=== PATIENT | male | born 1980 | race Caucasian/White ===

== ENCOUNTER 2020-02-14 08:50 | Inpatient (IN) | payer BC, OTHER ==
[2020-02-14] MEDS ORDERED: HYDROmorphone 1 MG/ML Syringe IVPUSH ONE ×3 (09:57→14:58)
[2020-02-14] MEDS ORDERED: Metoclopramide 10 MG/2 ML SDV IVPUSH ONE ×2 (09:57→14:59)
[2020-02-14] MEDS ORDERED: Dextrose 5%-0.9% NaCl 1,000 ML IV SCH (10:00)
--- NOTE | 2020-02-14 10:00 | EDM.PDOC ---
ED HPI GENERAL MEDICAL PROBLEM - General Chief Complaint: Abdominal Pain Stated Complaint: ABDOMINAL PAIN Time Seen by Provider: 02/14/20 09:56 Source of Information: Reports: Patient History Limitations: Reports: No Limitations - History of Present Illness INITIAL COMMENTS - FREE TEXT/NARRATIVE: 39-year-old male presents to the ED with acute onset of severe upper abdominal pain mostly in the epigastrium but spreads across both left and right upper quadrants and into his back as well. Feels it mostly between his shoulder blades. Patient has a history of pancreatitis at least twice in the past and perhaps 3 times. He does not drink any alcohol. First occurrence of pancreatitis was approximately 6 months ago. Last attack was about 2 months ago. He has seen Dr. Sanchez --[employer] senior sergeant [facility] in [place] and had an upper GI possibly with no positive findings. He has had a HIDA scan of his gallbladder which apparently is normal. He can remember having an ultrasound of his gallbladder. He takes no home medications that could cause pancreatitis. It is unclear whether he has been investigated for hypercalcemia and/or hypertriglyceridemia as a potential cause. Patient is having some dry heaves but has no vomiting. He did not eat at all this morning. Does use Pepcid AC fairly often. Onset: Today, Sudden Onset Date: 02/14/20 Onset Time: 06:00 Duration: Hour(s):, Getting Worse Location: Reports: Abdomen (Abdominal pain epigastrium radiating across both upper and left) Quality: Reports: Ache ( upper quadrants. Constant aching pain) Severity: Severe (which he describes as severe) Improves with: Reports: None Worsens with: Reports: None ( 9 out of 10) Context: Denies: Activity, Exercise, Lifting, Sick Contact, Trauma, Other Associated Symptoms: Reports: Nausea/Vomiting, Shortness of Breath, Weakness. Denies: Confusion, Rash, Seizure (Nausea without vomiting), Syncope (Cannot take a full deep breath as it makes the pain worse.) Treatments SHANK THREADER: Reports: Other (see below) (None.) Upper Abdominal Pain Score (Numeric/FACES): 8 - Related Data Allergies Allergy/AdvReac Type Severity Reaction Status Date / Time amoxicillin Allergy Hives Verified 01/18/19 12:23 Home Meds: Home Meds . [No Known Home Meds] 01/18/19 [History] Past Medical History Gastrointestinal History: Reports: Pancreatitis (First bout of pancreatitis was at age 11 years. He had a bout of pancreatitis while in [place] 6 months ago. Second bout of pancreatitis 3 weeks ago. Third bout again today.) Other Gastrointestinal History: Patient states that he was hospitalized at age 11 years of age for a bout of pancreatitis. He was hospitalized for a month and spent another month at home recovering after 20 pound weight loss. Etiology was never elucidated but likely was viral. - Infectious Disease History Infectious Disease History: Reports: Mononucleosis - Past Surgical History HEENT Surgical History: Reports: Adenoidectomy, Oral Surgery, Tonsillectomy GI Surgical History: Reports: Appendectomy Social & Family History - Tobacco Use Smoking Status *Q: Never Smoker - Caffeine Use Caffeine Use: Reports: Coffee - Recreational Drug Use Recreational Drug Use: No - Living Situation & Occupation Living situation: Reports: Occupation: Employed ED ROS GENERAL - Review of Systems Review Of Systems: See Below Constitutional: Reports: Weakness, Fatigue, Decreased Appetite. Denies: Fever, Chills, Malaise HEENT: Reports: No Symptoms Respiratory: Reports: No Symptoms Cardiovascular: Reports: No Symptoms Endocrine: Reports: No Symptoms GI/Abdominal: Reports: Abdominal Pain (Present illness) : Reports: No Symptoms Musculoskeletal: Reports: No Symptoms Skin: Reports: No Symptoms Neurological: Reports: No Symptoms Psychiatric: Reports: No Symptoms Hematologic/Lymphatic: Reports: No Symptoms Immunologic: Reports: No Symptoms ED EXAM, GI/ABD - Physical Exam Exam: See Below Exam Limited By: No Limitations General Appearance: Alert, WD/WN, Moderate Distress, Other (Temperature is 36.2 . Rate is 89. Respiratory is 20 with O2 sats of 99% room air. BP 136/94. And is writhing in pain on the bed at the time of exam.) Eyes: Bilateral: Normal Appearance (No scleral icterus no blepharal pallor.) Throat/Mouth: Normal Inspection, Normal Lips, Normal Oropharynx, Other Head: Atraumatic, Normocephalic (Is mildly dry and coated.) Neck: Normal Inspection, Supple, Non-Tender, Full Range of Motion. No: Lymphadenopathy (L) Respiratory/Chest: Lungs Clear, Normal Breath Sounds, No Accessory Muscle Use, Respiratory Distress (Mild tachypnea with some splinting due to deep breathing making the abdominal pain worse.). No: Decreased Breath Sounds, Crackles, Rales, Rhonchi, Wheezing Cardiovascular: Normal Peripheral Pulses, Regular Rate, Rhythm, No Edema, No Gallop, No Murmur, No Rub GI/Abdominal Exam: Soft, No Organomegaly, No Distention, Pelvis Stable, Tender (Tenderness in the epigastrium on deep palpation.), Abnormal Bowel Sounds (No bowel sounds present in all 4 quadrants by ileus). No: Normal Bowel Sounds, Distended (Male) Exam: No Hernia Back Exam: Normal Inspection, Full Range of Motion. No: CVA Tenderness (L), CVA Tenderness (R) Extremities: Normal Inspection, Normal Range of Motion, Non-Tender, No Pedal Edema Neurological: Alert, Oriented, CN II-XII Intact, Normal Cognition, Normal Gait Psychiatric: Normal Affect, Anxious, Other Skin Exam: Warm, Dry, Intact, Normal Color, No Rash EKG INTERPRETATION EKG Date: 02/14/20 Time: 10:11 Rhythm: NSR Rate (Beats/Min): 78 Brant: Normal P-Wave: Present QRS: Other (Waves V1 and V2. Consider old anteroseptal myocardial infarction however this is unlikely due to the patient's age.) ST-T: Other (T wave flattening aVL nonspecific finding) QT: Normal EKG Interpretation Comments: Abnormal ECG Course - Vital Signs Last Recorded V/S: Last Vital Signs Temp 36.2 C 02/14/20 13:00 Pulse 66 02/14/20 13:00 Resp 18 02/14/20 13:00 BP 125/84 02/14/20 13:00 Pulse Ox 100 02/14/20 13:00 - Orders/Labs/Meds Orders: Active Orders 24 hr Category Date Time Status EKG Documentation Completion [RC] STAT Care 02/14/20 09:59 Active Dextrose 5%-0.9% NaCl [Dextrose 5%-Normal Saline] 1,000 Med 02/14/20 10:00 Active ml IV ASDIRECTED Sodium Chloride 0.9% [Normal Saline] 100 ml Med 02/14/20 10:15 Active IV ASDIRECTED Sodium Chloride 0.9% [Saline Flush] Med 02/14/20 10:12 Active 10 ml FLUSH ONETIME PRN Medication Orders Dextrose/Sodium Chloride (Dextrose 5%-Normal Saline) 1,000 mls @ 150 mls/hr IV ASDIRECTED SHANICE Last Admin: 02/14/20 10:09 Dose: 150 mls/hr Documented by: BELKIS Sodium Chloride (Normal Saline) 100 mls @ 75 mls/hr IV ASDIRECTED SHANICE Last Admin: 02/14/20 10:31 Dose: 75 mls/hr Documented by: IVONNE Sodium Chloride (Saline Flush) 10 ml FLUSH ONETIME PRN PRN Reason: IV FLUSH Last Admin: 02/14/20 10:31 Dose: 10 ml Documented by: IVONNE Labs: Laboratory Tests 02/14/20 02/14/20 02/14/20 Range/Units 09:20 09:20 09:24 WBC 8.49 (4.23-9.07) K/mm3 RBC 6.18 H (4.63-6.08) M/mm3 Hgb 17.2 (13.7-17.5) gm/dl Hct 52.2 H (40.1-51.0) % MCV 84.5 (79.0-92.2) fl MCH 27.8 (25.7-32.2) pg MCHC 33.0 (32.2-35.5) g/dl RDW Std Deviation 46.0 H (35.1-43.9) fL Plt Count 174 (163-337) K/mm3 MPV 11.1 (9.4-12.3) fl Neutrophils % (Manual) 46 (40-60) % Band Neutrophils % 0 (0-10) % Lymphocytes % (Manual) 34 (20-40) % Atypical Lymphs % 0 % Monocytes % (Manual) 15 H (2-10) % Eosinophils % (Manual) 4 (0.8-7.0) % Basophils % (Manual) 1 (0.2-1.2) Toxic Granulation 1+ slight Platelet Estimate Adequate Plt Morphology Comment Normal RBC Morph Comment Normal Sodium 140 (136-145) mEq/L Potassium 3.8 (3.5-5.1) mEq/L Chloride 102 (98-107) mEq/L Carbon Dioxide 26 (21-32) mEq/L Anion Gap 15.8 H (5-15) BUN 12 (7-18) mg/dL Creatinine 1.2 (0.7-1.3) mg/dL Est Cr Clr Drug Dosing 92.51 mL/min Estimated GFR (MDRD) > 60 (>60) mL/min BUN/Creatinine Ratio 10.0 L (14-18) Glucose 92 (74-106) mg/dL Calcium 9.7 (8.5-10.1) mg/dL Magnesium 2.3 (1.8-2.4) mg/dl Total Bilirubin 0.7 (0.2-1.0) mg/dL AST 24 (15-37) U/L ALT 58 (16-63) U/L Alkaline Phosphatase 90 (46-116) U/L C-Reactive Protein 0.3 (<1.0) mg/dL Total Protein 8.8 H (6.4-8.2) g/dl Albumin 4.9 (3.4-5.0) g/dl Globulin 3.9 gm/dL Albumin/Globulin Ratio 1.3 (1-2) Triglycerides 127 (<150) mg/dL Cholesterol 216 H (<200) mg/dL LDL Cholesterol Direct 147 H* (<100) mg/dL HDL Cholesterol 41.0 (40-59) mg/dL Amylase 1840 H* (25-115) U/L Lipase 24016 H (73-393) U/L Urine Color (Yellow) Urine Appearance (Clear) Urine pH (5.0-8.0) Ur Specific [place] (1.005-1.030) Urine Protein (Negative) Urine Glucose (UA) (Negative) Urine Ketones (Negative) Urine Occult Blood (Negative) Urine Nitrite (Negative) Urine Bilirubin (Negative) Urine Urobilinogen (0.2-1.0) Ur Leukocyte Esterase (Negative) Ethyl Alcohol 0.00 (0.00) gm% COVID-19 (MANISHA) (NEGATIVE) 02/14/20 02/14/20 Range/Units 09:35 12:55 WBC (4.23-9.07) K/mm3 RBC (4.63-6.08) M/mm3 Hgb (13.7-17.5) gm/dl Hct (40.1-51.0) % MCV (79.0-92.2) fl MCH (25.7-32.2) pg MCHC (32.2-35.5) g/dl RDW Std Deviation (35.1-43.9) fL Plt Count (163-337) K/mm3 MPV (9.4-12.3) fl Neutrophils % (Manual) (40-60) % Band Neutrophils % (0-10) % Lymphocytes % (Manual) (20-40) % Atypical Lymphs % % Monocytes % (Manual) (2-10) % Eosinophils % (Manual) (0.8-7.0) % Basophils % (Manual) (0.2-1.2) Toxic Granulation Platelet Estimate Plt Morphology Comment RBC Morph Comment Sodium (136-145) mEq/L Potassium (3.5-5.1) mEq/L Chloride (98-107) mEq/L Carbon Dioxide (21-32) mEq/L Anion Gap (5-15) BUN (7-18) mg/dL Creatinine (0.7-1.3) mg/dL Est Cr Clr Drug Dosing mL/min Estimated GFR (MDRD) (>60) mL/min BUN/Creatinine Ratio (14-18) Glucose (74-106) mg/dL Calcium (8.5-10.1) mg/dL Magnesium (1.8-2.4) mg/dl Total Bilirubin (0.2-1.0) mg/dL AST (15-37) U/L ALT (16-63) U/L Alkaline Phosphatase (46-116) U/L C-Reactive Protein (<1.0) mg/dL Total Protein (6.4-8.2) g/dl Albumin (3.4-5.0) g/dl Globulin gm/dL Albumin/Globulin Ratio (1-2) Triglycerides (<150) mg/dL Cholesterol (<200) mg/dL LDL Cholesterol Direct (<100) mg/dL HDL Cholesterol (40-59) mg/dL Amylase (25-115) U/L Lipase (73-393) U/L Urine Color Light yellow (Yellow) Urine Appearance Clear (Clear) Urine pH 5.5 (5.0-8.0) Ur Specific [place] 1.015 (1.005-1.030) Urine Protein Negative (Negative) Urine Glucose (UA) Negative (Negative) Urine Ketones Negative (Negative) Urine Occult Blood Negative (Negative) Urine Nitrite Negative (Negative) Urine Bilirubin Negative (Negative) Urine Urobilinogen 0.2 (0.2-1.0) Ur Leukocyte Esterase Negative (Negative) Ethyl Alcohol (0.00) gm% COVID-19 (MANISHA) Negative (NEGATIVE) Meds: Medications Generic Name Dose Route Start Last Admin Trade Name Freq PRN Reason Stop Dose Admin Dextrose/Sodium Chloride 1,000 mls @ 150 mls/hr 02/14/20 10:00 02/14/20 10:09 Dextrose 5%-Normal Saline IV 150 mls/hr ASDIRECTED SHANICE Administration Sodium Chloride 100 mls @ 75 mls/hr 02/14/20 10:15 02/14/20 10:31 Normal Saline IV 75 mls/hr ASDIRECTED SHANICE Administration Sodium Chloride 10 ml 02/14/20 10:12 02/14/20 10:31 Saline Flush FLUSH 10 ml ONETIME PRN Administration IV FLUSH Discontinued Medications Generic Name Dose Route Start Last Admin Trade Name Freq PRN Reason Stop Dose Admin Hydromorphone HCl 1 mg 02/14/20 09:57 02/14/20 10:07 Dilaudid IVPUSH 02/14/20 09:58 1 mg ONETIME ONE Administration Hydromorphone HCl 1 mg 02/14/20 11:50 02/14/20 11:56 Dilaudid IVPUSH 02/14/20 11:51 1 mg ONETIME ONE Administration Hydromorphone HCl 1 mg 02/14/20 14:58 02/14/20 15:12 Dilaudid IVPUSH 02/14/20 14:59 1 mg ONETIME ONE Administration Iopamidol 100 ml 02/14/20 10:12 02/14/20 10:31 Isovue-370 (76%) IVPUSH 02/14/20 10:13 100 ml ONETIME ONE Administration Metoclopramide HCl 7.5 mg 02/14/20 09:57 02/14/20 10:05 Reglan IVPUSH 02/14/20 09:58 7.5 mg ONETIME ONE Administration Metoclopramide HCl 7.5 mg 02/14/20 14:59 02/14/20 15:10 Reglan IVPUSH 02/14/20 15:00 7.5 mg ONETIME ONE Administration - Radiology Interpretation Free Text/Narrative:: 39-year-old male presents to the ED with acute onset of severe epigastric abdominal pain rating across both upper quadrants and into his back. He has had 2 previous major bouts of pancreatitis in the last 6 months of unknown etiology. He feels this is similar to what he is experienced in the past with his pancreatitis. He has had some mild episodes at home that settle after a day or 2 of clear fluids. He does not drink any alcohol for the last 6 months since he was first diagnosed with a bout of pancreatitis. He was never a heavy alcohol user. Patient has been investigated with upper GI endoscopy with --[facility] enterologist in [place] with no positive findings. To my knowledge he did not have an ERCP. He has had a HIDA scan on his gallbladder recently which was reportedly normal. Patient is not sure about his calcium levels or triglyceride levels. He takes no medication to potentially be a cause of pancreatitis. Plan routine labs including an amylase and lipase. CT scan of the abdomen be done with IV contrast only. - Re-Assessments/Exams Free Text/Narrative Re-Assessment/Exam: 02/14/20 10:50: States the pain at present is under control. CT of the abdomen has been completed. It reveals mild fatty infiltration within the liver. Small hiatal hernia is noted spleen appears to be within normal limits. Adrenal glands show no nodules. Kidneys show symmetric contrast enhancement without hydronephrosis or mass. Gallbladder contains no calcified gallstones. Aorta shows no aneurysm. No retroperitoneal adenopathy or mesenteric abnormalities are seen. No pelvic mass or adenopathy is appreciated. Diffuse inflammatory change and fluid is seen around the pancreas compatible with pancreatitis. Findings have appeared as an interval change from previous exam. No fluid is seen within the pelvis at this time. Bone window settings were reviewed which shows endplate irregularity within the L5 vertebra which is felt to be degenerative in etiology. Rudimentary disc is noted and labeled at S1-2. Small fat-containing umbilical hernia noted. Findings are compatible with a severe pancreatitis. 02/14/20 11:20:Total white count is 8.49 the auto differential shows 46% neutrophils and 34% lymphocytes. Hemoglobin is 17.2 with hematocrit of 52.2 suggesting hemoconcentration. MCV is 84.5. Platelet count 174,000. Sodium is 140 with a potassium of 3.8. Chloride is 102 with a bicarb of 26. Anion gap is 15.8. BUN is 12 with a creatinine of 1.2. GFR is greater than 60. Glucose is 92 with a calcium of 9.7. Magnesium is 2.3. Liver function is normal. Alk phos days is 90 C-reactive protein 0.3. Total protein 8.8 with an albumin fraction of 4.9. Globulin 3.9. Triglycerides normal at 127 cholesterol elevated 216. LDL elevated 147. HDL 41.0. Amylase and lipase are being diluted because they are so high. Urinalysis shows no signs of infection. Blood alcohol is 0.00. Patient is once again having significant abdominal pain. Will repeat Dilaudid 1 mg IV. 02/14/20 12:31 Amylase is elevated at 1840. Lipase is elevated at 19,066. It appears he will require hospitalization. Currently our hospitals on diversion so his [facility] in [facility]. He will therefore remain in the ER until a bed becomes available. 02/14/20 12:49 ultrasound of the gallbladder and right upper quadrant has been completed. Pancreas is somewhat thickened. Liver shows fatty infiltration wit hout focal abnormality. Gallbladder contains no shadowing gallstones. No gallbladder wall thickening is seen. No biliary duct dilatation is seen. Right kidney shows no hydronephrosis or mass and has a length of 10 cm. Inferior vena cava is patent. Main portal vein shows normal hepatopetal flow. Small amount of fluid is seen within the right upper quadrant of the abdomen. 02/14/20 15:00: Patient is having more abdominal pain again secondary to pancreatitis. Will repeat Reglan 10 mg IV and Dilaudid 1 mg IV. Apparently a bed has become available for him on the med surgery floor and he will be transferred shortly. Departure - Departure Time of Disposition: 15:00 Disposition: Admitted As Inpatient 68 Condition: Fair Clinical Impression: Acute pancreatitis Qualifiers: Pancreatitis type: idiopathic Acute pancreatitis complication: no infection or necrosis Qualified Code(s): K85.00 - Idiopathic acute pancreatitis without necrosis or infection - Discharge Information *PRESCRIPTION DRUG MONITORING PROGRAM REVIEWED*: Not Applicable *COPY OF PRESCRIPTION DRUG MONITORING REPORT IN PATIENT SANAZ: Not Applicable Sepsis Event Note (ED) - Evaluation Sepsis Screening Result: No Definite Risk - Focused Exam Vital Signs: Vital Signs Temp Pulse Resp BP Pulse Ox 02/14/20 13:00 36.2 C 66 18 125/84 100 02/14/20 09:07 36.2 C 89 20 136/94 H 99 - My Orders Last 24 Hours: My Active Orders 02/14/20 09:59 EKG Documentation Completion [RC] STAT 02/14/20 10:00 Dextrose 5%-0.9% NaCl [Dextrose 5%-Normal Saline] 1,000 ml IV ASDIRECTED 02/14/20 10:12 Sodium Chloride 0.9% [Saline Flush] 10 ml FLUSH ONETIME PRN 02/14/20 10:15 Sodium Chloride 0.9% [Normal Saline] 100 ml IV ASDIRECTED - Assessment/Plan Last 24 Hours: My Active Orders 02/14/20 09:59 EKG Documentation Completion [RC] STAT 02/14/20 10:00 Dextrose 5%-0.9% NaCl [Dextrose 5%-Normal Saline] 1,000 ml IV ASDIRECTED 02/14/20 10:12 Sodium Chloride 0.9% [Saline Flush] 10 ml FLUSH ONETIME PRN 02/14/20 10:15 Sodium Chloride 0.9% [Normal Saline] 100 ml IV ASDIRECTED
[2020-02-14] MEDS ORDERED: Iopamidol 755 Mg/ML 100 ML Bottle IVPUSH ONE (10:12)
[2020-02-14] MEDS ORDERED: Sodium Chloride 0.9% 10 ML Syringe FLUSH PRN (10:12)
[2020-02-14] MEDS ORDERED: Sodium Chloride 0.9% 100 ML IV SCH (10:15)
--- NOTE | 2020-02-14 11:14 | CT ---
CT abdomen and pelvis Technique: Multiple axial sections were obtained from above the dome of the diaphragm inferiorly through the pubic symphysis. Intravenous contrast was utilized. No oral contrast has been given. Comparison: Prior CT abdomen and pelvis study of 08/12/19. Findings: Visualized lung bases show nothing acute. Mild fatty infiltration is seen within the liver. Small hiatal hernia is noted. Spleen appears within normal limits. Adrenal glands show no nodule. Kidneys show symmetric contrast enhancement without hydronephrosis or mass. Gallbladder contains no calcified gallstones. Aorta shows no aneurysm. No retroperitoneal adenopathy or mesenteric abnormalities are seen. No pelvic mass or adenopathy is appreciated. Diffuse inflammatory change and fluid is seen around the pancreas compatible with pancreatitis. Findings have appeared as an interval change from previous exam. No fluid is seen within the pelvis at this time. Bone window settings were reviewed which shows endplate irregularity within L5 which is felt to be degenerative in etiology. Rudimentary disc is noted and labeled as S1-2. Small fat-containing umbilical hernia is noted. Impression: 1. Findings compatible with fairly severe pancreatitis. 2. Other findings which are nonacute as described above. Diagnostic code #3 This report was dictated in MDT
--- NOTE | 2020-02-14 12:43 | US ---
Limited abdominal ultrasound: Multiple real-time images were obtained of the upper right abdomen. Comparison: Prior CT abdomen and pelvis exam of 02/14/20. Findings: Pancreas is somewhat thickened. Liver shows fatty infiltration without focal abnormality. Gallbladder contains no shadowing gallstones. No gallbladder wall thickening is seen. No biliary duct dilatation is seen. Right kidney shows no hydronephrosis or mass that has a length of 10.0 cm. Inferior vena cava is patent. Main portal vein shows normal hepatopedal flow. Small amount of fluid is seen with the upper right abdomen. Impression: 1. Thickened pancreas with small amount of fluid within the upper right abdomen. 2. No gallstones, gallbladder wall thickening or biliary duct dilatation. 3. Fatty infiltration within the liver. No additional abnormality is appreciated. Diagnostic code #3 This report was dictated in MDT
[2020-02-14] MEDS: HYDROmorphone 1 MG/ML Syringe IVPUSH PRN ×2 (17:04→20:23)
[2020-02-14] MEDS: Lactated Ringers 1,000 ML IV SCH ×2 (17:10→21:29)
--- NOTE | 2020-02-14 17:15 | PCM.HP.2 ---
H&P History of Present Illness - General Date of Service: 02/14/20 Admit Problem/Dx: Admission Diagnosis/Problem Admission Diagnosis/Problem Pancreatitis - History of Present Illness Initial Comments - Free Text/Narative: 39-year-old male with history of pancreatitis presents to the emergency department this morning after waking up with epigastric pain. Patient states that he was feeling well yesterday, eating rice, chicken, and steak last night, but woke up with mild epigastric pain. Since he has had a pancreatitis in the past he went to the emergency department and when in the emergency department his pain became severe. Patient denies any alcohol intake. Patient states his first episode when when he was 11 years of age. Most recently, his last episode was approximately 3 weeks ago that was brief and treated as an outpatient. In June of this year he had another severe case, the first case since he was 11 years of age, that occurred in [place] and he was hospitalized for 5 days. He was seen by gastroenterology recently at [facility] in [place] and had an upper GI done by Dr. Sanchez. Apparently there was no positive findings. He had a HIDA scan done couple of weeks ago which was also normal. Today in the emergency department he had a CT scan of his abdomen and an ultrasound. CT of abdomen and pelvis found mild fatty infiltration within the liver, diffuse inflammatory change and fluid seen around the pancreas compatible with fairly severe pancreatitis, no gallstones were seen. Ultrasound of the abdomen showed a thickened pancreas with small amount of fluid within the upper right abdomen. No gallstones, gallbladder wall thickening, or biliary duct dilatation. Fatty infiltration within the liver. Initial lab work: WBC 8.49, hemoglobin 17.2, platelet count 174, sodium 140, potassium 3.8, anion gap of 15.8, BUN 12, creatinine 1.2, calcium of 9.7, magnesium 2.3, triglycerides 127, amylase 1840, lipase 19,066, alcohol level 0.00. Patient was started on IV fluids and pain medication and admitted to the medical floor. Upper Abdominal Pain Score (Numeric/FACES): 8 - Related Data Allergies/Adverse Reactions: Allergies Allergy/AdvReac Type Severity Reaction Status Date / Time amoxicillin Allergy Hives Verified 01/18/19 12:23 Home Medications: Home Meds . [No Known Home Meds] 01/18/19 [History] Past Medical History Gastrointestinal History: Reports: Pancreatitis Other Gastrointestinal History: Patient states that he was hospitalized at age 11 years of age for a bout of pancreatitis. He was hospitalized for a month and spent another month at home recovering after 20 pound weight loss. Etiology was never elucidated but likely was viral. Genitourinary History: Reports: None Neurological History: Reports: Migraines - Infectious Disease History Infectious Disease History: Reports: Chicken Pox, Mononucleosis - Past Surgical History HEENT Surgical History: Reports: Adenoidectomy, Oral Surgery, Tonsillectomy GI Surgical History: Reports: Appendectomy Male Surgical History: Reports: Circumcision Social & Family History - Family History Family Medical History: Noncontributory - Tobacco Use Smoking Status *Q: Never Smoker Second Hand Smoke Exposure: No - Caffeine Use Caffeine Use: Reports: Coffee, Soda, Tea - Recreational Drug Use Recreational Drug Use: No - Living Situation & Occupation Living situation: Reports: Occupation: Employed H&P Review of Systems - Review of Systems: Review Of Systems: Comprehensive ROS is negative, except as noted in HPI. Exam - Exam Exam: See Below - Vital Signs Vital Signs: Last Vital Signs Temp 97.5 F 02/14/20 15:30 Pulse 58 L 02/14/20 15:30 Resp 16 02/14/20 15:30 BP 114/80 02/14/20 15:30 Pulse Ox 100 02/14/20 15:30 Weight: 84.005 kg - Exam General: Alert, Oriented, 4 HEENT: Conjunctiva Clear, Hearing Intact, Mucosa Moist & [place] Neck: Supple, Trachea Midline, 2 Lungs: Clear to Auscultation, Normal Respiratory Effort Cardiovascular: Regular Rate, Regular Rhythm GI/Abdominal Exam: Soft, No Organomegaly, No Distention, No Abnormal Bruit, Tender (Epigastric tenderness without guarding or rebound), Abnormal Bowel Sounds (Decreased) Back Exam: Normal Inspection Extremities: Normal Inspection, Normal Range of Motion, Non-Tender, No Pedal Edema, Normal Capillary Refill Peripheral Pulses: 2+: Posterior Tibial (L), Posterior Tibial (R), Dorsalis Pedis (L), Dorsalis Pedis (R) Skin: Warm, Dry, Intact Neuro Extensive - Mental Status: Alert, Oriented x3, Normal Mood/Affect, Normal Cognition, Memory Intact Psychiatric: Alert, Normal Affect, Normal Mood - Patient Data Lab Results Last 24 hrs: Laboratory Results - last 24 hr 02/14/20 02/14/20 02/14/20 Range/Units 09:20 09:20 09:24 WBC 8.49 (4.23-9.07) K/mm3 RBC 6.18 H (4.63-6.08) M/mm3 Hgb 17.2 (13.7-17.5) gm/dl Hct 52.2 H (40.1-51.0) % MCV 84.5 (79.0-92.2) fl MCH 27.8 (25.7-32.2) pg MCHC 33.0 (32.2-35.5) g/dl RDW Std Deviation 46.0 H (35.1-43.9) fL Plt Count 174 (163-337) K/mm3 MPV 11.1 (9.4-12.3) fl Neutrophils % (Manual) 46 (40-60) % Band Neutrophils % 0 (0-10) % Lymphocytes % (Manual) 34 (20-40) % Atypical Lymphs % 0 % Monocytes % (Manual) 15 H (2-10) % Eosinophils % (Manual) 4 (0.8-7.0) % Basophils % (Manual) 1 (0.2-1.2) Toxic Granulation 1+ slight Platelet Estimate Adequate Plt Morphology Comment Normal RBC Morph Comment Normal Sodium 140 (136-145) mEq/L Potassium 3.8 (3.5-5.1) mEq/L Chloride 102 (98-107) mEq/L Carbon Dioxide 26 (21-32) mEq/L Anion Gap 15.8 H (5-15) BUN 12 (7-18) mg/dL Creatinine 1.2 (0.7-1.3) mg/dL Est Cr Clr Drug Dosing 92.51 mL/min Estimated GFR (MDRD) > 60 (>60) mL/min BUN/Creatinine Ratio 10.0 L (14-18) Glucose 92 (74-106) mg/dL Calcium 9.7 (8.5-10.1) mg/dL Magnesium 2.3 (1.8-2.4) mg/dl Total Bilirubin 0.7 (0.2-1.0) mg/dL AST 24 (15-37) U/L ALT 58 (16-63) U/L Alkaline Phosphatase 90 (46-116) U/L C-Reactive Protein 0.3 (<1.0) mg/dL Total Protein 8.8 H (6.4-8.2) g/dl Albumin 4.9 (3.4-5.0) g/dl Globulin 3.9 gm/dL Albumin/Globulin Ratio 1.3 (1-2) Triglycerides 127 (<150) mg/dL Cholesterol 216 H (<200) mg/dL LDL Cholesterol Direct 147 H* (<100) mg/dL HDL Cholesterol 41.0 (40-59) mg/dL Amylase 1840 H* (25-115) U/L Lipase 01382 H (73-393) U/L Urine Color (Yellow) Urine Appearance (Clear) Urine pH (5.0-8.0) Ur Specific Walker (1.005-1.030) Urine Protein (Negative) Urine Glucose (UA) (Negative) Urine Ketones (Negative) Urine Occult Blood (Negative) Urine Nitrite (Negative) Urine Bilirubin (Negative) Urine Urobilinogen (0.2-1.0) Ur Leukocyte Esterase (Negative) Ethyl Alcohol 0.00 (0.00) gm% COVID-19 (MANISHA) (NEGATIVE) 02/14/20 02/14/20 Range/Units 09:35 12:55 WBC (4.23-9.07) K/mm3 RBC (4.63-6.08) M/mm3 Hgb (13.7-17.5) gm/dl Hct (40.1-51.0) % MCV (79.0-92.2) fl MCH (25.7-32.2) pg MCHC (32.2-35.5) g/dl RDW Std Deviation (35.1-43.9) fL Plt Count (163-337) K/mm3 MPV (9.4-12.3) fl Neutrophils % (Manual) (40-60) % Band Neutrophils % (0-10) % Lymphocytes % (Manual) (20-40) % Atypical Lymphs % % Monocytes % (Manual) (2-10) % Eosinophils % (Manual) (0.8-7.0) % Basophils % (Manual) (0.2-1.2) Toxic Granulation Platelet Estimate Plt Morphology Comment RBC Morph Comment Sodium (136-145) mEq/L Potassium (3.5-5.1) mEq/L Chloride (98-107) mEq/L Carbon Dioxide (21-32) mEq/L Anion Gap (5-15) BUN (7-18) mg/dL Creatinine (0.7-1.3) mg/dL Est Cr Clr Drug Dosing mL/min Estimated GFR (MDRD) (>60) mL/min BUN/Creatinine Ratio (14-18) Glucose (74-106) mg/dL Calcium (8.5-10.1) mg/dL Magnesium (1.8-2.4) mg/dl Total Bilirubin (0.2-1.0) mg/dL AST (15-37) U/L ALT (16-63) U/L Alkaline Phosphatase (46-116) U/L C-Reactive Protein (<1.0) mg/dL Total Protein (6.4-8.2) g/dl Albumin (3.4-5.0) g/dl Globulin gm/dL Albumin/Globulin Ratio (1-2) Triglycerides (<150) mg/dL Cholesterol (<200) mg/dL LDL Cholesterol Direct (<100) mg/dL HDL Cholesterol (40-59) mg/dL Amylase (25-115) U/L Lipase (73-393) U/L Urine Color Light yellow (Yellow) Urine Appearance Clear (Clear) Urine pH 5.5 (5.0-8.0) Ur Specific Walker 1.015 (1.005-1.030) Urine Protein Negative (Negative) Urine Glucose (UA) Negative (Negative) Urine Ketones Negative (Negative) Urine Occult Blood Negative (Negative) Urine Nitrite Negative (Negative) Urine Bilirubin Negative (Negative) Urine Urobilinogen 0.2 (0.2-1.0) Ur Leukocyte Esterase Negative (Negative) Ethyl Alcohol (0.00) gm% COVID-19 (MANISHA) Negative (NEGATIVE) Result Diagrams: 02/14/20 09:20 02/14/20 09:20 Sepsis Event Note - Evaluation Sepsis Screening Result: No Definite Risk - Focused Exam Vital Signs: Vital Signs Temp Temp Pulse Pulse Resp BP BP 02/14/20 15:30 97.5 F 58 L 16 114/80 02/14/20 15:20 97.6 F 78 16 113/87 02/14/20 13:00 97.2 F 66 18 125/84 02/14/20 09:07 97.2 F 89 20 136/94 H Pulse Ox 02/14/20 15:30 100 02/14/20 15:20 100 02/14/20 13:00 100 02/14/20 09:07 99 - Problem List (1) Acute pancreatitis SNOMED Code(s): 489507160 ICD Code: K85.90 - ACUTE PANCREATITIS WITHOUT NECROSIS OR INFECTION, UNSP Status: Acute Current Visit: Yes Qualifiers: Pancreatitis type: idiopathic Acute pancreatitis complication: no infection or necrosis Qualified Code(s): K85.00 - Idiopathic acute pancreatitis without necrosis or infection Problem List Initiated/Reviewed/Updated: Yes Orders Last 24hrs: Active Orders 24 hr Category Date Time Status Patient Status [ADT] Stat ADT 02/14/20 15:05 Active EKG Documentation Completion [RC] STAT Care 02/14/20 09:59 Active HYDROmorphone [Dilaudid] Med 02/14/20 16:00 Active 1 mg IVPUSH Q2H PRN Lactated Ringers [Ringers, Lactated] 1,000 ml Med 02/14/20 16:45 Active IV ASDIRECTED Medication Orders Hydromorphone HCl (Dilaudid) 1 mg IVPUSH Q2H PRN PRN Reason: Abdominal Pain Last Admin: 02/14/20 17:04 Dose: 1 mg Documented by: MARCELLE Lactated Ringer's (Ringers, Lactated) 1,000 mls @ 200 mls/hr IV ASDIRECTED SHANICE Last Admin: 02/14/20 17:10 Dose: 200 mls/hr Documented by: MRACELLE Assessment/Plan Comment:: Assessment Acute idiopathic pancreatitis * Abdominal pain started this morning without nausea, vomiting, or change in bowels * Lipase 19,066 * Normal white count at 8.49, triglycerides 127 and calcium 9.7 * Non-alcohol drinker * Recent ultrasound, HIDA scan, and upper endoscopy showing no biliary cause of pancreatitis. * CT of abdomen and pelvis found mild fatty infiltration within the liver, diffuse inflammatory change and fluid seen around the pancreas compatible with fairly severe pancreatitis, no gallstones were seen. Ultrasound of the abdomen showed a thickened pancreas with small amount of fluid within the upper right abdomen. No gallstones, gallbladder wall thickening, or biliary duct dilatation. Fatty infiltration within the liver. Plan * Admit to medical floor * 1 L bolus of LR then 200 mL/h * Early oral nutrition. * Dilaudid 1 mg daily 2 hours PRN pain * MRCP * If MRCP is negative he will likely need an endoscopic ultrasound. This will likely have to be done as an outpatient. * Patient is not on any medication and does not drink alcohol. * 30% of pancreatitis is idiopathic and a large percentage of those are likely genetic * Follow CBC, CMP, magnesium and get an HIV screen * VTE prophylaxis with Lovenox * CODE STATUS: Full code * Disposition admit to floor n.p.o. overnight and fluid resuscitation and pain management. - Mortality Measure Prognosis:: Good
[2020-02-14] MEDS ORDERED: Lactated Ringers 1,000 ML IV ONE (18:25)
[2020-02-15] MEDS: HYDROmorphone 1 MG/ML Syringe IVPUSH PRN ×4 (00:34→10:36)
[2020-02-15] MEDS: Lactated Ringers 1,000 ML IV SCH ×4 (02:18→18:52)
[2020-02-15] MEDS: Ondansetron 4 MG/2 ML SDV IV PRN ×2 (05:38→12:51)
[2020-02-15] MEDS ORDERED: Magnesium Sulfate/Water 4 GM in Premix Bag 1 BAG IV ONE (07:44)
[2020-02-15] MEDS: Enoxaparin 40 MG/0.4 ML Syringe SUBCUT SCH (08:13)
[2020-02-15] MEDS ORDERED: Scopolamine 1.5 MG Transdermal Patch TRDERM PRN (08:31)
[2020-02-15] MEDS ORDERED: Metoclopramide 10 MG/2 ML SDV IVPUSH PRN (08:32)
--- NOTE | 2020-02-15 08:33 | PCM.PN ---
- General Info Date of Service: 02/15/20 Admission Dx/Problem (Free Text): Admission Diagnosis/Problem Admission Diagnosis/Problem Pancreatitis Functional Status: Reports: Pain Controlled (Improved today ), Ambulating, Urinating. Denies: Tolerating Diet (NPO), New Symptoms - Review of Systems General: Reports: No Symptoms. Denies: Fever, Weakness, Fatigue, Malaise, Chills HEENT: Reports: No Symptoms. Denies: Headaches, Sore Throat Pulmonary: Reports: No Symptoms. Denies: Shortness of Breath, Pleuritic Chest Pain, Cough, Sputum, Wheezing Cardiovascular: Reports: No Symptoms. Denies: Chest Pain, Palpitations, Edema Gastrointestinal: Reports: Abdominal Pain (Epigastric and LUQ - improved ), Decreased Appetite, Nausea (stable ). Denies: Constipation, Diarrhea, Vomiting Genitourinary: Reports: No Symptoms. Denies: Pain Musculoskeletal: Reports: No Symptoms Skin: Reports: No Symptoms. Denies: Cyanosis Neurological: Reports: No Symptoms. Denies: Confusion, Difficulty Walking, Gait Disturbance Psychiatric: Reports: No Symptoms - Patient Data Vitals - Most Recent: Last Vital Signs Temp 97.5 F 02/14/20 15:30 Pulse 91 02/15/20 02:26 Resp 18 02/15/20 02:26 BP 120/78 02/15/20 02:26 Pulse Ox 94 L 02/15/20 02:26 Weight - Most Recent: 190 lb 4.8 oz I&O - Last 24 Hours: Intake & Output 02/14/20 02/15/20 02/15/20 22:59 06:59 14:59 Intake Total 2719 Output Total 400 Balance 2319 Lab Results Last 24 Hours: Laboratory Results - last 24 hr 02/14/20 02/14/20 02/14/20 Range/Units 09:20 09:20 09:24 WBC 8.49 (4.23-9.07) K/mm3 RBC 6.18 H (4.63-6.08) M/mm3 Hgb 17.2 (13.7-17.5) gm/dl Hct 52.2 H (40.1-51.0) % MCV 84.5 (79.0-92.2) fl MCH 27.8 (25.7-32.2) pg MCHC 33.0 (32.2-35.5) g/dl RDW Std Deviation 46.0 H (35.1-43.9) fL Plt Count 174 (163-337) K/mm3 MPV 11.1 (9.4-12.3) fl Neut % (Auto) (34.0-67.9) % Lymph % (Auto) (21.8-53.1) % [place] % (Auto) (5.3-12.2) % Eos % (Auto) (0.8-7.0) Baso % (Auto) (0.1-1.2) % Neut # (Auto) (1.78-5.38) K/mm3 Lymph # (Auto) (1.32-3.57) K/mm3 [place] # (Auto) (0.30-0.82) K/mm3 Eos # (Auto) (0.04-0.54) K/mm3 Baso # (Auto) (0.01-0.08) K/mm3 Neutrophils % (Manual) 46 (40-60) % Band Neutrophils % 0 (0-10) % Lymphocytes % (Manual) 34 (20-40) % Atypical Lymphs % 0 % Monocytes % (Manual) 15 H (2-10) % Eosinophils % (Manual) 4 (0.8-7.0) % Basophils % (Manual) 1 (0.2-1.2) Toxic Granulation 1+ slight Platelet Estimate Adequate Plt Morphology Comment Normal RBC Morph Comment Normal Sodium 140 (136-145) mEq/L Potassium 3.8 (3.5-5.1) mEq/L Chloride 102 (98-107) mEq/L Carbon Dioxide 26 (21-32) mEq/L Anion Gap 15.8 H (5-15) BUN 12 (7-18) mg/dL Creatinine 1.2 (0.7-1.3) mg/dL Est Cr Clr Drug Dosing 92.51 mL/min Estimated GFR (MDRD) > 60 (>60) mL/min BUN/Creatinine Ratio 10.0 L (14-18) Glucose 92 (74-106) mg/dL Calcium 9.7 (8.5-10.1) mg/dL Magnesium 2.3 (1.8-2.4) mg/dl Total Bilirubin 0.7 (0.2-1.0) mg/dL AST 24 (15-37) U/L ALT 58 (16-63) U/L Alkaline Phosphatase 90 (46-116) U/L C-Reactive Protein 0.3 (<1.0) mg/dL Total Protein 8.8 H (6.4-8.2) g/dl Albumin 4.9 (3.4-5.0) g/dl Globulin 3.9 gm/dL Albumin/Globulin Ratio 1.3 (1-2) Triglycerides 127 (<150) mg/dL Cholesterol 216 H (<200) mg/dL LDL Cholesterol Direct 147 H* (<100) mg/dL HDL Cholesterol 41.0 (40-59) mg/dL Amylase 1840 H* (25-115) U/L Lipase 53267 H (73-393) U/L Urine Color (Yellow) Urine Appearance (Clear) Urine pH (5.0-8.0) Ur Specific [place] (1.005-1.030) Urine Protein (Negative) Urine Glucose (UA) (Negative) Urine Ketones (Negative) Urine Occult Blood (Negative) Urine Nitrite (Negative) Urine Bilirubin (Negative) Urine Urobilinogen (0.2-1.0) Ur Leukocyte Esterase (Negative) Ethyl Alcohol 0.00 (0.00) gm% COVID-19 ([facility]) (NEGATIVE) HIV-1 Ab Rapid Screen (NEGATIVE) 02/14/20 02/14/20 02/14/20 Range/Units 09:35 12:55 18:25 WBC (4.23-9.07) K/mm3 RBC (4.63-6.08) M/mm3 Hgb (13.7-17.5) gm/dl Hct (40.1-51.0) % MCV (79.0-92.2) fl MCH (25.7-32.2) pg MCHC (32.2-35.5) g/dl RDW Std Deviation (35.1-43.9) fL Plt Count (163-337) K/mm3 MPV (9.4-12.3) fl Neut % (Auto) (34.0-67.9) % Lymph % (Auto) (21.8-53.1) % [place] % (Auto) (5.3-12.2) % Eos % (Auto) (0.8-7.0) Baso % (Auto) (0.1-1.2) % Neut # (Auto) (1.78-5.38) K/mm3 Lymph # (Auto) (1.32-3.57) K/mm3 [place] # (Auto) (0.30-0.82) K/mm3 Eos # (Auto) (0.04-0.54) K/mm3 Baso # (Auto) (0.01-0.08) K/mm3 Neutrophils % (Manual) (40-60) % Band Neutrophils % (0-10) % Lymphocytes % (Manual) (20-40) % Atypical Lymphs % % Monocytes % (Manual) (2-10) % Eosinophils % (Manual) (0.8-7.0) % Basophils % (Manual) (0.2-1.2) Toxic Granulation Platelet Estimate Plt Morphology Comment RBC Morph Comment Sodium (136-145) mEq/L Potassium (3.5-5.1) mEq/L Chloride (98-107) mEq/L Carbon Dioxide (21-32) mEq/L Anion Gap (5-15) BUN (7-18) mg/dL Creatinine (0.7-1.3) mg/dL Est Cr Clr Drug Dosing mL/min Estimated GFR (MDRD) (>60) mL/min BUN/Creatinine Ratio (14-18) Glucose (74-106) mg/dL Calcium (8.5-10.1) mg/dL Magnesium (1.8-2.4) mg/dl Total Bilirubin (0.2-1.0) mg/dL AST (15-37) U/L ALT (16-63) U/L Alkaline Phosphatase (46-116) U/L C-Reactive Protein (<1.0) mg/dL Total Protein (6.4-8.2) g/dl Albumin (3.4-5.0) g/dl Globulin gm/dL Albumin/Globulin Ratio (1-2) Triglycerides (<150) mg/dL Cholesterol (<200) mg/dL LDL Cholesterol Direct (<100) mg/dL HDL Cholesterol (40-59) mg/dL Amylase (25-115) U/L Lipase (73-393) U/L Urine Color Light yellow (Yellow) Urine Appearance Clear (Clear) Urine pH 5.5 (5.0-8.0) Ur Specific [place] 1.015 (1.005-1.030) Urine Protein Negative (Negative) Urine Glucose (UA) Negative (Negative) Urine Ketones Negative (Negative) Urine Occult Blood Negative (Negative) Urine Nitrite Negative (Negative) Urine Bilirubin Negative (Negative) Urine Urobilinogen 0.2 (0.2-1.0) Ur Leukocyte Esterase Negative (Negative) Ethyl Alcohol (0.00) gm% COVID-19 (MANISHA) Negative (NEGATIVE) HIV-1 Ab Rapid Screen Negative (NEGATIVE) 02/15/20 02/15/20 Range/Units 05:52 05:52 WBC 9.91 H (4.23-9.07) K/mm3 RBC 5.31 (4.63-6.08) M/mm3 Hgb 14.8 D (13.7-17.5) gm/dl Hct 45.4 (40.1-51.0) % MCV 85.5 (79.0-92.2) fl MCH 27.9 (25.7-32.2) pg MCHC 32.6 (32.2-35.5) g/dl RDW Std Deviation 46.3 H (35.1-43.9) fL Plt Count 141 L (163-337) K/mm3 MPV 11.4 (9.4-12.3) fl Neut % (Auto) 65.9 (34.0-67.9) % Lymph % (Auto) 18.1 L (21.8-53.1) % [place] % (Auto) 14.1 H (5.3-12.2) % Eos % (Auto) 1.4 (0.8-7.0) Baso % (Auto) 0.2 (0.1-1.2) % Neut # (Auto) 6.53 H (1.78-5.38) K/mm3 Lymph # (Auto) 1.79 (1.32-3.57) K/mm3 [place] # (Auto) 1.40 H (0.30-0.82) K/mm3 Eos # (Auto) 0.14 (0.04-0.54) K/mm3 Baso # (Auto) 0.02 (0.01-0.08) K/mm3 Neutrophils % (Manual) (40-60) % Band Neutrophils % (0-10) % Lymphocytes % (Manual) (20-40) % Atypical Lymphs % % Monocytes % (Manual) (2-10) % Eosinophils % (Manual) (0.8-7.0) % Basophils % (Manual) (0.2-1.2) Toxic Granulation Platelet Estimate Plt Morphology Comment RBC Morph Comment Sodium 136 (136-145) mEq/L Potassium 3.5 (3.5-5.1) mEq/L Chloride 102 (98-107) mEq/L Carbon Dioxide 25 (21-32) mEq/L Anion Gap 12.5 (5-15) BUN 8 (7-18) mg/dL Creatinine 0.9 (0.7-1.3) mg/dL Est Cr Clr Drug Dosing 123.35 mL/min Estimated GFR (MDRD) > 60 (>60) mL/min BUN/Creatinine Ratio 8.9 L (14-18) Glucose 90 (74-106) mg/dL Calcium (8.5-10.1) mg/dL Magnesium 1.6 L (1.8-2.4) mg/dl Total Bilirubin 0.7 (0.2-1.0) mg/dL AST 14 L (15-37) U/L ALT 34 (16-63) U/L Alkaline Phosphatase 67 (46-116) U/L C-Reactive Protein (<1.0) mg/dL Total Protein 6.4 (6.4-8.2) g/dl Albumin 3.5 (3.4-5.0) g/dl Globulin 2.9 gm/dL Albumin/Globulin Ratio 1.2 (1-2) Triglycerides (<150) mg/dL Cholesterol (<200) mg/dL LDL Cholesterol Direct (<100) mg/dL HDL Cholesterol (40-59) mg/dL Amylase (25-115) U/L Lipase (73-393) U/L Urine Color (Yellow) Urine Appearance (Clear) Urine pH (5.0-8.0) Ur Specific [place] (1.005-1.030) Urine Protein (Negative) Urine Glucose (UA) (Negative) Urine Ketones (Negative) Urine Occult Blood (Negative) Urine Nitrite (Negative) Urine Bilirubin (Negative) Urine Urobilinogen (0.2-1.0) Ur Leukocyte Esterase (Negative) Ethyl Alcohol (0.00) gm% COVID-19 (MANISHA) (NEGATIVE) HIV-1 Ab Rapid Screen (NEGATIVE) Med Orders - Current: Current Medications Acetaminophen (Tylenol) 650 mg PO Q4H PRN PRN Reason: Pain (Mild 1-3)/fever Enoxaparin Sodium (Lovenox) 40 mg SUBCUT DAILY [facility] Last Admin: 02/15/20 08:13 Dose: 40 mg Documented by: Hydromorphone HCl (Dilaudid) 1 mg IVPUSH Q2H PRN PRN Reason: Abdominal Pain Last Admin: 02/15/20 05:39 Dose: 1 mg Documented by: Lactated Ringer's (Ringers, Lactated) 1,000 mls @ 200 mls/hr IV ASDIRECTED [facility] Last Admin: 02/15/20 07:25 Dose: 200 mls/hr Documented by: Magnesium Sulfate 4 gm/ Premix 50 mls @ 12.5 mls/hr IV ONETIME ONE Stop: 02/15/20 11:43 Last Admin: 02/15/20 08:09 Dose: 12.5 mls/hr Documented by: Metoclopramide HCl (Reglan) 10 mg IVPUSH Q6H PRN PRN Reason: Nausea/Vomiting Ondansetron HCl (Zofran) 4 mg IV Q4H PRN PRN Reason: Nausea/Vomiting Last Admin: 02/15/20 05:38 Dose: 4 mg Documented by: Scopolamine (Transderm-Scop) 1.5 mg TRDERM Q72H [facility] Discontinued Medications Hydromorphone HCl (Dilaudid) 1 mg IVPUSH ONETIME ONE Stop: 02/14/20 09:58 Last Admin: 02/14/20 10:07 Dose: 1 mg Documented by: Hydromorphone HCl (Dilaudid) 1 mg IVPUSH ONETIME ONE Stop: 02/14/20 11:51 Last Admin: 02/14/20 11:56 Dose: 1 mg Documented by: Hydromorphone HCl (Dilaudid) 1 mg IVPUSH ONETIME ONE Stop: 02/14/20 14:59 Last Admin: 02/14/20 15:12 Dose: 1 mg Documented by: Dextrose/Sodium Chloride (Dextrose 5%-Normal Saline) 1,000 mls @ 150 mls/hr IV ASDIRECTED [facility] Last Admin: 02/14/20 10:09 Dose: 150 mls/hr Documented by: Sodium Chloride (Normal Saline) 100 mls @ 75 mls/hr IV ASDIRECTED [facility] Last Admin: 02/14/20 10:31 Dose: 75 mls/hr Documented by: Lactated Ringer's (Ringers, Lactated) 1,000 mls @ 999 mls/hr IV .BOLUS ONE Stop: 02/14/20 19:25 Last Admin: 02/14/20 20:24 Dose: 999 mls/hr Documented by: Iopamidol (Isovue-370 (76%)) 100 ml IVPUSH ONETIME ONE Stop: 02/14/20 10:13 Last Admin: 02/14/20 10:31 Dose: 100 ml Documented by: Metoclopramide HCl (Reglan) 7.5 mg IVPUSH ONETIME ONE Stop: 02/14/20 09:58 Last Admin: 02/14/20 10:05 Dose: 7.5 mg Documented by: Metoclopramide HCl (Reglan) 7.5 mg IVPUSH ONETIME ONE Stop: 02/14/20 15:00 Last Admin: 02/14/20 15:10 Dose: 7.5 mg Documented by: Scopolamine (Transderm-Scop) 1.5 mg TRDERM Q72H PRN PRN Reason: Nausea Sodium Chloride (Saline Flush) 10 ml FLUSH ONETIME PRN PRN Reason: IV FLUSH Last Admin: 02/14/20 10:31 Dose: 10 ml Documented by: - Exam Quality Assessment: DVT Prophylaxis General: Alert, Oriented, Cooperative, No Acute Distress HEENT: Pupils Equal, Pupils Reactive, Mucous Membr. Moist/[place] Neck: Supple, Trachea Midline Lungs: Clear to Auscultation, Normal Respiratory Effort Cardiovascular: Regular Rate, Regular Rhythm GI/Abdominal Exam: Soft, No Distention, Tender (Mild epigastirc and LUQ pain on deep palpation - improved over yesterday ). No: Normal Bowel Sounds (Hyperactive ) (Male) Exam: Deferred Back Exam: Normal Inspection, Full Range of Motion Extremities: Normal Inspection, Normal Range of Motion, Non-Tender, No Pedal Edema, Normal Capillary Refill Skin: Warm, Dry, Intact Neurological: No New Focal Deficit Psy/Mental Status: Alert, Normal Affect, Normal Mood Sepsis Event Note - Evaluation Sepsis Screening Result: No Definite Risk - Focused Exam Vital Signs: Vital Signs Pulse Resp BP Pulse Ox 02/15/20 02:26 91 18 120/78 94 L - Problem List & Annotations (1) Acute pancreatitis SNOMED Code(s): 813331066 Code(s): K85.90 - ACUTE PANCREATITIS WITHOUT NECROSIS OR INFECTION, UNSP Status: Acute Current Visit: Yes Qualifiers: Pancreatitis type: idiopathic Acute pancreatitis complication: no infection or necrosis Qualified Code(s): K85.00 - Idiopathic acute pancreatitis without necrosis or infection (2) Hyperlipidemia SNOMED Code(s): 38340963 Code(s): E78.5 - HYPERLIPIDEMIA, UNSPECIFIED Status: Acute Priority: Medium Current Visit: Yes Qualifiers: Hyperlipidemia type: unspecified Qualified Code(s): E78.5 - Hyperlipidemia, unspecified (3) Migraines SNOMED Code(s): 61299084 Code(s): G43.909 - MIGRAINE, UNSP, NOT INTRACTABLE, WITHOUT STATUS MIGRAINOSUS Status: Chronic Priority: Low Current Visit: No Qualifiers: Migraine type: unspecified Status migrainosus presence: without status migrainosus Intractability: not intractable Qualified Code(s): G43.909 - Migraine, unspecified, not intractable, without status migrainosus (4) Nausea SNOMED Code(s): 198320549 Code(s): R11.0 - NAUSEA Status: Acute Priority: Medium Current Visit: Yes - Problem List Review Problem List Initiated/Reviewed/Updated: Yes - My Orders Last 24 Hours: My Active Orders 02/15/20 08:30 Abdomen w Cont [MR] Routine 02/15/20 08:32 Metoclopramide [Reglan] 10 mg IVPUSH Q6H PRN 02/15/20 08:45 Scopolamine [Transderm-Scop] 1.5 mg TRDERM Q72H - Assessment Assessment:: 02/14/2020 Acute idiopathic pancreatitis * Abdominal pain started this morning without nausea, vomiting, or change in bowels * Lipase 19,066 * Normal white count at 8.49, triglycerides 127 and calcium 9.7 * Non-alcohol drinker * Recent ultrasound, HIDA scan, and upper endoscopy showing no biliary cause of pancreatitis. * CT of abdomen and pelvis found mild fatty infiltration within the liver, diffuse inflammatory change and fluid seen around the pancreas compatible with fairly severe pancreatitis, no gallstones were seen. Ultrasound of the abdomen showed a thickened pancreas with small amount of fluid within the upper right abdomen. No gallstones, gallbladder wall thickening, or biliary duct dilatation. Fatty infiltration within the liver. 02/15/2020 * Improved abdominal pain * Continued nausea but improved overall * Reports he still feels somewhat dry * MRCP shows mildly dilated CBD, pancreatitis * Continued NPO * Magnesium 1.6 * HIV screen negative - Plan Plan:: 02/14/2020 Plan * Admit to medical floor * 1 L bolus of LR then 200 mL/h * Early oral nutrition. * Dilaudid 1 mg daily 2 hours PRN pain * MRCP * If MRCP is negative he will likely need an endoscopic ultrasound. This will likely have to be done as an outpatient. * Patient is not on any medication and does not drink alcohol. * 30% of pancreatitis is idiopathic and a large percentage of those are likely genetic * Follow CBC, CMP, magnesium and get an HIV screen * VTE prophylaxis with Lovenox * CODE STATUS: Full code * Disposition admit to floor n.p.o. overnight and fluid resuscitation and pain management. 02/15/2020 * Continued IV fluids * [employer] consult * Start PRN PO pain medications * Consider diet advancement tomorrow if able * Scopolamine patch and PRN Phenergan for nausea * Supplement magnesium * [employer] consult for elevated LDL, Frequent pancreatitis * Ambulate
[2020-02-15] MEDS ORDERED: Scopolamine 1.5 MG Transdermal Patch TRDERM SCH ×2 (09:00)
--- NOTE | 2020-02-15 11:19 | CR ---
Skull: 2 views of the skull were obtained. Study was centered to the orbits. Comparison: No prior skull study. Visualized paranasal sinuses are clear. Surrounding bony structures appear intact. No radiopaque foreign object is seen. Impression: 1. Nothing is seen to contraindicate scheduled MRI. Diagnostic code #1 This report was dictated in MDT
[2020-02-15] MEDS ORDERED: Sodium Chloride 0.9% 10 ML Syringe FLUSH SCH (11:30)
[2020-02-15] MEDS ORDERED: Gadobenate Dimeglumine 529 MG/ML 20 ML SDV IVPUSH ONE (11:30)
--- NOTE | 2020-02-15 12:48 | MR ---
MRI abdomen (without and with intravenous contrast) Technique: Coronal and axial images were obtained of the abdomen. Study obtained without and with intravenous contrast. MRCP study also obtained. Findings: Pancreatic duct is somewhat dilated. CHD and CBD show no dilatation. No filling defects are seen to indicate stone within the CBD or CHD. Mild areas of atelectasis seen within both lung bases. No areas of abnormal enhancement seen within the pancreas. Kidneys show symmetric contrast enhancement. Liver shows no abnormal enhancing lesions. Spleen appears normal. Diffuse fluid around the pancreas as well as fluid being seen anterior to the kidneys and extending into the paracolic gutter. Nonenhancing inflammatory change is seen around the pancreas. Impression: 1. Findings compatible with pancreatitis. No decreased enhancement to indicate pancreatic necrosis is seen at this time. 2. Pancreatic duct is mildly dilated. CBD and CHD appear normal. Diagnostic code #3 This report was dictated in MDT
[2020-02-15] MEDS: oxyCODONE 5 MG Tab PO PRN (18:10)
[2020-02-16] MEDS: Lactated Ringers 1,000 ML IV SCH ×3 (00:06→10:30)
[2020-02-16] MEDS: oxyCODONE 5 MG Tab PO PRN ×3 (01:04→20:33)
[2020-02-16] MEDS: Acetaminophen 325 MG Tab PO PRN ×3 (01:05→22:03)
[2020-02-16] MEDS: Enoxaparin 40 MG/0.4 ML Syringe SUBCUT SCH (08:10)
[2020-02-16] MEDS ORDERED: Magnesium Sulfate/Water 4 GM in Premix Bag 1 BAG IV ONE (10:31)
--- NOTE | 2020-02-16 11:38 | PCM.PN ---
- General Info Date of Service: 02/16/20 Admission Dx/Problem (Free Text): Admission Diagnosis/Problem Admission Diagnosis/Problem Pancreatitis Functional Status: Reports: Pain Controlled, Tolerating Diet, Ambulating, Urinating. Denies: New Symptoms - Review of Systems General: Reports: No Symptoms. Denies: Fever, Weakness, Fatigue, Malaise, Chills HEENT: Reports: No Symptoms. Denies: Headaches, Sore Throat Pulmonary: Reports: No Symptoms. Denies: Shortness of Breath, Cough, Sputum, Wheezing Cardiovascular: Reports: No Symptoms. Denies: Chest Pain, Palpitations, Dyspnea on Exertion, Edema Gastrointestinal: Reports: Abdominal Pain (Epigastric and LUQ - improved ), Diarrhea. Denies: Constipation, Nausea, Vomiting Genitourinary: Reports: No Symptoms. Denies: Pain Musculoskeletal: Reports: No Symptoms Skin: Reports: No Symptoms. Denies: Cyanosis Neurological: Reports: No Symptoms. Denies: Confusion, Difficulty Walking, Gait Disturbance Psychiatric: Reports: No Symptoms - Patient Data Vitals - Most Recent: Last Vital Signs Temp 98.1 F 02/16/20 07:32 Pulse 60 02/16/20 07:32 Resp 16 02/16/20 07:32 BP 103/54 L 02/16/20 07:32 Pulse Ox 95 02/16/20 07:32 Weight - Most Recent: 189 lb 3.2 oz I&O - Last 24 Hours: Intake & Output 02/15/20 02/16/20 02/16/20 22:59 06:59 14:59 Intake Total 2205 2762 Output Total 2225 1200 Balance -20 1562 Lab Results Last 24 Hours: Laboratory Results - last 24 hr 02/15/20 02/16/20 Range/Units 05:52 06:01 Sodium 138 (136-145) mEq/L Potassium 3.8 (3.5-5.1) mEq/L Chloride 104 (98-107) mEq/L Carbon Dioxide 28 (21-32) mEq/L Anion Gap 9.8 (5-15) BUN 8 (7-18) mg/dL Creatinine 1.0 (0.7-1.3) mg/dL Est Cr Clr Drug Dosing 111.01 mL/min Estimated GFR (MDRD) > 60 (>60) mL/min BUN/Creatinine Ratio 8.0 L (14-18) Glucose 73 L (74-106) mg/dL Calcium 8.5 8.4 L (8.5-10.1) mg/dL Magnesium 1.1 L (1.8-2.4) mg/dl Med Orders - Current: Current Medications Acetaminophen (Tylenol) 650 mg PO Q4H PRN PRN Reason: Pain (Mild 1-3)/fever Last Admin: 02/16/20 01:05 Dose: 650 mg Documented by: Enoxaparin Sodium (Lovenox) 40 mg SUBCUT DAILY [facility] Last Admin: 02/16/20 08:10 Dose: 40 mg Documented by: Hydromorphone HCl (Dilaudid) 1 mg IVPUSH Q2H PRN PRN Reason: Abdominal Pain Last Admin: 02/15/20 10:36 Dose: 1 mg Documented by: Lactated Ringer's (Ringers, Lactated) 1,000 mls @ 200 mls/hr IV ASDIRECTED [facility] Last Admin: 02/16/20 10:30 Dose: 200 mls/hr Documented by: Magnesium Sulfate 4 gm/ Premix 50 mls @ 12.5 mls/hr IV ONETIME ONE Stop: 02/16/20 14:30 Last Admin: 02/16/20 10:52 Dose: 12.5 mls/hr Documented by: Metoclopramide HCl (Reglan) 10 mg IVPUSH Q6H PRN PRN Reason: Nausea/Vomiting Last Admin: 02/15/20 10:30 Dose: 10 mg Documented by: Miscellaneous Information (Remove Patch) 1 ea TRDERM Q72H [facility] Ondansetron HCl (Zofran) 4 mg IV Q4H PRN PRN Reason: Nausea/Vomiting Last Admin: 02/15/20 12:51 Dose: 4 mg Documented by: Oxycodone HCl (Oxycodone) 10 mg PO Q6H PRN PRN Reason: Moderate pain Last Admin: 02/16/20 01:04 Dose: 10 mg Documented by: Scopolamine (Transderm-Scop) 1.5 mg TRDERM Q72H [facility] Last Admin: 02/15/20 09:15 Dose: 1.5 mg Documented by: Discontinued Medications Gadobenate Dimeglumine (Multihance) 17 ml IVPUSH ONETIME ONE Stop: 08/25/20 11:31 Last Admin: 02/15/20 12:26 Dose: 17 ml Documented by: Hydromorphone HCl (Dilaudid) 1 mg IVPUSH ONETIME ONE Stop: 02/14/20 09:58 Last Admin: 02/14/20 10:07 Dose: 1 mg Documented by: Hydromorphone HCl (Dilaudid) 1 mg IVPUSH ONETIME ONE Stop: 02/14/20 11:51 Last Admin: 02/14/20 11:56 Dose: 1 mg Documented by: Hydromorphone HCl (Dilaudid) 1 mg IVPUSH ONETIME ONE Stop: 02/14/20 14:59 Last Admin: 02/14/20 15:12 Dose: 1 mg Documented by: Dextrose/Sodium Chloride (Dextrose 5%-Normal Saline) 1,000 mls [facility] Last Admin: 02/14/20 10:09 Dose: 150 mls/hr Documented by: Sodium Chloride (Normal Saline) 100 mls @ 75 [facility]ls[facility] Last Admin: 02/14/20 10:31 Dose: 75 mls/hr Documented by: Lactated Ringer's (Ringers, Lactated) 1,000 mls @ 999 mls/hr IV .BOLUS ONE Stop: 02/14/20 19:25 Last Admin: 02/14/20 20:24 Dose: 999 mls/hr Documented by: Magnesium Sulfate 4 gm/ Premix 50 mls @ 12.5 mls/hr IV ONETIME ONE Stop: 02/15/20 11:43 Last Admin: 02/15/20 08:09 Dose: 12.5 mls/hr Documented by: Iopamidol (Isovue-370 (76%)) 100 ml IVPUSH ONETIME ONE Stop: 02/14/20 10:13 Last Admin: 02/14/20 10:31 Dose: 100 ml Documented by: Metoclopramide HCl (Reglan) 7.5 mg IVPUSH ONETIME ONE Stop: 02/14/20 09:58 Last Admin: 02/14/20 10:05 Dose: 7.5 mg Documented by: Metoclopramide HCl (Reglan) 7.5 mg IVPUSH ONETIME ONE Stop: 02/14/20 15:00 Last Admin: 02/14/20 15:10 Dose: 7.5 mg Documented by: Scopolamine (Transderm-Scop) 1.5 mg TRDERM Q72H PRN PRN Reason: Nausea Sodium Chloride (Saline Flush) 10 ml FLUSH ONETIME PRN PRN Reason: IV FLUSH Last Admin: 02/14/20 10:31 Dose: 10 ml Documented by: Sodium Chloride (Saline Flush) 20 ml FLUSH ASDIRECTED [facility] Stop: 02/15/20 15:00 Last Admin: 02/15/20 12:26 Dose: 20 ml Documented by: - Exam Quality Assessment: DVT Prophylaxis General: Alert, Oriented, Cooperative, No Acute Distress HEENT: Pupils Equal, Pupils Reactive, Mucous Membr. Moist/[place] Neck: Supple, Trachea Midline Lungs: Clear to Auscultation, Normal Respiratory Effort Cardiovascular: Regular Rate, Regular Rhythm GI/Abdominal Exam: Normal Bowel Sounds, Soft, No Distention, Tender (Mild epigastric and LUQ tenderness to deep palpation ) (Male) Exam: Deferred Back Exam: Normal Inspection, Full Range of Motion Extremities: Normal Inspection, Normal Range of Motion, Non-Tender, No Pedal Edema, Normal Capillary Refill Skin: Warm, Dry, Intact Neurological: No New Focal Deficit Psy/Mental Status: Alert, Normal Affect, Normal Mood Sepsis Event Note - Evaluation Sepsis Screening Result: No Definite Risk - Focused Exam Vital Signs: Vital Signs Temp Pulse Resp BP Pulse Ox 02/16/20 07:32 98.1 F 60 16 103/54 L 95 02/16/20 05:26 98.1 F 50 L 18 99/49 L 94 L 02/16/20 00:09 70 103/69 94 L 02/16/20 00:08 98.4 F 66 16 98/57 L 94 L - Problem List & Annotations (1) Acute pancreatitis SNOMED Code(s): 340018462 Code(s): K85.90 - ACUTE PANCREATITIS WITHOUT NECROSIS OR INFECTION, UNSP Status: Acute Current Visit: Yes Qualifiers: Pancreatitis type: idiopathic Acute pancreatitis complication: no infection or necrosis Qualified Code(s): K85.00 - Idiopathic acute pancreatitis without necrosis or infection (2) Hyperlipidemia SNOMED Code(s): 64839931 Code(s): E78.5 - HYPERLIPIDEMIA, UNSPECIFIED Status: Acute Priority: Medium Current Visit: Yes Qualifiers: Hyperlipidemia type: unspecified Qualified Code(s): E78.5 - Hyperlipidemia, unspecified (3) Migraines SNOMED Code(s): 13364869 Code(s): G43.909 - MIGRAINE, UNSP, NOT INTRACTABLE, WITHOUT STATUS MIGRAINOSUS Status: Chronic Priority: Low Current Visit: No Qualifiers: Migraine type: unspecified Status migrainosus presence: without status migrainosus Intractability: not intractable Qualified Code(s): G43.909 - Migraine, unspecified, not intractable, without status migrainosus (4) Nausea SNOMED Code(s): 503791825 Code(s): R11.0 - NAUSEA Status: Acute Priority: Medium Current Visit: Yes - Problem List Review Problem List Initiated/Reviewed/Updated: Yes - My Orders Last 24 Hours: My Active Orders 02/15/20 13:41 oxyCODONE 10 mg PO Q6H PRN 02/15/20 13:43 Ambulate [RC] ASDIRECTED 02/16/20 10:31 Magnesium Sulfate/Water [Magnesium Sulfate in Water Premix] 4 gm Premix Bag 1 bag IV ONETIME 02/16/20 Lunch Full Liquid Diet [DIET] 02/17/20 05:11 BASIC METABOLIC PANEL,BMP [CHEM] AM MAGNESIUM [CHEM] AM 02/18/20 05:11 BASIC METABOLIC PANEL,BMP [CHEM] AM MAGNESIUM [CHEM] AM 02/18/20 09:00 Remove Patch 1 ea TRDERM Q72H 02/19/20 05:11 BASIC METABOLIC PANEL,BMP [CHEM] AM MAGNESIUM [CHEM] AM - Assessment Assessment:: 02/14/2020 Acute idiopathic pancreatitis * Abdominal pain started this morning without nausea, vomiting, or change in bowels * Lipase 19,066 * Normal white count at 8.49, triglycerides 127 and calcium 9.7 * Non-alcohol drinker * Recent ultrasound, HIDA scan, and upper endoscopy showing no biliary cause of pancreatitis. * CT of abdomen and pelvis found mild fatty infiltration within the liver, diffuse inflammatory change and fluid seen around the pancreas compatible with fairly severe pancreatitis, no gallstones were seen. Ultrasound of the abdomen showed a thickened pancreas with small amount of fluid within the upper right abdomen. No gallstones, gallbladder wall thickening, or biliary duct dilatation. Fatty infiltration within the liver. 02/15/2020 * Improved abdominal pain * Continued nausea but improved overall * Reports he still feels somewhat dry * MRCP shows mildly dilated CBD, pancreatitis * Continued NPO * Magnesium 1.6 * HIV screen negative 02/16/2020 * Pain improved over yesterday * Nausea resolved * Tolerated clear liquid diet for breakfast and clear liquid diet for lunch * Magnesium 1.1 * Reports he feels pretty good - PO pain medications are working better than IV Dilaudid - Plan Plan:: 02/14/2020 Plan * Admit to medical floor * 1 L bolus of LR then 200 mL/h * Early oral nutrition. * Dilaudid 1 mg daily 2 hours PRN pain * MRCP * If MRCP is negative he will likely need an endoscopic ultrasound. This will likely have to be done as an outpatient. * Patient is not on any medication and does not drink alcohol. * 30% of pancreatitis is idiopathic and a large percentage of those are likely genetic * Follow CBC, CMP, magnesium and get an HIV screen * VTE prophylaxis with Lovenox * CODE STATUS: Full code * Disposition admit to floor n.p.o. overnight and fluid resuscitation and pain management. 02/15/2020 * Continued IV fluids * Senior Ios Developer consult * Start PRN PO pain medications * Consider diet advancement tomorrow if able * Scopolamine patch and PRN Phenergan for nausea * Supplement magnesium * Senior Ios Developer consult for elevated LDL, Frequent pancreatitis * Ambulate 02/16/2020 * Discontinued IV fluids this afternoon after magnesium completed * Advance diet as tolerated * Supplement magnesium * Continue to ambulate * Likely discharge 02/17/2020 with continued improvement * Will need follow-up with PCP and GI after discharge
[2020-02-17] MEDS: oxyCODONE 5 MG Tab PO PRN (03:22)
[2020-02-17] MEDS: Acetaminophen 325 MG Tab PO PRN (03:23)
--- NOTE | 2020-02-17 08:09 | PCM.DCSUM1 ---
Discharge Summary - Hospital Course HPI Initial Comments: 39-year-old male with history of pancreatitis presents to the emergency department this morning after waking up with epigastric pain. Patient states that he was feeling well yesterday, eating rice, chicken, and steak last night, but woke up with mild epigastric pain. Since he has had a pancreatitis in the past he went to the emergency department and when in the emergency department his pain became severe. Patient denies any alcohol intake. Patient states his first episode when when he was 11 years of age. Most recently, his last episode was approximately 3 weeks ago that was brief and treated as an outpatient. In June of this year he had another severe case, the first case since he was 11 years of age, that occurred in [place] and he was hospitalized for 5 days. He was seen by gastroenterology recently at [facility] in [place] and had an upper GI done by Dr. Sanchez. Apparently there was no positive findings. He had a HIDA scan done couple of weeks ago which was also normal. Today in the emergency department he had a CT scan of his abdomen and an ultrasound. CT of abdomen and pelvis found mild fatty infiltration within the liver, diffuse inflammatory change and fluid seen around the pancreas compatible with fairly severe pancreatitis, no gallstones were seen. Ultrasound of the abdomen showed a thickened pancreas with small amount of fluid within the upper right abdomen. No gallstones, gallbladder wall thickening, or biliary duct dilatation. Fatty infiltration within the liver. Initial lab work: WBC 8.49, hemoglobin 17.2, platelet count 174, sodium 140, potassium 3.8, anion gap of 15.8, BUN 12, creatinine 1.2, calcium of 9.7, magnesium 2.3, triglycerides 127, amylase 1840, lipase 19,066, alcohol level 0.00. Patient was started on IV fluids and pain medication and admitted to the medical floor. Diagnosis: Stroke: No - Discharge Data Discharge Date: 02/17/20 (Admit date: 02/14/20) Discharge Disposition: Home, Self-Care 01 Condition: Good - Referral to Home Health Primary Care Physician: Ko Mata PA-C - Discharge Diagnosis/Problem(s) (1) Acute pancreatitis SNOMED Code(s): 611660052 ICD Code: K85.90 - ACUTE PANCREATITIS WITHOUT NECROSIS OR INFECTION, UNSP Status: Acute Current Visit: Yes Qualifiers: Pancreatitis type: idiopathic Acute pancreatitis complication: no infection or necrosis Qualified Code(s): K85.00 - Idiopathic acute pancreatitis without necrosis or infection (2) Hyperlipidemia SNOMED Code(s): 34357198 ICD Code: E78.5 - HYPERLIPIDEMIA, UNSPECIFIED Status: Acute Priority: Medium Current Visit: Yes Qualifiers: Hyperlipidemia type: unspecified Qualified Code(s): E78.5 - Hyperlipidemia, unspecified (3) Migraines SNOMED Code(s): 82129438 ICD Code: G43.909 - MIGRAINE, UNSP, NOT INTRACTABLE, WITHOUT STATUS MIGRAINOSUS Status: Chronic Priority: Low Current Visit: No Qualifiers: Migraine type: unspecified Status migrainosus presence: without status migrainosus Intractability: not intractable Qualified Code(s): G43.909 - Migraine, unspecified, not intractable, without status migrainosus (4) Nausea SNOMED Code(s): 667855620 ICD Code: R11.0 - NAUSEA Status: Resolved Priority: Medium Current Visit: Yes - Patient Summary/Data Consults: Consultations 02/14/20 18:04 Consult to Green Marketing Analyst [CONS] Routine Labs Pending at D/C: None Recommended Follow-up Testing/Procedures: Follow-up with PCP within 7-10 days of discharge. Recommend follow-up with GI for endoscopic ultrasound Recommend follow-up for genetic counseling as there appears to be a familial component to patients symptoms Hospital Course: Raghu was admitted to the hospital floor due to pancreatitis. Per the patient report he has had several bouts of this in the past with his most recent being a very minor episode 3 weeks prior. He was able to manage this episode at home. He reports a more severe episode several years ago while in [place] that included 5 days of hospitalization. On admission lipase was noted to be 19,000. Patient was placed on n.p.o. status and IV fluids were given. Abdominal ultrasound and abdominal CT were obtained and showed pancreatitis with fatty infiltration within the liver. No gallstones, gallbladder wall thickening, or duct dilation were seen. Pancreatitis was noted to be fairly severe. Patient's pain was initially treated with Dilaudid although patient reported nausea with this. He was then switched to p.o. oxycodone and did very well. Pain has mostly resolved with mild pain to deep palpation of epigastric area. Diet has been advanced to regular without issues. Patient did see our dietitian who recommended very small meals throughout the course of the day and minimal fat and fiber intake. She recommended he start a multivitamin. Was given education on this. We are recommending an endoscopic ultrasound after discharge outpatient. To the best of our knowledge this is only available in [place] via a GI specialist. We are also recommending genetic counseling as he reports several family members had issues with gallbladder disease and this may be a possible cause to his symptoms. Triglycerides were normal however his LDL was elevated. Dietitian did address this as well. HDL was within normal limits. He denies any alcohol intake. And as noted prior, no stones or gallbladder issues were noted on exam. Due to this, cause appears to be idiopathic. His magnesium was low and was supplemented, largely in part to no oral intake. Prior to discharge electrolytes looked good. Recommend he follow-up with his primary care provider within 7 to 10 days of discharge, sooner if needed. He was provided 10 mg oxycodone prescription for severe pain. Patient was advised not to operate machinery or drive while on this medication and that it may make him quite sleepy. He was advised to only take this medication for moderate to severe pain. He was advised to return the emergency room or contact his primary care provider should symptoms return or worsen. He was discharged home today. - Patient Instructions Diet, Other: Smaller meals with low fat and fiber. Activity: As Tolerated Driving: Do Not Drive (While taking oxycodone) Showering/Bathing: May Shower Notify Provider of: Fever, Increased Pain, Nausea and/or Vomiting Other/Special Instructions: Follow-up with primary care provider within 7-10 days of discharge, sooner if need. As we discussed, we recommend an endoscopic ultrasound outpatient. To the best of our knowledge, this is only performed in [place] by a GI specialist. We recommend genetic testing outpatient as there appears to be a familial link to your symptoms. Take it easy on the diet. Green Marketing Analyst is recommending low fiber, low fat and several smaller meals throughout the day as opposed to 3 large ones. We have included some education on this with your discharge. You were prescribed an opiate for pain. Take this as needed for more severe pain. Be aware this can make you sleepy and affect your ability to drive or operate machinery. You may contact our supervisor labor gang at [phone] if needed further. Should symptoms return or worsen contact your primary care provider or return to the Emergency Department. - Discharge Plan *PRESCRIPTION DRUG MONITORING PROGRAM REVIEWED*: Not Applicable *COPY OF PRESCRIPTION DRUG MONITORING REPORT IN PATIENT SANAZ: Not Applicable Prescriptions/Med Rec: oxyCODONE 10 mg PO Q6H PRN #20 tablet PRN Reason: Moderate pain Home Medications: Home Meds oxyCODONE 10 mg PO Q6H PRN #20 tablet 02/17/20 [Rx] Oxygen Therapy Mode: Room Air Patient Handouts: Preventing High Cholesterol, Acute Pancreatitis, [id number], Pancreatitis Eating Plan Forms: ED Department Discharge Referrals: Ko Mata PA-C [Primary Care Provider] - - Discharge Summary/Plan Comment DC Time >30 min.: Yes (45 mins ) - General Info Date of Service: 02/17/20 Admission Dx/Problem (Free Text: Admission Diagnosis/Problem Admission Diagnosis/Problem Pancreatitis Functional Status: Reports: Pain Controlled, Tolerating Diet, Ambulating, Urinating. Denies: New Symptoms - Review of Systems General: Reports: No Symptoms. Denies: Fever, Weakness, Fatigue, Malaise, Chills HEENT: Reports: No Symptoms. Denies: Headaches, Sore Throat Pulmonary: Reports: No Symptoms. Denies: Shortness of Breath, Pleuritic Chest Pain, Cough, Sputum, Wheezing Cardiovascular: Reports: No Symptoms. Denies: Chest Pain, Palpitations Gastrointestinal: Reports: Abdominal Pain (Very mild ). Denies: Constipation, Decreased Appetite, Diarrhea, Nausea, Vomiting Genitourinary: Reports: No Symptoms. Denies: Pain Musculoskeletal: Reports: No Symptoms Skin: Reports: No Symptoms. Denies: Cyanosis Neurological: Reports: No Symptoms. Denies: Confusion, Pre-Existing Deficit, Difficulty Walking, Gait Disturbance Psychiatric: Reports: No Symptoms - Patient Data Vitals - Most Recent: Last Vital Signs Temp 97.9 F 02/17/20 03:26 Pulse 50 L 02/17/20 03:26 Resp 17 02/17/20 03:26 BP 101/58 L 02/17/20 03:26 Pulse Ox 95 02/17/20 03:26 Weight - Most Recent: 187 lb I&O - Last 24 hours: Intake & Output 02/16/20 02/17/20 02/17/20 22:59 06:59 14:59 Intake Total 2883 1700 Output Total 500 Balance 2383 1700 Lab Results - Last 24 hrs: Laboratory Results - last 24 hr 02/17/20 Range/Units 04:45 Sodium 140 (136-145) mEq/L Potassium 3.7 (3.5-5.1) mEq/L Chloride 106 (98-107) mEq/L Carbon Dioxide 26 (21-32) mEq/L Anion Gap 11.7 (5-15) BUN 5 L (7-18) mg/dL Creatinine 0.9 (0.7-1.3) mg/dL Est Cr Clr Drug Dosing 123.35 mL/min Estimated GFR (MDRD) > 60 (>60) mL/min BUN/Creatinine Ratio 5.6 L (14-18) Glucose 92 (74-106) mg/dL Calcium 8.5 (8.5-10.1) mg/dL Magnesium 2.0 (1.8-2.4) mg/dl Med Orders - Current: Current Medications Acetaminophen (Tylenol) 650 mg PO Q4H PRN PRN Reason: Pain (Mild 1-3)/fever Last Admin: 02/17/20 03:23 Dose: 650 mg Documented by: Enoxaparin Sodium (Lovenox) 40 mg SUBCUT DAILY [facility] Last Admin: 02/16/20 08:10 Dose: 40 mg Documented by: Hydromorphone HCl (Dilaudid) 1 mg IVPUSH Q2H PRN PRN Reason: Abdominal Pain Last Admin: 02/15/20 10:36 Dose: 1 mg Documented by: Metoclopramide HCl (Reglan) 10 mg IVPUSH Q6H PRN PRN Reason: Nausea/Vomiting Last Admin: 02/15/20 10:30 Dose: 10 mg Documented by: Miscellaneous Information (Remove Patch) 1 ea TRDERM Q72H [facility] Ondansetron HCl (Zofran) 4 mg IV Q4H PRN PRN Reason: Nausea/Vomiting Last Admin: 02/15/20 12:51 Dose: 4 mg Documented by: Oxycodone HCl (Oxycodone) 10 mg PO Q6H PRN PRN Reason: Moderate pain Last Admin: 02/17/20 03:22 Dose: 10 mg Documented by: Scopolamine (Transderm-Scop) 1.5 mg TRDERM Q72H [facility] Last Admin: 02/15/20 09:15 Dose: 1.5 mg Documented by: Discontinued Medications Gadobenate Dimeglumine (Multihance) 17 ml IVPUSH ONETIME ONE Stop: 02/15/20 11:31 Last Admin: 02/15/20 12:26 Dose: 17 ml Documented by: Hydromorphone HCl (Dilaudid) 1 mg IVPUSH ONETIME ONE Stop: 02/14/20 09:58 Last Admin: 02/14/20 10:07 Dose: 1 mg Documented by: Hydromorphone HCl (Dilaudid) 1 mg IVPUSH ONETIME ONE Stop: 02/14/20 11:51 Last Admin: 02/14/20 11:56 Dose: 1 mg Documented by: Hydromorphone HCl (Dilaudid) 1 mg IVPUSH ONETIME ONE Stop: 02/14/20 14:59 Last Admin: 02/14/20 15:12 Dose: 1 mg Documented by: Dextrose/Sodium Chloride (Dextrose 5%-Normal Saline) 1,000 mls @ 150 mls[facility]hr [facility] Last Admin: 02/14/20 10:09 Dose: 150 mls/hr Documented by: Sodium Chloride (Normal Saline) 100 mls @ 75 mls/hr [facility] Last Admin: 02/14/20 10:31 Dose: 75 mls/hr Documented by: Lactated Ringer's (Ringers, Lactated) 1,000 mls @ 200 mls[facility]hr [facility] Last Admin: 02/16/20 10:30 Dose: 200 mls/hr Documented by: Lactated Ringer's (Ringers, Lactated) 1,000 mls @ 999 mls/hr IV .BOLUS ONE Stop: 02/14/20 19:25 Last Admin: 02/14/20 20:24 Dose: 999 mls/hr Documented by: Magnesium Sulfate 4 gm/ Premix 50 mls @ 12.5 mls/hr IV ONETIME ONE Stop: 02/15/20 11:43 Last Admin: 02/15/20 08:09 Dose: 12.5 mls/hr Documented by: Magnesium Sulfate 4 gm/ Premix 50 mls @ 12.5 mls/hr IV ONETIME ONE Stop: 02/16/20 14:30 Last Admin: 02/16/20 10:52 Dose: 12.5 mls/hr Documented by: Iopamidol (Isovue-370 (76%)) 100 ml IVPUSH ONETIME ONE Stop: 02/14/20 10:13 Last Admin: 02/14/20 10:31 Dose: 100 ml Documented by: Metoclopramide HCl (Reglan) 7.5 mg IVPUSH ONETIME ONE Stop: 02/14/20 09:58 Last Admin: 02/14/20 10:05 Dose: 7.5 mg Documented by: Metoclopramide HCl (Reglan) 7.5 mg IVPUSH ONETIME ONE Stop: 02/14/20 15:00 Last Admin: 02/14/20 15:10 Dose: 7.5 mg Documented by: Scopolamine (Transderm-Scop) 1.5 mg TRDERM Q72H PRN PRN Reason: Nausea Sodium Chloride (Saline Flush) 10 ml FLUSH ONETIME PRN PRN Reason: IV FLUSH Last Admin: 02/14/20 10:31 Dose: 10 ml Documented by: Sodium Chloride (Saline Flush) 20 ml FLUSH ASDIRECTED SHANICE Stop: 02/15/20 15:00 Last Admin: 02/15/20 12:26 Dose: 20 ml Documented by: - Exam Quality Assessment: Reports: DVT Prophylaxis General: Reports: Alert, Oriented, Cooperative, No Acute Distress HEENT: Reports: Pupils Equal, Pupils Reactive, Mucous Membr. Moist/[place] Neck: Reports: Supple, Trachea Midline Lungs: Reports: Clear to Auscultation, Normal Respiratory Effort Cardiovascular: Reports: Regular Rate, Regular Rhythm GI/Abdominal Exam: Normal Bowel Sounds, Soft, No Distention, Tender (Very mild epigastric tenderness - much improved over yesterday ). No: Guarding, Rebound (Male) Exam: Deferred Rectal (Males) Exam: Deferred Back Exam: Reports: Normal Inspection, Full Range of Motion Extremities: Normal Inspection, Normal Range of Motion, Non-Tender, No Pedal Edema, Normal Capillary Refill Skin: Reports: Warm, Dry, Intact Neurological: Reports: No New Focal Deficit Psy/Mental Status: Reports: Alert, Normal Affect, Normal Mood
[2020-02-17 08:34] VITALS: BP 112/78; PULSE 62
[2020-02-17] MEDS: Enoxaparin 40 MG/0.4 ML Syringe SUBCUT SCH (08:43)
== END 2020-02-17 10:38 | disposition home or self-care (01) | DRG 282 ==
LOC: JD.ED 08:50 → JD.MS 15:05
PROVIDERS: ADMIT Family Medicine; ATTEND Family Medicine
DX: K85.00 Idiopathic acute pancreatitis without necrosis or infection (principal); E78.5 Hyperlipidemia, unspecified; G43.909 Migraine, unspecified, not intractable, without status migrainosus; K76.0 Fatty (change of) liver, not elsewhere classified; Z88.0 Allergy status to penicillin; Z90.49 Acquired absence of other specified parts of digestive tract; Z20.828 Contact with and (suspected) exposure to other viral communicable diseases
CPT/HCPCS: 36415; 70250; 70250-26; 74177; 74177-26; 74183; 74183-26; 76705; 76705-26; 80048; 80053; 80307; 81003; 82150; 82465; 83690; 83718; 83721; 83735; 84478; 85007; 85025; 85027; 86140; 93005; 93010; 96361; 96374; 96375; 96376; 99285; 99285-25; A9270-GY; A9577; G0433; J1170; J1650; J2405; J2765; J3475; J7042; J7050; J7120; Q9967; U0002

== ENCOUNTER 2020-03-03 21:04 | Observation (INO) | payer BC ==
--- NOTE | 2020-03-03 21:38 | EDM.PDOC ---
ED HPI GENERAL MEDICAL PROBLEM - General Chief Complaint: Abdominal Pain Stated Complaint: ABDOMINAL PAIN Time Seen by Provider: 03/03/20 21:09 Source of Information: Reports: Patient History Limitations: Reports: No Limitations - History of Present Illness INITIAL COMMENTS - FREE TEXT/NARRATIVE: Is a 39-year-old male. He has a history of acute pancreatitis on multiple occasions in his lifetime. His first episode was when he was 11 years old and he was in the hospital for approximately a month. His second episode was in July 2019. Third episode was in December 2019 and his fourth episode was January 2020. In January (02/14/20) he was hospitalized here for 5 days and had a lipase of 19,000 and amylase of 1800. Calcium was 9.7 triglycerides were 127 at that time. He has had an upper GI but no EGD by Dr. Daniel brennan Sheldon in [place]. Had a HIDA scan he has had multiple ultrasounds of the gallbladder that have been normal. He has been home recovering eating very carefully. He takes maybe 5 to 10 mg of Percocet a day at most. He has been having some on and off pain mildly through the day and then around 5 PM had marked increased pain and has taken a total of 20 mg of oxycodone for this pain. He has had no nausea and vomiting. He says his pain is fairly well-controlled now and he does not want any more pain medication. He is very concerned about this marked increase in pain so he comes to the ER for evaluation. His pain is centered over the right upper quadrant gallbladder and head of the pancreas. He denies any fever or chills. He has been having normal bowel movements though when he takes his oxycodone he gets a little constipated at times. Upper Abdomen Pain Score (Numeric/FACES): 5 - Related Data Allergies Allergy/AdvReac Type Severity Reaction Status Date / Time amoxicillin Allergy Severe Hives Verified 03/04/20 02:52 Home Meds: Home Meds oxyCODONE 10 mg PO Q6H PRN #20 tablet 02/17/20 [Rx] Past Medical History Gastrointestinal History: Reports: Pancreatitis Other Gastrointestinal History: Patient states that he was hospitalized at age 11 years of age for a bout of pancreatitis. He was hospitalized for a month and spent another month at home recovering after 20 pound weight loss. Etiology was never elucidated but likely was viral. Genitourinary History: Reports: None Neurological History: Reports: Migraines - Infectious Disease History Infectious Disease History: Reports: Mononucleosis - Past Surgical History HEENT Surgical History: Reports: Adenoidectomy, Oral Surgery, Tonsillectomy GI Surgical History: Reports: Appendectomy Male Surgical History: Reports: Circumcision Social & Family History - Family History Family Medical History: Noncontributory - Tobacco Use Smoking Status *Q: Never Smoker - Caffeine Use Caffeine Use: Reports: Coffee - Recreational Drug Use Recreational Drug Use: No - Living Situation & Occupation Living situation: Reports: Occupation: Employed ED ROS GENERAL - Review of Systems Review Of Systems: See Below Constitutional: Denies: Fever, Chills HEENT: Reports: No Symptoms Respiratory: Denies: Shortness of Breath, Cough Cardiovascular: Reports: No Symptoms Endocrine: Reports: No Symptoms GI/Abdominal: Reports: Abdominal Pain, Constipation. Denies: Diarrhea, Nausea, Vomiting : Reports: No Symptoms Musculoskeletal: Reports: No Symptoms Skin: Reports: No Symptoms Neurological: Reports: No Symptoms Psychiatric: Reports: No Symptoms Hematologic/Lymphatic: Reports: No Symptoms ED EXAM, GI/ABD - Physical Exam Exam: See Below Exam Limited By: No Limitations General Appearance: Alert, WD/WN, Mild Distress Eyes: Bilateral: Normal Appearance Ears: Normal External Exam Throat/Mouth: Normal Voice, No Airway Compromise Head: Normocephalic Neck: Supple, Non-Tender Respiratory/Chest: No Respiratory Distress, Lungs Clear, Normal Breath Sounds Cardiovascular: Regular Rate, Rhythm, No Murmur GI/Abdominal Exam: Soft, No Distention, Other (Bowel sounds are decreased in all 4 quadrants. He is tender in the right upper quadrant but there is no guarding. There is no rebound. He has some mild soreness in the left upper quadrant but his lower quadrants do not appear to be tender.) Back Exam: Full Range of Motion Extremities: Normal Inspection, Normal Range of Motion Neurological: Alert, Oriented Psychiatric: Normal Affect, Normal Mood Skin Exam: Warm, Dry Course - Vital Signs Last Recorded V/S: Last Vital Signs Temp 98.7 F 03/03/20 21:21 Pulse 87 03/03/20 21:21 Resp 20 03/03/20 21:21 BP 127/91 H 03/03/20 21:21 Pulse Ox 97 03/03/20 21:21 - Orders/Labs/Meds Orders: Active Orders 24 hr Category Date Time Status Abdomen Ltd [US] Stat Exams 03/04/20 12:00 Taken Abdomen Pelvis w Cont [CT] Stat Exams 03/04/20 01:23 Taken Sodium Chloride 0.9% [Normal Saline] 1,000 ml Med 03/03/20 21:45 Active IV ASDIRECTED Medication Orders Hydromorphone HCl (Dilaudid) 0.25 mg IVPUSH Q4H PRN PRN Reason: severe pain. Sodium Chloride (Normal Saline) 1,000 mls @ 1,000 mls/hr IV ASDIRECTED [facility] Last Admin: 03/03/20 21:51 Dose: 1,000 mls/hr Documented by: AYAH Lactated Ringer's (Ringers, Lactated) 1,000 mls @ 100 mls/hr IV ASDIRECTED [facility] Ketorolac Tromethamine (Toradol) 30 mg IVPUSH Q6H PRN PRN Reason: Pain Morphine Sulfate (Morphine) 2 mg IVPUSH Q4H PRN PRN Reason: moderate pain Ondansetron HCl (Zofran) 4 mg IVPUSH Q4H PRN PRN Reason: Nausea Labs: Laboratory Tests 03/03/20 03/03/20 03/04/20 Range/Units 21:50 21:50 01:45 WBC 9.97 H (4.23-9.07) K/mm3 RBC 5.09 (4.63-6.08) M/mm3 Hgb 14.3 D (13.7-17.5) gm/dl Hct 43.5 (40.1-51.0) % MCV 85.5 (79.0-92.2) fl MCH 28.1 (25.7-32.2) pg MCHC 32.9 (32.2-35.5) g/dl RDW Std Deviation 43.9 (35.1-43.9) fL Plt Count 195 (163-337) K/mm3 MPV 11.1 (9.4-12.3) fl Neut % (Auto) 62.4 (34.0-67.9) % Lymph % (Auto) 22.7 (21.8-53.1) % [place] % (Auto) 11.2 (5.3-12.2) % Eos % (Auto) 3.3 (0.8-7.0) Baso % (Auto) 0.3 (0.1-1.2) % Neut # (Auto) 6.22 H (1.78-5.38) K/mm3 Lymph # (Auto) 2.26 (1.32-3.57) K/mm3 [place] # (Auto) 1.12 H (0.30-0.82) K/mm3 Eos # (Auto) 0.33 (0.04-0.54) K/mm3 Baso # (Auto) 0.03 (0.01-0.08) K/mm3 Sodium 138 (136-145) mEq/L Potassium 3.6 (3.5-5.1) mEq/L Chloride 101 (98-107) mEq/L Carbon Dioxide 23 (21-32) mEq/L Anion Gap 17.6 H (5-15) BUN 13 (7-18) mg/dL Creatinine 1.1 (0.7-1.3) mg/dL Est Cr Clr Drug Dosing 100.92 mL/min Estimated GFR (MDRD) > 60 (>60) mL/min BUN/Creatinine Ratio 11.8 L (14-18) Glucose 108 H (74-106) mg/dL Calcium 8.9 (8.5-10.1) mg/dL Total Bilirubin 0.6 (0.2-1.0) mg/dL AST 42 H (15-37) U/L ALT 72 H (16-63) U/L Alkaline Phosphatase 80 (46-116) U/L C-Reactive Protein 3.4 H* (<1.0) mg/dL Total Protein 7.6 (6.4-8.2) g/dl Albumin 4.2 (3.4-5.0) g/dl Globulin 3.4 gm/dL Albumin/Globulin Ratio 1.2 (1-2) Amylase 1665 H* (25-115) U/L Lipase 8405 H (73-393) U/L COVID-19 (MANISHA) Negative (NEGATIVE) Meds: Medications Generic Name Dose Route Start Last Admin Trade Name Freq PRN Reason Stop Dose Admin Hydromorphone HCl 0.25 mg 03/04/20 04:30 Dilaudid IVPUSH Q4H PRN severe pain. Sodium Chloride 1,000 mls @ 1,000 mls/hr 03/03/20 21:45 03/03/20 21:51 Normal Saline IV 1,000 mls/hr ASDIRECTED SHANICE Administration Lactated Ringer's 1,000 mls @ 100 mls/hr 03/04/20 02:45 Ringers, Lactated IV ASDIRECTED SHANICE Ketorolac Tromethamine 30 mg 03/04/20 02:43 Toradol IVPUSH Q6H PRN Pain Morphine Sulfate 2 mg 03/04/20 02:37 Morphine IVPUSH Q4H PRN moderate pain Ondansetron HCl 4 mg 03/04/20 02:40 Zofran IVPUSH Q4H PRN Nausea Discontinued Medications Generic Name Dose Route Start Last Admin Trade Name Freq PRN Reason Stop Dose Admin Hydromorphone HCl 1 mg 03/04/20 00:38 03/04/20 00:42 Dilaudid IVPUSH 03/04/20 00:39 1 mg ONETIME ONE Administration Lactated Ringer's 500 mls @ 500 mls/hr 03/03/20 22:59 03/03/20 23:04 Ringers, Lactated IV 03/03/20 23:58 500 mls/hr .BOLUS ONE Administration Iopamidol 100 ml 03/04/20 01:40 03/04/20 01:46 Isovue-300 (61%) IVPUSH 03/04/20 01:41 100 ml ONETIME ONE Administration Sodium Chloride 10 ml 03/04/20 01:40 03/04/20 01:46 Saline Flush FLUSH 03/04/20 01:41 10 ml ONETIME ONE Administration - Radiology Interpretation Free Text/Narrative:: Ultrasound of the pancreas and gallbladder shows pancreatic edema consistent with pancreatitis no pseudocyst, abscess or peripancreatic fluid. The gallbladder shows no gallstones and no biliary ductal dilatation. CT scan with contrast suggest acute pancreatitis with a slight improvement from the 1 on 02/14/2020. He did have some wall thickening of the descending and sigmoid colon possible mild colitis and also some mild bilateral hydronephrosis. There is also some small intra-abdominal and pelvic ascites. There was upper abdominal mesenteric edema and stranding also noted. - Re-Assessments/Exams Free Text/Narrative Re-Assessment/Exam: 03/03/20 23:04 His amylase tonight was 1665 on 02/14/2020 was 1804. The lipase tonight was 8405 however on 02/24/2020 it was 383 and on 02/14/2020 was 19,066. He is obviously having a flareup of his acute pancreatitis today. 03/03/20 23:10 To the patient regarding his new values for lipase and amylase this evening. We will go ahead and get an ultrasound of his pancreas to make sure there is nothing grossly abnormal or cysts developing. We get the report back then we will speak to the hospitalist. 03/04/20 01:24 To the radiologist at [facility] and he recommends we do IV contrast for this gentleman since his kidney function is good but he is obviously having acute pancreatitis. 03/04/20 01:25 We will get the CT scan with IV contrast as per Dr. Thornton. 03/04/20 02:43 The patient has been resting easily and is feeling much better at this time. He was transferred over to the floor. Departure - Departure Time of Disposition: 03:14 Disposition: Refer to Observation Condition: Fair Clinical Impression: Acute pancreatitis Qualifiers: Pancreatitis type: idiopathic Acute pancreatitis complication: no infection or necrosis Qualified Code(s): K85.00 - Idiopathic acute pancreatitis without necrosis or infection - Discharge Information Sepsis Event Note (ED) - Evaluation Sepsis Screening Result: No Definite Risk - Focused Exam Vital Signs: Vital Signs Temp Pulse Resp BP Pulse Ox 03/03/20 21:21 98.7 F 87 20 127/91 H 97 ED Communication - ED Communication Date/Time Date: 03/04/20 Time Called: 01:15 - Discussed Case With (1) Discussed Case With (1): Admitting Provider Person/s Notified (1): Luz Maria Gil (She agrees to admit the patient to observation for further evaluation and treatment) - My Orders Last 24 Hours: My Active Orders 03/03/20 21:45 Sodium Chloride 0.9% [Normal Saline] 1,000 ml IV ASDIRECTED 03/04/20 01:23 Abdomen Pelvis w Cont [CT] Stat 03/04/20 12:00 Abdomen Ltd [US] Stat - Assessment/Plan Last 24 Hours: My Active Orders 03/03/20 21:45 Sodium Chloride 0.9% [Normal Saline] 1,000 ml IV ASDIRECTED 03/04/20 01:23 Abdomen Pelvis w Cont [CT] Stat 03/04/20 12:00 Abdomen Ltd [US] Stat
[2020-03-03] MEDS: Sodium Chloride 0.9% 1,000 ML IV SCH (21:51)
[2020-03-03] MEDS ORDERED: Lactated Ringers 500 ML IV ONE (22:59)
[2020-03-04] MEDS ORDERED: HYDROmorphone 1 MG/ML Syringe IVPUSH ONE (00:38)
[2020-03-04] MEDS ORDERED: Iopamidol 612 MG/ML 100 ML Bottle IVPUSH ONE (01:40)
[2020-03-04] MEDS ORDERED: Sodium Chloride 0.9% 10 ML Syringe FLUSH ONE (01:40)
[2020-03-04] MEDS: Ondansetron 4 MG/2 ML SDV IVPUSH PRN ×3 (03:16→21:51)
[2020-03-04] MEDS: Sodium Chloride 0.9% 1,000 ML IV SCH (03:16)
[2020-03-04] MEDS: Ketorolac 30 MG/ML SDV IVPUSH PRN ×3 (04:22→16:33)
[2020-03-04] MEDS: Lactated Ringers 1,000 ML IV SCH ×2 (04:22→14:04)
--- NOTE | 2020-03-04 09:01 | US ---
Limited abdominal ultrasound: Multiple real-time images of the upper right abdomen were obtained. Comparison: Prior MRI abdomen of 02/15/20 as well as prior abdominal ultrasound of 02/14/20. Gallbladder contains no gallstones. No gallbladder wall thickening or biliary duct dilatation is appreciated. Pancreas shows no focal parenchymal abnormality. Pancreas may be slightly edematous. No free fluid is seen. Impression: 1. Gallbladder appears within normal limits. 2. Pancreas appears slightly edematous and otherwise appears unremarkable. No free fluid is seen. Diagnostic code #3 This report was dictated in MDT I agree with preliminary report from [facility], finalized on 03/04/20, 1:57 AM Central Daylight Time
--- NOTE | 2020-03-04 09:15 | CT ---
CT abdomen and pelvis Technique: Multiple axial sections were obtained from above the dome of the diaphragm inferiorly through the pubic symphysis. Intravenous contrast was utilized. Delayed images were obtained through the abdomen and pelvis. No oral contrast has been given. Reconstructed coronal and sagittal images were obtained. Comparison: Prior abdominal ultrasound performed earlier on the same day (12:10 AM), previous MRI abdomen study of 02/15/[address] abdomen and pelvis exam of 02/14/20. Findings: Very slight haziness around the pancreas is seen compatible with minimal residual pancreatitis with minimal edematous change. Findings show significant improvement from previous CT study. Slight atelectasis is noted posteriorly within both lung bases. Liver contains no focal parenchymal abnormality. Spleen appears within normal limits. Adrenal glands show no nodule. Gallbladder contains no calcified gallstones. Kidneys show symmetric contrast enhancement without hydronephrosis or mass. Delayed images shows contrast within the ureters as well as bladder. Aorta shows no aneurysm. No retroperitoneal adenopathy or mesenteric abnormalities are seen. Slight wall thickening within the sigmoid and descending colon is seen believed to be due to lack of good distention. Slightly prominent collecting systems of both kidneys felt to relate to the hypertonic effect of the contrast within the kidney and not representing hydronephrosis. Minimal fluid seen within the pelvis minimal mesenteric congestion is seen. Bone window settings were reviewed which show no acute osseous finding. Impression: 1. Findings of pancreatitis are noted but show significant improvement from previous exam. Slight residual change consisting of minimal fluid within the pelvis and mesenteric congestion is seen. Minimal edematous appearing pancreas is also noted. 2. Other findings as noted above believed to be incidental and nonacute. Diagnostic code #3 This report was dictated in MDT I agree with preliminary report from [facility], finalized on 03/04/20, 4:09 AM Central Daylight Time, code #2
--- NOTE | 2020-03-04 10:11 | PCM.HP.2 ---
H&P History of Present Illness - General Date of Service: 03/04/20 Admit Problem/Dx: Admission Diagnosis/Problem Admission Diagnosis/Problem Pancreatitis - History of Present Illness Initial Comments - Free Text/Narative: This is a 39-year-old male with past medical history of acute current pancreatitis comes to the emergency department complaining of severe abdominal pain that started earlier this evening. As per patient around 5 PM he started having severe abdominal pain started in epigastrium radiating to his back graded a 10 out of 10 for which he tried taking some oxycodone initially 5 mg at 5 PM. Pain did not change for which around 7 PM he took 10 mg and at 8 PM took another 5 without any changes for which he decided to come to the emergency department to be evaluated. Of note patient was just admitted here 3 weeks ago for a pancreatitis exacerbation, etiology was not able to be determined; he has been admitted twice before this time and had an outpatient exacerbation in the past year. Has had a HIDA scan, ultrasound, abdominal CT, MRI, EGD without any results. Was referred to [facility] to see GI specialist on the of this month. Upper Abdomen Pain Score (Numeric/FACES): 5 - Related Data Allergies/Adverse Reactions: Allergies Allergy/AdvReac Type Severity Reaction Status Date / Time amoxicillin Allergy Severe Hives Verified 03/04/20 02:52 Home Medications: Home Meds oxyCODONE 10 mg PO Q6H PRN #20 tablet 02/17/20 [Rx] Past Medical History Respiratory History: Reports: Asthma Gastrointestinal History: Reports: Pancreatitis Other Gastrointestinal History: Patient states that he was hospitalized at age 11 years of age for a bout of pancreatitis. He was hospitalized for a month and spent another month at home recovering after 20 pound weight loss. Etiology was never elucidated but likely was viral. Genitourinary History: Reports: None Neurological History: Reports: Migraines - Infectious Disease History Infectious Disease History: Reports: Mononucleosis - Past Surgical History HEENT Surgical History: Reports: Adenoidectomy, Oral Surgery, Tonsillectomy GI Surgical History: Reports: Appendectomy Male Surgical History: Reports: Circumcision Social & Family History - Family History Family Medical History: Noncontributory - Tobacco Use Smoking Status *Q: Never Smoker Years of Tobacco use: 5 Packs/Tins Daily: 1 Used Tobacco, but Quit: No Second Hand Smoke Exposure: No - Caffeine Use Caffeine Use: Reports: Coffee Other Caffeine Use: coffee in the morning and an occassional pop during the day - Recreational Drug Use Recreational Drug Use: No - Living Situation & Occupation Living situation: Reports: Occupation: Employed H&P Review of Systems - Review of Systems: Review Of Systems: See Below General: Reports: Decreased Appetite. Denies: Fever, Chills, Malaise, Weakness, Fatigue, Night Sweats, Diaphoresis, Weight Loss, Weight Gain HEENT: Denies: Post Nasal Drip, Sinus Congestion, Sore Throat, Vertigo, Visual Changes Pulmonary: Denies: Shortness of Breath, Wheezing, Pleuritic Chest Pain, Cough, Sputum, Hemoptysis Cardiovascular: Denies: Chest Pain, Palpitations, Dyspnea on Exertion, Orthopnea, PND, Edema, Lightheadedness, Syncope, Claudication, Blood Pressure Problem Gastrointestinal: Reports: Abdominal Pain, Constipation, Distension. Denies: Anorexia, Black Stool, Bloody Stool, Diarrhea, Decreased Appetite, Difficulty Swallowing, Flatus, Hematemesis, Hematochezia, Melena, Mucous in Stool, Nausea, Stool Incontinence, Vomiting Genitourinary: Denies: Dysuria, Frequency, Burning, Pain, Urgency, Incontinence Musculoskeletal: Denies: Joint Pain, Joint Swelling, Muscle Pain, Muscle Stiffness Skin: Denies: Cyanosis, Jaundice, Mottled, Pallor, Diaphoresis Psychiatric: Denies: Depression, Mood Lability, Anxiety Neurological: Denies: Dizziness, Headache, Numbness, Paresthesia Hematologic/Lymphatic: Denies: Easy Bleeding, Easy Bruising Immunologic: Denies: Food Allergy, Environmental Allergy Exam - Exam Exam: See Below - Vital Signs Vital Signs: Last Vital Signs Temp 97.9 F 03/04/20 08:17 Pulse 59 L 03/04/20 08:17 Resp 16 03/04/20 08:17 BP 96/59 L 03/04/20 08:17 Pulse Ox 95 03/04/20 08:17 Weight: 82.055 kg - Exam General: Alert, Oriented, Cooperative, Mild Distress HEENT: Conjunctiva Clear, EACs Clear, EOMI, Hearing Intact, Mucosa Moist & Fisk Neck: Supple, Trachea Midline, +2 Carotid Pulse wo Bruit, Full Range of Motion. No: Lymphadenopathy Lungs: Clear to Auscultation, Normal Respiratory Effort. No: Decreased Breath Sounds, Crackles, Rales, Rhonchi, Rub, Stridor, Wheezing Cardiovascular: Regular Rate, Regular Rhythm. No: Systolic Murmur, Diastolic Murmur, Rubs, Gallop/S3, Gallop/S4 GI/Abdominal Exam: Normal Bowel Sounds, Soft, Non-Tender, No Organomegaly, No Distention. No: Distended, Guarding Back Exam: Normal Inspection, Full Range of Motion. No: CVA Tenderness (L), CVA Tenderness (R), Paraspinal Tenderness, Vertebral Tenderness Extremities: Normal Inspection, Normal Range of Motion, Non-Tender, No Pedal Edema, Normal Capillary Refill Peripheral Pulses: 2+: Radial (L), Radial (R) Skin: Warm, Dry Neuro Extensive - Mental Status: Alert, Oriented x3 Psychiatric: Normal Affect, Normal Mood - Patient Data Result Diagrams: 03/04/20 05:15 03/04/20 05:15 Sepsis Event Note - Evaluation Sepsis Screening Result: No Definite Risk - Problem List (1) Acute recurrent pancreatitis SNOMED Code(s): 601661145 ICD Code: K85.90 - ACUTE PANCREATITIS WITHOUT NECROSIS OR INFECTION, UNSP Status: Acute Current Visit: Yes (2) Leukocytosis SNOMED Code(s): 857147607, 960446439 ICD Code: D72.829 - ELEVATED WHITE BLOOD CELL COUNT, UNSPECIFIED Status: Acute Current Visit: Yes Problem List Initiated/Reviewed/Updated: Yes Assessment/Plan Comment:: ASSESSMENT Came to the emergency department complaining of recurrent abdominal pain rated at a 10 out of 10 Did not respond to oxycodone for which she decided to come and evaluated Recent admission 3 weeks ago for hepatitis during which the etiology was unable to be determined Set to follow-up with GI specialist at [facility] on the of this month Abdominal CT performed in the emergency department reported with less pancreatic edema compared to recent study during previous admit with some free fluid Vital signs Blood pressure 127/99, heart rate 87, respiratory rate 20, temperature 98.7, pulse ox 97% on room air Labs Potassium 3.6 Anion gap 17.6 CRP 3.4 Amylase 1665 Lipase 8405 Had gotten a HIDA scan, complete abdominal ultrasound, abdominal CT, abdominal MRI and EGD without results Pain is controlled with current regimen Due to previous negative work-up will not pursue work-up at this time PLAN Acute recurrent pancreatitis Pain control with Toradol, Demerol and Dilaudid LR at 125 N.p.o. for now Leukocytosis, resolved CODE STATUS: FULL CODE PROPHYLAXIS DVTambulation GInot indicated DISPOSITION: Patient will be admitted for pain control and IV fluid repletion until pain is controlled and patient is able to tolerate diet. - Mortality Measure Prognosis:: Good
[2020-03-04] MEDS: Morphine 2 MG/ML SYRINGE IVPUSH PRN ×2 (12:35→17:24)
[2020-03-04] MEDS: Meperidine 50 MG/ML Vial IVPUSH SCH ×2 (19:05→22:33)
[2020-03-05] MEDS: Lactated Ringers 1,000 ML IV SCH ×3 (00:03→13:30)
[2020-03-05] MEDS: Ketorolac 30 MG/ML SDV IVPUSH PRN ×2 (00:39→08:55)
[2020-03-05] MEDS: Meperidine 50 MG/ML Vial IVPUSH SCH ×5 (02:11→17:06)
[2020-03-05] MEDS: HYDROmorphone 0.5 MG/0.5 ML Syringe IVPUSH PRN ×2 (04:22→12:06)
[2020-03-05] MEDS ORDERED: Calcium Carbonate 500 MG Tab.Chew PO PRN ×2 (09:00→09:02)
--- NOTE | 2020-03-05 09:32 | PCM.PN ---
- General Info Date of Service: 03/05/20 - Patient Data Vitals - Most Recent: Last Vital Signs Temp 97.9 F 03/05/20 04:28 Pulse 70 03/05/20 04:28 Resp 16 03/05/20 04:28 BP 117/68 03/05/20 04:28 Pulse Ox 96 03/05/20 04:28 Weight - Most Recent: 80.649 kg Sepsis Event Note - Evaluation Sepsis Screening Result: No Definite Risk - Problem List & Annotations (1) Acute recurrent pancreatitis SNOMED Code(s): 909105555 Code(s): K85.90 - ACUTE PANCREATITIS WITHOUT NECROSIS OR INFECTION, UNSP Status: Acute Current Visit: Yes (2) Leukocytosis SNOMED Code(s): 476371185, 981228714 Code(s): D72.829 - ELEVATED WHITE BLOOD CELL COUNT, UNSPECIFIED Status: Acute Current Visit: Yes - Plan Plan:: ASSESSMENT Came to the emergency department complaining of recurrent abdominal pain rated at a 10 out of 10 Did not respond to oxycodone for which she decided to come and evaluated Recent admission 3 weeks ago for hepatitis during which the etiology was unable to be determined Set to follow-up with GI specialist at [facility] on the of this month Abdominal CT performed in the emergency department reported with less pancreatic edema compared to recent study during previous admit with some free fluid Vital signs Blood pressure 127/99, heart rate 87, respiratory rate 20, temperature 98.7, pulse ox 97% on room air Labs Potassium 3.6 Anion gap 17.6 CRP 3.4 Amylase 1665 Lipase 8405 Had gotten a HIDA scan, complete abdominal ultrasound, abdominal CT, abdominal MRI and EGD without results Pain is controlled with current regimen Due to previous negative work-up will not pursue work-up at this time PLAN Acute recurrent pancreatitis Pain control with Toradol, Demerol and Dilaudid LR at 125 N.p.o. for now Leukocytosis, resolved CODE STATUS: FULL CODE PROPHYLAXIS DVTambulation GInot indicated DISPOSITION: Patient will be admitted for pain control and IV fluid repletion until pain is controlled and patient is able to tolerate diet.
[2020-03-05] MEDS: Ondansetron 4 MG/2 ML SDV IVPUSH PRN ×2 (13:20→17:06)
[2020-03-05] MEDS ORDERED: HYDROmorphone 0.5 MG/0.5 ML Syringe IVPUSH PRN (14:42)
--- NOTE | 2020-03-05 15:14 | US ---
Limited abdominal ultrasound: Multiple real-time images of the upper right abdomen were obtained. Comparison: Previous right upper quadrant abdominal ultrasound of 03/04/20. Gallbladder contains no calcified gallstones. Small amount of scattered sludge is seen within the gallbladder. Gallbladder wall appears mildly prominent but no pericholecystic fluid is seen. Common bile duct measures slightly larger at 8 mm. No discrete findings of choledocholithiasis is seen on this study although the complete duct is not seen. Pancreas shows no discrete abnormality. Main portal vein shows hepatopedal flow. Liver shows no focal abnormality. Impression: 1. Common bile duct measures 8 mm which is slightly larger than on prior study at which time it measured 6 mm. 2. Mild amount of sludge within the gallbladder with no shadowing gallstones. Gallbladder wall is slightly thickened. This gallbladder wall thickening is an interval change. 3. No additional abnormality is appreciated on right upper quadrant abdominal ultrasound. Diagnostic code #3 This report was dictated in MDT
--- NOTE | 2020-03-05 16:21 | PCM.DCSUM1 ---
Discharge Summary - Hospital Course HPI Initial Comments: This is a 39-year-old male with past medical history of acute current pancreatitis comes to the emergency department complaining of severe abdominal pain that started earlier this evening. As per patient around 5 PM he started having severe abdominal pain started in epigastrium radiating to his back graded a 10 out of 10 for which he tried taking some oxycodone initially 5 mg at 5 PM. Pain did not change for which around 7 PM he took 10 mg and at 8 PM took another 5 without any changes for which he decided to come to the emergency department to be evaluated. Of note patient was just admitted here 3 weeks ago for a pancreatitis exacerbation, etiology was not able to be determined; he has been admitted twice before this time and had an outpatient exacerbation in the past year. Has had a HIDA scan, ultrasound, abdominal CT, MRI, EGD without any results. Was referred to [facility] to see GI specialist on the of this month. - Discharge Data Discharge Date: 03/05/20 Discharge Disposition: Home, Self-Care 01 Condition: Good - Referral to Home Health Primary Care Physician: Ko Mata PA-C - Discharge Diagnosis/Problem(s) (1) Acute recurrent pancreatitis SNOMED Code(s): 194403508 ICD Code: K85.90 - ACUTE PANCREATITIS WITHOUT NECROSIS OR INFECTION, UNSP Status: Acute Current Visit: Yes (2) Leukocytosis SNOMED Code(s): 425436124, 477427452 ICD Code: D72.829 - ELEVATED WHITE BLOOD CELL COUNT, UNSPECIFIED Status: Acute Current Visit: Yes - Patient Summary/Data Consults: Consultations 03/05/20 15:21 Consult to Physician [CONS] Routine Hospital Course: 03/03-03/04/20 Came to the emergency department complaining of recurrent abdominal pain rated at a 10 out of 10 Did not respond to oxycodone for which she decided to come and evaluated Recent admission 3 weeks ago for hepatitis during which the etiology was unable to be determined Set to follow-up with GI specialist at [facility] on the of this month Abdominal CT performed in the emergency department reported with less pancreatic edema compared to recent study during previous admit with some free fluid Abdominal ultrasound with no gallstones in the gallbladder, no gallbladder wall thickening or biliary duct dilation, no focal parenchyma normality of the pancreas however it is slightly edematous, no free fluid is seen Vital signs Blood pressure 127/99, heart rate 87, respiratory rate 20, temperature 98.7, pulse ox 97% on room air Labs WBC down from 9.97-8.23 Chloride up from 101-109 Potassium 3.6 Anion gap 17.6 CRP 3.4 AST 42 ALT 72 Alkaline phosphatase 80 Amylase 1665 Lipase 8405 COVID-19 MANISHA negative Had gotten a HIDA scan, complete abdominal ultrasound, abdominal CT, abdominal MRI and EGD without results Pain is controlled with current regimen Due to previous negative work-up will not pursue work-up at this time PLAN Acute recurrent pancreatitis Pain control with Toradol, Demerol and Dilaudid LR at 125 N.p.o. for now 03/05/20 Overnight pain appear to be controlled however this morning it is worse Patient is also complaining of indigestion Had initially requested to be started on ice chips but once symptoms worsened he decided against that New lab results (LFTs compared to admit labs on 03/04) WBC down from 8.23-5.68 Chloride down from 10 9-1 01 Anion gap up from 11.9-19.1 GFR continues to be greater than 60 Total bili up from 0.6-4.7 Direct bilirubin 3.7 GGT 262 (normal 15-85) AST up from 42-124 (normal 15-37) ALT up from 72-133 (normal 16-63) Alkaline phosphatase up from 80-213 (normal 46-116) Vital signs trend Blood pressure 96-1 112/50 9-71 T-max 98.2 Heart rate 59 to 74 bpm Pulse ox greater than 95% on room air Intake and output Urine output 3100 24-hour balance +245 Balance is admission +395 Patient stated that his urine was becoming more concentrated he also looks a little jaundiced Complete abdominal ultrasound was ordered Common bile duct measuring 8 mm compared to 6 mm yesterday Mild amount of sludge within the gallbladder with no shadowing gallstones Gallbladder wall is slightly thickened, interval change from yesterday's study No additional abnormalities are appreciated No discrete abnormality seen in the pancreas With prior results patient needs escalation of level of care Case was discussed with [facility] hospitalist and GI who accepted patient transfer around 4 PM Transfer was coordinated by nursing staff. - Patient Instructions Diet: NPO - Discharge Plan *PRESCRIPTION DRUG MONITORING PROGRAM REVIEWED*: Not Applicable *COPY OF PRESCRIPTION DRUG MONITORING REPORT IN PATIENT SANAZ: Not Applicable Home Medications: Home Meds oxyCODONE 10 mg PO Q6H PRN #20 tablet 02/17/20 [Rx] Forms: ED Department Discharge Referrals: Ko Mata PA-C [Primary Care Provider] - - Discharge Summary/Plan Comment DC Time >30 min.: Yes - General Info Date of Service: 03/05/20 Subjective Update: Slept okay but pain is a little worse this morning Pain is responding to current pain regimen Has some indigestion Requesting ice chips No other complaints - Patient Data Vitals - Most Recent: Last Vital Signs Temp 98.1 F 03/05/20 11:49 Pulse 69 03/05/20 11:49 Resp 16 03/05/20 11:49 BP 117/71 03/05/20 11:49 Pulse Ox 95 03/05/20 11:49 Weight - Most Recent: 80.649 kg - Exam General: Reports: Alert, Oriented, Cooperative, Mild Distress, Moderate Distress HEENT: Reports: Pupils Equal, Pupils Reactive, EOMI, Mucous Membr. Moist/[place], Scleral Icterus Neck: Reports: Supple, Trachea Midline, No JVD, +2 Carotid Pulse wo Bruit Lungs: Reports: Clear to Auscultation, Normal Respiratory Effort. Denies: Decreased Breath Sounds, Crackles, Rales, Rhonchi, Rub, Stridor, Wheezing Cardiovascular: Reports: Regular Rate, Regular Rhythm, No Murmurs. Denies: Gallops, Rubs GI/Abdominal Exam: Distended, Guarding, Abnormal Bowel Sounds, Other (Positive Adame sign) Back Exam: Reports: Normal Inspection. Denies: CVA Tenderness (L), CVA Tenderness (R), Paraspinal Tenderness Extremities: Normal Inspection, Normal Range of Motion, Non-Tender, No Pedal Edema, Normal Capillary Refill Skin: Reports: Warm, Dry, Intact Neurological: Reports: No New Focal Deficit Psy/Mental Status: Reports: Normal Affect, Normal Mood
[2020-03-05 16:46] VITALS: BP 129/78; PULSE 70
== END 2020-03-05 17:40 ==
LOC: JD.ED 21:04 → JD.MS 03-04 02:11
PROVIDERS: ADMIT Internal Medicine; ATTEND Internal Medicine
DX: K85.00 Idiopathic acute pancreatitis without necrosis or infection (principal); D72.829 Elevated white blood cell count, unspecified; Z20.828 Contact with and (suspected) exposure to other viral communicable diseases; Z88.0 Allergy status to penicillin
CPT/HCPCS: 36415; 74177; 76705; 80048; 80053; 82150; 82248; 82977; 83690; 83735; 84100; 85025; 86140; 87635; 96361; 96374; 96375; 96376; 99285; A9270; G0378; J1170; J1885; J2175; J2270; J2405; J7030; J7120; Q9967; 99217; 99219; U0002

== ENCOUNTER 2020-03-30 09:13 | Day surgery (SDC) | payer BC ==
[~2020-03-30 09:13] MED LIST: Clindamycin Phosphate in D5W 900 MG in Premix Bag 1 BAG IV SCH; FLU VACC QS2020-21(6MOS UP)/PF 60 MCG/0.5 ML SYRINGE IM ONE; Lactated Ringers 1,000 ML IV SCH; Lidocaine 1%/Sod Bicarbonate in NS 8.4% 1 ML Syringe IDERM PRN; Sodium Chloride 0.9% 10 ML Syringe FLUSH PRN
[2020-03-30] MEDS ORDERED: Scopolamine 1.5 MG Transdermal Patch TOP SCH (09:30)
[2020-03-30] MEDS ORDERED: Bupivacaine 0.5%/EPINEPHrine 1:200,000 50 ML MDV ONE (10:19)
[2020-03-30] MEDS ORDERED: Sodium Chloride 0.9% 50 ML SDV ONE (10:19)
[2020-03-30] MEDS ORDERED: Iopamidol 612 MG/ML 50 ML SDV ONE (10:19)
--- NOTE | 2020-03-30 10:31 | PCM.PREANE ---
Preanesthetic Assessment - Procedure Proposed Procedure: lap delvis - Anesthesia/Transfusion/Family Hx Anesthesia History: Prior Anesthesia Without Reaction Family History of Anesthesia Reaction: No Transfusion History: No Prior Transfusion(s) - Review of Systems General: No Symptoms Pulmonary: No Symptoms Cardiovascular: No Symptoms Gastrointestinal: Abdominal Pain (right side) Neurological: No Symptoms Other: Reports: Liver Problems (fatty liver) - Physical Assessment NPO Status Date: 03/29/20 NPO Status Time: 00:00 Vital Signs: Last Vital Signs Temp 36.0 C L 03/30/20 09:15 Pulse 68 03/30/20 09:15 Resp 16 03/30/20 09:15 BP 108/83 03/30/20 09:15 Pulse Ox 99 03/30/20 09:15 Height: 1.83 m Weight: 77.111 kg ASA Class: 2 Mental Status: Alert & Oriented x3 Airway Class: Mallampati = 1 Dentition: Reports: Normal Dentition, [place](s) Thyro-Mental Finger Breadths: 3 Mouth Opening Finger Breadths: 3 ROM/Head Extension: Full Lungs: Clear to Auscultation, Normal Respiratory Effort Cardiovascular: Regular Rate, Regular Rhythm - Allergies Allergies/Adverse Reactions: Allergies Allergy/AdvReac Type Severity Reaction Status Date / Time amoxicillin Allergy Intermediate Hives Verified 03/29/20 17:06 - Blood Blood Available: No Product(s) Available: None - Anesthesia Plan Pre-Op Medication Ordered: None - Acknowledgements Anesthesia Type Planned: General Anesthesia Pt an Appropriate Candidate for the Planned Anesthesia: Yes Alternatives and Risks of Anesthesia Discussed w Pt/Guardian: Yes Pt/Guardian Understands and Agrees with Anesthesia Plan: Yes PreAnesthesia Questionnaire HEENT History: Reports: Impaired Vision Cardiovascular History: Reports: High Cholesterol Respiratory History: Reports: Asthma, Other (See Below) Other Respiratory History: cough, reactive airway disease Gastrointestinal History: Reports: GERD, Pancreatitis Other Gastrointestinal History: abdominal pain, fatty liver disease, gallbladder attack Genitourinary History: Reports: None [employer]ING History: Reports: None Musculoskeletal History: Reports: None Neurological History: Reports: Migraines Other Psychiatric History: fatigue, insomnia Endocrine/Metabolic History: Reports: None Hematologic History: Reports: None Immunologic History: Reports: None Oncologic (Cancer) History: Reports: None Dermatologic History: Reports: None - Infectious Disease History Infectious Disease History: Reports: Mononucleosis - Past Surgical History Head Surgeries/Procedures: Reports: None HEENT Surgical History: Reports: Adenoidectomy, Oral Surgery, Tonsillectomy Cardiovascular Surgical History: Reports: None Respiratory Surgical History: Reports: None GI Surgical History: Reports: Appendectomy, EGD Female Surgical History: Reports: None Male Surgical History: Reports: Circumcision Endocrine Surgical History: Reports: None Neurological Surgical History: Reports: None Musculoskeletal Surgical History: Reports: None Oncologic Surgical History: Reports: None Dermatological Surgical History: Reports: None - SUBSTANCE USE Smoking Status *Q: Never Smoker Tobacco Use Within Last Twelve Months: No Second Hand Smoke Exposure: No Days Per Week of Alcohol Use: 0 Number of Drinks Per Day: 0 Total Drinks Per Week: 0 Recreational Drug Use History: No - HOME MEDS Home Medications: Home Meds oxyCODONE 10 mg PO Q6H PRN #20 tablet 02/17/20 [Rx] Famotidine [Pepcid] 10 mg PO BID 03/29/20 [History] Ondansetron [Ondansetron ODT] 4 mg PO Q6H PRN 03/29/20 [History] Zolpidem [Ambien] 5 - 10 mg PO BEDTIME PRN 03/29/20 [History] - CURRENT (IN HOUSE) MEDS Current Meds: Current Medications Lactated Ringer's (Ringers, Lactated) 1,000 mls @ 125 mls/hr IV ASDIRECTED SHANICE Stop: 03/30/20 23:00 Last Admin: 03/30/20 10:01 Dose: 125 mls/hr Documented by: Clindamycin Phosphate 900 mg/ (Premix) 50 mls @ 100 mls/hr IV ONETIME SHANICE Stop: 03/30/20 16:00 Last Admin: 03/30/20 09:28 Dose: 100 mls/hr Documented by: Lidocaine/Sodium Bicarbonate (Buffered Lidocaine 1% In Ns 8.4%) 0.25 ml IDERM ONETIME PRN PRN Reason: Prior to IV Start Stop: 03/30/20 18:00 Last Admin: 03/30/20 10:02 Dose: 0.25 ml Documented by: Scopolamine (Transderm-Scop) 1.5 mg TOP ONETIME SHANICE Stop: 03/30/20 12:00 Last Admin: 03/30/20 09:28 Dose: 1.5 mg Documented by: Sodium Chloride (Saline Flush) 10 ml FLUSH ASDIRECTED PRN PRN Reason: Keep Vein Open Stop: 03/30/20 18:00 Discontinued Medications Bupivacaine HCl/Epinephrine Bitart (Marcaine 0.5%/Epinephrine 1:200,000) Confirm Administered Dose 50 ml .ROUTE .STK-MED ONE Stop: 03/30/20 10:20 Influenza Virus Vaccine (Fluzone Quad [id number] Syringe) 60 mcg IM .ONCE ONE Stop: 03/30/20 09:01 Iopamidol (Isovue-300 (61%)) Confirm Administered Dose 50 ml .ROUTE .STK-MED ONE Stop: 03/30/20 10:20 Sodium Chloride (Normal Saline) Confirm Administered Dose 100 ml .ROUTE .STK-MED ONE Stop: 03/30/20 10:20
[2020-03-30] MEDS ORDERED: Lactated Ringers 1,000 ML ONE (10:33)
[2020-03-30] MEDS ORDERED: Dexamethasone 4 MG/ML 5 ML MDV ONE (10:33)
[2020-03-30] MEDS ORDERED: Propofol 200 MG/20 ML SDV ONE (10:33)
[2020-03-30] MEDS ORDERED: Ondansetron 4 MG/2 ML SDV ONE (10:33)
[2020-03-30] MEDS ORDERED: Ketorolac 30 MG/ML SDV ONE (10:33)
[2020-03-30] MEDS ORDERED: Lidocaine 1% 4 ML ONE (10:33)
[2020-03-30] MEDS ORDERED: HYDROmorphone 0.5 MG/0.5 ML Syringe ONE (10:33)
[2020-03-30] MEDS ORDERED: Rocuronium 50 MG/5 ML Vial ONE (10:33)
[2020-03-30] MEDS ORDERED: fentaNYL 250 MCG/5 ML SDV ONE (10:34)
[2020-03-30] MEDS ORDERED: Midazolam 1 MG/ML 2 ML SDV ONE (10:34)
[2020-03-30] MEDS ORDERED: HYDROmorphone 0.5 MG/0.5 ML Syringe IVPUSH ONE (12:05)
[2020-03-30] MEDS ORDERED: Ondansetron 4 MG/2 ML SDV IVPUSH PRN (12:05)
[2020-03-30] MEDS ORDERED: fentaNYL 100 MCG/2 ML SDV ONE (12:33)
--- NOTE | 2020-03-30 12:35 | PCM.PRNOTE ---
- Free Text/Narrative Note: Operative Report Operation: laparoscopic cholecystectomy Date: 03/30/2020 Attending Surgeon: Reza Wisdom MD Indication for Surgery: gallbladder sludge with history of pancreatitis Preoperative antibiotics: 900 mg clindamycin IV VTE prophylaxis: SCDs Estimated Blood Loss: 10 cc Findings: Mild inflammatory changes of the gallbladder. Critical view obtained. Prominent artery running between gallbladder body and liver. Detailed Report: The patient underwent general endotracheal anesthesia after being placed supine on the operating table. Time out was performed, confirming the patients identity and the operation to be performed. The abdomen was prepped and draped in sterile fashion. A Veress needle was inserted into the abdominal cavity below the left costal margin along the mid-clavicular line. The abdomen was insufflated with CO2 to 15 mm Hg. Gas was aspirated below the umbilicus with a syringe in order to ensure safe placement of a 5 mm bladed laparoscopic port. The 5mm 30 degree laparoscope was then inserted and viscera inspected. Two additional 5 mm ports were placed along the right subcostal region under direct vision with the laparoscope. The gallbladder fundus was grasped and retracted cephalad. An additional 12 mm port was placed in the subxiphoid area. The gallbladder infundibulum was grasped with the surgeons left hand grasper and retracted laterally. The hook electrode was used to open the overlying peritoneum, and this plane of dissection was developed along the edges of the gallbladder at its interface with the liver. Dissection was performed with a combination of the hook electrode, suction group underwriter and [place] grasper, carefully exposing and skeletonizing the cystic duct and artery. A critical view of safety was obtained. Hemolock clips were then placed on both structures. The duct and artery were transected with laparoscopic scissors between the hemolock clips. The hook was then used to dissect the gallbladder free from its attachment to the liver. It appeared that the right hepatic artery coursed some distance between the gallbladder body and the liver, making this portion of the dissection a little more intricate. The specimen was then placed in an Endocatch bag and removed through the subxiphoid port. The liver bed was inspected and appeared hemostatic. The larger subxiphoid port was closed at the level of the fascia with vicryl suture using the PMI laparoscopic suture passer. Pneumoperitoneum was then released. All skin incisions were then closed with placement of subcuticular vicryl suture and dressed with dermabond. A total of 20 cc 0.5% marcaine with epinephrine was used for local anesthesia at the incision sites. The patient tolerated the operation well, was extubated in the operating room and transferred to the PACU for routine post-anesthesia care.
--- NOTE | 2020-03-30 12:45 | PCM.POSTAN ---
POST ANESTHESIA ASSESSMENT - MENTAL STATUS Mental Status: Alert, Oriented - VITAL SIGNS Vital Signs: Last Vital Signs Temp 36.0 C L 03/30/20 09:15 Pulse 68 03/30/20 09:15 Resp 16 03/30/20 09:15 BP 108/83 03/30/20 09:15 Pulse Ox 99 03/30/20 09:15 - RESPIRATORY Respiratory Status: Respiratory Rate WNL, Airway Patent, O2 Saturation Stable - CARDIOVASCULAR CV Status: Pulse Rate WNL, Blood Pressure Stable - GASTROINTESTINAL GI Status: No Symptoms - PAIN Pain Score: 0 - POST OP HYDRATION Hydration Status: Adequate & Stable
[2020-03-30] MEDS: fentaNYL 100 MCG/2 ML SDV IVPUSH PRN ×2 (12:55→13:15)
--- NOTE | 2020-03-30 13:00 | PCM48HPAN ---
Post Anesthesia Note - EVALUATION WITHIN 48HRS OF ANESTHETIC Vital Signs in Normal Range: Yes Patient Participated in Evaluation: Yes Respiratory Function Stable: Yes Airway Patent: Yes Cardiovascular Function Stable: Yes Hydration Status Stable: Yes Pain Control Satisfactory: Yes Nausea and Vomiting Control Satisfactory: Yes Mental Status Recovered: Yes Vital Signs: Last Vital Signs Temp 36.2 C 03/30/20 12:40 Pulse 68 03/30/20 09:15 Resp 11 L 03/30/20 12:40 BP 128/86 03/30/20 12:40 Pulse Ox 97 03/30/20 12:40
[2020-03-30] MEDS ORDERED: oxyCODONE 5 MG Tab PO PRN (13:25)
[2020-03-30] MEDS ORDERED: Acetaminophen 325 MG Tab PO ONE (14:17)
[2020-03-30 14:49] VITALS: BP 122/79; PULSE 88
== END 2020-03-30 14:35 | disposition home or self-care (01) ==
LOC: JD.SDS 09:13
PROVIDERS: ATTEND Surgery
DX: K81.1 Chronic cholecystitis (principal); K86.1 Other chronic pancreatitis; E78.00 Pure hypercholesterolemia, unspecified; K82.8 Other specified diseases of gallbladder; Z88.1 Allergy status to other antibiotic agents; Z79.899 Other long term (current) drug therapy; Z01.812 Encounter for preprocedural laboratory examination; Z20.828 Contact with and (suspected) exposure to other viral communicable diseases
CPT/HCPCS: 47562; A9270; J1100; J1170; J2001; J2250; J2405; J2704; J3010; J3490; J7120; 00790; J1885; Q9967

== ENCOUNTER 2020-07-11 11:40 | Inpatient (IN) | payer BC ==
[2020-07-11] MEDS ORDERED: Sodium Chloride 0.9% 10 ML Syringe FLUSH PRN ×2 (12:04→12:24)
[2020-07-11] MEDS ORDERED: HYDROmorphone 0.5 MG/0.5 ML Syringe IVPUSH ONE (12:07)
[2020-07-11] MEDS ORDERED: Sodium Chloride 0.9% 1,000 ML IV STA (12:07)
[2020-07-11] MEDS ORDERED: Ondansetron 4 MG/2 ML SDV IVPUSH ONE (12:07)
--- NOTE | 2020-07-11 12:22 | EDM.PDOC ---
ED HPI GENERAL MEDICAL PROBLEM - General Chief Complaint: Abdominal Pain Stated Complaint: PANCREATIC PROBLEMS Time Seen by Provider: 07/11/20 11:43 Source of Information: Reports: Patient, RN Notes Reviewed History Limitations: Reports: No Limitations - History of Present Illness INITIAL COMMENTS - FREE TEXT/NARRATIVE: Patient is a 40-year-old male presenting to the emergency department with complaints of severe upper abdominal discomfort. Patient has a history of recurrent pancreatitis and states he always has some mild tenderness in this area, however since 2:00 this morning the pain has been quite severe. States he took 10 mg of oxycodone about an hour and a half prior to coming to the ER which brought his pain down to a 6 out of 10. Patient feels that he is at the point where he cannot manage the symptoms at home. He denies vomiting, but states that he typically does not have vomiting with pancreatitis. He states that any oral intake, fluids or food, causes worsening of symptoms. Patient also reports having an area of discomfort in his right chest wall since he had his gallbladder out in February of last year. He denies any respiratory complaints such as cough or shortness of breath. He states after the procedure, he had "some type of respiratory illness" but does not feel that it was Covid. Patient has had a number of hospitalizations in the past for his recurrent pancreatitis pancreatitis with his first occurrence being at age 11 and 2-3 episodes over the course of the last year. This last year, he had both his gallbladder and appendix removed. He has been seen by gastroenterology and had upper endoscopy completed with no findings. He has seen specialists at [facility] and states that they were not able to find conclusive reason for the recurrences either. He does have elevated triglycerides, however the specialist at [place] told him that usually the triglyceride level has to be over 1000 in order to cause pancreatitis. His triglycerides have been 200-280 in the past. He denies any alcohol consumption and does not use illicit drugs. States he is normal the able to manage his chronic pain with 50 mg of tramadol each morning. 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 (see below) Other Treatments MECHANICAL MAINTENANCE TECHNICIAN: oxycontin Upper Abdomen Pain Score (Numeric/FACES): 6 - Related Data Allergies Allergy/AdvReac Type Severity Reaction Status Date / Time amoxicillin Allergy Intermediate Hives Verified 03/29/20 17:06 Home Meds: Home Meds oxyCODONE 10 mg PO Q6H PRN #20 tablet 08/27/20 [Rx] Ondansetron [Ondansetron ODT] 4 mg PO Q6H PRN 03/29/20 [History] Zolpidem [Ambien] 5 - 10 mg PO BEDTIME PRN 03/29/20 [History] oxyCODONE 5 mg PO Q4H PRN #15 tab 03/30/20 [Rx] Past Medical History HEENT History: Reports: Impaired Vision Cardiovascular History: Reports: High Cholesterol Respiratory History: Reports: Asthma Other Respiratory History: cough, reactive airway disease Gastrointestinal History: Reports: GERD, Pancreatitis Other Gastrointestinal History: Patient states that he was hospitalized at age 11 years of age for a bout of pancreatitis. He was hospitalized for a month and spent another month at home recovering after 20 pound weight loss. Etiology was never elucidated but likely was viral. 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 Musculoskeletal History: Reports: None Neurological History: Reports: Migraines Other Psychiatric History: fatigue, insomnia Endocrine/Metabolic History: Reports: None Hematologic History: Reports: None Immunologic History: Reports: None Oncologic (Cancer) History: Reports: None Dermatologic History: Reports: None - Infectious Disease History Infectious Disease History: Reports: Mononucleosis - Past Surgical History Head Surgeries/Procedures: Reports: None HEENT Surgical History: Reports: Adenoidectomy, Oral Surgery, Tonsillectomy Cardiovascular Surgical History: Reports: None Respiratory Surgical History: Reports: None GI Surgical History: Reports: Appendectomy Male Surgical History: Reports: Circumcision Endocrine Surgical History: Reports: None Neurological Surgical History: Reports: None Musculoskeletal Surgical History: Reports: None Oncologic Surgical History: Reports: None Dermatological Surgical History: Reports: None Social & Family History - Family History Family Medical History: No Pertinent Family History - Tobacco Use Tobacco Use Status *Q: Never Tobacco User - Caffeine Use Caffeine Use: Reports: Tea Other Caffeine Use: coffee in the morning and an occassional pop during the day - Recreational Drug Use Recreational Drug Use: No - Living Situation & Occupation Living situation: Reports: Occupation: Employed ED ROS GENERAL - Review of Systems Review Of Systems: See Below Constitutional: Reports: No Symptoms. Denies: Fever, Chills HEENT: Reports: No Symptoms Respiratory: Reports: Pleuritic Chest Pain (Right sided). Denies: Shortness of Breath, Cough Cardiovascular: Reports: No Symptoms. Denies: Lightheadedness, Palpitations, Syncope Endocrine: Reports: No Symptoms GI/Abdominal: Reports: Abdominal Pain, Constipation, Nausea. Denies: Diarrhea, Vomiting : Reports: No Symptoms Musculoskeletal: Reports: No Symptoms Skin: Reports: No Symptoms Neurological: Reports: No Symptoms Psychiatric: Reports: No Symptoms Hematologic/Lymphatic: Reports: No Symptoms Immunologic: Reports: No Symptoms ED EXAM, GI/ABD - Physical Exam Exam: See Below General Appearance: Alert, WD/WN, No Apparent Distress Respiratory/Chest: No Respiratory Distress, Lungs Clear, Normal Breath Sounds, No Accessory Muscle Use, Chest Non-Tender Cardiovascular: Normal Peripheral Pulses, Regular Rate, Rhythm, No Edema, No Gallop, No JVD, No Murmur, No Rub GI/Abdominal Exam: Normal Bowel Sounds, Soft, No Organomegaly, No Distention, No Abnormal Bruit, No Mass, Pelvis Stable, Tender (Epigastric and left upper quadrant) Neurological: Alert, Oriented, CN II-XII Intact, Normal Cognition, Normal Gait, Normal Reflexes, No Motor/Sensory Deficits Psychiatric: Normal Affect, Normal Mood Skin Exam: Warm, Dry, Intact, Normal Color, No Rash Course - Vital Signs Last Recorded V/S: Last Vital Signs Temp 97.6 F 07/11/20 11:56 Pulse 79 07/11/20 11:56 Resp 20 07/11/20 11:56 BP 105/77 07/11/20 11:56 Pulse Ox 97 07/11/20 11:56 - Orders/Labs/Meds Orders: Active Orders 24 hr Category Date Time Status Peripheral IV Care [RC] . DIRECTED Care 07/11/20 12:05 Active Sodium Chloride 0.9% [Saline Flush] Med 07/11/20 12:04 Active 10 ml FLUSH ASDIRECTED PRN Sodium Chloride 0.9% [Saline Flush] Med 07/11/20 12:24 Active 10 ml FLUSH ONETIME PRN Peripheral IV Insertion Adult [OM.PC] Stat Oth 07/11/20 12:04 Ordered Medication Orders Sodium Chloride (Saline Flush) 10 ml FLUSH ASDIRECTED PRN PRN Reason: Keep Vein Open Last Admin: 07/11/20 12:40 Dose: 10 ml Documented by: LINA Sodium Chloride (Saline Flush) 10 ml FLUSH ONETIME PRN PRN Reason: IV FLUSH Last Admin: 07/11/20 12:57 Dose: 10 ml Documented by: MATEO Labs: Laboratory Tests 07/11/20 07/11/20 07/11/20 Range/Units 12:00 12:00 13:00 WBC 6.39 (4.23-9.07) K/mm3 RBC 5.62 (4.63-6.08) M/mm3 Hgb 16.2 (13.7-17.5) gm/dl Hct 47.9 (40.1-51.0) % MCV 85.2 (79.0-92.2) fl MCH 28.8 (25.7-32.2) pg MCHC 33.8 (32.2-35.5) g/dl RDW Std Deviation 43.0 (35.1-43.9) fL Plt Count 130 L (163-337) K/mm3 MPV 11.0 (9.4-12.3) fl Neut % (Auto) 56.1 (34.0-67.9) % Lymph % (Auto) 30.7 (21.8-53.1) % Turner % (Auto) 11.1 (5.3-12.2) % Eos % (Auto) 1.6 (0.8-7.0) Baso % (Auto) 0.3 (0.1-1.2) % Neut # (Auto) 3.59 (1.78-5.38) K/mm3 Lymph # (Auto) 1.96 (1.32-3.57) K/mm3 Turner # (Auto) 0.71 (0.30-0.82) K/mm3 Eos # (Auto) 0.10 (0.04-0.54) K/mm3 Baso # (Auto) 0.02 (0.01-0.08) K/mm3 Sodium 142 (136-145) mEq/L Potassium 4.0 (3.5-5.1) mEq/L Chloride 105 (98-107) mEq/L Carbon Dioxide 26 (21-32) mEq/L Anion Gap 15.0 (5-15) BUN 14 (7-18) mg/dL Creatinine 1.0 (0.7-1.3) mg/dL Est Cr Clr Drug Dosing 109.93 mL/min Estimated GFR (MDRD) > 60 (>60) mL/min BUN/Creatinine Ratio 14.0 (14-18) Glucose 103 (74-106) mg/dL Calcium 9.3 (8.5-10.1) mg/dL Total Bilirubin 0.7 (0.2-1.0) mg/dL GGT 50 (15-85) U/L AST 43 H (15-37) U/L ALT 88 H (16-63) U/L Alkaline Phosphatase 94 (46-116) U/L C-Reactive Protein <0.2 (<1.0) mg/dL Total Protein 7.8 (6.4-8.2) g/dl Albumin 4.3 (3.4-5.0) g/dl Globulin 3.5 gm/dL Albumin/Globulin Ratio 1.2 (1-2) Triglycerides 110 (<150) mg/dL Amylase 364 H (25-115) U/L Lipase 2076 H (73-393) U/L SARS-CoV-2 RNA (MANISHA) Negative (NEGATIVE) Meds: Medications Generic Name Dose Route Start Last Admin Trade Name Keena PRN Reason Stop Dose Admin Sodium Chloride 10 ml 07/11/20 12:04 07/11/20 12:40 Saline Flush FLUSH 10 ml ASDIRECTED PRN Administration Keep Vein Open Sodium Chloride 10 ml 07/11/20 12:24 07/11/20 12:57 Saline Flush FLUSH 10 ml ONETIME PRN Administration IV FLUSH Discontinued Medications Generic Name Dose Route Start Last Admin Trade Name Keena PRN Reason Stop Dose Admin Hydromorphone HCl 0.5 mg 07/11/20 12:07 07/11/20 12:38 Dilaudid IVPUSH 07/11/20 12:08 0.5 mg ONETIME ONE Administration Sodium Chloride 1,000 mls @ 999 mls/hr 07/11/20 12:07 07/11/20 12:37 Normal Saline IV 07/11/20 13:07 999 mls/hr NOW STA Administration Iopamidol 50 ml 07/11/20 12:24 07/11/20 12:29 Isovue-300 (61%) IVPUSH 07/11/20 12:25 25 ml ONETIME ONE Administration Iopamidol 100 ml 07/11/20 12:24 07/11/20 12:29 Isovue-300 (61%) IVPUSH 07/11/20 12:25 100 ml ONETIME ONE Administration Ondansetron HCl 4 mg 07/11/20 12:07 07/11/20 12:36 Zofran IVPUSH 07/11/20 12:08 4 mg ONETIME ONE Administration - Re-Assessments/Exams Free Text/Narrative Re-Assessment/Exam: Patient is a 40-year-old male presenting to the emergency department with complaints of epigastric and left upper quadrant abdominal pain. He has a history of recurrent pancreatitis. Severe symptoms began around 2:00 this morning. He is taking 10 mg of oxycodone with little relief. I have ordered CBC, CMP, CRP, amylase, lipase, triglycerides, Covid test, and a CT abdomen pelvis with IV contrast. We will give him 1 L bolus of normal saline, Dilaudid 0.5 mg IV, and Zofran 4 mg IV. 07/11/20 13:19 Hematology was significant for AST minimally elevated at 43, ALT 88, amylase 364, lipase 2076. CT scan abdomen pelvis shows findings compatible with mild pancreatitis. Discussed results with patient and gave the option of outpatient management as opposed to inpatient if he feels he can manage at home. Patient states he is unable to eat or drink without worsening of pain, therefore he feels he needs to be admitted. Called and spoke with SANDHYA Zamudio. He has excepted the patient for admission pending Covid results. Departure - Departure Time of Disposition: 13:21 Disposition: Admitted As Inpatient 68 Condition: Good Clinical Impression: Acute pancreatitis Qualifiers: Pancreatitis type: idiopathic Acute pancreatitis complication: no infection or necrosis Qualified Code(s): K85.00 - Idiopathic acute pancreatitis without necrosis or infection - Discharge Information Sepsis Event Note (ED) - Evaluation Sepsis Screening Result: No Definite Risk - Focused Exam Vital Signs: Vital Signs Temp Pulse Resp BP Pulse Ox 07/11/20 11:56 97.6 F 79 20 105/77 97 - My Orders Last 24 Hours: My Active Orders 07/11/20 12:04 Sodium Chloride 0.9% [Saline Flush] 10 ml FLUSH ASDIRECTED PRN Peripheral IV Insertion Adult [OM.PC] Stat 07/11/20 12:05 Peripheral IV Care [RC] . DIRECTED 07/11/20 12:24 Sodium Chloride 0.9% [Saline Flush] 10 ml FLUSH ONETIME PRN - Assessment/Plan Last 24 Hours: My Active Orders 07/11/20 12:04 Sodium Chloride 0.9% [Saline Flush] 10 ml FLUSH ASDIRECTED PRN Peripheral IV Insertion Adult [OM.PC] Stat 07/11/20 12:05 Peripheral IV Care [RC] . DIRECTED 07/11/20 12:24 Sodium Chloride 0.9% [Saline Flush] 10 ml FLUSH ONETIME PRN
[2020-07-11] MEDS ORDERED: Iopamidol 612 MG/ML 100 ML Bottle IVPUSH ONE (12:24)
[2020-07-11] MEDS ORDERED: Iopamidol 612 MG/ML 50 ML SDV IVPUSH ONE (12:24)
--- NOTE | 2020-07-11 12:49 | CT ---
CT abdomen and pelvis Technique: Multiple axial sections were obtained from the top of the liver inferiorly through the pubic symphysis. Intravenous contrast was utilized. No oral contrast has been given. Comparison: Previous CT abdomen and pelvis study of 03/04/20. Findings: Visualized lung bases show nothing acute. Liver contains no focal abnormality. Spleen appears within normal limits. Adrenal glands show no nodule. Kidneys show symmetric contrast enhancement with no hydronephrosis or mass being seen. Gallbladder is not definitely visualized. Pancreas shows mild surrounding fluid compatible with pancreatitis. Aorta shows no aneurysm. No retroperitoneal adenopathy or mesenteric abnormalities are appreciated. No pelvic mass or adenopathy is seen. No free fluid or inflammatory change is appreciated. Appendix is not definitely visualized. Bone window settings were reviewed which show no acute osseous finding. Impression: 1. Findings are compatible with mild pancreatitis. 2. No additional abnormality is appreciated on CT study of the abdomen and pelvis. Diagnostic code #3
--- NOTE | 2020-07-11 12:52 | CR ---
Chest: 2 views of the chest were obtained. Comparison: Prior chest x-ray of 08/21/15. Heart size and mediastinum are normal. Lungs are clear with no acute parenchymal change. Bony structures appear within normal limits. Impression: 1. Nothing acute is identified on 2 view chest x-ray. Diagnostic code #1
--- NOTE | 2020-07-11 14:37 | PCM.HP.2 ---
H&P History of Present Illness - General Date of Service: 07/11/20 Admit Problem/Dx: Admission Diagnosis/Problem Admission Diagnosis/Problem Pancreatitis Source of Information: Patient, Old Records, Provider, RN, RN Notes Reviewed History Limitations: Reports: No Limitations - History of Present Illness Initial Comments - Free Text/Narative: This is a 40-year-old male who presents to ED on 07/11/2020 with severe upper abdominal discomfort. He has a longstanding history of recurrent pancreatitis and has been hospitalized in our facility before. He reports he always has some mild abdominal discomfort and has been seen in [facility] and [facility] for this. He states they report that he has chronic pancreatitis and that he will likely have occasional flares that require hospitalization. He reports he had his gallbladder taken out by Dr. Wisdom in March of this year. He feels like this has improved his symptoms although he does continue to note a discomfort from the area. He reports around 2 AM this morning the pain has increased and become quite severe. He has a home prescription for oxycodone for severe pain and he took it about hour and half prior to coming to the ED. Reports pain after medication was 6 out of 10 but he feels that it is too severe for him to be managing at home at this point. Denies any nausea, vomiting, or diarrhea but states that he does have chronic constipation issues, this is especially true when on narcotics. He states that any oral intake causes worsening of symptoms. He reports his first occurrence of pancreatitis was around age 11 and has had 2-3 episodes over the past year. Reports he also had his appendix removed. Reports he has had upper endoscopy and ERCP with no concerns noted. Reports he does have high triglycerides however they have been only mildly elevated at 200-20 800 in the past. Denies any alcohol consumption since his initial attack earlier in the year. Denies any illicit drug use. Sta jeffry he normally takes 50 mg of tramadol in the morning to control his chronic pain. In the ED he was afebrile with a temp of 97.6. Pulse was 79. Respirations 20. Blood pressure 105/77. Pulse ox 97%. CBC is grossly unremarkable however platelets are noted to be low at 130. There is no leukocytosis. CMP is grossly unremarkable. Bilirubin 0.7. GGT is 50. AST is 43, ALT 88, alkaline phospha tase 94. CRP is less than 0.7. Protein 7.8. Albumin 4.3. Triglycerides are 110. Amylase is 364. Lipase is 2076. SARS Covid 2 RNA screen is negative. He is given Dilaudid and Zofran in the ED. He is also given a 1 L fluid bolus. Chest x-ray is obtained showing nothing acute. Abdominal/pelvis T is obtained with contrast and notes findings compatible with mild pancreatitis. No additional abnormality is noted. He carries a history of HLD, asthma, cough, GERD, recurrent pancreatitis, lara astrid, insomnia. He is not a smoker. His PCP is Ko Mata PA-C. He sees Denise Julio NP for GI at [facility]. Upper Abdomen Pain Score (Numeric/FACES): 6 - Related Data Allergies/Adverse Reactions: Allergies Allergy/AdvReac Type Severity Reaction Status Date / Time amoxicillin Allergy Intermediate Hives Verified 07/11/20 15:03 Home Medications: Home Meds Ondansetron [Ondansetron ODT] 4 mg PO Q6H PRN 03/29/20 [History] Zolpidem [Ambien] 5 mg PO BEDTIME 03/29/20 [History] oxyCODONE 10 mg PO BID 07/11/20 [History] traMADol [Ultram] 50 mg PO DAILY 07/11/20 [History] Past Medical History HEENT History: Reports: Impaired Vision Cardiovascular History: Reports: High Cholesterol Respiratory History: Reports: Asthma Other Respiratory History: cough, reactive airway disease Gastrointestinal History: Reports: GERD, Pancreatitis Other Gastrointestinal History: Patient states that he was hospitalized at age 11 years of age for a bout of pancreatitis. He was hospitalized for a month and spent another month at home recovering after 20 pound weight loss. Etiology was never elucidated but likely was viral. Genitourinary History: Reports: None [employer] History: Reports: None Musculoskeletal History: Reports: None Neurological History: Reports: Migraines Other Psychiatric History: fatigue, insomnia Endocrine/Metabolic History: Reports: None Hematologic History: Reports: None Immunologic History: Reports: None Oncologic (Cancer) History: Reports: None Dermatologic History: Reports: None - Infectious Disease History Infectious Disease History: Reports: Mononucleosis - Past Surgical History Head Surgeries/Procedures: Reports: None HEENT Surgical History: Reports: Adenoidectomy, Oral Surgery, Tonsillectomy Cardiovascular Surgical History: Reports: None Respiratory Surgical History: Reports: None GI Surgical History: Reports: Appendectomy Male Surgical History: Reports: Circumcision Endocrine Surgical History: Reports: None Neurological Surgical History: Reports: None Musculoskeletal Surgical History: Reports: None Oncologic Surgical History: Reports: None Dermatological Surgical History: Reports: None Social & Family History - Family History Family Medical History: No Pertinent Family History - Tobacco Use Tobacco Use Status *Q: Never Tobacco User - Caffeine Use Caffeine Use: Reports: Tea Other Caffeine Use: coffee in the morning and an occassional pop during the day - Recreational Drug Use Recreational Drug Use: No - Living Situation & Occupation Living situation: Reports: Occupation: Employed H&P Review of Systems - Review of Systems: Review Of Systems: See Below General: Reports: No Symptoms. Denies: Fever, Chills, Malaise, Weakness, Fatigue HEENT: Reports: No Symptoms. Denies: Headaches, Sore Throat Pulmonary: Reports: No Symptoms. Denies: Shortness of Breath, Wheezing, Pleuri tic Chest Pain, Cough, Sputum, Hemoptysis Cardiovascular: Reports: No Symptoms. Denies: Chest Pain, Palpitations, Dyspnea on Exertion, Edema, Lightheadedness Gastrointestinal: Reports: Abdominal Pain (Upper quadrant ), Constipation. Denies: Diarrhea, Nausea, Vomiting Genitourinary: Reports: No Symptoms. Denies: Pain Musculoskeletal: Reports: No Symptoms Skin: Reports: No Symptoms. Denies: Cyanosis Psychiatric: Reports: No Symptoms. Denies: Confusion Neurological: Reports: No Symptoms. Denies: Pre-Existing Deficit, Trouble Speaking, Difficulty Walking, Gait Disturbance Hematologic/Lymphatic: Reports: No Symptoms Immunologic: Reports: No Symptoms Exam - Exam Exam: See Below - Vital Signs Vital Signs: Last Vital Signs Temp 97.4 F 07/11/20 14:21 Pulse 69 07/11/20 14:21 Resp 16 07/11/20 14:21 BP 122/99 H 07/11/20 14:21 Pulse Ox 99 07/11/20 14:21 Weight: 176 lb 4 oz - Exam Quality Assessment: No: Supplemental Oxygen, Urinary Catheter, DVT Prophylaxis (Not indiacted due to VTE score ) General: Alert, Oriented, Cooperative. No: Mild Distress HEENT: Conjunctiva Clear, EACs Clear, Posterior Pharynx Clear Neck: Supple, Trachea Midline Lungs: Clear to Auscultation, Normal Respiratory Effort Cardiovascular: Regular Rate, Regular Rhythm GI/Abdominal Exam: Normal Bowel Sounds, Soft, No Distention, Tender (Upperqu adrants most severe in epigastric region). No: Guarding (Male) Exam: Deferred Rectal (Males) Exam: Deferred Back Exam: Normal Inspection, Full Range of Motion Extremities: Normal Inspection, Normal Range of Motion, Non-Tender, No Pedal Edema, Normal Capillary Refill Peripheral Pulses: 3+: Radial (L), Radial (R), Dorsalis Pedis (L), Dorsalis Pedis (R) Skin: Warm, Dry, Intact Neurological: Cranial Nerves Intact (Grossly ) Neuro Extensive - Mental Status: Alert, Oriented x3, Normal Mood/Affect - Patient Data Lab Results Last 24 hrs: Laboratory Results - last 24 hr 07/11/20 07/11/20 07/11/20 Range/Units 12:00 12:00 13:00 WBC 6.39 (4.23-9.07) K/mm3 RBC 5.62 (4.63-6.08) M/mm3 Hgb 16.2 (13.7-17.5) gm/dl Hct 47.9 (40.1-51.0) % MCV 85.2 (79.0-92.2) fl MCH 28.8 (25.7-32.2) pg MCHC 33.8 (32.2-35.5) g/dl RDW Std Deviation 43.0 (35.1-43.9) fL Plt Count 130 L (163-337) K/mm3 MPV 11.0 (9.4-12.3) fl Neut % (Auto) 56.1 (34.0-67.9) % Lymph % (Auto) 30.7 (21.8-53.1) % [place] % (Auto) 11.1 (5.3-12.2) % Eos % (Auto) 1.6 (0.8-7.0) Baso % (Auto) 0.3 (0.1-1.2) % Neut # (Auto) 3.59 (1.78-5.38) K/mm3 Lymph # (Auto) 1.96 (1.32-3.57) K/mm3 [place] # (Auto) 0.71 (0.30-0.82) K/mm3 Eos # (Auto) 0.10 (0.04-0.54) K/mm3 Baso # (Auto) 0.02 (0.01-0.08) K/mm3 Sodium 142 (136-145) mEq/L Potassium 4.0 (3.5-5.1) mEq/L Chloride 105 (98-107) mEq/L Carbon Dioxide 26 (21-32) mEq/L Anion Gap 15.0 (5-15) BUN 14 (7-18) mg/dL Creatinine 1.0 (0.7-1.3) mg/dL Est Cr Clr Drug Dosing 109.93 mL/min Estimated GFR (MDRD) > 60 (>60) mL/min BUN/Creatinine Ratio 14.0 (14-18) Glucose 103 (74-106) mg/dL Calcium 9.3 (8.5-10.1) mg/dL Total Bilirubin 0.7 (0.2-1.0) mg/dL GGT 50 (15-85) U/L AST 43 H (15-37) U/L ALT 88 H (16-63) U/L Alkaline Phosphatase 94 (46-116) U/L C-Reactive Protein <0.2 (<1.0) mg/dL Total Protein 7.8 (6.4-8.2) g/dl Albumin 4.3 (3.4-5.0) g/dl Globulin 3.5 gm/dL Albumin/Globulin Ratio 1.2 (1-2) Triglycerides 110 (<150) mg/dL Amylase 364 H (25-115) U/L Lipase 2076 H (73-393) U/L SARS-CoV-2 RNA (MANISHA) Negative (NEGATIVE) Result Diagrams: 07/11/20 12:00 07/11/20 12:00 Sepsis Event Note - Evaluation Sepsis Screening Result: No Definite Risk - Focused Exam Vital Signs: Vital Signs Temp Pulse Resp BP Pulse Ox 07/11/20 14:21 97.4 F 69 16 122/99 H 99 07/11/20 11:56 97.6 F 79 20 105/77 97 - Problem List (1) Acute recurrent pancreatitis SNOMED Code(s): 527736442 ICD Code: K85.90 - ACUTE PANCREATITIS WITHOUT NECROSIS OR INFECTION, UNSP Status: Acute Priority: High Current Visit: Yes (2) S/P cholecystectomy SNOMED Code(s): 963255684, 11484764, 499741084 ICD Code: Z90.49 - ACQUIRED ABSENCE OF OTHER SPECIFIED PARTS OF DIGESTIVE TRACT Status: Chronic Priority: Low Current Visit: No (3) S/P appendectomy SNOMED Code(s): 940423356, 34664180, 280414152 ICD Code: Z90.49 - ACQUIRED ABSENCE OF OTHER SPECIFIED PARTS OF DIGESTIVE TRACT Status: Chronic Priority: Low Current Visit: No (4) Constipation SNOMED Code(s): 92964716 ICD Code: K59.00 - CONSTIPATION, UNSPECIFIED Status: Chronic Priority: Medium Current Visit: Yes Qualifiers: Constipation type: unspecified constipation type Qualified Code(s): K59.00 - Constipation, unspecified (5) Hyperlipidemia SNOMED Code(s): 65974920 ICD Code: E78.5 - HYPERLIPIDEMIA, UNSPECIFIED Status: Chronic Priority: Medium Current Visit: No Qualifiers: Hyperlipidemia type: unspecified Qualified Code(s): E78.5 - Hyperlipidemia, unspecified Problem List Initiated/Reviewed/Updated: Yes Orders Last 24hrs: Active Orders 24 hr Category Date Time Status Admission Status [Patient Status] [ADT] Routine ADT 07/11/20 14:00 Active Peripheral IV Care [RC] . DIRECTED Care 07/11/20 12:05 Active Sodium Chloride 0.9% [Saline Flush] Med 07/11/20 12:04 Active 10 ml FLUSH ASDIRECTED PRN Sodium Chloride 0.9% [Saline Flush] Med 07/11/20 12:24 Active 10 ml FLUSH ONETIME PRN Peripheral IV Insertion Adult [OM.PC] Stat Oth 07/11/20 12:04 Ordered Medication Orders Sodium Chloride (Saline Flush) 10 ml FLUSH ASDIRECTED PRN PRN Reason: Keep Vein Open Last Admin: 07/11/20 12:40 Dose: 10 ml Documented by: LINA Sodium Chloride (Saline Flush) 10 ml FLUSH ONETIME PRN PRN Reason: IV FLUSH Last Admin: 07/11/20 12:57 Dose: 10 ml Documented by: MATEO Assessment/Plan Comment:: Assessment - Day of admission: 07/11/20 * 40 yo presents to ED with upper quadrant abdominal pain * History of recurrent pancreatitis following at [facility] and [facility] * Cholecystectomy performed by Dr. Wisdom in 04/12 with improvement but not resolution of symptoms * Afebrile, no infectious symptoms, reports home abdominal pain * CXR in ED shows nothing acute * Ab/Pelvis CT in ED shows mild pancreatitis and nothing otherwise acute * Given 1L fluid bolus, zofran, dilaudid in ED * Reports mild history of triglyceridemia, no ETOH use, no pancreatitis inducing medications * Labs: * WBC 6.39 * Hgb 16.2 * Plt 130 * Neutrophils 3.59 * Sodium 14 * Potassium 4.0 * Anion gap 15.0 * BUN 14, Creatinine 1.0, GFR >60 * Glucos 103 * Total bilirubin 0.7 * GGT 50 * AST 43, ALT 88, Alk phos 90 * CRP <0.2 * Protein 7.8 * Albumin 4.3 * Triglycerides 110 * Amylase 364 * Lipase 2076 * SARS-CoV-2 RNA negative * Admitted to hospital floor for treatment of acute on chronic pancreatitis PLAN: Acute recurrent pancreatitis Hyperlipidemia Constipation S/P cholecystectomy S/P appendectomy * NPO with medications * PO Pain medications with IVP pain medications for breakthrough pain * IV fluids as ordered * Q6hr blood glucose checks while NPO * Ambulate * PRN colace for constipation * Obtain RUQ abdominal US * Re-check lipase tomorrow * Obtain old records for [facility] and [facility] * Antiemetics PRN for nausea Code status: Full Code PCP: Ko Mata PA-C GI: Denise Julio NP at [facility] in [place] DVT prophylaxis: Not indicated with VTE score of 0 Disposition: Admit to medical floor for management of acute on chronic pancreatitis. Estimated LOS 2-3 days total. - Mortality Measure Prognosis:: Good
[2020-07-11] MEDS ORDERED: Acetaminophen 325 MG Tab PO PRN (14:38)
[2020-07-11] MEDS ORDERED: Ondansetron 4 MG/2 ML SDV IV PRN (14:38)
[2020-07-11] MEDS: Lactated Ringers 1,000 ML IV SCH ×2 (14:56→22:35)
[2020-07-11] MEDS: Docusate Sodium 100 MG Cap PO PRN (15:38)
[2020-07-11] MEDS: Acetaminophen/HYDROcodone 325-5 MG Tab PO PRN ×2 (15:38→20:36)
[2020-07-11] MEDS: HYDROmorphone 0.5 MG/0.5 ML Syringe IVPUSH PRN (18:34)
[2020-07-11] MEDS: traZODone 50 MG Tab PO PRN (22:36)
[2020-07-12] MEDS: Lactated Ringers 1,000 ML IV SCH ×3 (06:28→18:40)
--- NOTE | 2020-07-12 07:14 | PCM.PN ---
- General Info Date of Service: 07/12/20 Admission Dx/Problem (Free Text): Admission Diagnosis/Problem Admission Diagnosis/Problem Pancreatitis Subjective Update: In to see Raghu. We discussed labs as his lipase is just over 300 today. He reports he feels like he is back to his baseline pain currently. Will advance diet to clear liquids for lunch and if he tolerates this will go to full liquids for supper. IV fluids will be stopped. No nursing or patient concerns. Hopeful for discharge tomorrow pending continued improvement and successful advancement of diet. Functional Status: Reports: Pain Controlled, Tolerating Diet, Ambulating, Urinating. Denies: New Symptoms - Review of Systems General: Reports: No Symptoms. Denies: Fever, Weakness, Fatigue, Malaise, Chills HEENT: Reports: No Symptoms. Denies: Headaches, Sore Throat Pulmonary: Reports: No Symptoms. Denies: Shortness of Breath, Cough, Sputum, Wheezing Cardiovascular: Reports: No Symptoms. Denies: Chest Pain, Palpitations, Dyspnea on Exertion, Edema Gastrointestinal: Reports: Abdominal Pain (minimal epigastric - chronic and at baseline. ). Denies: Constipation, Diarrhea, Nausea, Vomiting Genitourinary: Reports: No Symptoms. Denies: Pain Musculoskeletal: Reports: No Symptoms Skin: Reports: No Symptoms. Denies: Cyanosis Neurological: Reports: No Symptoms. Denies: Confusion, Difficulty Walking, Weakness, Gait Disturbance Psychiatric: Reports: No Symptoms - Patient Data Vitals - Most Recent: Last Vital Signs Temp 97.7 F 07/12/20 04:59 Pulse 56 L 07/12/20 04:59 Resp 16 07/12/20 04:59 BP 110/71 07/12/20 04:59 Pulse Ox 100 07/12/20 04:59 Weight - Most Recent: 172 lb 9.6 oz I&O - Last 24 Hours: Intake & Output 07/11/20 07/12/20 07/12/20 22:59 06:59 14:59 Intake Total 986 Balance 986 Lab Results Last 24 Hours: Laboratory Results - last 24 hr 07/11/20 07/11/20 07/11/20 Range/Units 12:00 12:00 13:00 WBC 6.39 (4.23-9.07) K/mm3 RBC 5.62 (4.63-6.08) M/mm3 Hgb 16.2 (13.7-17.5) gm/dl Hct 47.9 (40.1-51.0) % MCV 85.2 (79.0-92.2) fl MCH 28.8 (25.7-32.2) pg MCHC 33.8 (32.2-35.5) g/dl RDW Std Deviation 43.0 (35.1-43.9) fL Plt Count 130 L (163-337) K/mm3 MPV 11.0 (9.4-12.3) fl Neut % (Auto) 56.1 (34.0-67.9) % Lymph % (Auto) 30.7 (21.8-53.1) % [place] % (Auto) 11.1 (5.3-12.2) % Eos % (Auto) 1.6 (0.8-7.0) Baso % (Auto) 0.3 (0.1-1.2) % Neut # (Auto) 3.59 (1.78-5.38) K/mm3 Lymph # (Auto) 1.96 (1.32-3.57) K/mm3 [place] # (Auto) 0.71 (0.30-0.82) K/mm3 Eos # (Auto) 0.10 (0.04-0.54) K/mm3 Baso # (Auto) 0.02 (0.01-0.08) K/mm3 Sodium 142 (136-145) mEq/L Potassium 4.0 (3.5-5.1) mEq/L Chloride 105 (98-107) mEq/L Carbon Dioxide 26 (21-32) mEq/L Anion Gap 15.0 (5-15) BUN 14 (7-18) mg/dL Creatinine 1.0 (0.7-1.3) mg/dL Est Cr Clr Drug Dosing 109.93 mL/min Estimated GFR (MDRD) > 60 (>60) mL/min BUN/Creatinine Ratio 14.0 (14-18) Glucose 103 (74-106) mg/dL POC Glucose (70-105) mg/dL Calcium 9.3 (8.5-10.1) mg/dL Magnesium (1.8-2.4) mg/dl Total Bilirubin 0.7 (0.2-1.0) mg/dL GGT 50 (15-85) U/L AST 43 H (15-37) U/L ALT 88 H (16-63) U/L Alkaline Phosphatase 94 (46-116) U/L C-Reactive Protein <0.2 (<1.0) mg/dL Total Protein 7.8 (6.4-8.2) g/dl Albumin 4.3 (3.4-5.0) g/dl Globulin 3.5 gm/dL Albumin/Globulin Ratio 1.2 (1-2) Triglycerides 110 (<150) mg/dL Amylase 364 H (25-115) U/L Lipase 2076 H (73-393) U/L SARS-CoV-2 RNA (MANISHA) Negative (NEGATIVE) 07/11/20 07/12/20 07/12/20 Range/Units 17:31 00:51 04:28 WBC 6.23 (4.23-9.07) K/mm3 RBC 4.94 (4.63-6.08) M/mm3 Hgb 14.2 D (13.7-17.5) gm/dl Hct 42.9 (40.1-51.0) % MCV 86.8 (79.0-92.2) fl MCH 28.7 (25.7-32.2) pg MCHC 33.1 (32.2-35.5) g/dl RDW Std Deviation 44.0 H (35.1-43.9) fL Plt Count 125 L (163-337) K/mm3 MPV 11.3 (9.4-12.3) fl Neut % (Auto) 31.1 L (34.0-67.9) % Lymph % (Auto) 51.8 (21.8-53.1) % [place] % (Auto) 14.3 H (5.3-12.2) % Eos % (Auto) 2.4 (0.8-7.0) Baso % (Auto) 0.2 (0.1-1.2) % Neut # (Auto) 1.94 (1.78-5.38) K/mm3 Lymph # (Auto) 3.23 (1.32-3.57) K/mm3 [place] # (Auto) 0.89 H (0.30-0.82) K/mm3 Eos # (Auto) 0.15 (0.04-0.54) K/mm3 Baso # (Auto) 0.01 (0.01-0.08) K/mm3 Sodium (136-145) mEq/L Potassium (3.5-5.1) mEq/L Chloride (98-107) mEq/L Carbon Dioxide (21-32) mEq/L Anion Gap (5-15) BUN (7-18) mg/dL Creatinine (0.7-1.3) mg/dL Est Cr Clr Drug Dosing mL/min Estimated GFR (MDRD) (>60) mL/min BUN/Creatinine Ratio (14-18) Glucose (74-106) mg/dL POC Glucose 89 89 (70-105) mg/dL Calcium (8.5-10.1) mg/dL Magnesium (1.8-2.4) mg/dl Total Bilirubin (0.2-1.0) mg/dL GGT (15-85) U/L AST (15-37) U/L ALT (16-63) U/L Alkaline Phosphatase (46-116) U/L C-Reactive Protein (<1.0) mg/dL Total Protein (6.4-8.2) g/dl Albumin (3.4-5.0) g/dl Globulin gm/dL Albumin/Globulin Ratio (1-2) Triglycerides (<150) mg/dL Amylase (25-115) U/L Lipase (73-393) U/L SARS-CoV-2 RNA (MANISHA) (NEGATIVE) 07/12/20 07/12/20 Range/Units 04:28 06:30 WBC (4.23-9.07) K/mm3 RBC (4.63-6.08) M/mm3 Hgb (13.7-17.5) gm/dl Hct (40.1-51.0) % MCV (79.0-92.2) fl MCH (25.7-32.2) pg MCHC (32.2-35.5) g/dl RDW Std Deviation (35.1-43.9) fL Plt Count (163-337) K/mm3 MPV (9.4-12.3) fl Neut % (Auto) (34.0-67.9) % Lymph % (Auto) (21.8-53.1) % [place] % (Auto) (5.3-12.2) % Eos % (Auto) (0.8-7.0) Baso % (Auto) (0.1-1.2) % Neut # (Auto) (1.78-5.38) K/mm3 Lymph # (Auto) (1.32-3.57) K/mm3 [place] # (Auto) (0.30-0.82) K/mm3 Eos # (Auto) (0.04-0.54) K/mm3 Baso # (Auto) (0.01-0.08) K/mm3 Sodium 144 (136-145) mEq/L Potassium 3.9 (3.5-5.1) mEq/L Chloride 106 (98-107) mEq/L Carbon Dioxide 27 (21-32) mEq/L Anion Gap 14.9 (5-15) BUN 9 (7-18) mg/dL Creatinine 1.0 (0.7-1.3) mg/dL Est Cr Clr Drug Dosing 109.93 mL/min Estimated GFR (MDRD) > 60 (>60) mL/min BUN/Creatinine Ratio 9.0 L (14-18) Glucose 85 (74-106) mg/dL POC Glucose 83 (70-105) mg/dL Calcium 8.8 (8.5-10.1) mg/dL Magnesium 2.0 (1.8-2.4) mg/dl Total Bilirubin 0.8 (0.2-1.0) mg/dL GGT (15-85) U/L AST 76 H (15-37) U/L ALT 119 H (16-63) U/L Alkaline Phosphatase 92 (46-116) U/L C-Reactive Protein 0.8 (<1.0) mg/dL Total Protein 6.5 (6.4-8.2) g/dl Albumin 3.5 (3.4-5.0) g/dl Globulin 3.0 gm/dL Albumin/Globulin Ratio 1.2 (1-2) Triglycerides (<150) mg/dL Amylase (25-115) U/L Lipase 386 (73-393) U/L SARS-CoV-2 RNA (MANISHA) (NEGATIVE) Med Orders - Current: Current Medications Acetaminophen (Tylenol) 650 mg PO Q4H PRN PRN Reason: Pain (Mild 1-3)/fever Hydrocodone Bitart/Acetaminophen ([place] 325-5 Mg) 1 tab PO Q4H PRN PRN Reason: Pain (moderate 4-6) Last Admin: 07/11/20 20:36 Dose: 1 tab Documented by: Docusate Sodium (Colace) 100 mg PO BID PRN PRN Reason: Constipation Last Admin: 07/11/20 15:38 Dose: 100 mg Documented by: Hydromorphone HCl (Dilaudid) 0.5 mg IVPUSH Q2H PRN PRN Reason: Pain (severe 7-10) Last Admin: 07/11/20 18:34 Dose: 0.5 mg Documented by: Lactated Ringer's (Ringers, Lactated) 1,000 mls @ 125 mls/hr IV ASDIRECTED [facility] Last Admin: 07/12/20 06:28 Dose: 125 mls/hr Documented by: Ondansetron HCl (Zofran) 4 mg IV Q6H PRN PRN Reason: Nausea/Vomiting Last Admin: 07/11/20 20:36 Dose: 4 mg Documented by: Sodium Chloride (Saline Flush) 10 ml FLUSH ASDIRECTED PRN PRN Reason: Keep Vein Open Last Admin: 07/11/20 12:40 Dose: 10 ml Documented by: Sodium Chloride (Saline Flush) 10 ml FLUSH ONETIME PRN PRN Reason: IV FLUSH Last Admin: 07/11/20 12:57 Dose: 10 ml Documented by: Trazodone HCl (Trazodone) 50 mg PO BEDTIME PRN PRN Reason: Insomnia Last Admin: 07/11/20 22:36 Dose: 50 mg Documented by: Discontinued Medications Enoxaparin Sodium (Lovenox) 40 mg SUBCUT DAILY [facility] Hydromorphone HCl (Dilaudid) 0.5 mg IVPUSH ONETIME ONE Stop: 07/11/20 12:08 Last Admin: 07/11/20 12:38 Dose: 0.5 mg Documented by: Sodium Chloride (Normal Saline) 1,000 mls @ 999 mls/hr IV NOW STA Stop: 07/11/20 13:07 Last Admin: 07/11/20 12:37 Dose: 999 mls/hr Documented by: Iopamidol (Isovue-300 (61%)) 50 ml IVPUSH ONETIME ONE Stop: 07/11/20 12:25 Last Admin: 07/11/20 12:29 Dose: 25 ml Documented by: Iopamidol (Isovue-300 (61%)) 100 ml IVPUSH ONETIME ONE Stop: 07/11/20 12:25 Last Admin: 07/11/20 12:29 Dose: 100 ml Documented by: Ondansetron HCl (Zofran) 4 mg IVPUSH ONETIME ONE Stop: 07/11/20 12:08 Last Admin: 07/11/20 12:36 Dose: 4 mg Documented by: - Exam Quality Assessment: DVT Prophylaxis. No: Supplemental Oxygen, Urine Catheter General: Alert, Oriented, Cooperative, No Acute Distress HEENT: Pupils Equal, Pupils Reactive, Mucous Membr. Moist/[place] Neck: Supple, Trachea Midline Lungs: Clear to Auscultation, Normal Respiratory Effort Cardiovascular: Regular Rate, Regular Rhythm GI/Abdominal Exam: Normal Bowel Sounds, Soft, Non-Tender, No Distention (Male) Exam: Deferred Extremities: Normal Inspection, Normal Range of Motion, Non-Tender, No Pedal Edema Peripheral Pulses: 3+: Radial (L), Radial (R), Dorsalis Pedis (L), Dorsalis Pedis (R) Skin: Warm, Dry, Intact Neurological: No New Focal Deficit Psy/Mental Status: Alert, Normal Affect, Normal Mood Sepsis Event Note - Evaluation Sepsis Screening Result: No Definite Risk - Focused Exam Vital Signs: Vital Signs Temp Pulse Resp BP Pulse Ox 07/12/20 04:59 97.7 F 56 L 16 110/71 100 07/12/20 00:52 97.7 F 51 L 14 105/67 96 07/11/20 20:47 97.9 F 53 L 14 119/67 98 - Problem List & Annotations (1) Acute recurrent pancreatitis SNOMED Code(s): 098462462 Code(s): K85.90 - ACUTE PANCREATITIS WITHOUT NECROSIS OR INFECTION, UNSP St atus: Acute Priority: High Current Visit: Yes (2) S/P cholecystectomy SNOMED Code(s): 573046318, 98726352, 995357930 Code(s): Z90.49 - ACQUIRED ABSENCE OF OTHER SPECIFIED PARTS OF DIGESTIVE TRACT Status: Chronic Priority: Low Current Visit: No (3) S/P appendectomy SNOMED Code(s): 475110072, 53316333, 340643208 Code(s): Z90.49 - ACQUIRED ABSENCE OF OTHER SPECIFIED PARTS OF DIGESTIVE TRACT Status: Chronic Priority: Low Current Visit: No (4) Constipation SNOMED Code(s): 70464812 Code(s): K59.00 - CONSTIPATION, UNSPECIFIED Status: Chronic Priority: Medium Current Visit: Yes Qualifiers: Constipation type: unspecified constipation type Qualified Code(s): K59.00 - Constipation, unspecified (5) Hyperlipidemia SNOMED Code(s): 57977729 Code(s): E78.5 - HYPERLIPIDEMIA, UNSPECIFIED Status: Chronic Priority: Medium Current Visit: No Qualifiers: Hyperlipidemia type: unspecified Qualified Code(s): E78.5 - Hyperlipidemia, unspecified - Problem List Review Problem List Initiated/Reviewed/Updated: Yes - My Orders Last 24 Hours: My Active Orders 07/11/20 14:38 Height and Weight [RC] 06 Intake and Output [RC] 04,16 Oxygen Therapy [RC] PRN Pulse Oximetry [RC] PRN Up ad Laurie [RC] BID VTE/DVT Education [RC] DAILY Vital Signs [RC] Q4HR Consult to [employer] [CONS] Routine Acetaminophen [TylenoL] 650 mg PO Q4H PRN Acetaminophen/HYDROcodone [[place] 325-5 MG] 1 tab PO Q4H PRN HYDROmorphone [Dilaudid] 0.5 mg IVPUSH Q2H PRN Ondansetron [Zofran] 4 mg IV Q6H PRN Resuscitation Status Routine 07/11/20 14:43 Blood Glucose Check, Bedside [RC] 06,12,18,00 07/11/20 14:45 Lactated Ringers [Ringers, Lactated] 1,000 ml IV ASDIRECTED 07/11/20 15:23 Docusate Sodium [Colace] 100 mg PO BID PRN 07/11/20 Dinner Nothing per Oral Now Diet [DIET] 07/12/20 07:00 Abdomen Ltd [US] Routine 07/13/20 05:11 CBC WITH AUTO DIFF [HEME] AM CMP [COMPREHENSIVE METABOLIC PN,CMP] [CHEM] AM CRP [C-REACTIVE PROTEIN] [CHEM] AM MAGNESIUM [CHEM] AM 07/14/20 05:11 CBC WITH AUTO DIFF [HEME] AM CMP [COMPREHENSIVE METABOLIC PN,CMP] [CHEM] AM CRP [C-REACTIVE PROTEIN] [CHEM] AM MAGNESIUM [CHEM] AM 07/15/20 05:11 CBC WITH AUTO DIFF [HEME] AM CMP [COMPREHENSIVE METABOLIC PN,CMP] [CHEM] AM CRP [C-REACTIVE PROTEIN] [CHEM] AM MAGNESIUM [CHEM] AM - Plan Plan:: Assessment - Day of admission: 07/11/20 * 40 yo presents to ED with upper quadrant abdominal pain * History of recurrent pancreatitis following at [facility] and [facility] * Cholecystectomy performed by Dr. Wisdom in 04/12 with improvement but not resolution of symptoms * Afebrile, no infectious symptoms, reports home abdominal pain * CXR in ED shows nothing acute * Ab/Pelvis CT in ED shows mild pancreatitis and nothing otherwise acute * Given 1L fluid bolus, zofran, dilaudid in ED * Reports mild history of triglyceridemia, no ETOH use, no pancreatitis inducing medications * Labs: * WBC 6.39 * Hgb 16.2 * Plt 130 * Neutrophils 3.59 * Sodium 14 * Potassium 4.0 * Anion gap 15.0 * BUN 14, Creatinine 1.0, GFR >60 * Glucos 103 * Total bilirubin 0.7 * GGT 50 * AST 43, ALT 88, Alk phos 90 * CRP <0.2 * Protein 7.8 * Albumin 4.3 * Triglycerides 110 * Amylase 364 * Lipase 2076 * SARS-CoV-2 RNA negative * Admitted to hospital floor for treatment of acute on chronic pancreatitis 07/12/20 * Feeling much better * Reports abdominal pain is currently at baseline * Will advance diet to clear liquids for lunch. Advance as tolerated from there * Discontinue IV Fluids once tolerating PO * Labs: * WBC 6.23 * Bilirubin 0.8 * AST 76, ALT 119, Alk Phos92 * CRP 0.8 * Lipase 386 * Abdominal US shows mild pancreatitis but no duct dilation PLAN: Acute recurrent pancreatitis Hyperlipidemia Constipation S/P cholecystectomy S/P appendectomy * Advance diet to clear liquids now and advance as tolerated * PO Pain medications with IVP pain medications for breakthrough pain * IV fluids as ordered - discontinue once tolerating PO meals * Discontinue blood glucose checks while eating * Ambulate * PRN colace for constipation * Obtain old records for [facility] and [facility] * Antiemetics PRN for nausea Code status: Full Code PCP: Ko Mata PA-C GI: Denise Julio NP at [facility] in [place] DVT prophylaxis: Not indicated with VTE score of 0 Disposition: Admit to medical floor for management of acute on chronic pancreatitis. Estimated LOS 2-3 days total. Likely discharge 07/13/20 pending continued improvement and advancement of diet
--- NOTE | 2020-07-12 08:42 | US ---
Limited abdominal ultrasound: Multiple real-time images of the upper right abdomen were obtained. Comparison: Prior CT abdomen study of 07/11/20. Findings: Pancreas is not optimally seen. There is some fluid around the pancreas being noted which is compatible with previous CT findings of pancreatitis. Liver shows no focal abnormality. Previous cholecystectomy is noted. No biliary duct dilatation is appreciated. Right kidney shows no hydronephrosis or mass and has a length of 10.3 cm. Proximal aorta shows no aneurysm. Inferior vena cava is patent. Portal vein shows normal hepatopedal flow. Impression: 1. Findings compatible with a mild pancreatitis. 2. No additional abnormality is seen on this postcholecystectomy patient. Diagnostic code #3
[2020-07-12] MEDS ORDERED: Enoxaparin 40 MG/0.4 ML Syringe SUBCUT SCH (09:00)
[2020-07-12] MEDS: HYDROmorphone 0.5 MG/0.5 ML Syringe IVPUSH PRN ×4 (11:50→21:08)
[2020-07-12] MEDS: Acetaminophen/HYDROcodone 325-5 MG Tab PO PRN (12:14)
[2020-07-12] MEDS ORDERED: HYDROmorphone 0.5 MG/0.5 ML Syringe IVPUSH ONE (13:18)
[2020-07-12] MEDS ORDERED: Lactated Ringers 500 ML IV ONE (14:32)
[2020-07-12] MEDS ORDERED: HYDROmorphone 1 MG/ML Syringe IVPUSH STA (16:00)
[2020-07-12] MEDS ORDERED: Naloxone 0.4 MG/ML SDV IVPUSH PRN ×2 (16:12→18:50)
[2020-07-12] MEDS ORDERED: fentaNYL 100 MCG/2 ML SDV IVPUSH PRN (16:13)
[2020-07-12] MEDS ORDERED: diphenhydrAMINE 50 MG/ML SDV IVPUSH PRN (18:50)
[2020-07-12] MEDS ORDERED: Ondansetron 4 MG/2 ML SDV IVPUSH PRN (18:50)
[2020-07-12] MEDS ORDERED: diphenhydrAMINE 25 MG Cap PO PRN (18:50)
[2020-07-12] MEDS ORDERED: fentaNYL/Normal Saline 300 MCG/30 ML PCA Vial IV SCH (19:00)
[2020-07-12] MEDS: traZODone 50 MG Tab PO PRN (22:31)
[2020-07-13] MEDS: Lactated Ringers 1,000 ML IV SCH ×3 (03:16→20:02)
[2020-07-13] MEDS: HYDROmorphone 0.5 MG/0.5 ML Syringe IVPUSH PRN ×5 (03:37→19:54)
--- NOTE | 2020-07-13 07:20 | PCM.PN ---
- General Info Date of Service: 07/13/20 Admission Dx/Problem (Free Text): Admission Diagnosis/Problem Admission Diagnosis/Problem Pancreatitis Subjective Update: In to see Joeyjeniffer. He reports he feels much better currently than he did overnight. He states the pain during this episode was much different and that it was more right-sided and came and went in waves. He reports that his prior episodes were more epigastric and quite constant. Liver enzymes have increased significantly today and all Tylenol-containing medicines were discontinued. We will switch to oxycodone instead. Repeat labs this afternoon to recheck this. We will keep him n.p.o. today with the plan of slowly advancing diet tomorrow. Continuing IV fluids. Will need follow-up with GI after discharge. Functional Status: Reports: Pain Controlled, Ambulating, Urinating. Denies: Tolerating Diet (NPO), New Symptoms - Review of Systems General: Reports: No Symptoms. Denies: Fever, Weakness, Fatigue, Malaise, Chills HEENT: Reports: No Symptoms. Denies: Headaches, Visual Changes Pulmonary: Reports: No Symptoms. Denies: Shortness of Breath, Pleuritic Chest Pain, Cough, Sputum, Wheezing Cardiovascular: Reports: No Symptoms. Denies: Chest Pain, Palpitations, Dyspnea on Exertion, Edema Gastrointestinal: Reports: Abdominal Pain. Denies: Constipation, Diarrhea, Nausea, Vomiting Genitourinary: Reports: No Symptoms. Denies: Pain Musculoskeletal: Reports: No Symptoms Skin: Reports: No Symptoms. Denies: Cyanosis Neurological: Reports: No Symptoms. Denies: Confusion, Difficulty Walking, Weakness, Gait Disturbance Psychiatric: Reports: No Symptoms - Patient Data Vitals - Most Recent: Last Vital Signs Temp 98.2 F 07/13/20 03:23 Pulse 58 L 07/13/20 03:23 Resp 16 07/13/20 03:23 BP 101/66 07/13/20 04:00 Pulse Ox 96 07/13/20 03:23 Weight - Most Recent: 171 lb 4.8 oz I&O - Last 24 Hours: Intake & Output 07/12/20 07/13/20 07/13/20 22:59 06:59 14:59 Intake Total 2619 1200 Balance 2619 1200 Lab Results Last 24 Hours: Laboratory Results - last 24 hr 07/13/20 07/13/20 07/13/20 Range/Units 05:08 05:08 05:57 WBC 6.07 (4.23-9.07) K/mm3 RBC 4.86 (4.63-6.08) M/mm3 Hgb 14.0 (13.7-17.5) gm/dl Hct 42.0 (40.1-51.0) % MCV 86.4 (79.0-92.2) fl MCH 28.8 (25.7-32.2) pg MCHC 33.3 (32.2-35.5) g/dl RDW Std Deviation 43.5 (35.1-43.9) fL Plt Count 118 L (163-337) K/mm3 MPV 11.2 (9.4-12.3) fl Neut % (Auto) 46.9 (34.0-67.9) % Lymph % (Auto) 34.4 (21.8-53.1) % [place] % (Auto) 15.3 H (5.3-12.2) % Eos % (Auto) 3.0 (0.8-7.0) Baso % (Auto) 0.2 (0.1-1.2) % Neut # (Auto) 2.85 (1.78-5.38) K/mm3 Lymph # (Auto) 2.09 (1.32-3.57) K/mm3 [place] # (Auto) 0.93 H (0.30-0.82) K/mm3 Eos # (Auto) 0.18 (0.04-0.54) K/mm3 Baso # (Auto) 0.01 (0.01-0.08) K/mm3 Manual Slide Review Abnormal smear Sodium 144 (136-145) mEq/L Potassium 3.8 (3.5-5.1) mEq/L Chloride 107 (98-107) mEq/L Carbon Dioxide 26 (21-32) mEq/L Anion Gap 14.8 (5-15) BUN 7 (7-18) mg/dL Creatinine 1.0 (0.7-1.3) mg/dL Est Cr Clr Drug Dosing 109.93 mL/min Estimated GFR (MDRD) > 60 (>60) mL/min BUN/Creatinine Ratio 7.0 L (14-18) Glucose 86 (74-106) mg/dL POC Glucose 86 (70-105) mg/dL Calcium 8.8 (8.5-10.1) mg/dL Magnesium 1.9 (1.8-2.4) mg/dl Total Bilirubin 0.9 (0.2-1.0) mg/dL AST 229 H (15-37) U/L ALT 427 H (16-63) U/L Alkaline Phosphatase 168 H (46-116) U/L C-Reactive Protein 1.0 (<1.0) mg/dL Total Protein 6.5 (6.4-8.2) g/dl Albumin 3.4 (3.4-5.0) g/dl Globulin 3.1 gm/dL Albumin/Globulin Ratio 1.1 (1-2) Lipase 1093 H (73-393) U/L Med Orders - Current: Current Medications Acetaminophen (Tylenol) 650 mg PO Q4H PRN PRN Reason: Pain (Mild 1-3)/fever Hydrocodone Bitart/Acetaminophen (Johnson 325-5 Mg) 1 tab PO Q4H PRN PRN Reason: Pain (moderate 4-6) Last Admin: 07/12/20 12:14 Dose: 1 tab Documented by: Diphenhydramine HCl (Benadryl) 25 mg IVPUSH Q6H PRN PRN Reason: Itching Diphenhydramine HCl (Benadryl) 25 mg PO Q6H PRN PRN Reason: Itching Docusate Sodium (Colace) 100 mg PO BID PRN PRN Reason: Constipation Last Admin: 07/11/20 15:38 Dose: 100 mg Documented by: Fentanyl Citrate (Fentanyl In Ns 300 Mcg/30 Ml Conditioning Coach) 0 mcg IV ASDIRECTED [facility]; Protocol Hydromorphone HCl (Dilaudid) 0.5 mg IVPUSH Q2H PRN PRN Reason: Pain (severe 7-10) Last Admin: 07/13/20 03:37 Dose: 0.5 mg Documented by: Lactated Ringer's (Ringers, Lactated) 1,000 mls @ 125 mls/hr IV ASDIRECTED [facility] Last Admin: 07/13/20 03:16 Dose: 125 mls/hr Documented by: Naloxone HCl (Narcan) 0.4 mg IVPUSH Q2M PRN PRN Reason: Respiratory Distress Ondansetron HCl (Zofran) 4 mg IV Q6H PRN PRN Reason: Nausea/Vomiting Last Admin: 07/11/20 20:36 Dose: 4 mg Documented by: Sodium Chloride (Saline Flush) 10 ml FLUSH ASDIRECTED PRN PRN Reason: Keep Vein Open Last Admin: 07/11/20 12:40 Dose: 10 ml Documented by: Trazodone HCl (Trazodone) 50 mg PO BEDTIME PRN PRN Reason: Insomnia Last Admin: 07/12/20 22:31 Dose: 50 mg Documented by: Discontinued Medications Enoxaparin Sodium (Lovenox) 40 mg SUBCUT DAILY SHANICE Hydromorphone HCl (Dilaudid) 0.5 mg IVPUSH ONETIME ONE Stop: 07/11/20 12:08 Last Admin: 07/11/20 12:38 Dose: 0.5 mg Documented by: Hydromorphone HCl (Dilaudid) 0.5 mg IVPUSH ONETIME ONE Stop: 07/12/20 13:19 Last Admin: 07/12/20 13:22 Dose: 0.5 mg Documented by: Hydromorphone HCl (Dilaudid) 1 mg IVPUSH STAT STA Stop: 07/12/20 16:01 Last Admin: 07/12/20 16:25 Dose: 1 mg Documented by: Sodium Chloride (Normal Saline) 1,000 mls @ 999 mls/hr IV NOW STA Stop: 07/11/20 13:07 Last Admin: 07/11/20 12:37 Dose: 999 mls/hr Documented by: Lactated Ringer's (Ringers, Lactated) 500 mls @ 999 mls/hr IV .BOLUS ONE Stop: 07/12/20 15:02 Last Admin: 07/12/20 14:40 Dose: 999 mls/hr Documented by: Iopamidol (Isovue-300 (61%)) 50 ml IVPUSH ONETIME ONE Stop: 07/11/20 12:25 Last Admin: 07/11/20 12:29 Dose: 25 ml Documented by: Iopamidol (Isovue-300 (61%)) 100 ml IVPUSH ONETIME ONE Stop: 07/11/20 12:25 Last Admin: 07/11/20 12:29 Dose: 100 ml Documented by: Ondansetron HCl (Zofran) 4 mg IVPUSH ONETIME ONE Stop: 07/11/20 12:08 Last Admin: 07/11/20 12:36 Dose: 4 mg Documented by: Sodium Chloride (Saline Flush) 10 ml FLUSH ONETIME PRN PRN Reason: IV FLUSH Last Admin: 07/11/20 12:57 Dose: 10 ml Documented by: - Exam Quality Assessment: No: Supplemental Oxygen, DVT Prophylaxis (score of 0) General: Alert, Oriented, Cooperative, No Acute Distress HEENT: Pupils Equal, Pupils Reactive, Mucous Membr. Moist/[place] Neck: Supple, Trachea Midline Lungs: Clear to Auscultation, Normal Respiratory Effort Cardiovascular: Regular Rate, Regular Rhythm GI/Abdominal Exam: Normal Bowel Sounds, Soft, No Distention, Tender (Epigastric region ) (Male) Exam: Deferred Back Exam: Normal Inspection, Full Range of Motion Extremities: Normal Inspection, Normal Range of Motion, Non-Tender, No Pedal Edema, Normal Capillary Refill Skin: Warm, Dry, Intact Neurological: No New Focal Deficit Psy/Mental Status: Alert, Normal Affect, Normal Mood Sepsis Event Note - Evaluation Sepsis Screening Result: No Definite Risk - Focused Exam Vital Signs: Vital Signs Temp Pulse Resp BP BP Pulse Ox 07/13/20 04:00 101/66 07/13/20 03:23 98.2 F 58 L 16 96 07/12/20 23:22 98.1 F 70 111/65 98 07/12/20 22:08 98.4 F 67 16 117/81 100 07/12/20 20:28 97.9 F 80 16 123/79 100 - Problem List & Annotations (1) Acute recurrent pancreatitis SNOMED Code(s): 346617159 Code(s): K85.90 - ACUTE PANCREATITIS WITHOUT NECROSIS OR INFECTION, UNSP Status: Acute Priority: High Current Visit: Yes (2) S/P cholecystectomy SNOMED Code(s): 116863214, 79541243, 689218188 Code(s): Z90.49 - ACQUIRED ABSENCE OF OTHER SPECIFIED PARTS OF DIGESTIVE TRACT Status: Chronic Priority: Low Current Visit: No (3) S/P appendectomy SNOMED Code(s): 601041395, 67264493, 989469071 Code(s): Z90.49 - ACQUIRED ABSENCE OF OTHER SPECIFIED PARTS OF DIGESTIVE TRACT Status: Chronic Priority: Low Current Visit: No (4) Constipation SNOMED Code(s): 22077766 Code(s): K59.00 - CONSTIPATION, UNSPECIFIED Status: Chronic Priority: Medium Current Visit: Yes Qualifiers: Constipation type: unspecified constipation type Qualified Code(s): K59.00 - Constipation, unspecified (5) Hyperlipidemia SNOMED Code(s): 01067999 Code(s): E78.5 - HYPERLIPIDEMIA, UNSPECIFIED Status: Chronic Priority: Medium Current Visit: No Qualifiers: Hyperlipidemia type: unspecified Qualified Code(s): E78.5 - Hyperlipidemia, unspecified (6) Abnormal LFTs SNOMED Code(s): 083731105 Code(s): R94.5 - ABNORMAL RESULTS OF LIVER FUNCTION STUDIES Status: Acute Priority: High Current Visit: Yes - Problem List Review Problem List Initiated/Reviewed/Updated: Yes - My Orders Last 24 Hours: My Active Orders 07/12/20 Dinner NPO Now [Nothing per Oral Now Diet] [DIET] 07/14/20 05:11 CBC WITH AUTO DIFF [HEME] AM CMP [COMPREHENSIVE METABOLIC PN,CMP] [CHEM] AM CRP [C-REACTIVE PROTEIN] [CHEM] AM MAGNESIUM [CHEM] AM 07/15/20 05:11 CBC WITH AUTO DIFF [HEME] AM CMP [COMPREHENSIVE METABOLIC PN,CMP] [CHEM] AM CRP [C-REACTIVE PROTEIN] [CHEM] AM MAGNESIUM [CHEM] AM - Plan Plan:: Assessment - Day of admission: 07/11/20 * 40 yo presents to ED with upper quadrant abdominal pain * History of recurrent pancreatitis following at [facility] and [facility] * Cholecystectomy performed by Dr. Wisdom in 04/12 with improvement but not resolution of symptoms * Afebrile, no infectious symptoms, reports home abdominal pain * CXR in ED shows nothing acute * Ab/Pelvis CT in ED shows mild pancreatitis and nothing otherwise acute * Given 1L fluid bolus, zofran, dilaudid in ED * Reports mild history of triglyceridemia, no ETOH use, no pancreatitis inducing medications * Labs: * WBC 6.39 * Hgb 16.2 * Plt 130 * Neutrophils 3.59 * Sodium 14 * Potassium 4.0 * Anion gap 15.0 * BUN 14, Creatinine 1.0, GFR >60 * Glucos 103 * Total bilirubin 0.7 * GGT 50 * AST 43, ALT 88, Alk phos 90 * CRP <0.2 * Protein 7.8 * Albumin 4.3 * Triglycerides 110 * Amylase 364 * Lipase 2076 * SARS-CoV-2 RNA negative * Admitted to hospital floor for treatment of acute on chronic pancreatitis 07/12/20 * Feeling much better * Reports abdominal pain is currently at baseline * Will advance diet to clear liquids for lunch. Advance as tolerated from there * Discontinue IV Fluids once tolerating PO * Labs: * WBC 6.23 * Bilirubin 0.8 * AST 76, ALT 119, Alk Phos92 * CRP 0.8 * Lipase 386 * Abdominal US shows mild pancreatitis but no duct dilation 07/13/20 * Significant pain yesterday after eating - made NPO and IV fluids re-started * [employer] ordered but never started * Continue NPO today * Reports pain overnight was different - came in waves and more right sided than prior episodes. Others were epigastric and constant. * Repeat labs this afternoon as transaminitis noted * Continue IV fluids and blood glucose checks * Labs: * WBC 6.07 * GFR >60 * Magnesium 1.9 * Total Bilirubin 0.9 * AST 229, ALT 427, Alk Phos 168 * Albumin 3.4 * Lipase 1093 * Stop all tylenol containing pain medications * Start oxycodone PO for pain and continue Dilaudid PLAN: Acute recurrent pancreatitis Hyperlipidemia Constipation S/P cholecystectomy S/P appendectomy Abnormal LFTs * Continue NPO * PO Pain medications with IVP pain medications for breakthrough pain * IV fluids as ordered * Blood glucose checks while NPO * Ambulate * PRN colace for constipation * Obtain old records for [facility] and [facility] * Antiemetics PRN for nausea * Repeat labs this afternoon * Consider MRCP * Stop all tylenol containing pain medications Code status: Full Code PCP: Ko Mata PA-C GI: Denise Julio NP at [facility] in [place] DVT prophylaxis: Not indicated with VTE score of 0 Disposition: Admit to medical floor for management of acute on chronic pancreatitis. Estimated LOS 2-3 days total.
[2020-07-13] MEDS: oxyCODONE 5 MG Tab PO PRN ×3 (09:33→23:35)
--- NOTE | 2020-07-13 16:00 | MR ---
MRI abdomen with MRCP Technique: Various axial and coronal images were obtained as well as MRCP images. Findings: Liver contains no focal abnormality. Spleen is normal. Kidneys show no discrete abnormality. Pancreas shows no discrete mass. Prior CT exam showed fluid around the pancreas which is not appreciated on the MRI. Common bile duct is slightly prominent at 7 mm. There are no discrete filling defects within the CHD or CBD. Main pancreatic duct is mildly prominent in size. Impression: 1. Common bile duct slightly prominent at 7 mm, no filling defects are seen to indicate retained stone within the CHD or CBD. 2. Pancreatic duct is slightly prominent. 3. No additional abnormality is appreciated. Diagnostic code #2
[2020-07-13] MEDS: Docusate Sodium 100 MG Cap PO PRN (20:01)
[2020-07-13] MEDS: Dextrose 5%-0.45% NaCl 1,000 ML IV SCH (23:36)
[2020-07-14] MEDS: oxyCODONE 5 MG Tab PO PRN ×2 (03:46→21:39)
--- NOTE | 2020-07-14 08:30 | PCM.PN ---
- General Info Date of Service: 07/14/20 Admission Dx/Problem (Free Text): Admission Diagnosis/Problem Admission Diagnosis/Problem Pancreatitis Subjective Update: In to see Raghu. He is lying in bed and reports his pain is actually better than it has been in some time. He does report that he chronically has epigastric pain related to his chronic pancreatitis. Bilirubin has been increasing he is up to 1.6 today with an AST of 272, ALT of 424, and alkaline phosphatase of 260. Otherwise no leukocytosis. INR was checked after his initial episode of severe abdominal pain and INR was noted to be 1.20. Did attempt to contact patient's GI provider, Denise Julio NP in [place] and message was left with no response. Will advance diet to clear liquids and advance very slowly although patient is aware that he may likely go home on a significantly decreased and modified diet. We will recheck labs in the morning. Will discontinue IV fluids and blood glucose checks once patient is tolerating clear liquids. MRCP obtained yesterday shows mild pancreatitis and a mildly prominent CBD and pancreatic duct. Otherwise no concerns. No nursing or patient concerns. Functional Status: Reports: Pain Controlled, Tolerating Diet, Ambulating, Urinating. Denies: New Symptoms - Review of Systems General: Reports: No Symptoms. Denies: Fever, Weakness, Fatigue, Malaise, Chills HEENT: Reports: No Symptoms. Denies: Headaches, Sore Throat Pulmonary: Reports: No Symptoms. Denies: Shortness of Breath, Cough, Sputum, Wheezing Cardiovascular: Reports: No Symptoms. Denies: Chest Pain, Palpitations, Dyspnea on Exertion, Edema Gastrointestinal: Reports: Abdominal Pain (Minimal epigastric ). Denies: C onstipation, Decreased Appetite, Diarrhea, Nausea, Vomiting Genitourinary: Reports: No Symptoms. Denies: Pain Musculoskeletal: Reports: No Symptoms Skin: Reports: No Symptoms. Denies: Cyanosis Neurological: Reports: No Symptoms. Denies: Confusion, Difficulty Walking, Weakness, Gait Disturbance Psychiatric: Reports: No Symptoms - Patient Data Vitals - Most Recent: Last Vital Signs Temp 98.1 F 07/14/20 07:27 Pulse 62 07/14/20 07:27 Resp 16 07/14/20 07:27 BP 112/70 07/14/20 07:27 Pulse Ox 96 07/14/20 07:27 Weight - Most Recent: 169 lb 4 oz I&O - Last 24 Hours: Intake & Output 07/13/20 07/14/20 07/14/20 22:59 06:59 14:59 Intake Total 1500 850 Balance 1500 850 Lab Results Last 24 Hours: Laboratory Results - last 24 hr 07/13/20 07/13/20 07/13/20 Range/Units 11:48 12:17 12:17 WBC (4.23-9.07) K/mm3 RBC (4.63-6.08) M/mm3 Hgb (13.7-17.5) gm/dl Hct (40.1-51.0) % MCV (79.0-92.2) fl MCH (25.7-32.2) pg MCHC (32.2-35.5) g/dl RDW Std Deviation (35.1-43.9) fL Plt Count (163-337) K/mm3 MPV (9.4-12.3) fl Neut % (Auto) (34.0-67.9) % Lymph % (Auto) (21.8-53.1) % [place] % (Auto) (5.3-12.2) % Eos % (Auto) (0.8-7.0) Baso % (Auto) (0.1-1.2) % Neut # (Auto) (1.78-5.38) K/mm3 Lymph # (Auto) (1.32-3.57) K/mm3 [place] # (Auto) (0.30-0.82) K/mm3 Eos # (Auto) (0.04-0.54) K/mm3 Baso # (Auto) (0.01-0.08) K/mm3 PT 12.8 H (9.7-12.0) SECONDS INR 1.20 Sodium 142 (136-145) mEq/L Potassium 3.8 (3.5-5.1) mEq/L Chloride 105 (98-107) mEq/L Carbon Dioxide 25 (21-32) mEq/L Anion Gap 15.8 H (5-15) BUN 8 (7-18) mg/dL Creatinine 1.0 (0.7-1.3) mg/dL Est Cr Clr Drug Dosing 109.93 mL/min Estimated GFR (MDRD) > 60 (>60) mL/min BUN/Creatinine Ratio 8.0 L (14-18) Glucose 82 (74-106) mg/dL POC Glucose 86 (70-105) mg/dL Calcium 9.2 (8.5-10.1) mg/dL Magnesium (1.8-2.4) mg/dl Total Bilirubin 0.8 (0.2-1.0) mg/dL AST 181 H (15-37) U/L ALT 424 H (16-63) U/L Alkaline Phosphatase 193 H (46-116) U/L C-Reactive Protein (<1.0) mg/dL Total Protein 7.4 (6.4-8.2) g/dl Albumin 4.0 (3.4-5.0) g/dl Globulin 3.4 gm/dL Albumin/Globulin Ratio 1.2 (1-2) 07/13/20 07/13/20 07/14/20 Range/Units 18:49 20:39 04:30 WBC 5.19 (4.23-9.07) K/mm3 RBC 5.11 (4.63-6.08) M/mm3 Hgb 14.7 (13.7-17.5) gm/dl Hct 43.9 (40.1-51.0) % MCV 85.9 (79.0-92.2) fl MCH 28.8 (25.7-32.2) pg MCHC 33.5 (32.2-35.5) g/dl RDW Std Deviation 42.9 (35.1-43.9) fL Plt Count 121 L (163-337) K/mm3 MPV 11.3 (9.4-12.3) fl Neut % (Auto) 32.2 L (34.0-67.9) % Lymph % (Auto) 49.1 (21.8-53.1) % [place] % (Auto) 14.3 H (5.3-12.2) % Eos % (Auto) 4.0 (0.8-7.0) Baso % (Auto) 0.4 (0.1-1.2) % Neut # (Auto) 1.67 L (1.78-5.38) K/mm3 Lymph # (Auto) 2.55 (1.32-3.57) K/mm3 [place] # (Auto) 0.74 (0.30-0.82) K/mm3 Eos # (Auto) 0.21 (0.04-0.54) K/mm3 Baso # (Auto) 0.02 (0.01-0.08) K/mm3 PT (9.7-12.0) SECONDS INR Sodium (136-145) mEq/L Potassium (3.5-5.1) mEq/L Chloride (98-107) mEq/L Carbon Dioxide (21-32) mEq/L Anion Gap (5-15) BUN (7-18) mg/dL Creatinine (0.7-1.3) mg/dL Est Cr Clr Drug Dosing mL/min Estimated GFR (MDRD) (>60) mL/min BUN/Creatinine Ratio (14-18) Glucose (74-106) mg/dL POC Glucose 79 69 L (70-105) mg/dL Calcium (8.5-10.1) mg/dL Magnesium (1.8-2.4) mg/dl Total Bilirubin (0.2-1.0) mg/dL AST (15-37) U/L ALT (16-63) U/L Alkaline Phosphatase (46-116) U/L C-Reactive Protein (<1.0) mg/dL Total Protein (6.4-8.2) g/dl Albumin (3.4-5.0) g/dl Globulin gm/dL Albumin/Globulin Ratio (1-2) 07/14/20 07/14/20 Range/Units 04:30 05:56 WBC (4.23-9.07) K/mm3 RBC (4.63-6.08) M/mm3 Hgb (13.7-17.5) gm/dl Hct (40.1-51.0) % MCV (79.0-92.2) fl MCH (25.7-32.2) pg MCHC (32.2-35.5) g/dl RDW Std Deviation (35.1-43.9) fL Plt Count (163-337) K/mm3 MPV (9.4-12.3) fl Neut % (Auto) (34.0-67.9) % Lymph % (Auto) (21.8-53.1) % [place] % (Auto) (5.3-12.2) % Eos % (Auto) (0.8-7.0) Baso % (Auto) (0.1-1.2) % Neut # (Auto) (1.78-5.38) K/mm3 Lymph # (Auto) (1.32-3.57) K/mm3 [place] # (Auto) (0.30-0.82) K/mm3 Eos # (Auto) (0.04-0.54) K/mm3 Baso # (Auto) (0.01-0.08) K/mm3 PT (9.7-12.0) SECONDS INR Sodium 138 (136-145) mEq/L Potassium 3.5 (3.5-5.1) mEq/L Chloride 103 (98-107) mEq/L Carbon Dioxide 26 (21-32) mEq/L Anion Gap 12.5 (5-15) BUN 8 (7-18) mg/dL Creatinine 1.0 (0.7-1.3) mg/dL Est Cr Clr Drug Dosing 109.93 mL/min Estimated GFR (MDRD) > 60 (>60) mL/min BUN/Creatinine Ratio 8.0 L (14-18) Glucose 88 (74-106) mg/dL POC Glucose 95 (70-105) mg/dL Calcium 9.0 (8.5-10.1) mg/dL Magnesium 1.9 (1.8-2.4) mg/dl Total Bilirubin 1.6 H (0.2-1.0) mg/dL AST 272 H (15-37) U/L ALT 424 H (16-63) U/L Alkaline Phosphatase 260 H (46-116) U/L C-Reactive Protein 1.0 (<1.0) mg/dL Total Protein 7.0 (6.4-8.2) g/dl Albumin 3.7 (3.4-5.0) g/dl Globulin 3.3 gm/dL Albumin/Globulin Ratio 1.1 (1-2) Med Orders - Current: Current Medications Diphenhydramine HCl (Benadryl) 25 mg IVPUSH Q6H PRN PRN Reason: Itching Diphenhydramine HCl (Benadryl) 25 mg PO Q6H PRN PRN Reason: Itching Docusate Sodium (Colace) 100 mg PO BID PRN PRN Reason: Constipation Last Admin: 07/13/20 20:01 Dose: 100 mg Documented by: Hydromorphone HCl (Dilaudid) 0.5 mg IVPUSH Q2H PRN PRN Reason: Pain (severe 7-10) Last Admin: 07/13/20 19:54 Dose: 0.5 mg Documented by: Dextrose/Sodium Chloride (Dextrose 5%-1/2 Ns) 1,000 mls @ 100 mls/hr IV ASDIRECTED SHANICE Last Admin: 07/13/20 23:36 Dose: 100 mls/hr Documented by: Naloxone HCl (Narcan) 0.4 mg IVPUSH Q2M PRN PRN Reason: Respiratory Distress Ondansetron HCl (Zofran) 4 mg IV Q6H PRN PRN Reason: Nausea/Vomiting Last Admin: 07/11/20 20:36 Dose: 4 mg Documented by: Oxycodone HCl (Oxycodone) 10 mg PO Q4H PRN PRN Reason: Pain Last Admin: 07/14/20 03:46 Dose: 10 mg Documented by: Sodium Chloride (Saline Flush) 10 ml FLUSH ASDIRECTED PRN PRN Reason: Keep Vein Open Last Admin: 07/11/20 12:40 Dose: 10 ml Documented by: Trazodone HCl (Trazodone) 50 mg PO BEDTIME PRN PRN Reason: Insomnia Last Admin: 07/12/20 22:31 Dose: 50 mg Documented by: Discontinued Medications Acetaminophen (Tylenol) 650 mg PO Q4H PRN PRN Reason: Pain (Mild 1-3)/fever Hydrocodone Bitart/Acetaminophen ([place] 325-5 Mg) 1 tab PO Q4H PRN PRN Reason: Pain (moderate 4-6) Last Admin: 07/12/20 12:14 Dose: 1 tab Documented by: Enoxaparin Sodium (Lovenox) 40 mg SUBCUT DAILY [facility] Fentanyl Citrate (Fentanyl In Ns 300 Mcg/30 Ml Ice Cream Vault Worker) 0 mcg IV ASDIRECTED [facility]; Protocol Hydromorphone HCl (Dilaudid) 0.5 mg IVPUSH ONETIME ONE Stop: 07/11/20 12:08 Last Admin: 07/11/20 12:38 Dose: 0.5 mg Documented by: Hydromorphone HCl (Dilaudid) 0.5 mg IVPUSH ONETIME ONE Stop: 07/12/20 13:19 Last Admin: 07/12/20 13:22 Dose: 0.5 mg Documented by: Hydromorphone HCl (Dilaudid) 1 mg IVPUSH STAT STA Stop: 07/12/20 16:01 Last Admin: 07/12/20 16:25 Dose: 1 mg Documented by: Sodium Chloride (Normal Saline) 1,000 mls @ 999 mls/hr IV NOW STA Stop: 07/11/20 13:07 Last Admin: 07/11/20 12:37 Dose: 999 mls/hr Documented by: Lactated Ringer's (Ringers, Lactated) 1,000 mls @ 125 mls/hr IV ASDIRECTED SHANICE Last Admin: 07/13/20 20:02 Dose: 125 mls/hr Documented by: Lactated Ringer's (Ringers, Lactated) 500 mls @ 999 mls/hr IV .BOLUS ONE Stop: 07/12/20 15:02 Last Admin: 07/12/20 14:40 Dose: 999 mls/hr Documented by: Iopamidol (Isovue-300 (61%)) 50 ml IVPUSH ONETIME ONE Stop: 07/11/20 12:25 Last Admin: 07/11/20 12:29 Dose: 25 ml Documented by: Iopamidol (Isovue-300 (61%)) 100 ml IVPUSH ONETIME ONE Stop: 07/11/20 12:25 Last Admin: 07/11/20 12:29 Dose: 100 ml Documented by: Ondansetron HCl (Zofran) 4 mg IVPUSH ONETIME ONE Stop: 07/11/20 12:08 Last Admin: 07/11/20 12:36 Dose: 4 mg Documented by: Sodium Chloride (Saline Flush) 10 ml FLUSH ONETIME PRN PRN Reason: IV FLUSH Last Admin: 07/11/20 12:57 Dose: 10 ml Documented by: - Exam Quality Assessment: No: DVT Prophylaxis (VTE 0) General: Alert, Oriented, Cooperative, No Acute Distress HEENT: Pupils Equal, Pupils Reactive, Mucous Membr. Moist/[place] Neck: Supple, Trachea Midline Lungs: Clear to Auscultation, Normal Respiratory Effort Cardiovascular: Regular Rate, Regular Rhythm GI/Abdominal Exam: Normal Bowel Sounds, Soft, No Distention, Tender (Minimall tenderness over epigastric region) (Male) Exam: Deferred Back Exam: Normal Inspection, Full Range of Motion Extremities: Normal Inspection, Normal Range of Motion, Non-Tender, No Pedal Edema Skin: Warm, Dry, Intact Neurological: No New Focal Deficit Psy/Mental Status: Alert, Normal Affect, Normal Mood Sepsis Event Note - Evaluation Sepsis Screening Result: No Definite Risk - Focused Exam Vital Signs: Vital Signs Temp Pulse Resp BP Pulse Ox 07/14/20 07:27 98.1 F 62 16 112/70 96 07/14/20 04:14 98.2 F 62 16 108/66 98 07/13/20 23:29 97.9 F 71 16 105/66 96 - Problem List & Annotations (1) Acute recurrent pancreatitis SNOMED Code(s): 850592484 Code(s): K85.90 - ACUTE PANCREATITIS WITHOUT NECROSIS OR INFECTION, UNSP Status: Acute Priority: High Current Visit: Yes (2) S/P cholecystectomy SNOMED Code(s): 341377396, 95309751, 246825056 Code(s): Z90.49 - ACQUIRED ABSENCE OF OTHER SPECIFIED PARTS OF DIGESTIVE TRACT Status: Chronic Priority: Low Current Visit: No (3) S/P appendectomy SNOMED Code(s): 403763617, 62516768, 979457291 Code(s): Z90.49 - ACQUIRED ABSENCE OF OTHER SPECIFIED PARTS OF DIGESTIVE TRACT Status: Chronic Priority: Low Current Visit: No (4) Constipation SNOMED Code(s): 01620892 Code(s): K59.00 - CONSTIPATION, UNSPECIFIED Status: Chronic Priority: Medium Current Visit: Yes Qualifiers: Constipation type: unspecified constipation type Qualified Code(s): K59.00 - Constipation, unspecified (5) Hyperlipidemia SNOMED Code(s): 35071541 Code(s): E78.5 - HYPERLIPIDEMIA, UNSPECIFIED Status: Chronic Priority: Medium Current Visit: No Qualifiers: Hyperlipidemia type: unspecified Qualified Code(s): E78.5 - Hyperlipidemia, unspecified (6) Abnormal LFTs SNOMED Code(s): 651632994 Code(s): R94.5 - ABNORMAL RESULTS OF LIVER FUNCTION STUDIES Status: Acute Priority: High Current Visit: Yes - Problem List Review Problem List Initiated/Reviewed/Updated: Yes - My Orders Last 24 Hours: My Active Orders 07/13/20 08:32 oxyCODONE 10 mg PO Q4H PRN 07/15/20 05:11 CBC WITH AUTO DIFF [HEME] AM CMP [COMPREHENSIVE METABOLIC PN,CMP] [CHEM] AM CRP [C-REACTIVE PROTEIN] [CHEM] AM MAGNESIUM [CHEM] AM - Plan Plan:: Assessment - Day of admission: 07/11/20 * 40 yo presents to ED with upper quadrant abdominal pain * History of recurrent pancreatitis following at [facility] and [facility] * Cholecystectomy performed by Dr. Wisdom in 04/12 with improvement but not resolution of symptoms * Afebrile, no infectious symptoms, reports home abdominal pain * CXR in ED shows nothing acute * Ab/Pelvis CT in ED shows mild pancreatitis and nothing otherwise acute * Given 1L fluid bolus, zofran, dilaudid in ED * Reports mild history of triglyceridemia, no ETOH use, no pancreatitis inducing medications * Labs: * WBC 6.39 * Hgb 16.2 * Plt 130 * Neutrophils 3.59 * Sodium 14 * Potassium 4.0 * Anion gap 15.0 * BUN 14, Creatinine 1.0, GFR >60 * Glucos 103 * Total bilirubin 0.7 * GGT 50 * AST 43, ALT 88, Alk phos 90 * CRP <0.2 * Protein 7.8 * Albumin 4.3 * Triglycerides 110 * Amylase 364 * Lipase 2076 * SARS-CoV-2 RNA negative * Admitted to hospital floor for treatment of acute on chronic pancreatitis 07/12/20 * Feeling much better * Reports abdominal pain is currently at baseline * Will advance diet to clear liquids for lunch. 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 Others were epigastric and constant. * Repeat labs this afternoon as transaminitis noted * Continue IV fluids and blood glucose checks * Labs: * WBC 6.07 * GFR >60 * Magnesium 1.9 * Total Bilirubin 0.9 * AST 229, ALT 427, Alk Phos 168 * Albumin 3.4 * Lipase 1093 * Stop all tylenol containing pain medications * Start oxycodone PO for pain and continue Dilaudid 07/14/20 * Minimal pain - reports abdominal pain better than baseline right now * Minimal need for pain medications over past 12 hours * Advanced diet to clear liquids today * Discontinue IV fluids and glucose checks one tolerating clear liquid diet * MRCP obtained yesterday shows mild pancreatitis, mild CBD and pancreatic duct dilation * Labs: * WBC 5.19 * Platelet 121 * Sodium 138 * Potassium 3.5 * GFR greater than 60 * Total bilirubin 1.6 * AST 272, ALT 424, alkaline phosphatase 260 * CRP 1.0 * Continue plan of care * Will need GI follow-up at discharge PLAN: Acute recurrent pancreatitis Hyperlipidemia Constipation S/P cholecystectomy S/P appendectomy Abnormal LFTs * Advance to clear liquids * PO Pain medications with IVP pain medications for breakthrough pain * IV fluids as ordered - discontinue * Ambulate * PRN Colace for constipation * Obtain old records for [facility] and [facility] * Antiemetics PRN for nausea * Repeat labs tomorrow AM * Stop all Tylenol containing pain medications Code status: Full Code PCP: Ko Mata PA-C GI: Denise Julio NP at [facility] in [place] DVT prophylaxis: Not indicated with VTE score of 0 Disposition: Admit to medical floor for management of acute on chronic pancreatitis. Estimated LOS 4-5 days total.
[2020-07-14] MEDS: Dextrose 5%-0.45% NaCl 1,000 ML IV SCH (10:07)
--- NOTE | 2020-07-14 15:58 | PCM.SN.2 ---
- Free Text/Narrative Note: Contacted Dr. Reyes, the pss delivery professional GI physician with [facility] in [place]. We discussed the patient's imaging and lab findings. He suspects the patient may have passed a stone and this is why his pain has resolved now. He suspects that the patient's liver enzymes are just lagging behind. He recommends we keep the patient on a clear liquid diet throughout the night and recheck labs in the morning. He stated if the patient's liver enzymes do not improve he will likely need transfer to their facility for an ERCP. He stated it may also benefit the patient to get another abdominal ultrasound if liver enzymes remain elevated. He would like to be contacted at [facility] with an update on the patient tomorrow, 07/15/2020 as he will gladly follow along and help from his end. This will be communicated to Dr. Sanchez, attending hospitalist who will be seeing the patient tomorrow.
--- NOTE | 2020-07-15 13:22 | PCM.DCSUM1 ---
Discharge Summary - Hospital Course HPI Initial Comments: This is a 40-year-old male who presents to ED on 07/11/2020 with severe upper abdominal discomfort. He has a longstanding history of recurrent pancreatitis and has been hospitalized in our facility before. He reports he always has some mild abdominal discomfort and has been seen in [facility] and [facility] for this. He states they report that he has chronic pancreatitis and that he will likely have occasional flares that require hospitalization. He reports he had his gallbladder taken out by Dr. Wisdom in March of this year. He feels like this has improved his symptoms although he does continue to note a discomfort from the area. He reports around 2 AM this morning the pain has increased and become quite severe. He has a home prescription for oxycodone for severe pain and he took it about hour and half prior to coming to the ED. Repor ts pain after medication was 6 out of 10 but he feels that it is too severe for him to be managing at home at this point. Denies any nausea, vomiting, or diarrhea but states that he does have chronic constipation issues, this is especially true when on narcotics. He states that any oral intake causes worsening of symptoms. He reports his first occurrence of pancreatitis was around age 11 and has had 2-3 episodes over the past year. Reports he also had his appendix removed. Reports he has had upper endoscopy and ERCP with no concerns noted. Reports he does have high triglycerides however they have been only mildly elevated at 200-20 800 in the past. Denies any alcohol consumption since his initial attack earlier in the year. Denies any illicit drug use. States he normally takes 50 mg of tramadol in the morning to control his chronic pain. In the ED he was afebrile with a temp of 97.6. Pulse was 79. Respirations 20. Blood pressure 105/77. Pulse ox 97%. CBC is grossly unremarkable however platelets are noted to be low at 130. There is no leukocytosis. CMP is grossly unremarkable. Bilirubin 0.7. GGT is 50. AST is 43, ALT 88, alkaline phosphatase 94. CRP is less than 0.7. Protein 7.8. Albumin 4.3. Triglycerides are 110. Amylase is 364. Lipase is 2076. SARS Covid 2 RNA screen is negative. He is given Dilaudid and Zofran in the ED. He is also given a 1 L fluid bolus. Chest x-ray is obtained showing nothing acute. Abdominal/pelvis T is obtained with contrast and notes findings compatible with mild pancreatitis. No additional abnormality is noted. He carries a history of HLD, asthma, cough, GERD, recurrent pancreatitis, migraines, insomnia. He is not a smoker. His PCP is Ko Mata PA-C. He sees Denise Julio NP for GI at [facility]. Assessment - Day of admission: 07/11/20 * 40 yo presents to ED with upper quadrant abdominal pain * History of recurrent pancreatitis following at [facility] and [facility] * Cholecystectomy performed by Dr. Wisdom in 04/12 with improvement but not resolution of symptoms * Afebrile, no infectious symptoms, reports home abdominal pain * CXR in ED shows nothing acute * Ab/Pelvis CT in ED shows mild pancreatitis and nothing otherwise acute * Given 1L fluid bolus, zofran, dilaudid in ED * Reports mild history of triglyceridemia, no ETOH use, no pancreatitis inducing medications * Labs: * WBC 6.39 * Hgb 16.2 * Plt 130 * Neutrophils 3.59 * Sodium 14 * Potassium 4.0 * Anion gap 15.0 * BUN 14, Creatinine 1.0, GFR >60 * Glucos 103 * Total bilirubin 0.7 * GGT 50 * AST 43, ALT 88, Alk phos 90 * CRP <0.2 * Protein 7.8 * Albumin 4.3 * Triglycerides 110 * Amylase 364 * Lipase 2076 * SARS-CoV-2 RNA negative * Admitted to hospital floor for treatment of acute on chronic pancreatitis PLAN: Acute recurrent pancreatitis Hyperlipidemia Constipation S/P cholecystectomy S/P appendectomy * NPO with medications * PO Pain medications with IVP pain medications for breakthrough pain * IV fluids as ordered * Q6hr blood glucose checks while NPO * Ambulate * PRN colace for constipation * Obtain RUQ abdominal US * Re-check lipase tomorrow * Obtain old records for [facility] and [facility] * Antiemetics PRN for nausea Code status: Full Code PCP: Ko Mata PA-C GI: Denise Julio NP at [facility] DVT prophylaxis: Not indicated with VTE score of 0 Disposition: Admit to medical floor for management of acute on chronic pancreatitis. Estimated LOS 2-3 days total. - Mortality Measure Prognosis:: Good Diagnosis: Stroke: No - Discharge Data Discharge Date: 07/15/20 Discharge Disposition: Home, Self-Care 01 Condition: Good - Referral to Home Health Primary Care Physician: Ko Mata PA-C - Patient Summary/Data Consults: Consultations 07/11/20 14:38 Consult to Manager Process Improvement [CONS] Routine Hospital Course: Assessment - Day of admission: 07/11/20 * 40 yo presents to ED with upper quadrant abdominal pain * History of recurrent pancreatitis following at [facility] and [facility] * Cholecystectomy performed by Dr. Wisdom in 04/12 with improvement but not resolution of symptoms * Afebrile, no infectious symptoms, reports home abdominal pain * CXR in ED shows nothing acute * Ab/Pelvis CT in ED shows mild pancreatitis and nothing otherwise acute * Given 1L fluid bolus, zofran, dilaudid in ED * Reports mild history of triglyceridemia, no ETOH use, no pancreatitis inducing medications * Labs: * WBC 6.39 * Hgb 16.2 * Plt 130 * Neutrophils 3.59 * Sodium 14 * Potassium 4.0 * Anion gap 15.0 * BUN 14, Creatinine 1.0, GFR >60 * Glucos 103 * Total bilirubin 0.7 * GGT 50 * AST 43, ALT 88, Alk phos 90 * CRP <0.2 * Protein 7.8 * Albumin 4.3 * Triglycerides 110 * Amylase 364 * Lipase 2076 * SARS-CoV-2 RNA negative * Admitted to hospital floor for treatment of acute on chronic pancreatitis 07/12/20 * Feeling much better * Reports abdominal pain is currently at baseline * Will advance diet to clear liquids for lunch. Advance as tolerated from there * Discontinue IV Fluids once tolerating PO * Labs: * WBC 6.23 * Bilirubin 0.8 * AST 76, ALT 119, Alk Phos92 * CRP 0.8 * Lipase 386 * Abdominal US shows mild pancreatitis but no duct dilation 07/13/20 * Significant pain yesterday after eating - made NPO and IV fluids re-started * ASSISTANT BOILER OPERATOR ordered but never started * Continue NPO today * Reports pain overnight was different - came in waves and more right sided than prior episodes. Others were epigastric and constant. * Repeat labs this afternoon as transaminitis noted * Continue IV fluids and blood glucose checks * Labs: * WBC 6.07 * GFR >60 * Magnesium 1.9 * Total Bilirubin 0.9 * AST 229, ALT 427, Alk Phos 168 * Albumin 3.4 * Lipase 1093 * Stop all tylenol containing pain medications * Start oxycodone PO for pain and continue Dilaudid 07/14/20 * Minimal pain - reports abdominal pain better than baseline right now * Minimal need for pain medications over past 12 hours * Advanced diet to clear liquids today * Discontinue IV fluids and glucose checks one tolerating clear liquid diet * MRCP obtained yesterday shows mild pancreatitis, mild CBD and pancreatic duct dilation * Labs: * WBC 5.19 * Platelet 121 * Sodium 138 * Potassium 3.5 * GFR greater than 60 * Total bilirubin 1.6 * AST 272, ALT 424, alkaline phosphatase 260 * CRP 1.0 * Continue plan of care * Will need GI follow-up at discharge Contacted Dr. Reyes, the python developer GI physician with [facility] in [place]. We discussed the patient's imaging and lab findings. He suspects the patient may have passed a stone and this is why his pain has resolved now. He suspects that the patient's liver enzymes are just lagging behind. He recommends we keep the patient on a clear liquid diet throughout the night and recheck labs in the morning. He stated if the patient's liver enzymes do not improve he will likely need transfer to their facility for an ERCP. He stated it may also benefit the patient to get another abdominal ultrasound if liver enzymes remain elevated. He would like to be contacted at [facility] with an update on the patient tomorrow, 07/15/2020 as he will gladly follow along and help from his end. This will be communicated to Dr. Sanchez, attending hospitalist who will be seeing the patient tomorrow. 1day of discharge * Pain has essentially resolved except for some discomfort in the right upper quadrant. * And he did take 1 oxycodone last night, but he thinks is because he was so hungry. * He has tolerated the soft diet and states he can advance his diet slowly at home. * Liver enzymes have improved with a total bilirubin down to 1.1, AST 134, ALT 399, INR 1.13, alk phos is just slightly elevated higher than yesterday at 271. * Spoke with gastroenterology and they recommended follow-up in 2 weeks. He likely passed a stone which caused the acute elevation in his liver function tests. - Patient Instructions Diet, Other: low fat/chronic pancreatic diet Activity: As Tolerated Driving: May Drive Today Showering/Bathing: May Shower Other/Special Instructions: Follow up with GI in 2 weeks. - Discharge Plan *PRESCRIPTION DRUG MONITORING PROGRAM REVIEWED*: No *COPY OF PRESCRIPTION DRUG MONITORING REPORT IN PATIENT SNAAZ: No Home Medications: Home Meds Ondansetron [Ondansetron ODT] 4 mg PO Q6H PRN 03/29/20 [History] Zolpidem [Ambien] 5 mg PO BEDTIME 03/29/20 [History] oxyCODONE 10 mg PO BID 07/11/20 [History] traMADol [Ultram] 50 mg PO DAILY 07/11/20 [History] Patient Handouts: Pancreatitis Eating Plan, Sepsis, Diagnosis, Adult, Acute Pancreatitis Forms: ED Department Discharge Referrals: Ko Mata PA-C [Primary Care Provider] - 07/20/20 8:30 am (Hospital follow- up appointment-please call and schedule a follow up for within 7-10 days) Denise Julio NP [Ordering Only Provider] - 07/25/20 12:30 pm (Hospital follow-up appointment with counter intelligence. Ask your counter intelligence if sphincter of oddi dysfunction has been evaluated. Your appointment is at 11:30 am [place] Standard Time, 12:30 pm Central Standard Time. ) - Discharge Summary/Plan Comment DC Time >30 min.: Yes - General Info Date of Service: 07/15/20 Admission Dx/Problem (Free Text: Admission Diagnosis/Problem Admission Diagnosis/Problem Pancreatitis Subjective Update: Patient is doing well. He is tolerating his diet. Minimal discomfort. Functional Status: Reports: Pain Controlled - Review of Systems General: Reports: No Symptoms HEENT: Reports: No Symptoms Pulmonary: Reports: No Symptoms Cardiovascular: Reports: No Symptoms Gastrointestinal: Reports: No Symptoms Musculoskeletal: Reports: No Symptoms - Patient Data Vitals - Most Recent: Last Vital Signs Temp 97.5 F 07/15/20 05:18 Pulse 58 L 07/15/20 05:18 Resp 18 07/15/20 05:18 BP 99/64 07/15/20 05:18 Pulse Ox 97 07/15/20 05:18 Weight - Most Recent: 166 lb I&O - Last 24 hours: Intake & Output 07/14/20 07/15/20 07/15/20 22:59 06:59 14:59 Intake Total 1930 900 Balance 1930 900 Lab Results - Last 24 hrs: Laboratory Results - last 24 hr 07/14/20 07/15/20 07/15/20 Range/Units 16:24 05:30 05:30 WBC 5.42 (4.23-9.07) K/mm3 RBC 5.70 (4.63-6.08) M/mm3 Hgb 16.4 D (13.7-17.5) gm/dl Hct 49.0 (40.1-51.0) % MCV 86.0 (79.0-92.2) fl MCH 28.8 (25.7-32.2) pg MCHC 33.5 (32.2-35.5) g/dl RDW Std Deviation 45.2 H (35.1-43.9) fL Plt Count 130 L (163-337) K/mm3 MPV 11.2 (9.4-12.3) fl Neut % (Auto) 32.8 L (34.0-67.9) % Lymph % (Auto) 48.7 (21.8-53.1) % Snyder % (Auto) 13.3 H (5.3-12.2) % Eos % (Auto) 4.4 (0.8-7.0) Baso % (Auto) 0.6 (0.1-1.2) % Neut # (Auto) 1.78 (1.78-5.38) K/mm3 Lymph # (Auto) 2.64 (1.32-3.57) K/mm3 Snyder # (Auto) 0.72 (0.30-0.82) K/mm3 Eos # (Auto) 0.24 (0.04-0.54) K/mm3 Baso # (Auto) 0.03 (0.01-0.08) K/mm3 PT (9.7-12.0) SECONDS INR Sodium 141 (136-145) mEq/L Potassium 3.6 (3.5-5.1) mEq/L Chloride 105 (98-107) mEq/L Carbon Dioxide 27 (21-32) mEq/L Anion Gap 12.6 (5-15) BUN 8 (7-18) mg/dL Creatinine 1.1 (0.7-1.3) mg/dL Est Cr Clr Drug Dosing 96.97 mL/min Estimated GFR (MDRD) > 60 (>60) mL/min BUN/Creatinine Ratio 7.3 L (14-18) Glucose 85 (74-106) mg/dL POC Glucose 84 (70-105) mg/dL Calcium 9.8 (8.5-10.1) mg/dL Magnesium 2.1 (1.8-2.4) mg/dl Total Bilirubin 1.1 H (0.2-1.0) mg/dL AST 134 H (15-37) U/L ALT 399 H (16-63) U/L Alkaline Phosphatase 271 H (46-116) U/L C-Reactive Protein 0.5 (<1.0) mg/dL Total Protein 7.8 (6.4-8.2) g/dl Albumin 4.0 (3.4-5.0) g/dl Globulin 3.8 gm/dL Albumin/Globulin Ratio 1.1 (1-2) 07/15/20 Range/Units 05:30 WBC (4.23-9.07) K/mm3 RBC (4.63-6.08) M/mm3 Hgb (13.7-17.5) gm/dl Hct (40.1-51.0) % MCV (79.0-92.2) fl MCH (25.7-32.2) pg MCHC (32.2-35.5) g/dl RDW Std Deviation (35.1-43.9) fL Plt Count (163-337) K/mm3 MPV (9.4-12.3) fl Neut % (Auto) (34.0-67.9) % Lymph % (Auto) (21.8-53.1) % Snyder % (Auto) (5.3-12.2) % Eos % (Auto) (0.8-7.0) Baso % (Auto) (0.1-1.2) % Neut # (Auto) (1.78-5.38) K/mm3 Lymph # (Auto) (1.32-3.57) K/mm3 Snyder # (Auto) (0.30-0.82) K/mm3 Eos # (Auto) (0.04-0.54) K/mm3 Baso # (Auto) (0.01-0.08) K/mm3 PT 12.1 H (9.7-12.0) SECONDS INR 1.13 Sodium (136-145) mEq/L Potassium (3.5-5.1) mEq/L Chloride (98-107) mEq/L Carbon Dioxide (21-32) mEq/L Anion Gap (5-15) BUN (7-18) mg/dL Creatinine (0.7-1.3) mg/dL Est Cr Clr Drug Dosing mL/min Estimated GFR (MDRD) (>60) mL/min BUN/Creatinine Ratio (14-18) Glucose (74-106) mg/dL POC Glucose (70-105) mg/dL Calcium (8.5-10.1) mg/dL Magnesium (1.8-2.4) mg/dl Total Bilirubin (0.2-1.0) mg/dL AST (15-37) U/L ALT (16-63) U/L Alkaline Phosphatase (46-116) U/L C-Reactive Protein (<1.0) mg/dL Total Protein (6.4-8.2) g/dl Albumin (3.4-5.0) g/dl Globulin gm/dL Albumin/Globulin Ratio (1-2) Med Orders - Current: Current Medications Diphenhydramine HCl (Benadryl) 25 mg PO Q6H PRN PRN Reason: Itching Docusate Sodium (Colace) 100 mg PO BID PRN PRN Reason: Constipation Last Admin: 07/13/20 20:01 Dose: 100 mg Documented by: Hydromorphone HCl (Dilaudid) 0.5 mg IVPUSH Q2H PRN PRN Reason: Pain (severe 7-10) Last Admin: 07/13/20 19:54 Dose: 0.5 mg Documented by: Ondansetron HCl (Zofran) 4 mg IV Q6H PRN PRN Reason: Nausea/Vomiting Last Admin: 07/11/20 20:36 Dose: 4 mg Documented by: Oxycodone HCl (Oxycodone) 10 mg PO Q4H PRN PRN Reason: Pain Last Admin: 07/14/20 21:39 Dose: 10 mg Documented by: Sodium Chloride (Saline Flush) 10 ml FLUSH ASDIRECTED PRN PRN Reason: Keep Vein Open Last Admin: 07/11/20 12:40 Dose: 10 ml Documented by: Trazodone HCl (Trazodone) 50 mg PO BEDTIME PRN PRN Reason: Insomnia Last Admin: 07/12/20 22:31 Dose: 50 mg Documented by: Discontinued Medications Acetaminophen (Tylenol) 650 mg PO Q4H PRN PRN Reason: Pain (Mild 1-3)/fever Hydrocodone Bitart/Acetaminophen ([place] 325-5 Mg) 1 tab PO Q4H PRN PRN Reason: Pain (moderate 4-6) Last Admin: 07/12/20 12:14 Dose: 1 tab Documented by: Diphenhydramine HCl (Benadryl) 25 mg IVPUSH Q6H PRN PRN Reason: Itching Enoxaparin Sodium (Lovenox) 40 mg SUBCUT DAILY SHANICE Fentanyl Citrate (Fentanyl In Ns 300 Mcg/30 Ml Planning Associate) 0 mcg IV ASDIRECTED SHANICE; Protocol Hydromorphone HCl (Dilaudid) 0.5 mg IVPUSH ONETIME ONE Stop: 07/11/20 12:08 Last Admin: 07/11/20 12:38 Dose: 0.5 mg Documented by: Hydromorphone HCl (Dilaudid) 0.5 mg IVPUSH ONETIME ONE Stop: 07/12/20 13:19 Last Admin: 07/12/20 13:22 Dose: 0.5 mg Documented by: Hydromorphone HCl (Dilaudid) 1 mg IVPUSH STAT STA Stop: 07/12/20 16:01 Last Admin: 07/12/20 16:25 Dose: 1 mg Documented by: Sodium Chloride (Normal Saline) 1,000 mls @ 999 mls/hr IV NOW STA Stop: 07/11/20 13:07 Last Admin: 07/11/20 12:37 Dose: 999 mls/hr Documented by: Lactated Ringer's (Ringers, Lactated) 1,000 mls @ 125 mls/hr IV ASDIRECTED SHANICE Last Admin: 07/13/20 20:02 Dose: 125 mls/hr Documented by: Lactated Ringer's (Ringers, Lactated) 500 mls @ 999 mls/hr IV .BOLUS ONE Stop: 07/12/20 15:02 Last Admin: 07/12/20 14:40 Dose: 999 mls/hr Documented by: Dextrose/Sodium Chloride (Dextrose 5%-1/2 Ns) 1,000 mls @ 100 mls/hr IV ASDIRECTED SHANICE Last Admin: 07/14/20 10:07 Dose: 100 mls/hr Documented by: Iopamidol (Isovue-300 (61%)) 50 ml IVPUSH ONETIME ONE Stop: 07/11/20 12:25 Last Admin: 07/11/20 12:29 Dose: 25 ml Documented by: Iopamidol (Isovue-300 (61%)) 100 ml IVPUSH ONETIME ONE Stop: 07/11/20 12:25 Last Admin: 07/11/20 12:29 Dose: 100 ml Documented by: Naloxone HCl (Narcan) 0.4 mg IVPUSH Q2M PRN PRN Reason: Respiratory Distress Ondansetron HCl (Zofran) 4 mg IVPUSH ONETIME ONE Stop: 07/11/20 12:08 Last Admin: 07/11/20 12:36 Dose: 4 mg Documented by: Sodium Chloride (Saline Flush) 10 ml FLUSH ONETIME PRN PRN Reason: IV FLUSH Last Admin: 07/11/20 12:57 Dose: 10 ml Documented by: - Exam General: Reports: Alert, Oriented HEENT: Reports: Pupils Equal, Mucous Membr. Moist/[place] Neck: Reports: Supple Lungs: Reports: Clear to Auscultation, Normal Respiratory Effort Cardiovascular: Reports: Regular Rate, Regular Rhythm GI/Abdominal Exam: Normal Bowel Sounds, Soft, Non-Tender, No Organomegaly, No Distention, No Abnormal Bruit, No Mass Back Exam: Reports: Normal Inspection, Full Range of Motion Extremities: Normal Inspection, Normal Range of Motion, Non-Tender, No Pedal Edema, Normal Capillary Refill Psy/Mental Status: Reports: Alert, Normal Affect, Normal Mood
[2020-07-15 14:44] VITALS: BP 117/72; PULSE 90
== END 2020-07-15 14:10 | disposition home or self-care (01) | DRG 282 ==
LOC: JD.ED 11:40 → JD.MS 14:00
PROVIDERS: ADMIT Family Medicine; ATTEND Family Medicine
DX: K85.00 Idiopathic acute pancreatitis without necrosis or infection (principal); E78.5 Hyperlipidemia, unspecified; K59.00 Constipation, unspecified; K86.1 Other chronic pancreatitis; Z20.822 Contact with and (suspected) exposure to COVID-19; J45.909 Unspecified asthma, uncomplicated; K21.9 Gastro-esophageal reflux disease without esophagitis; G47.00 Insomnia, unspecified; R94.5 Abnormal results of liver function studies; H54.7 Unspecified visual loss; Z90.49 Acquired absence of other specified parts of digestive tract; Z88.0 Allergy status to penicillin; Z79.899 Other long term (current) drug therapy
CPT/HCPCS: 36415; 71046; 71046-26; 74177; 74177-26; 74181; 74181-26; 76705; 76705-26; 80053; 82150; 82962; 82977; 83690; 83735; 84478; 85025; 85610; 86140; 94762; 96374; 96375; 99222; 99233; 99239; 99284; 99285-25; A9270-GY; J1170; J2405; J7030; J7042; J7120; Q9967; U0002

== ENCOUNTER 2020-12-15 02:24 | Observation (INO) | payer BC ==
[2020-12-15] MEDS ORDERED: Ondansetron 4 MG/2 ML SDV IVPUSH ONE (02:49)
[2020-12-15] MEDS ORDERED: Sodium Chloride 0.9% 10 ML Syringe FLUSH PRN (02:49)
[2020-12-15] MEDS ORDERED: Sodium Chloride 0.9% 1,000 ML IV STA (02:49)
[2020-12-15] MEDS ORDERED: HYDROmorphone 1 MG/ML Syringe IVPUSH ONE (02:50)
--- NOTE | 2020-12-15 03:02 | EDM.PDOC ---
ED HPI GENERAL MEDICAL PROBLEM - General Chief Complaint: Abdominal Pain Stated Complaint: PANCREATIC ATTACK Time Seen by Provider: 12/15/20 02:42 Source of Information: Reports: Patient History Limitations: Reports: No Limitations - History of Present Illness INITIAL COMMENTS - FREE TEXT/NARRATIVE: The patient presents with abdominal pain, nausea and vomiting. This started ye sterday. He has a history of pancreatitis. He has been seen at the [facility] by Dr You. 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 He had his gallbladder and appendix removed. He has been admitted multiple times. His last admission was in June. He took his oxycodone to help with the pain but it did not help. He has no fever, chills, cough, chest pain, shortness of breath, or diarrhea. Onset: Gradual Duration: Day(s): Location: Reports: Abdomen Quality: Reports: Sharp Severity: Moderate Improves with: Reports: None Worsens with: Reports: None Associated Symptoms: Reports: Nausea/Vomiting. Denies: Chest Pain, Cough, Fever/Chills, Headaches, Shortness of Breath Upper Abdomen Pain Score (Numeric/FACES): 6 - Related Data Allergies Allergy/AdvReac Type Severity Reaction Status Date / Time amoxicillin Allergy Intermediate Hives Verified 12/15/20 02:36 Home Meds: Home Meds oxyCODONE 10 mg PO BID 07/11/20 [History] traMADol [Ultram] 50 mg PO DAILY 07/11/20 [History] Amylase/Lipase/Protease [Creon DR 24,000 Unit] 12/15/20 [History] DULoxetine [Cymbalta] 12/15/20 [History] Dicyclomine [Bentyl] 20 mg PO TID 12/15/20 [History] Hyoscyamine [Hyomax-SL] 12/15/20 [History] Past Medical History HEENT History: Reports: Impaired Vision Cardiovascular History: Reports: High Cholesterol Respiratory History: Reports: Asthma Other Respiratory History: cough, reactive airway disease Gastrointestinal History: Reports: Pancreatitis Other Gastrointestinal History: Patient states that he was hospitalized at age 11 years of age for a bout of pancreatitis. He was hospitalized for a month and spent another month at home recovering after 20 pound weight loss. Etiology was never elucidated but likely was viral. Genitourinary History: Reports: None [employer] History: Reports: None Musculoskeletal History: Reports: None Neurological History: Reports: Migraines Other Psychiatric History: insomnia Endocrine/Metabolic History: Reports: None Hematologic History: Reports: None Immunologic History: Reports: None Oncologic (Cancer) History: Reports: None Dermatologic History: Reports: None - Infectious Disease History Infectious Disease History: Reports: Mononucleosis - Past Surgical History Head Surgeries/Procedures: Reports: None HEENT Surgical History: Reports: Adenoidectomy, Oral Surgery, Tonsillectomy Cardiovascular Surgical History: Reports: None Respiratory Surgical History: Reports: None GI Surgical History: Reports: Appendectomy, Cholecystectomy Male Surgical History: Reports: Circumcision Endocrine Surgical History: Reports: None Neurological Surgical History: Reports: None Musculoskeletal Surgical History: Reports: None Oncologic Surgical History: Reports: None Dermatological Surgical History: Reports: None Social & Family History - Family History Family Medical History: No Pertinent Family History - Tobacco Use Tobacco Use Status *Q: Unknown Ever Used Tobacco - Caffeine Use Caffeine Use: Reports: Tea Other Caffeine Use: 2-3 cups/day - Living Situation & Occupation Living situation: Reports: Occupation: Employed ED ROS GENERAL - Review of Systems Review Of Systems: See Below Constitutional: Reports: No Symptoms HEENT: Reports: No Symptoms Respiratory: Reports: No Symptoms Cardiovascular: Reports: No Symptoms Endocrine: Reports: No Symptoms GI/Abdominal: Reports: Abdominal Pain, Nausea, Vomiting. Denies: Diarrhea : Reports: No Symptoms Musculoskeletal: Reports: No Symptoms ED EXAM, GI/ABD - Physical Exam Exam: See Below Exam Limited By: No Limitations General Appearance: Alert, No Apparent Distress Ears: Normal External Exam Nose: Normal Inspection Head: Atraumatic, Normocephalic Neck: Normal Inspection Respiratory/Chest: No Respiratory Distress, Lungs Clear, Normal Breath Sounds Cardiovascular: Regular Rate, Rhythm, No Edema, No Murmur GI/Abdominal Exam: Soft, No Organomegaly, No Mass, Tender (Mild tenderness to the upper abdomen) Course - Vital Signs Last Recorded V/S: Last Vital Signs Temp 96.6 F L 12/15/20 02:32 Pulse 88 12/15/20 02:32 Resp 18 12/15/20 02:32 BP 124/83 12/15/20 02:32 Pulse Ox 100 12/15/20 02:32 - Orders/Labs/Meds Orders: Active Orders 24 hr Category Date Time Status Peripheral IV Care [RC] . DIRECTED Care 12/15/20 02:50 Active CORONAVIRUS COVID-19 MANISHA [MOLEC] Stat Lab 12/15/20 06:39 Received Sodium Chloride 0.9% [Normal Saline] 1,000 ml Med 12/15/20 06:45 Active IV ASDIRECTED Sodium Chloride 0.9% [Saline Flush] Med 12/15/20 02:49 Active 10 ml FLUSH ASDIRECTED PRN ED Antiemetic Medication Reflex [OM.PC] Stat Oth 12/15/20 02:50 Ordered Peripheral IV Insertion Adult [OM.PC] Stat Oth 12/15/20 02:49 Ordered Medication Orders Sodium Chloride (Normal Saline) 1,000 mls @ 150 mls/hr IV ASDIRECTED SHANICE Sodium Chloride (Sodium Chloride 0.9% 10 Ml Syringe) 10 ml FLUSH ASDIRECTED PRN PRN Reason: Keep Vein Open Last Admin: 12/15/20 03:05 Dose: 10 ml Documented by: FREDY Labs: Laboratory Tests 12/15/20 12/15/20 Range/Units 03:01 03:01 WBC 9.01 (4.23-9.07) K/mm3 RBC 5.44 (4.63-6.08) M/mm3 Hgb 16.2 (13.7-17.5) gm/dl Hct 47.7 (40.1-51.0) % MCV 87.7 (79.0-92.2) fl MCH 29.8 (25.7-32.2) pg MCHC 34.0 (32.2-35.5) g/dl RDW Std Deviation 43.7 (35.1-43.9) fL Plt Count 151 L (163-337) K/mm3 MPV 10.9 (9.4-12.3) fl Neut % (Auto) 54.5 (34.0-67.9) % Lymph % (Auto) 31.4 (21.8-53.1) % Day % (Auto) 10.5 (5.3-12.2) % Eos % (Auto) 3.0 (0.8-7.0) Baso % (Auto) 0.4 (0.1-1.2) % Neut # (Auto) 4.90 (1.78-5.38) K/mm3 Lymph # (Auto) 2.83 (1.32-3.57) K/mm3 Day # (Auto) 0.95 H (0.30-0.82) K/mm3 Eos # (Auto) 0.27 (0.04-0.54) K/mm3 Baso # (Auto) 0.04 (0.01-0.08) K/mm3 Sodium 137 (136-145) mEq/L Potassium 3.8 (3.5-5.1) mEq/L Chloride 101 (98-107) mEq/L Carbon Dioxide 26 (21-32) mEq/L Anion Gap 13.8 (5-15) BUN 16 (7-18) mg/dL Creatinine 1.1 (0.7-1.3) mg/dL Est Cr Clr Drug Dosing TNP Estimated GFR (MDRD) > 60 (>60) mL/min BUN/Creatinine Ratio 14.5 (14-18) Glucose 98 (70-99) mg/dL Calcium 8.9 (8.5-10.1) mg/dL Total Bilirubin 0.6 (0.2-1.0) mg/dL AST 87 H (15-37) U/L ALT 124 H (16-63) U/L Alkaline Phosphatase 88 (46-116) U/L Total Protein 8.0 (6.4-8.2) g/dl Albumin 4.5 (3.4-5.0) g/dl Globulin 3.5 gm/dL Albumin/Globulin Ratio 1.3 (1-2) Lipase 2690 H (73-393) U/L Meds: Medications Generic Name Dose Route Start Last Admin Trade Name Freq PRN Reason Stop Dose Admin Sodium Chloride 1,000 mls @ 150 mls/hr 12/15/20 06:45 Normal Saline IV ASDIRECTED SHANICE Sodium Chloride 10 ml 12/15/20 02:49 12/15/20 03:05 Sodium Chloride 0.9% 10 Ml Syringe FLUSH 10 ml ASDIRECTED PRN Administration Keep Vein Open Discontinued Medications Generic Name Dose Route Start Last Admin Trade Name Freq PRN Reason Stop Dose Admin Hydromorphone HCl 1 mg 12/15/20 02:50 12/15/20 03:05 Hydromorphone 1 Mg/Ml Syringe IVPUSH 12/15/20 02:51 1 mg ONETIME ONE Administration Sodium Chloride 1,000 mls @ 1,000 mls/hr 12/15/20 02:49 12/15/20 03:03 Normal Saline IV 12/15/20 03:48 1,000 mls/hr .BOLUS STA Administration Ondansetron HCl 4 mg 12/15/20 02:49 12/15/20 03:06 Ondansetron 4 Mg/2 Ml Sdv IVPUSH 12/15/20 02:50 4 mg ONETIME ONE Administration - Re-Assessments/Exams Free Text/Narrative Re-Assessment/Exam: 12/15/20 03:01 I ordered an IV NS 1L bolus, zofran 4mg IV, dilaudid 1mg IV, labs and UA. 12/15/20 06:16 His CBC looks good. His AST is elevated at 87. His ALT is elevated at 124. H is lipase is elevated at 2690. 12/15/20 06:43 He feels better but not enough to go home. His lipase is higher then it has been in the past for awhile. I called Dr Quinn and he agreed to the admission. Departure - Departure Time of Disposition: 06:45 Disposition: Admitted As Inpatient 68 Condition: Fair Clinical Impression: Elevated liver enzymes Pancreatitis Qualifiers: Chronicity: acute Pancreatitis type: other Acute pancreatitis complication: no infection or necrosis Qualified Code(s): K85.80 - Other acute pancreatitis w ithout necrosis or infection - Discharge Information Referrals: Ko Mata PA-C [Primary Care Provider] - Forms: ED Department Discharge Sepsis Event Note (ED) - Evaluation Sepsis Screening Result: No Definite Risk - Focused Exam Vital Signs: Vital Signs Temp Pulse Resp BP Pulse Ox 12/15/20 02:32 96.6 F L 88 18 124/83 100 - My Orders Last 24 Hours: My Active Orders 12/15/20 02:49 Sodium Chloride 0.9% [Saline Flush] 10 ml FLUSH ASDIRECTED PRN Peripheral IV Insertion Adult [OM.PC] Stat 12/15/20 02:50 Peripheral IV Care [RC] . DIRECTED ED Antiemetic Medication Reflex [OM.PC] Stat 12/15/20 06:39 CORONAVIRUS COVID-19 MANISHA [MOLEC] Stat 12/15/20 06:45 Sodium Chloride 0.9% [Normal Saline] 1,000 ml IV ASDIRECTED - Assessment/Plan Last 24 Hours: My Active Orders 12/15/20 02:49 Sodium Chloride 0.9% [Saline Flush] 10 ml FLUSH ASDIRECTED PRN Peripheral IV Insertion Adult [OM.PC] Stat 12/15/20 02:50 Peripheral IV Care [RC] . DIRECTED ED Antiemetic Medication Reflex [OM.PC] Stat 12/15/20 06:39 CORONAVIRUS COVID-19 MANISHA [MOLEC] Stat 12/15/20 06:45 Sodium Chloride 0.9% [Normal Saline] 1,000 ml IV ASDIRECTED
--- NOTE | 2020-12-15 07:20 | PCM.HP.2 ---
<Robb Arreola - Last Filed: 12/15/20 10:59> H&P History of Present Illness - General Date of Service: 12/15/20 Source of Information: Patient, Old Records, Provider, RN, RN Notes Reviewed History Limitations: Reports: No Limitations - History of Present Illness Initial Comments - Free Text/Narative: This is a 40-year-old male, known to the service, who presents to ED in the very manager heart failure hours of 12/15/2020 with abdominal pain, nausea, and vomiting. He reports pain started around 8 PM and has been increasing since then. He has a known history of pancreatic issues with multiple prior admissions for pancreatitis. He reports he recently saw Dr. You, with [facility] was found to be lacking pancreatic enzymes. He has a history of cholecystectomy and appendectomy. He is on as needed oxycodone and scheduled tramadol for pain but states these have not been working. Denies any fever, chills, cough, chest pain, shortness of breath, or diarrhea. States pain is similar to prior pancreatic episodes. In the ED temp is 96.6 Fahrenheit, pulse 88, respirations 18, blood pressure 124/83, pulse ox 100% on room air. Labs are obtained. WBC is normal at 9.01. Hemoglobin 16.2. Platelet low at 151,000. Neutrophils are normal at 54.5. Sodium is 137. Potassium 3.8. Chloride 101. Carbon dioxide 26. Anion gap is 13.8. BUN is 16. Creatinine 1.1. GFR is greater than 60. Glucose 98. Calcium 8.9. Total bilirubin 0.6. AST is 87, ALT 124, alkaline phosphatase 88. Protein is 8.0. Albumin is 4.5. Lipase is elevated at 2690. He is given Zofran for nausea and Dilaudid for pain. He is also started on IV fluids. He is noted to have improvement to his symptoms but still does not feel that he is appropriate for discharge. He is therefore admitted to the medical floor observation status for management of his acute pancreatitis. He carries a history of HLD, asthma, reactive airway disease, pancreatitis, migraines, insomnia. He is a full code. His PCP is Ko Mata PA-C. Upper Abdomen Pain Score (Numeric/FACES): 6 - Related Data Allergies/Adverse Reactions: Allergies Allergy/AdvReac Type Severity Reaction Status Date / Time amoxicillin Allergy Intermediate Hives Verified 12/15/20 02:36 Home Medications: Home Meds oxyCODONE 5 mg PO BID PRN 07/11/20 [History] traMADol [Ultram] 50 mg PO DAILY 07/11/20 [History] Amylase/Lipase/Protease [Flora WARNER 24,000 Unit] 1 cap PO ASDIRECTED 12/15/20 [History] DULoxetine [Cymbalta] 30 mg PO BID 12/15/20 [History] Dicyclomine [Bentyl] 10 mg PO BID 12/15/20 [History] Hyoscyamine [Hyomax-SL] 0.125 mg PO Q6H PRN 12/15/20 [History] L.acidoph,Paracasei, B.lactis [Probiotic] 1 each PO DAILY 12/15/20 [History] Multivitamin 1 each PO DAILY 12/15/20 [History] Non-Formulary Medication [NF Drug] 5,000 mg PO DAILY 12/15/20 [History] Past Medical History HEENT History: Reports: Impaired Vision Cardiovascular History: Reports: High Cholesterol Respiratory History: Reports: Asthma Other Respiratory History: cough, reactive airway disease Gastrointestinal History: Reports: Pancreatitis Other Gastrointestinal History: Patient states that he was hospitalized at age 11 years of age for a bout of pancreatitis. He was hospitalized for a month and s pent another month at home recovering after 20 pound weight loss. Etiology was never elucidated but likely was viral. Genitourinary History: Reports: None [employer] History: Reports: None Musculoskeletal History: Reports: None Neurological History: Reports: Migraines Other Psychiatric History: insomnia Endocrine/Metabolic History: Reports: None Hematologic History: Reports: None Immunologic History: Reports: None Oncologic (Cancer) History: Reports: None Dermatologic History: Reports: None - Infectious Disease History Infectious Disease History: Reports: Mononucleosis - Past Surgical History Head Surgeries/Procedures: Reports: None HEENT Surgical History: Reports: Adenoidectomy, Oral Surgery, Tonsillectomy Cardiovascular Surgical History: Reports: None Respiratory Surgical History: Reports: None GI Surgical History: Reports: Appendectomy, Cholecystectomy Male Surgical History: Reports: Circumcision Endocrine Surgical History: Reports: None Neurological Surgical History: Reports: None Musculoskeletal Surgical History: Reports: None Oncologic Surgical History: Reports: None Dermatological Surgical History: Reports: None Social & Family History - Family History Family Medical History: No Pertinent Family History - Tobacco Use Tobacco Use Status *Q: Unknown Ever Used Tobacco - Caffeine Use Caffeine Use: Reports: Tea Other Caffeine Use: 2-3 cups/day - Living Situation & Occupation Living situation: Reports: Occupation: Employed H&P Review of Systems - Review of Systems: Review Of Systems: See Below General: Reports: No Symptoms. Denies: Fever, Chills, Malaise, Weakness, Fatigue HEENT: Reports: Headaches. Denies: Sore Throat Pulmonary: Reports: No Symptoms. Denies: Shortness of Breath, Wheezing, Pleuritic Chest Pain, Cough, Sputum Cardiovascular: Reports: No Symptoms. Denies: Chest Pain, Palpitations, Dyspnea on Exertion, Edema Gastrointestinal: Reports: Abdominal Pain, Constipation, Nausea, Vomiting. Denies: Diarrhea Genitourinary: Reports: No Symptoms. Denies: Pain Musculoskeletal: Reports: No Symptoms Skin: Reports: No Symptoms. Denies: Cyanosis Psychiatric: Reports: No Symptoms. Denies: Confusion Neurological: Reports: No Symptoms. Denies: Dizziness, Numbness, Pre-Existing Deficit, Seizure, Syncope, Tingling, Difficulty Walking, Weakness, Gait Disturbance Hematologic/Lymphatic: Reports: No Symptoms Immunologic: Reports: No Symptoms Exam - Exam Exam: See Below - Vital Signs Vital Signs: Last Vital Signs Temp 96.6 F L 12/15/20 02:32 Pulse 88 12/15/20 02:32 Resp 18 12/15/20 02:32 BP 124/83 12/15/20 02:32 Pulse Ox 100 12/15/20 02:32 - Exam Quality Assessment: DVT Prophylaxis. No: Supplemental Oxygen, Urinary Catheter General: Alert, Oriented, Cooperative. No: Mild Distress HEENT: Conjunctiva Clear, EACs Clear, Mucosa Moist & [place], Posterior Pharynx Clear Neck: Supple, Trachea Midline Lungs: Clear to Auscultation, Normal Respiratory Effort Cardiovascular: Regular Rate, Regular Rhythm GI/Abdominal Exam: Normal Bowel Sounds, Soft, No Distention, Tender (Mild upper quadrants ) (Male) Exam: Deferred Rectal (Males) Exam: Deferred Back Exam: Normal Inspection, Full Range of Motion Extremities: Normal Inspection, Normal Range of Motion, Non-Tender, No Pedal Edema, Normal Capillary Refill Peripheral Pulses: 2+: Radial (L), Radial (R), Dorsalis Pedis (L), Dorsalis Pedis (R) Skin: Warm, Dry, Intact Neurological: Cranial Nerves Intact (Grossly ) Neuro Extensive - Mental Status: Alert, Oriented x3 - Patient Data Lab Results Last 24 hrs: Laboratory Results - last 24 hr 12/15/20 12/15/20 Range/Units 03:01 03:01 WBC 9.01 (4.23-9.07) K/mm3 RBC 5.44 (4.63-6.08) M/mm3 Hgb 16.2 (13.7-17.5) gm/dl Hct 47.7 (40.1-51.0) % MCV 87.7 (79.0-92.2) fl MCH 29.8 (25.7-32.2) pg MCHC 34.0 (32.2-35.5) g/dl RDW Std Deviation 43.7 (35.1-43.9) fL Plt Count 151 L (163-337) K/mm3 MPV 10.9 (9.4-12.3) fl Neut % (Auto) 54.5 (34.0-67.9) % Lymph % (Auto) 31.4 (21.8-53.1) % Bradley % (Auto) 10.5 (5.3-12.2) % Eos % (Auto) 3.0 (0.8-7.0) Baso % (Auto) 0.4 (0.1-1.2) % Neut # (Auto) 4.90 (1.78-5.38) K/mm3 Lymph # (Auto) 2.83 (1.32-3.57) K/mm3 Bradley # (Auto) 0.95 H (0.30-0.82) K/mm3 Eos # (Auto) 0.27 (0.04-0.54) K/mm3 Baso # (Auto) 0.04 (0.01-0.08) K/mm3 Sodium 137 (136-145) mEq/L Potassium 3.8 (3.5-5.1) mEq/L Chloride 101 (98-107) mEq/L Carbon Dioxide 26 (21-32) mEq/L Anion Gap 13.8 (5-15) BUN 16 (7-18) mg/dL Creatinine 1.1 (0.7-1.3) mg/dL Est Cr Clr Drug Dosing TNP Estimated GFR (MDRD) > 60 (>60) mL/min BUN/Creatinine Ratio 14.5 (14-18) Glucose 98 (70-99) mg/dL Calcium 8.9 (8.5-10.1) mg/dL Total Bilirubin 0.6 (0.2-1.0) mg/dL AST 87 H (15-37) U/L ALT 124 H (16-63) U/L Alkaline Phosphatase 88 (46-116) U/L Total Protein 8.0 (6.4-8.2) g/dl Albumin 4.5 (3.4-5.0) g/dl Globulin 3.5 gm/dL Albumin/Globulin Ratio 1.3 (1-2) Lipase 2690 H (73-393) U/L Result Diagrams: 12/15/20 03:01 12/15/20 03:01 Sepsis Event Note - Evaluation Sepsis Screening Result: No Definite Risk - Focused Exam Vital Signs: Vital Signs Temp Pulse Resp BP Pulse Ox 12/15/20 02:32 96.6 F L 88 18 124/83 100 - Problem List (1) Acute recurrent pancreatitis SNOMED Code(s): 309088855 ICD Code: K85.90 - ACUTE PANCREATITIS WITHOUT NECROSIS OR INFECTION, UNSP Status: Acute Priority: High Current Visit: Yes (2) Hyperlipidemia SNOMED Code(s): 41950812 ICD Code: E78.5 - HYPERLIPIDEMIA, UNSPECIFIED Status: Chronic Priority: Medium Current Visit: No Qualifiers: Hyperlipidemia type: unspecified Qualified Code(s): E78.5 - Hyperlipidemia, unspecified (3) S/P appendectomy SNOMED Code(s): 703281932, 21817005, 564427770 ICD Code: Z90.49 - ACQUIRED ABSENCE OF OTHER SPECIFIED PARTS OF DIGESTIVE TRACT Status: Chronic Priority: Low Current Visit: No (4) S/P cholecystectomy SNOMED Code(s): 627383512, 75018552, 682212194 ICD Code: Z90.49 - ACQUIRED ABSENCE OF OTHER SPECIFIED PARTS OF DIGESTIVE TRACT Status: Chronic Priority: Low Current Visit: No (5) Nausea SNOMED Code(s): 046189891 ICD Code: R11.0 - NAUSEA Status: Acute Priority: High Current Visit: Yes (6) Hx of insomnia SNOMED Code(s): 542028218 ICD Code: Z87.898 - PERSONAL HISTORY OF OTHER SPECIFIED CONDITIONS Status: Chronic Priority: Low Current Visit: No (7) Reactive airway disease SNOMED Code(s): 410848646112 ICD Code: J45.909 - UNSPECIFIED ASTHMA, UNCOMPLICATED Status: Chronic Priority: Low Current Visit: No Qualifiers: Asthma severity: unspecified severity Asthma persistence: unspecified Asthma complication type: uncomplicated Qualified Code(s): J45.909 - Unspecified asthma, uncomplicated (8) History of migraine SNOMED Code(s): 015489251 ICD Code: Z86.69 - PERSONAL HISTORY OF DIS OF THE NERVOUS SYS AND SENSE ORGANS Status: Acute Current Visit: Yes (9) Constipation SNOMED Code(s): 22823682 ICD Code: K59.00 - CONSTIPATION, UNSPECIFIED Status: Chronic Priority: Id dium Current Visit: No Qualifiers: Constipation type: unspecified constipation type Qualified Code(s): K59.00 - Constipation, unspecified Problem List Initiated/Reviewed/Updated: Yes Orders Last 24hrs: Active Orders 24 hr Category Date Time Status Peripheral IV Care [RC] . DIRECTED Care 12/15/20 02:50 Active CORONAVIRUS COVID-19 MANISHA [MOLEC] Stat Lab 12/15/20 06:39 Received Sodium Chloride 0.9% [Normal Saline] 1,000 ml Med 12/15/20 06:45 Active IV ASDIRECTED Sodium Chloride 0.9% [Saline Flush] Med 12/15/20 02:49 Active 10 ml FLUSH ASDIRECTED PRN ED Antiemetic Medication Reflex [OM.PC] Stat Oth 12/15/20 02:50 Ordered Peripheral IV Insertion Adult [OM.PC] Stat Oth 12/15/20 02:49 Ordered Medication Orders Sodium Chloride (Normal Saline) 1,000 mls @ 150 mls/hr IV ASDIRECTED SHANICE Sodium Chloride (Sodium Chloride 0.9% 10 Ml Syringe) 10 ml FLUSH ASDIRECTED PRN PRN Reason: Keep Vein Open Last Admin: 12/15/20 03:05 Dose: 10 ml Documented by: FREDY Assessment/Plan Comment:: Assessment- day of admission 12/15/2020: * This is a 40-year-old male presents to ED with abdominal pain, nausea, and vomiting. * Reports pain started around 8 PM and has been increasing since then. * Known history of pancreatic issues with multiple prior admissions for pancreatitis. * Reports he recently saw Dr. oYu, with [facility] was found to be lacking pancreatic enzymes. * History of cholecystectomy appendectomy, HLD, RAD, Pancreatitis, Migraines, insomnia. * On as needed oxycodone and scheduled tramadol for pain but states these have not been working. * States pain is similar to prior pancreatic episodes. * Labs obtained in ED. * WBC is normal at 9.01. * Hemoglobin 16.2. * Platelet low at 151,000. * Neutrophils are normal at 54.5. * Sodium is 137. * Potassium 3.8. * Chloride 101. * Carbon dioxide 26. * Anion gap is 13.8. * BUN is 16. * Creatinine 1.1. * GFR is greater than 60. * Glucose 98. * Calcium 8.9. * Total bilirubin 0.6. * AST is 87, ALT 124, alkaline phosphatase 88. * Protein is 8.0. * Albumin is 4.5. * Lipase is elevated at 2690. * He is given Zofran for nausea and Dilaudid for pain. He is also started on IV fluids. * Admitted to the medical floor observation status for management of his acute pancreatitis. PLAN: Acute recurrent pancreatitis Nausea S/P appendectomy S/P cholecystectomy * NPO with sips and chips for now - advance as patient tolerates * Continue home enzymes with meals * IV fluids as ordered * Antiemetic PRN * No need to re-check lipase * Re-check BMP and magnesium in AM * Pain medications as ordered Hyperlipidemia * No acute concerns * No home meds for this * Encourage lifestyle changes History of Migraines * Pain medications as needed Hx of insomnia * PRN Restoril at bedtime Reactive airway disease * No home respiratory meds * PRN duonebs if needed Constipation * Scheduled Colace daily for now * Monitor PCP: Ko Mata PA-C Code status: Full code DVT Prophylaxis: Not indicated - VTE score of 0, ambulate Disposition: Patient admitted observation status to medical floor for pain management and advancement of diet. Likely discharge in 1-2 days. - Mortality Measure Prognosis:: Good <Michael Quinn - Last Filed: 12/15/20 16:43> H&P History of Present Illness - General Admit Problem/Dx: Admission Diagnosis/Problem Admission Diagnosis/Problem Pancreatitis Exam - Vital Signs Vital Signs: Last Vital Signs Temp 36.5 C 12/15/20 14:20 Pulse 52 L 12/15/20 14:20 Resp 16 12/15/20 14:20 BP 106/65 12/15/20 14:20 Pulse Ox 100 12/15/20 14:20 - Patient Data Lab Results Last 24 hrs: Laboratory Results - last 24 hr 12/15/20 12/15/20 12/15/20 Range/Units 03:01 03:01 06:39 WBC 9.01 (4.23-9.07) K/mm3 RBC 5.44 (4.63-6.08) M/mm3 Hgb 16.2 (13.7-17.5) gm/dl Hct 47.7 (40.1-51.0) % MCV 87.7 (79.0-92.2) fl MCH 29.8 (25.7-32.2) pg MCHC 34.0 (32.2-35.5) g/dl RDW Std Deviation 43.7 (35.1-43.9) fL Plt Count 151 L (163-337) K/mm3 MPV 10.9 (9.4-12.3) fl Neut % (Auto) 54.5 (34.0-67.9) % Lymph % (Auto) 31.4 (21.8-53.1) % Bradley % (Auto) 10.5 (5.3-12.2) % Eos % (Auto) 3.0 (0.8-7.0) Baso % (Auto) 0.4 (0.1-1.2) % Neut # (Auto) 4.90 (1.78-5.38) K/mm3 Lymph # (Auto) 2.83 (1.32-3.57) K/mm3 Bradley # (Auto) 0.95 H (0.30-0.82) K/mm3 Eos # (Auto) 0.27 (0.04-0.54) K/mm3 Baso # (Auto) 0.04 (0.01-0.08) K/mm3 Sodium 137 (136-145) mEq/L Potassium 3.8 (3.5-5.1) mEq/L Chloride 101 (98-107) mEq/L Carbon Dioxide 26 (21-32) mEq/L Anion Gap 13.8 (5-15) BUN 16 (7-18) mg/dL Creatinine 1.1 (0.7-1.3) mg/dL Est Cr Clr Drug Dosing TNP Estimated GFR (MDRD) > 60 (>60) mL/min BUN/Creatinine Ratio 14.5 (14-18) Glucose 98 (70-99) mg/dL Calcium 8.9 (8.5-10.1) mg/dL Total Bilirubin 0.6 (0.2-1.0) mg/dL AST 87 H (15-37) U/L ALT 124 H (16-63) U/L Alkaline Phosphatase 88 (46-116) U/L Total Protein 8.0 (6.4-8.2) g/dl Albumin 4.5 (3.4-5.0) g/dl Globulin 3.5 gm/dL Albumin/Globulin Ratio 1.3 (1-2) Lipase 2690 H (73-393) U/L SARS-CoV-2 RNA (MANISHA) Negative (NEGATIVE) Result Diagrams: 12/15/20 03:01 12/15/20 03:01 Sepsis Event Note - Focused Exam Vital Signs: Vital Signs Temp Temp Pulse Pulse Resp BP BP 12/15/20 14:20 36.5 C 52 L 16 106/65 12/15/20 08:02 36.4 C 60 16 120/83 12/15/20 07:35 36.0 C L 72 16 92/49 L Pulse Ox 12/15/20 14:20 100 12/15/20 08:02 99 12/15/20 07:35 100 Orders Last 24hrs: Active Orders 24 hr Category Date Time Status Patient Status [ADT] Stat ADT 12/15/20 07:47 Active Ambulate [RC] ASDIRECTED Care 12/15/20 09:45 Active Oxygen Therapy [RC] ASDIRECTED Care 12/15/20 09:46 Active Pulse Oximetry [RC] PRN Care 12/15/20 09:46 Active RT Aerosol Therapy [RC] ASDIRECTED Care 12/15/20 10:35 Active Ready for Discharge [RC] PER UNIT ROUTINE Care 12/15/20 15:59 Active Up ad Laurie [RC] ASDIRECTED Care 12/15/20 09:45 Active Vital Signs [RC] Q6HR Care 12/15/20 09:46 Active Clear Liquid Diet [DIET] Diet 12/15/20 Lunch Active COMPREHENSIVE METABOLIC PN,CMP [CHEM] AM Lab 12/16/20 05:11 Ordered COMPREHENSIVE METABOLIC PN,CMP [CHEM] AM Lab 12/17/20 05:11 Ordered COMPREHENSIVE METABOLIC PN,CMP [CHEM] AM Lab 12/18/20 05:11 Ordered COMPREHENSIVE METABOLIC PN,CMP [CHEM] AM Lab 12/19/20 05:11 Ordered MAGNESIUM [CHEM] AM Lab 12/16/20 05:11 Ordered MAGNESIUM [CHEM] AM Lab 12/17/20 05:11 Ordered MAGNESIUM [CHEM] AM Lab 12/18/20 05:11 Ordered MAGNESIUM [CHEM] AM Lab 12/19/20 05:11 Ordered Acetaminophen [TylenoL] Med 12/15/20 09:45 Active 650 mg PO Q4H PRN Albuterol/Ipratropium [DuoNeb 3.0-0.5 MG/3 ML] Med 12/15/20 10:35 Active 3 ml NEB Q6HRRT PRN Amylase/Lipase/Protease Med 12/15/20 10:15 Pending 1 cap PO ASDIRECTED Cholecalciferol (Vitamin D3) [Vitamin D3] Med 12/15/20 11:00 Active 5,000 unit PO DAILY DULoxetine [Cymbalta] Med 12/15/20 11:00 Active 30 mg PO BID Dicyclomine [Bentyl] Med 12/15/20 11:30 Active 10 mg PO BID Docusate Sodium [Colace] Med 12/15/20 10:30 Active 100 mg PO DAILY HYDROmorphone [Dilaudid] Med 12/15/20 09:45 Active 0.25 mg IVPUSH Q2H PRN Hyoscyamine [Hyomax-SL] Med 12/15/20 10:13 Active 0.125 mg PO Q6H PRN Multivitamins [Tab-A-Rodney] Med 12/15/20 11:00 Active 1 tab PO DAILY Ondansetron [Zofran] Med 12/15/20 09:45 Active 4 mg IV Q6H PRN Saccharomyces Boulardii [Florastor] Med 12/15/20 11:00 Active 250 mg PO DAILY Sodium Chloride 0.9% [Normal Saline] 1,000 ml Med 12/15/20 06:45 Active IV ASDIRECTED Sodium Chloride 0.9% [Saline Flush] Med 12/15/20 02:49 Active 10 ml FLUSH ASDIRECTED PRN oxyCODONE Med 12/15/20 10:13 Active 5 mg PO BID PRN traMADol [Ultram] Med 12/15/20 11:00 Active 50 mg PO DAILY ED Antiemetic Medication Reflex [OM.PC] Stat Ot 12/15/20 02:50 Ordered Peripheral IV Insertion Adult [OM.PC] Stat Ot 12/15/20 02:49 Ordered Resuscitation Status Routine Resus Stat 12/15/20 09:45 Ordered Medication Orders Acetaminophen (Acetaminophen 325 Mg Tab) 650 mg PO Q4H PRN PRN Reason: Pain (Mild 1-3)/fever Last Admin: 12/15/20 09:58 Dose: 650 mg Documented by: SARAH Albuterol/Ipratropium (Albuterol/Ipratropium 3.0-0.5 Mg/3 Ml Neb Soln) 3 ml NEB Q6HRRT PRN PRN Reason: wheezing/SOB/cough Cholecalciferol (Cholecalciferol (Vitamin D3) 5,000 Unit Cap) 5,000 unit PO DAILY [facility] Last Admin: 12/15/20 11:05 Dose: Not Given Documented by: SARAH Dicyclomine HCl (Dicyclomine 10 Mg Cap) 10 mg PO BID [facility] Last Admin: 12/15/20 12:22 Dose: Not Given Documented by: SARAH Docusate Sodium (Docusate Sodium 100 Mg Cap) 100 mg PO DAILY [facility] Last Admin: 12/15/20 11:05 Dose: Not Given Documented by: SARAH Duloxetine HCl (Duloxetine 30 Mg Cap) 30 mg PO BID [facility] Last Admin: 12/15/20 11:04 Dose: Not Given Documented by: SARAH Hydromorphone HCl (Hydromorphone 0.5 Mg/0.5 Ml Syringe) 0.25 mg IVPUSH Q2H PRN PRN Reason: Pain (severe 7-10) Hyoscyamine (Hyoscyamine 0.125 Mg Tab.Sl) 0.125 mg PO Q6H PRN PRN Reason: GI Pain/discomfort Sodium Chloride (Normal Saline) 1,000 mls @ 150 mls/hr IV ASDIRECTED [facility] Last Admin: 12/15/20 13:36 Dose: 150 mls/hr Documented by: Infusion: 12/15/20 13:36 Dose: 150 mls/hr Documented by: Admin: 12/15/20 07:41 Dose: 150 mls/hr Documented by: BELKIS Multivitamins/Minerals/Vitamin C (Multivitamin Tab) 1 tab PO DAILY [facility] Last Admin: 12/15/20 11:04 Dose: Not Given Documented by: SARAH Non-Formulary Medication (Amylase/Lipase/Protease) 1 cap PO ASDIRECTED [facility] Ondansetron HCl (Ondansetron 4 Mg/2 Ml Sdv) 4 mg IV Q6H PRN PRN Reason: Nausea/Vomiting Last Admin: 12/15/20 09:59 Dose: 4 mg Documented by: SARAH Oxycodone HCl (Oxycodone 5 Mg Tab) 5 mg PO BID PRN PRN Reason: Pain Saccharomyces Boulardii (Saccharomyces Boulardii (Probiotic) 250 Mg Cap) 250 mg PO DAILY [facility] Last Admin: 12/15/20 11:04 Dose: Not Given Documented by: SARAH Sodium Chloride (Sodium Chloride 0.9% 10 Ml Syringe) 10 ml FLUSH ASDIRECTED PRN PRN Reason: Keep Vein Open Last Admin: 12/15/20 03:05 Dose: 10 ml Documented by: FREDY Tramadol HCl (Tramadol 50 Mg Tab) 50 mg PO DAILY [facility] Last Admin: 12/15/20 11:04 Dose: Not Given Documented by: SARAH Assessment/Plan Comment:: I have seen and examined the patient independently of Robb Arreola PA-C, and have reviewed the case with him. I have reviewed and agree with the plan and care as outlined by him. Please see orders.
[2020-12-15] MEDS: Sodium Chloride 0.9% 1,000 ML IV SCH ×2 (07:41→13:36)
[2020-12-15] MEDS ORDERED: HYDROmorphone 0.5 MG/0.5 ML Syringe IVPUSH PRN (09:45)
[2020-12-15] MEDS ORDERED: Acetaminophen 325 MG Tab PO PRN (09:45)
[2020-12-15] MEDS ORDERED: Ondansetron 4 MG/2 ML SDV IV PRN (09:45)
[2020-12-15] MEDS ORDERED: Temazepam 15 MG Cap PO ONE (09:48)
[2020-12-15] MEDS ORDERED: oxyCODONE 5 MG Tab PO PRN (10:13)
[2020-12-15] MEDS ORDERED: Hyoscyamine 0.125 MG Tab.SL PO PRN (10:13)
[2020-12-15] MEDS ORDERED: Non-Formulary Medication 1 Each (Amylase/Lipase/Protease 1 CAP Cap.Cr) PO SCH (10:15)
[2020-12-15] MEDS ORDERED: Docusate Sodium 100 MG Cap PO SCH (10:30)
[2020-12-15] MEDS ORDERED: Albuterol/Ipratropium 3.0-0.5 MG/3 ML Neb Soln NEB PRN (10:35)
[2020-12-15] MEDS ORDERED: Cholecalciferol (Vitamin D3) 5,000 UNIT Cap PO SCH (11:00)
[2020-12-15] MEDS ORDERED: traMADol 50 MG Tab PO SCH (11:00)
[2020-12-15] MEDS ORDERED: Multivitamin Tab PO SCH (11:00)
[2020-12-15] MEDS ORDERED: DULoxetine 30 MG Cap PO SCH (11:00)
[2020-12-15] MEDS ORDERED: Saccharomyces Boulardii (Probiotic) 250 MG Cap PO SCH (11:00)
[2020-12-15] MEDS ORDERED: Dicyclomine 10 MG Cap PO SCH (11:30)
[2020-12-15] MEDS ORDERED: DULoxetine 30 MG Cap PO ONE (14:20)
[2020-12-15 14:34] VITALS: BP 106/65; PULSE 52
--- NOTE | 2020-12-15 16:03 | PCM.DCSUM1 ---
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 He reports pain started around 8 PM and has been increasing since then. He has a known history of pancreatic issues with multiple prior admissions for pancreatitis. He reports he recently saw Dr. You, with [facility] was found to be lacking pancreatic enzymes. He has a history of cholecystectomy and appendectomy. He is on as needed oxycodone and scheduled tramadol for pain but states these have not been working. Denies any fever, chills, cough, chest pain, shortness of breath, or diarrhea. States pain is similar to prior pancreatic episodes. In the ED temp is 96.6 Fahrenheit, pulse 88, respirations 18, blood pressure 124/83, pulse ox 100% on room air. Labs are obtained. WBC is normal at 9.01. Hemoglobin 16.2. Platelet low at 151,000. Neutrophils are normal at 54.5. Sodium is 137. Potassium 3.8. Chloride 101. Carbon dioxide 26. Anion gap is 13.8. BUN is 16. Creatinine 1.1. GFR is greater than 60. Glucose 98. Calcium 8.9. Total bilirubin 0.6. AST is 87, ALT 124, alkaline phosphatase 88. Protein is 8.0. Albumin is 4.5. Lipase is elevated at 2690. He is given Zofran for nausea and Dilaudid for pain. He is also started on IV fluids. He is noted to have improvement to his symptoms but still does not feel that he is appropriate for discharge. He is therefore admitted to the medical floor observation status for management of his acute pancreatitis. He carries a history of HLD, asthma, reactive airway disease, pancreatitis, migraines, insomnia. He is a full code. His PCP is Ko Mata PA-C. Diagnosis: Stroke: No - Discharge Data Discharge Date: 12/15/20 (Admit date: 12/15/2020) Discharge Disposition: Home, Self-Care 01 Condition: Good - Referral to Home Health Primary Care Physician: Ko Mata PA-C - Discharge Diagnosis/Problem(s) (1) Acute recurrent pancreatitis SNOMED Code(s): 970241343 ICD Code: K85.90 - ACUTE PANCREATITIS WITHOUT NECROSIS OR INFECTION, UNSP Status: Acute Priority: High Current Visit: Yes (2) Hyperlipidemia SNOMED Code(s): 10090929 ICD Code: E78.5 - HYPERLIPIDEMIA, UNSPECIFIED Status: Chronic Priority: Medium Current Visit: No Qualifiers: Hyperlipidemia type: unspecified Qualified Code(s): E78.5 - Hyperlipidemia, unspecified (3) S/P appendectomy SNOMED Code(s): 082902263, 71472709, 052673655 ICD Code: Z90.49 - ACQUIRED ABSENCE OF OTHER SPECIFIED PARTS OF DIGESTIVE TRACT Status: Chronic Priority: Low Current Visit: No (4) S/P cholecystectomy SNOMED Code(s): 588960601, 82157006, 207909942 ICD Code: Z90.49 - ACQUIRED ABSENCE OF OTHER SPECIFIED PARTS OF DIGESTIVE TRACT Status: Chronic Priority: Low Current Visit: No (5) Nausea SNOMED Code(s): 214335485 ICD Code: R11.0 - NAUSEA Status: Resolved Priority: High Current Visit: Yes (6) Hx of insomnia SNOMED Code(s): 286425695 ICD Code: Z87.898 - PERSONAL HISTORY OF OTHER SPECIFIED CONDITIONS Status: Chronic Priority: Low Current Visit: No (7) Reactive airway disease SNOMED Code(s): 263890683017 ICD Code: J45.909 - UNSPECIFIED ASTHMA, UNCOMPLICATED Status: Chronic Priority: Low Current Visit: No Qualifiers: Asthma severity: unspecified severity Asthma persistence: unspecified Asthma complication type: uncomplicated Qualified Code(s): J45.909 - Unspecified asthma, uncomplicated (8) History of migraine SNOMED Code(s): 780388149 ICD Code: Z86.69 - PERSONAL HISTORY OF DIS OF THE NERVOUS SYS AND SENSE OR FLACO Status: Acute Current Visit: Yes (9) Constipation SNOMED Code(s): 81498016 ICD Code: K59.00 - CONSTIPATION, UNSPECIFIED Status: Chronic Priority: Medium Current Visit: No Qualifiers: Constipation type: unspecified constipation type Qualified Code(s): K59.00 - Constipation, unspecified - Patient Summary/Data Labs Pending at D/C: None Recommended Follow-up Testing/Procedures: Follow-up with primary care provider within 7 to 10 days of discharge, sooner if needed. -Recommend repeat CBC, CMP, magnesium at that visit. -Consider repeat lipase at that visit. Follow-up with GI as scheduled. 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 He reports pain started around 8 PM earlier in the night and has been increasing. He has a history of prior pancreatic issues and has had multiple prior admissions for pancreatitis. Patient does see Dr. You with [facility] and he is on enzyme supplementation. He carries a history of cholecystectomy, appendectomy, HLD, RAD, pancreatitis, migraines, and insomnia. He does have several home pain medications but states that they had not been working prior to this visit. In the ED he was given Zofran for nausea and Dilaudid for pain and started on IV fluids which helped. He was admitted to the medical floor observation status for management of his acute pancreatitis. On admission he was made n.p.o. with sips and ice chips and was advanced to clear liquids without difficulty. He was given IV fluids and antiemetics. Pain was tolerable with his home medication regimen. Patient is very well versed on his condition and management for it. This afternoon patient reported that he was feeling much better and asked if he could go home. As noted he was able to tolerate a clear liquid diet and he did state that he would continue this and advance very slowly as tolerated. He reports that he has several medication refills and does not need any medications renewed at discharge. He has been doing quite well here and is felt discharge seems reasonable. All home medications were continued and as noted no new medications were prescribed. He was instructed to avoid driving well on narcotic pain medications. He was instructed to advance his diet very slowly and go backwards if he feels any symptoms. He was advised to return the emergency room or contact primary care provider should symptoms return or worsen. Discharged home today. Advised follow-up with primary care provider within 7 to 10 days of discharge, sooner if needed. Recommend repeat CBC, CMP, and magnesium at that visit. Consider lipase if symptoms continue. Patient was instructed to follow-up with his GI physician as scheduled. - Patient Instructions Diet: Clear Liquid Diet Activity: As Tolerated ([place] diet as tolerated) Driving: Do Not Drive (until feeling better and off of narcotic pain medications ) Showering/Bathing: May Shower Notify Provider of: Fever, Increased Pain, Nausea and/or Vomiting Other/Special Instructions: Follow-up with primary care provider within 7 to 10 days of discharge, sooner if needed. Follow-up with GI as scheduled. Resume home medications as directed. As we discussed do not drive while on narcotic pain medications. Continue clear liquid diet and advance as tolerated. If you start to feel abdominal pain or symptoms returning go backwards on your diet. Stay hydrated and drink plenty of fluids. Should symptoms return or worsen contact primary care provider return the emergency room. - Discharge Plan *PRESCRIPTION DRUG MONITORING PROGRAM REVIEWED*: No *COPY OF PRESCRIPTION DRUG MONITORING REPORT IN PATIENT SANAZ: No Home Medications: Home Meds oxyCODONE 5 mg PO BID PRN 07/11/20 [History] traMADol [Ultram] 50 mg PO DAILY 07/11/20 [History] Amylase/Lipase/Protease [Flora WARNER 24,000 Unit] 1 cap PO ASDIRECTED 12/15/20 [History] DULoxetine [Cymbalta] 30 mg PO BID 12/15/20 [History] Dicyclomine [Bentyl] 10 mg PO BID 12/15/20 [History] Hyoscyamine [Hyomax-SL] 0.125 mg PO Q6H PRN 12/15/20 [History] L.acidoph,Paracasei, B.lactis [Probiotic] 1 each PO DAILY 12/15/20 [History] Multivitamin 1 each PO DAILY 12/15/20 [History] Non-Formulary Medication [NF Drug] 5,000 mg PO DAILY 12/15/20 [History] Oxygen Therapy Mode: Room Air Patient Handouts: Acute Pancreatitis, [id number], Chronic Pancreatitis, Pancreatitis Eating Plan Referrals: Ko Mata PA-C [Primary Care Provider] - 12/20/20 2:40 pm (this is your check in time.) - Discharge Summary/Plan Comment DC Time >30 min.: No - General Info Date of Service: 12/15/20 Admission Dx/Problem (Free Text: Pancreatitis Functional Status: Reports: Pain Controlled, Tolerating Diet (clear liquids), Ambulating, Urinating. Denies: New Symptoms - Review of Systems General: Reports: No Symptoms. Denies: Fever, Weakness, Fatigue, Malaise, Chills HEENT: Reports: No Symptoms. Denies: Headaches, Sore Throat Pulmonary: Reports: No Symptoms. Denies: Shortness of Breath, Cough, Sputum, Wheezing Cardiovascular: Reports: No Symptoms. Denies: Chest Pain, Edema Gastrointestinal: Reports: Abdominal Pain (upper quadrants ), Constipation. Denies: Diarrhea, Nausea, Vomiting Genitourinary: Reports: No Symptoms. Denies: Pain Musculoskeletal: Reports: No Symptoms Skin: Reports: No Symptoms. Denies: Cyanosis Neurological: Reports: No Symptoms. Denies: Confusion, Numbness, Seizure, Syncope, Tingling, Difficulty Walking, Weakness, Gait Disturbance Psychiatric: Reports: No Symptoms - Patient Data Vitals - Most Recent: Last Vital Signs Temp 97.7 F 12/15/20 14:20 Pulse 52 L 12/15/20 14:20 Resp 16 12/15/20 14:20 BP 106/65 12/15/20 14:20 Pulse Ox 100 12/15/20 14:20 Weight - Most Recent: 79.696 kg I&O - Last 24 hours: Intake & Output 12/15/20 12/15/20 12/15/20 06:59 14:59 22:59 Intake Total 1200 Output Total 1300 Balance -100 Lab Results - Last 24 hrs: Laboratory Results - last 24 hr 12/15/20 12/15/20 12/15/20 Range/Units 03:01 03:01 06:39 WBC 9.01 (4.23-9.07) K/mm3 RBC 5.44 (4.63-6.08) M/mm3 Hgb 16.2 (13.7-17.5) gm/dl Hct 47.7 (40.1-51.0) % MCV 87.7 (79.0-92.2) fl MCH 29.8 (25.7-32.2) pg MCHC 34.0 (32.2-35.5) g/dl RDW Std Deviation 43.7 (35.1-43.9) fL Plt Count 151 L (163-337) K/mm3 MPV 10.9 (9.4-12.3) fl Neut % (Auto) 54.5 (34.0-67.9) % Lymph % (Auto) 31.4 (21.8-53.1) % [place] % (Auto) 10.5 (5.3-12.2) % Eos % (Auto) 3.0 (0.8-7.0) Baso % (Auto) 0.4 (0.1-1.2) % Neut # (Auto) 4.90 (1.78-5.38) K/mm3 Lymph # (Auto) 2.83 (1.32-3.57) K/mm3 [place] # (Auto) 0.95 H (0.30-0.82) K/mm3 Eos # (Auto) 0.27 (0.04-0.54) K/mm3 Baso # (Auto) 0.04 (0.01-0.08) K/mm3 Sodium 137 (136-145) mEq/L Potassium 3.8 (3.5-5.1) mEq/L Chloride 101 (98-107) mEq/L Carbon Dioxide 26 (21-32) mEq/L Anion Gap 13.8 (5-15) BUN 16 (7-18) mg/dL Creatinine 1.1 (0.7-1.3) mg/dL Est Cr Clr Drug Dosing TNP Estimated GFR (MDRD) > 60 (>60) mL/min BUN/Creatinine Ratio 14.5 (14-18) Glucose 98 (70-99) mg/dL Calcium 8.9 (8.5-10.1) mg/dL Total Bilirubin 0.6 (0.2-1.0) mg/dL AST 87 H (15-37) U/L ALT 124 H (16-63) U/L Alkaline Phosphatase 88 (46-116) U/L Total Protein 8.0 (6.4-8.2) g/dl Albumin 4.5 (3.4-5.0) g/dl Globulin 3.5 gm/dL Albumin/Globulin Ratio 1.3 (1-2) Lipase 2690 H (73-393) U/L SARS-CoV-2 RNA (MANISHA) Negative (NEGATIVE) Med Orders - Current: Current Medications Acetaminophen (Acetaminophen 325 Mg Tab) 650 mg PO Q4H PRN PRN Reason: Pain (Mild 1-3)/fever Last Admin: 12/15/20 09:58 Dose: 650 mg Documented by: Albuterol/Ipratropium (Albuterol/Ipratropium 3.0-0.5 Mg/3 Ml Neb Soln) 3 ml NEB Q6HRRT PRN PRN Reason: wheezing/SOB/cough Cholecalciferol (Cholecalciferol (Vitamin D3) 5,000 Unit Cap) 5,000 unit PO DAILY [facility] Last Admin: 12/15/20 11:05 Dose: Not Given Documented by: Dicyclomine HCl (Dicyclomine 10 Mg Cap) 10 mg PO BID [facility] Last Admin: 12/15/20 12:22 Dose: Not Given Documented by: Docusate Sodium (Docusate Sodium 100 Mg Cap) 100 mg PO DAILY [facility] Last Admin: 12/15/20 11:05 Dose: Not Given Documented by: Duloxetine HCl (Duloxetine 30 Mg Cap) 30 mg PO BID [facility] Last Admin: 12/15/20 11:04 Dose: Not Given Documented by: Hydromorphone HCl (Hydromorphone 0.5 Mg/0.5 Ml Syringe) 0.25 mg IVPUSH Q2H PRN PRN Reason: Pain (severe 7-10) Hyoscyamine (Hyoscyamine 0.125 Mg Tab.Sl) 0.125 mg PO Q6H PRN PRN Reason: GI Pain/discomfort Sodium Chloride (Normal Saline) 1,000 mls @ 150 mls/hr IV ASDIRECTED [facility] Last Admin: 12/15/20 13:36 Dose: 150 mls/hr Documented by: Multivitamins/Minerals/Vitamin C (Multivitamin Tab) 1 tab PO DAILY [facility] Last Admin: 12/15/20 11:04 Dose: Not Given Documented by: Non-Formulary Medication (Amylase/Lipase/Protease) 1 cap PO ASDIRECTED [facility] Ondansetron HCl (Ondansetron 4 Mg/2 Ml Sdv) 4 mg IV Q6H PRN PRN Reason: Nausea/Vomiting Last Admin: 12/15/20 09:59 Dose: 4 mg Documented by: Oxycodone HCl (Oxycodone 5 Mg Tab) 5 mg PO BID PRN PRN Reason: Pain Saccharomyces Boulardii (Saccharomyces Boulardii (Probiotic) 250 Mg Cap) 250 mg PO DAILY [facility] Last Admin: 12/15/20 11:04 Dose: Not Given Documented by: Sodium Chloride (Sodium Chloride 0.9% 10 Ml Syringe) 10 ml FLUSH ASDIRECTED PRN PRN Reason: Keep Vein Open Last Admin: 12/15/20 03:05 Dose: 10 ml Documented by: Tramadol HCl (Tramadol 50 Mg Tab) 50 mg PO DAILY [facility] Last Admin: 12/15/20 11:04 Dose: Not Given Documented by: Discontinued Medications Duloxetine HCl (Duloxetine 30 Mg Cap) 30 mg PO ONETIME ONE Stop: 12/15/20 14:21 Last Admin: 12/15/20 14:17 Dose: 30 mg Documented by: Hydromorphone HCl (Hydromorphone 1 Mg/Ml Syringe) 1 mg IVPUSH ONETIME ONE Stop: 12/15/20 02:51 Last Admin: 12/15/20 03:05 Dose: 1 mg Documented by: Sodium Chloride (Normal Saline) 1,000 mls @ 1,000 mls/hr IV .BOLUS STA Stop: 12/15/20 03:48 Last Admin: 12/15/20 03:03 Dose: 1,000 mls/hr Documented by: Ondansetron HCl (Ondansetron 4 Mg/2 Ml Sdv) 4 mg IVPUSH ONETIME ONE Stop: 12/15/20 02:50 Last Admin: 12/15/20 03:06 Dose: 4 mg Documented by: Temazepam (Temazepam 15 Mg Cap) 15 mg PO ONETIME ONE Stop: 12/15/20 09:49 Last Admin: 12/15/20 09:58 Dose: 15 mg Documented by: - Exam Quality Assessment: Denies: Supplemental Oxygen, Urine Catheter, DVT Prophylaxis (not indicated ) General: Reports: Alert, Oriented, Cooperative, No Acute Distress HEENT: Reports: Pupils Equal, Pupils Reactive, Mucous Membr. Moist/[place] Neck: Reports: Supple, Trachea Midline Lungs: Reports: Clear to Auscultation, Normal Respiratory Effort Cardiovascular: Reports: Regular Rate, Regular Rhythm GI/Abdominal Exam: Normal Bowel Sounds, Soft, No Distention, No Abnormal Bruit, Tender (Mildly tender in upper quadrants ) (Male) Exam: Deferred Rectal (Males) Exam: Deferred Back Exam: Reports: Normal Inspection, Full Range of Motion Extremities: Normal Inspection, Normal Range of Motion, Non-Tender, No Pedal Edema, Normal Capillary Refill Skin: Reports: Warm, Dry, Intact Neurological: Reports: No New Focal Deficit Psy/Mental Status: Reports: Alert, Normal Affect, Normal Mood <Michael Quinn - Last Filed: 12/15/20 16:44> Discharge Summary - Referral to Home Health Primary Care Physician: Ko Mata PA-C - Patient Summary/Data Hospital Course: I have seen and examined the patient independently of Robb Arreola PA-C, and have reviewed the case with him. I have reviewed and agree with the plan and care as outlined by him. Please see orders. - Patient Data Vitals - Most Recent: Last Vital Signs Temp 36.5 C 12/15/20 14:20 Pulse 52 L 12/15/20 14:20 Resp 16 12/15/20 14:20 BP 106/65 12/15/20 14:20 Pulse Ox 100 12/15/20 14:20 I&O - Last 24 hours: Intake & Output 12/15/20 12/15/20 12/15/20 06:59 14:59 22:59 Intake Total 1200 Output Total 1300 Balance -100 Lab Results - Last 24 hrs: Laboratory Results - last 24 hr 12/15/20 12/15/20 12/15/20 Range/Units 03:01 03:01 06:39 WBC 9.01 (4.23-9.07) K/mm3 RBC 5.44 (4.63-6.08) M/mm3 Hgb 16.2 (13.7-17.5) gm/dl Hct 47.7 (40.1-51.0) % MCV 87.7 (79.0-92.2) fl MCH 29.8 (25.7-32.2) pg MCHC 34.0 (32.2-35.5) g/dl RDW Std Deviation 43.7 (35.1-43.9) fL Plt Count 151 L (163-337) K/mm3 MPV 10.9 (9.4-12.3) fl Neut % (Auto) 54.5 (34.0-67.9) % Lymph % (Auto) 31.4 (21.8-53.1) % [place] % (Auto) 10.5 (5.3-12.2) % Eos % (Auto) 3.0 (0.8-7.0) Baso % (Auto) 0.4 (0.1-1.2) % Neut # (Auto) 4.90 (1.78-5.38) K/mm3 Lymph # (Auto) 2.83 (1.32-3.57) K/mm3 [place] # (Auto) 0.95 H (0.30-0.82) K/mm3 Eos # (Auto) 0.27 (0.04-0.54) K/mm3 Baso # (Auto) 0.04 (0.01-0.08) K/mm3 Sodium 137 (136-145) mEq/L Potassium 3.8 (3.5-5.1) mEq/L Chloride 101 (98-107) mEq/L Carbon Dioxide 26 (21-32) mEq/L Anion Gap 13.8 (5-15) BUN 16 (7-18) mg/dL Creatinine 1.1 (0.7-1.3) mg/dL Est Cr Clr Drug Dosing TNP Estimated GFR (MDRD) > 60 (>60) mL/min BUN/Creatinine Ratio 14.5 (14-18) Glucose 98 (70-99) mg/dL Calcium 8.9 (8.5-10.1) mg/dL Total Bilirubin 0.6 (0.2-1.0) mg/dL AST 87 H (15-37) U/L ALT 124 H (16-63) U/L Alkaline Phosphatase 88 (46-116) U/L Total Protein 8.0 (6.4-8.2) g/dl Albumin 4.5 (3.4-5.0) g/dl Globulin 3.5 gm/dL Albumin/Globulin Ratio 1.3 (1-2) Lipase 2690 H (73-393) U/L SARS-CoV-2 RNA (MANISHA) Negative (NEGATIVE) Med Orders - Current: Current Medications Acetaminophen (Acetaminophen 325 Mg Tab) 650 mg PO Q4H PRN PRN Reason: Pain (Mild 1-3)/fever Last Admin: 12/15/20 09:58 Dose: 650 mg Documented by: Albuterol/Ipratropium (Albuterol/Ipratropium 3.0-0.5 Mg/3 Ml Neb Soln) 3 ml NEB Q6HRRT PRN PRN Reason: wheezing/SOB/cough Cholecalciferol (Cholecalciferol (Vitamin D3) 5,000 Unit Cap) 5,000 unit PO DAILY [facility] Last Admin: 12/15/20 11:05 Dose: Not Given Documented by: Dicyclomine HCl (Dicyclomine 10 Mg Cap) 10 mg PO BID [facility] Last Admin: 12/15/20 12:22 Dose: Not Given Documented by: Docusate Sodium (Docusate Sodium 100 Mg Cap) 100 mg PO DAILY [facility] Last Admin: 12/15/20 11:05 Dose: Not Given Documented by: Duloxetine HCl (Duloxetine 30 Mg Cap) 30 mg PO BID [facility] Last Admin: 12/15/20 11:04 Dose: Not Given Documented by: Hydromorphone HCl (Hydromorphone 0.5 Mg/0.5 Ml Syringe) 0.25 mg IVPUSH Q2H PRN PRN Reason: Pain (severe 7-10) Hyoscyamine (Hyoscyamine 0.125 Mg Tab.Sl) 0.125 mg PO Q6H PRN PRN Reason: GI Pain/discomfort Sodium Chloride (Normal Saline) 1,000 mls @ 150 mls/hr IV ASDIRECTED [facility] Last Admin: 12/15/20 13:36 Dose: 150 mls/hr Documented by: Multivitamins/Minerals/Vitamin C (Multivitamin Tab) 1 tab PO DAILY [facility] Last Admin: 12/15/20 11:04 Dose: Not Given Documented by: Non-Formulary Medication (Amylase/Lipase/Protease) 1 cap PO ASDIRECTED [facility] Ondansetron HCl (Ondansetron 4 Mg/2 Ml Sdv) 4 mg IV Q6H PRN PRN Reason: Nausea/Vomiting Last Admin: 12/15/20 09:59 Dose: 4 mg Documented by: Oxycodone HCl (Oxycodone 5 Mg Tab) 5 mg PO BID PRN PRN Reason: Pain Saccharomyces Boulardii (Saccharomyces Boulardii (Probiotic) 250 Mg Cap) 250 mg PO DAILY [facility] Last Admin: 12/15/20 11:04 Dose: Not Given Documented by: Sodium Chloride (Sodium Chloride 0.9% 10 Ml Syringe) 10 ml FLUSH ASDIRECTED PRN PRN Reason: Keep Vein Open Last Admin: 12/15/20 03:05 Dose: 10 ml Documented by: Tramadol HCl (Tramadol 50 Mg Tab) 50 mg PO DAILY [facility] Last Admin: 12/15/20 11:04 Dose: Not Given Documented by: Discontinued Medications Duloxetine HCl (Duloxetine 30 Mg Cap) 30 mg PO ONETIME ONE Stop: 12/15/20 14:21 Last Admin: 12/15/20 14:17 Dose: 30 mg Documented by: Hydromorphone HCl (Hydromorphone 1 Mg/Ml Syringe) 1 mg IVPUSH ONETIME ONE Stop: 12/15/20 02:51 Last Admin: 12/15/20 03:05 Dose: 1 mg Documented by: Sodium Chloride (Normal Saline) 1,000 mls @ 1,000 mls/hr IV .BOLUS STA Stop: 12/15/20 03:48 Last Admin: 12/15/20 03:03 Dose: 1,000 mls/hr Documented by: Ondansetron HCl (Ondansetron 4 Mg/2 Ml Sdv) 4 mg IVPUSH ONETIME ONE Stop: 12/15/20 02:50 Last Admin: 12/15/20 03:06 Dose: 4 mg Documented by: Temazepam (Temazepam 15 Mg Cap) 15 mg PO ONETIME ONE Stop: 12/15/20 09:49 Last Admin: 12/15/20 09:58 Dose: 15 mg Documented by:
== END 2020-12-15 17:01 | disposition home or self-care (01) ==
LOC: JD.ED 02:24 → JD.MS 07:47
PROVIDERS: ADMIT Internal Medicine; ATTEND Internal Medicine
DX: K85.80 Other acute pancreatitis without necrosis or infection (principal); K59.00 Constipation, unspecified; J45.909 Unspecified asthma, uncomplicated; G43.909 Migraine, unspecified, not intractable, without status migrainosus; G47.00 Insomnia, unspecified; E78.00 Pure hypercholesterolemia, unspecified; Z88.1 Allergy status to other antibiotic agents; Z79.899 Other long term (current) drug therapy; Z90.49 Acquired absence of other specified parts of digestive tract; Z98.890 Other specified postprocedural states; Z20.822 Contact with and (suspected) exposure to COVID-19
CPT/HCPCS: 36415; 80053; 83690; 85025; 87635; 96374; 96375; 96376; 99284; A9270; G0378; J1170; J2405; J7030; 99235; U0002

== ENCOUNTER 2020-12-19 08:35 | Day surgery (SDC) | payer BC ==
[~2020-12-19 08:35] MED LIST changes: +Albuterol 0.083% 2.5 MG/3 ML Neb Soln NEB PRN; -Clindamycin Phosphate in D5W 900 MG in Premix Bag 1 BAG IV SCH; +Dexamethasone 4 MG/ML 5 ML MDV ONE; -FLU VACC QS2020-21(6MOS UP)/PF 60 MCG/0.5 ML SYRINGE IM ONE; +Ondansetron 4 MG/2 ML SDV ONE; +Rocuronium 50 MG/5 ML Vial ONE; +ceFAZolin 1 GM Vial ONE
[2020-12-19] MEDS ORDERED: Propofol 200 MG/20 ML SDV ONE ×2 (08:51→10:38)
[2020-12-19] MEDS ORDERED: Bupivacaine 0.5%/EPINEPHrine 1:200,000 50 ML MDV ONE (09:06)
--- NOTE | 2020-12-19 09:19 | PCM.PREANE ---
Preanesthetic Assessment - Procedure Proposed Procedure: Open Umbical hernia Repair with mesh - Anesthesia/Transfusion/Family Hx Anesthesia History: Prior Anesthesia Reaction Type of Anesthesia Reaction: Excessive Nausea/Vomiting Family History of Anesthesia Reaction: No Transfusion History: No Prior Transfusion(s) Intubation History: Unknown - Review of Systems General: No Symptoms Pulmonary: No Symptoms Cardiovascular: No Symptoms Gastrointestinal: Abdominal Pain Neurological: No Symptoms Other: Reports: None - Physical Assessment NPO Status Date: 12/18/20 NPO Status Time: 23:59 Vital Signs: 111/83 HR 69 18 RR 99% 97.9 Height: 1.83 m Weight: 76.8 kg ASA Class: 2 Mental Status: Alert & Oriented x3 Dentition: Reports: Normal Dentition Thyro-Mental Finger Breadths: 3 Mouth Opening Finger Breadths: 3 ROM/Head Extension: Full Lungs: Clear to Auscultation, Normal Respiratory Effort Cardiovascular: Regular Rate, Regular Rhythm - Lab Values: Labs reviewed and okay to proceed - Allergies Allergies/Adverse Reactions: Allergies Allergy/AdvReac Type Severity Reaction Status Date / Time amoxicillin Allergy Intermediate Hives Verified 12/18/20 10:13 - Blood Blood Available: No Product(s) Available: None - Anesthesia Plan Pre-Op Medication Ordered: None - Acknowledgements Anesthesia Type Planned: General Anesthesia Pt an Appropriate Candidate for the Planned Anesthesia: Yes Alternatives and Risks of Anesthesia Discussed w Pt/Guardian: Yes Pt/Guardian Understands and Agrees with Anesthesia Plan: Yes PreAnesthesia Questionnaire HEENT History: Reports: Impaired Vision Cardiovascular History: Reports: High Cholesterol Respiratory History: Reports: Asthma Other Respiratory History: cough, reactive airway disease Gastrointestinal History: Reports: Pancreatitis Other Gastrointestinal History: Patient states that he was hospitalized at age 11 years of age for a bout of pancreatitis. He was hospitalized for a month and spent another month at home recovering after 20 pound weight loss. Etiology was never elucidated but likely was viral. abdominal pain, diarrhea, fatty liver, nausea Genitourinary History: Reports: None INSURANCE VERIFICATION CLERK History: Reports: None Musculoskeletal History: Reports: None Neurological History: Reports: Migraines Psychiatric History: Reports: None Other Psychiatric History: insomnia Endocrine/Metabolic History: Reports: None Hematologic History: Reports: None Immunologic History: Reports: None Oncologic (Cancer) History: Reports: None Dermatologic History: Reports: None - Infectious Disease History Infectious Disease History: Reports: Other (See Below) Other Infectious Disease History: CMV, mono - Past Surgical History Head Surgeries/Procedures: Reports: None HEENT Surgical History: Reports: Adenoidectomy, Oral Surgery, Tonsillectomy Cardiovascular Surgical History: Reports: None Respiratory Surgical History: Reports: None GI Surgical History: Reports: Appendectomy, Cholecystectomy Female Surgical History: Reports: None Male Surgical History: Reports: Circumcision Endocrine Surgical History: Reports: None Neurological Surgical History: Reports: None Musculoskeletal Surgical History: Reports: None Oncologic Surgical History: Reports: None Dermatological Surgical History: Reports: None - SUBSTANCE USE Tobacco Use Status *Q: Never Tobacco User Second Hand Smoke Exposure: No Recreational Drug Use History: No - HOME MEDS Home Medications: Home Meds oxyCODONE 5 mg PO BID PRN 07/11/20 [History] traMADol [Ultram] 50 mg PO BID PRN 07/11/20 [History] Amylase/Lipase/Protease [Creon DR 24,000 Unit] 1 - 3 cap PO ASDIRECTED 12/15/20 [History] DULoxetine [Cymbalta] 30 mg PO BID 12/15/20 [History] Dicyclomine [Bentyl] 10 mg PO BID 12/15/20 [History] Hyoscyamine [Hyomax-SL] 0.125 mg PO Q6H PRN 12/15/20 [History] L.acidoph,Paracasei, B.lactis [Probiotic] 1 each PO DAILY 12/15/20 [History] Multivitamin 1 each PO DAILY 12/15/20 [History] Cholecalciferol (Vitamin D3) [Vitamin D3] 5,000 unit PO DAILY 12/18/20 [History] Lactobacillus Combo No.10 [Probiotic] 1 cap PO DAILY 12/18/20 [History] Zolpidem [Ambien] 5 - 10 mg PO BEDTIME PRN 12/18/20 [History] - CURRENT (IN HOUSE) MEDS Current Meds: Current Medications Albuterol (Albuterol 0.083% 2.5 Mg/3 Ml Neb Soln) 2.5 mg NEB ONETIME PRN PRN Reason: Reactive Airway Disease. Stop: 12/19/20 23:00 Lactated Ringer's (Ringers, Lactated) 1,000 mls @ 125 mls/hr IV ASDIRECTED SHANICE Lidocaine/Sodium Bicarbonate (Lidocaine 1%/Sod Bicarbonate In Ns 8.4% 1 Ml Syringe) 0.25 ml IDERM ONETIME PRN PRN Reason: Prior to IV Start Sodium Chloride (Sodium Chloride 0.9% 10 Ml Syringe) 10 ml FLUSH ASDIRECTED PRN PRN Reason: Keep Vein Open Discontinued Medications Bupivacaine HCl/Epinephrine Bitart (Bupivacaine 0.5%/Epinephrine 1:200,000 50 Ml Mdv) Confirm Administered Dose 50 ml .ROUTE .STK-MED ONE Stop: 12/19/20 09:07 Cefazolin Sodium (Cefazolin 1 Gm Vial) Confirm Administered Dose 2 gm .ROUTE .STK-MED ONE Stop: 12/19/20 06:49 Dexamethasone (Dexamethasone 4 Mg/Ml 5 Ml Mdv) Confirm Administered Dose 20 mg .ROUTE .STK-MED ONE Stop: 12/19/20 06:49 Lidocaine HCl (Lidocaine 1% 5 Ml Sdv) Confirm Administered Dose 5 ml .ROUTE .STK-MED ONE Stop: 12/19/20 06:49 Ondansetron HCl (Ondansetron 4 Mg/2 Ml Sdv) Confirm Administered Dose 4 mg .ROUTE .STK-MED ONE Stop: 12/19/20 06:49 Propofol (Propofol 200 Mg/20 Ml Sdv) Confirm Administered Dose 200 mg .ROUTE .STK-MED ONE Stop: 12/19/20 08:52 Rocuronium [place] (Rocuronium 50 Mg/5 Ml Vial) Confirm Administered Dose 50 mg .ROUTE .STK-MED ONE Stop: 12/19/20 06:49
[2020-12-19] MEDS ORDERED: Scopolamine 1.5 MG Transdermal Patch TRDERM PRN (09:22)
[2020-12-19] MEDS ORDERED: Midazolam 1 MG/ML 2 ML SDV ONE (09:34)
[2020-12-19] MEDS ORDERED: fentaNYL 250 MCG/5 ML SDV ONE (09:35)
[2020-12-19] MEDS ORDERED: diphenhydrAMINE 50 MG/ML SDV ONE (09:36)
[2020-12-19] MEDS ORDERED: Lactated Ringers 1,000 ML ONE (10:33)
[2020-12-19] MEDS ORDERED: Ketorolac 30 MG/ML SDV ONE (10:42)
[2020-12-19] MEDS ORDERED: Glycopyrrolate 0.2 MG/ML SDV ONE (10:45)
[2020-12-19] MEDS ORDERED: Albuterol 6.7 GM Inhaler INH ONE (10:50)
--- NOTE | 2020-12-19 10:59 | PCM.PRNOTE ---
- Free Text/Narrative Note: Date: 12/19/2020 Operation: open umbilical hernia repair with mesh Surgeon: Reza Wisdom MD Findings: subcentimeter umbilical hernia containing visceral fat. Minimal blood loss. Ventralex patch 4.3 cm dm placed intraperitoneally prior to primary fascial closure. Detailed Report: The patient was taken to the operating room and placed supine. Timeout was performed and general endotracheal anesthesia was initiated. Abdominal hair was clipped. The abdomen was prepped and draped in usual sterile fashion. 10 cc of 0.5% Marcaine with epinephrine was injected along planned periumbilical incision. A 5 cm longitudinal incision was made about the umbilicus using the 10 blade scalpel. Dissection through subcutaneous tissue was continued with monopolar energy. The umbilical stalk was grasped and elevated. The stalk was dissected circumferentially with a right angle clamp. With the abdominal wall elevated, the stalk was transected and the umbilical hernia was evident. There was a small amount of visceral fat contained within the hernia. The fascial defect measured less than 1 cm. The incision through the fascia was extended cephalad and caudad in order to permit the surgeon's finger. The peritoneal surface around the defect was palpated and there were no adhesions. A 4.3 cm Ventralex patch was then placed in the peritoneum and brought up against the anterior abdominal wall. This was fixed in place using 0 Vicryl suture. The fascia was then closed transversely with 2 interrupted 0 PDS sutures. Subcutaneous tissue was closed with interrupted 3-0 Vicryl suture and skin was closed with running 4-0 Vicryl suture. The wound was dressed with Dermabond. The patient tolerated the operation well.
[2020-12-19] MEDS ORDERED: HYDROmorphone 0.5 MG/0.5 ML Syringe IVPUSH PRN (11:10)
[2020-12-19] MEDS ORDERED: fentaNYL 100 MCG/2 ML SDV IVPUSH PRN (11:10)
--- NOTE | 2020-12-19 11:12 | PCM.POSTAN ---
POST ANESTHESIA ASSESSMENT - MENTAL STATUS Mental Status: Alert, Oriented - VITAL SIGNS Vital Signs: Last Vital Signs Temp 97.3 F 12/19/20 11:01 Pulse 69 12/19/20 08:40 Resp 20 12/19/20 11:10 BP 119/77 12/19/20 11:10 Pulse Ox 99 12/19/20 11:10 - RESPIRATORY Respiratory Status: Respiratory Rate WNL, Airway Patent, O2 Saturation Stable - CARDIOVASCULAR CV Status: Pulse Rate WNL, Blood Pressure Stable - GASTROINTESTINAL GI Status: No Symptoms - PAIN Pain Score: 0 - POST OP HYDRATION Hydration Status: Adequate & Stable (Patient denies pain and nausea at this time. )
[2020-12-19] MEDS ORDERED: oxyCODONE 5 MG Tab PO ONE (12:25)
--- NOTE | 2020-12-19 12:44 | PCM48HPAN ---
Post Anesthesia Note - EVALUATION WITHIN 48HRS OF ANESTHETIC Vital Signs in Normal Range: Yes Patient Participated in Evaluation: Yes Respiratory Function Stable: Yes Airway Patent: Yes Cardiovascular Function Stable: Yes Hydration Status Stable: Yes Pain Control Satisfactory: Yes Nausea and Vomiting Control Satisfactory: Yes Mental Status Recovered: Yes Vital Signs: Last Vital Signs Temp 36.3 C 12/19/20 11:01 Pulse 69 12/19/20 12:30 Resp 16 12/19/20 12:30 BP 113/78 12/19/20 12:30 Pulse Ox 97 12/19/20 12:30
[2020-12-19 13:05] VITALS: BP 104/78; PULSE 74
== END 2020-12-19 13:16 | disposition home or self-care (01) ==
LOC: JD.SDS 08:35
PROVIDERS: ATTEND Surgery
DX: K42.9 Umbilical hernia without obstruction or gangrene (principal); E78.00 Pure hypercholesterolemia, unspecified; G47.00 Insomnia, unspecified; Z88.1 Allergy status to other antibiotic agents; Z79.899 Other long term (current) drug therapy; Z90.49 Acquired absence of other specified parts of digestive tract; Z98.890 Other specified postprocedural states
CPT/HCPCS: 49585; 94640; A9270; C1781; J0690; J1100; J1170; J1200; J1885; J2250; J2370; J2405; J2704; J2710; J3010; J3490; J7120; 00750

== ENCOUNTER 2021-03-28 23:46 | Observation (INO) | payer BC ==
[2021-03-29] MEDS ORDERED: HYDROmorphone 1 MG/ML Syringe IVPUSH ONE ×3 (01:02→02:24)
[2021-03-29] MEDS ORDERED: Ondansetron 4 MG/2 ML SDV IVPUSH ONE (01:02)
[2021-03-29] MEDS ORDERED: Sodium Chloride 0.9% 1,000 ML IV SCH (01:15)
--- NOTE | 2021-03-29 01:15 | EDM.PDOC ---
ED HPI GENERAL MEDICAL PROBLEM - General Chief Complaint: Abdominal Pain Stated Complaint: PANCREATIC ATTACK Time Seen by Provider: 03/29/21 00:29 Source of Information: Reports: Patient History Limitations: Reports: No Limitations - History of Present Illness INITIAL COMMENTS - FREE TEXT/NARRATIVE: Mr. 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 He states that the pain waxes and wanes, recurring randomly. He has not identified any modifiers. He states that he took 10 mg of oxycodone, which did not help, but at present, he states that his pain is relatively mild. No associated nausea, vomiting, constipation, or diarrhea, and no recent fever. The patient states that his Milk Tanker Driver advised that when he has a recurrence, that he received IV fluid and pain medicine, but not undergo an imaging study, as he has had so many in the past. Reviewing the patient's prior medical records, I see that the patient has undergone 2 MRIs of the abdomen, 4 ultrasounds of the abdomen, 1 CT of the abdomen, and 5 CTs of the abdomen and pelvis at this facility. Those 12 studies occurred over 7 visits. On 5 of those visits, the patient was found to have pancreatitis on one or more imaging study, even though the highest lipase ever found was 271, in June this year. This indicates that a lipase level is not a meaningful determinant of pancreatitis in this patient. Here in the ED tonight, the patient is found to be hemodynamically stable, afebrile, saturating 99% on room air. He appears to be comfortable, in no acute distress. The patient states that he gets occasional headaches, otherwise, the patient denies having a recent fever, chills, sore throat, ear pain, nasal or sinus congestion, cough, dyspnea, chest pain, palpitations, nausea, vomiting, constipation, diarrhea, abdominal pain, urinary symptoms, recent weight gain or weight loss, recent bloody bowel movements or black bowel movements, recent joint aches, or rashes. The patient's PCP is SANDHYA Bennett, although he has recently seen SANDHYA Cerna. His Milk Tanker Driver is Dr. Brody You at the [facility]. He has received 2 COVID vaccinations, and received an influenza vaccination yesterday, 03/28/2021. Abdomen Pain Score (Numeric/FACES): 9 - Related Data Allergies Allergy/AdvReac Type Severity Reaction Status Date / Time amoxicillin Allergy Intermediate Hives Verified 03/28/21 23:59 Home Meds: Home Meds oxyCODONE 5 mg PO BID PRN 07/11/20 [History] traMADol [Ultram] 50 mg PO BID PRN 07/11/20 [History] Amylase/Lipase/Protease [Creon DR 24,000 Unit] 1 - 3 cap PO ASDIRECTED 12/15/20 [History] DULoxetine [Cymbalta] 30 mg PO BID 12/15/20 [History] Dicyclomine [Bentyl] 10 mg PO BID 12/15/20 [History] Hyoscyamine [Hyomax-SL] 0.125 mg PO Q6H PRN 12/15/20 [History] Multivitamin 1 each PO DAILY 12/15/20 [History] Cholecalciferol (Vitamin D3) [Vitamin D3] 5,000 unit PO DAILY 12/18/20 [History] Lactobacillus Combo No.10 [Probiotic] 1 cap PO DAILY 12/18/20 [History] Zolpidem [Ambien] 5 - 10 mg PO BEDTIME PRN 12/18/20 [History] oxyCODONE 5 mg PO Q4H PRN #20 tab 12/19/20 [Rx] Past Medical History Cardiovascular History: Reports: High Cholesterol (untreated) Gastrointestinal History: Reports: Pancreatitis (hereditary, due to a mutation in SPINK1 gene) Psychiatric History: Reports: Anxiety - Infectious Disease History Infectious Disease History: Reports: Mononucleosis - Past Surgical History HEENT Surgical History: Reports: Adenoidectomy, Oral Surgery (dental extractions), Tonsillectomy GI Surgical History: Reports: Appendectomy, Cholecystectomy (2019), Hernia, Abdominal (periumbilical) Male Surgical History: Reports: Circumcision Social & Family History - Tobacco Use Tobacco Use Status *Q: Never Tobacco User - Caffeine Use Caffeine Use: Reports: Tea (2-3 cups/day) - Alcohol Use Alcohol Use History: No - Recreational Drug Use Recreational Drug Use: Yes Drug Use in Last 12 Months: Yes Recreational Drug Type: Reports: Marijuana/Hashish (smokes on occasion, last = Feb 2021) - Living Situation & Occupation Living situation: Reports: , with Spouse, with Family (2 kids) Occupation: Employed ([employer]) ED ROS GENERAL - Review of Systems Review Of Systems: Comprehensive ROS is negative, except as noted in HPI. ED EXAM, GI/ABD - Physical Exam Exam: See Below Exam Limited By: No Limitations General Appearance: Alert, WD/WN, No Apparent Distress Eyes: Bilateral: Normal Appearance, EOMI Ears: Normal External Exam, Hearing Grossly Normal Nose: Normal Inspection Throat/Mouth: Normal Inspection, Normal Lips, Normal Voice, No Airway Compromise Head: Atraumatic, Normocephalic Neck: Normal Inspection, Full Range of Motion Respiratory/Chest: No Respiratory Distress, Lungs Clear, Normal Breath Sounds, No Accessory Muscle Use Cardiovascular: Normal Peripheral Pulses, Regular Rate, Rhythm, No Edema, No Gallop, No JVD, No Murmur, No Rub GI/Abdominal Exam: Normal Bowel Sounds, Soft, No Organomegaly, No Distention, No Abnormal Bruit, No Mass, Tender (Mild, in the epigastrium only. Nontender elsewhere.) Back Exam: Normal Inspection, Full Range of Motion, NT Extremities: Normal Inspection, Normal Range of Motion, No Pedal Edema, Normal Capillary Refill Neurological: Alert, Oriented, Normal Cognition, No Motor/Sensory Deficits Psychiatric: Normal Affect Skin Exam: Warm, Dry, Intact, Normal Color, No Rash Course - Vital Signs Last Recorded V/S: Last Vital Signs Temp 36.0 C L 03/28/21 23:59 Pulse 99 03/28/21 23:59 Resp 20 03/28/21 23:59 BP 126/98 H 03/28/21 23:59 Pulse Ox 99 03/28/21 23:59 - Orders/Labs/Meds Orders: Active Orders 24 hr Category Date Time Status Sodium Chloride 0.9% [Normal Saline] 1,000 ml Med 03/29/21 01:15 Active IV ASDIRECTED Sodium Chloride 0.9% [Normal Saline] 1,000 ml Med 03/29/21 02:45 Active IV ASDIRECTED Medication Orders Sodium Chloride (Normal Saline) 1,000 mls @ 500 mls/hr IV ASDIRECTED SHANICE Last Admin: 10/07/21 01:15 Dose: 500 mls/hr Documented by: JOSE Sodium Chloride (Normal Saline) 1,000 mls @ 150 mls/hr IV ASDIRECTED SHANICE Labs: Laboratory Tests 03/29/21 03/29/21 03/29/21 Range/Units 01:10 01:10 01:10 WBC 8.09 (4.23-9.07) K/mm3 RBC 5.13 (4.63-6.08) M/mm3 Hgb 15.5 (13.7-17.5) gm/dl Hct 45.8 (40.1-51.0) % MCV 89.3 (79.0-92.2) fl MCH 30.2 (25.7-32.2) pg MCHC 33.8 (32.2-35.5) g/dl RDW Std Deviation 43.0 (35.1-43.9) fL Plt Count 131 L (163-337) K/mm3 MPV 11.1 (9.4-12.3) fl Neutrophils % (Manual) 61 H (40-60) % Band Neutrophils % 2 (0-10) % Lymphocytes % (Manual) 21 (20-40) % Atypical Lymphs % 0 % Monocytes % (Manual) 10 (2-10) % Eosinophils % (Manual) 6 (0.8-7.0) % Basophils % (Manual) 0 L (0.2-1.2) Platelet Estimate Decreased RBC Morph Comment Normal Sodium 142 (136-145) mEq/L Potassium 3.8 (3.5-5.1) mEq/L Chloride 104 (98-107) mEq/L Carbon Dioxide 28 (21-32) mEq/L Anion Gap 13.8 (5-15) BUN 17 (7-18) mg/dL Creatinine 1.1 (0.7-1.3) mg/dL Est Cr Clr Drug Dosing 99.94 mL/min Estimated GFR (MDRD) > 60 (>60) mL/min BUN/Creatinine Ratio 15.5 (14-18) Glucose 103 H (70-99) mg/dL Calcium 8.9 (8.5-10.1) mg/dL Magnesium 2.1 (1.8-2.4) mg/dL Total Bilirubin 0.6 (0.2-1.0) mg/dL AST 44 H (15-37) U/L ALT 63 (16-63) U/L Alkaline Phosphatase 78 (46-116) U/L Total Protein 7.8 (6.4-8.2) g/dl Albumin 4.1 (3.4-5.0) g/dl Globulin 3.7 gm/dL Albumin/Globulin Ratio 1.1 (1-2) Lipase 42158 H (73-393) U/L SARS-CoV-2 RNA (MANISHA) Negative (NEGATIVE) Meds: Medications Generic Name Dose Route Start Last Admin Trade Name Freq PRN Reason Stop Dose Admin Sodium Chloride 1,000 mls @ 500 mls/hr 03/29/21 01:15 03/29/21 01:15 Normal Saline IV 500 mls/hr ASDIRECTED SHANICE Administration Sodium Chloride 1,000 mls @ 150 mls/hr 03/29/21 02:45 Normal Saline IV ASDIRECTED SHANICE Discontinued Medications Generic Name Dose Route Start Last Admin Trade Name Freq PRN Reason Stop Dose Admin Hydromorphone HCl 1 mg 03/29/21 01:02 03/29/21 01:17 Hydromorphone 1 Mg/Ml Syringe IVPUSH 03/29/21 01:03 1 mg ONETIME ONE Administration Hydromorphone HCl 1 mg 03/29/21 01:32 03/29/21 01:35 Hydromorphone 1 Mg/Ml Syringe IVPUSH 03/29/21 01:33 1 mg ONETIME ONE Administration Hydromorphone HCl 1 mg 03/29/21 02:24 Hydromorphone 1 Mg/Ml Syringe IVPUSH 03/29/21 02:25 ONETIME ONE Ondansetron HCl 4 mg 03/29/21 01:02 03/29/21 01:15 Ondansetron 4 Mg/2 Ml Sdv IVPUSH 03/29/21 01:03 4 mg ONETIME ONE Administration - Re-Assessments/Exams Free Text/Narrative Re-Assessment/Exam: 03/29/21 01:04 I have ordered several blood tests, and, in case the patient needs to be admitted, a swab for the SARS-CoV-2 virus. We will see if we can get the patient comfortable with some IV Dilaudid and IV fluid. Although he has not had any nausea or vomiting, I also ordered some IV Zofran in case the Dilaudid makes him nauseated. 03/29/21 02:21 The patient's CBC is remarkable for mild thrombocytopenia of 133,000, with the remainder of his CBC being unremarkable. His CMP is remarkable for slight hyperglycemia of 103, and an AST slightly elevated at 44 with an ALT normal at 63, and the remainder of his CMP being unremarkable. His magnesium level is within normal limits at 2.1. His lipase level is substantially elevated at 11,144. His swab for the SARS-CoV-2 virus is negative. 03/29/21 02:25 Test results discussed with the patient. I recommended admission to the hospital for pain control, and he agreed. 03/29/21 02:[address] Worley at 02:26. She accepted the patient for admission to Med-Surg. She asked that I write some bridge orders. Departure - Departure Time of Disposition: 02:31 Disposition: Home, Self-Care 01 Condition: Good Clinical Impression: Recurrent pancreatitis - Discharge Information *PRESCRIPTION DRUG MONITORING PROGRAM REVIEWED*: Not Applicable *COPY OF PRESCRIPTION DRUG MONITORING REPORT IN PATIENT SANAZ: Not Applicable Referrals: Ko Mata PA-C [Primary Care Provider] - Brody You MD [Physician] - Oly Bazan PA-C [Physician Geometry Professor] - Forms: ED Department Discharge Sepsis Event Note (ED) - Evaluation Sepsis Screening Result: No Definite Risk - Focused Exam Vital Signs: Vital Signs Temp Pulse Resp BP Pulse Ox 03/28/21 23:59 36.0 C L 99 20 126/98 H 99 - My Orders Last 24 Hours: My Active Orders 03/29/21 01:15 Sodium Chloride 0.9% [Normal Saline] 1,000 ml IV ASDIRECTED 03/29/21 02:45 Sodium Chloride 0.9% [Normal Saline] 1,000 ml IV ASDIRECTED - Assessment/Plan Last 24 Hours: My Active Orders 03/29/21 01:15 Sodium Chloride 0.9% [Normal Saline] 1,000 ml IV ASDIRECTED 03/29/21 02:45 Sodium Chloride 0.9% [Normal Saline] 1,000 ml IV ASDIRECTED
[2021-03-29] MEDS: Sodium Chloride 0.9% 1,000 ML IV SCH ×4 (02:54→23:01)
[2021-03-29] MEDS: HYDROmorphone 1 MG/ML Syringe IVPUSH PRN ×3 (04:05→11:57)
[2021-03-29] MEDS ORDERED: diphenhydrAMINE 50 MG/ML SDV IVPUSH PRN (08:12)
[2021-03-29] MEDS ORDERED: diphenhydrAMINE 25 MG Cap PO PRN (08:12)
--- NOTE | 2021-03-29 08:21 | PCM.HP.2 ---
H&P History of Present Illness - General Date of Service: 03/29/21 Admit Problem/Dx: Admission Diagnosis/Problem Admission Diagnosis/Problem Recurrent pancreatitis Source of Information: Patient, Old Records, Provider, RN, RN Notes Reviewed History Limitations: Reports: No Limitations - History of Present Illness Initial Comments - Free Text/Narative: This is a 40-year-old male who presents to our ED on 03/29/2021 in the very commercial credit reviewer hours with concerns over acute pancreatitis. Patient is well-known to this service and has been admitted multiple times in the past for acute pancreatitis. 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 Reports epigastric pain which is mild, crampy, and dull which radiated through his back and chest. He states pain began around 2200 the night prior and that has been waxing and waning. He did take 10 mg of p.o. oxycodone, which she states did not really help. Denies any nausea, vomiting, constipation, diarrhea, or recent fever. Per the ED report patient stated that he does have a respiratory care technician who advised that he should receive IV fluids and pain medication but not undergoing imaging study as he has had multiple studies in the past. In the ED temp was 36.0 Celsius. Pulse 99. Respirations 20. Blood pressure 126/98. Pulse ox 99%. Labs were obtained showing a WBC of 8.09. Hemoglobin is 15.5. Hematocrit 45.8. Platelet 131,000. Neutrophils are elevated 61%. There is 2% band neutrophils noted. Sodium is 142. Potassium 3.8. Chloride 104. Carbon dioxide 28. Anion gap is 13.8. BUN is 17. Creatinine 1.1. GFR is greater than 60. Glucose 103. Calcium 8.9. Magnesium 2.1. Total bilirubin 0.6. AST is 44, ALT 63, alkaline phosphatase 78. Protein 7.8. Albumin 4.1. Lipase was very high at 11,144. SARS-CoV-2 RNA is negative. Patient is given Dilaudid for pain and Zofran. He started on IV fluids. He subsequently mated to the medical floor for management of his pancreatitis. He is a full code. His PCP is Ko Mata PA-C. His respiratory care technician is Dr. Brody You at the [facility]. He has had his 2 Covid vaccinations and an influenza vaccination for the year. 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 Abdomen Pain Score (Numeric/FACES): 5 - Related Data Allergies/Adverse Reactions: Allergies Allergy/AdvReac Type Severity Reaction Status Date / Time amoxicillin Allergy Intermediate Hives Verified 03/28/21 23:59 Home Medications: Home Meds oxyCODONE 5 - 10 mg PO ASDIRECTED PRN 07/11/20 [History] DULoxetine [Cymbalta] 30 mg PO BID 12/15/20 [History] Dicyclomine [Bentyl] 10 mg PO BID 12/15/20 [History] Hyoscyamine [Hyomax-SL] 0.125 mg SL Q6H PRN 12/15/20 [History] Zolpidem [Ambien] 5 - 10 mg PO BEDTIME PRN 12/18/20 [History] Amylase/Lipase/Protease [[place] DR 24,000 Unit] 24,000 units PO ASDIRECTED 03/29/21 [History] L.acidoph,Paracasei, B.lactis [Probiotic] 1 each PO 0600 03/29/21 [History] Multivit-Minerals/Folic Acid [Multivitamin Gummies] 1 tab PO 0600 03/29/21 [History] traMADol [Ultram] 50 - 100 mg PO BID PRN 03/29/21 [History] Past Medical History HEENT History: Reports: None Cardiovascular History: Reports: High Cholesterol Respiratory History: Reports: Asthma, Pneumonia, Recurrent Other Respiratory History: cough, reactive airway disease Gastrointestinal History: Reports: Pancreatitis Other Gastrointestinal History: frequent hospitalization for pancreatitis, [place] 1 gene Genitourinary History: Reports: None PANTOGRAPH I ENGRAVER History: Reports: None Musculoskeletal History: Reports: None Neurological History: Reports: Migraines Psychiatric History: Reports: Anxiety Other Psychiatric History: insomnia Endocrine/Metabolic History: Reports: None Hematologic History: Reports: None Immunologic History: Reports: None Oncologic (Cancer) History: Reports: None Dermatologic History: Reports: None - Infectious Disease History Infectious Disease History: Reports: Chicken Pox, Mononucleosis Other Infectious Disease History: CMV, mono - Past Surgical History Head Surgeries/Procedures: Reports: None HEENT Surgical History: Reports: Adenoidectomy, Oral Surgery, Tonsillectomy Cardiovascular Surgical History: Reports: None Respiratory Surgical History: Reports: None GI Surgical History: Reports: Appendectomy, Cholecystectomy, Hernia, Abdominal Male Surgical History: Reports: Circumcision Endocrine Surgical History: Reports: None Neurological Surgical History: Reports: None Musculoskeletal Surgical History: Reports: None Oncologic Surgical History: Reports: None Dermatological Surgical History: Reports: None Social & Family History - Family History Family Medical History: No Pertinent Family History - Tobacco Use Tobacco Use Status *Q: Never Tobacco User Second Hand Smoke Exposure: No - Caffeine Use Caffeine Use: Reports: Tea Other Caffeine Use: 2-3 cups/day Caffeine Use Comment: 2 cups a day - Recreational Drug Use Recreational Drug Use: Yes Drug Use in Last 12 Months: Yes Recreational Drug Type: Reports: Marijuana/Hashish Recreational Drug Use Frequency: Rarely - Living Situation & Occupation Living situation: Reports: , with Spouse, with Family (2 kids) Occupation: Employed ([employer]) H&P Review of Systems - Review of Systems: Review Of Systems: See Below General: Reports: No Symptoms. Denies: Fever, Malaise, Weakness, Fatigue HEENT: Reports: Headaches. Denies: Sore Throat Pulmonary: Reports: No Symptoms. Denies: Shortness of Breath, Pleuritic Chest Pain, Cough, Sputum Cardiovascular: Reports: No Symptoms. Denies: Chest Pain, Palpitations, Dyspnea on Exertion, Edema, Lightheadedness Gastrointestinal: Reports: Abdominal Pain (Epigastric ), Nausea. Denies: Constipation, Diarrhea, Vomiting Genitourinary: Reports: No Symptoms. Denies: Pain Musculoskeletal: Reports: No Symptoms Skin: Reports: No Symptoms. Denies: Cyanosis Psychiatric: Reports: No Symptoms Neurological: Reports: No Symptoms. Denies: Confusion, Dizziness, Numbness, Paresthesia, Pre-Existing Deficit, Seizure, Syncope, Tingling, Tremors, Difficulty Walking, Weakness, Change in Speech, Gait Disturbance Hematologic/Lymphatic: Reports: No Symptoms Immunologic: Reports: No Symptoms Exam - Exam Exam: See Below - Vital Signs Vital Signs: Last Vital Signs Temp 96.8 F L 03/28/21 23:59 Pulse 99 03/28/21 23:59 Resp 20 03/28/21 23:59 BP 126/98 H 03/28/21 23:59 Pulse Ox 99 03/28/21 23:59 Weight: 175 lb 11.2 oz - Exam Quality Assessment: No: Supplemental Oxygen, Urinary Catheter, DVT Prophylaxis (Not indicated ) General: Alert, Oriented, Cooperative, Mild Distress HEENT: Conjunctiva Clear, EACs Clear, Mucosa Moist & Combs, Posterior Pharynx Clear Neck: Supple, Trachea Midline Lungs: Clear to Auscultation, Normal Respiratory Effort Cardiovascular: Regular Rate, Regular Rhythm GI/Abdominal Exam: Normal Bowel Sounds, Soft, No Distention, Tender (Epigastric region - mild ) (Male) Exam: Deferred Rectal (Males) Exam: Deferred Back Exam: Normal Inspection, Full Range of Motion Extremities: Normal Inspection, Normal Range of Motion, Non-Tender, No Pedal Edema, Normal Capillary Refill Peripheral Pulses: 2+: Radial (L), Radial (R), Dorsalis Pedis (L), Dorsalis Pedis (R) Skin: Warm, Dry, Intact Neurological: Cranial Nerves Intact (Grossly ) Neuro Extensive - Mental Status: Alert, Oriented x3, Normal Mood/Affect - Patient Data Lab Results Last 24 hrs: Laboratory Results - last 24 hr 03/29/21 03/29/21 03/29/21 Range/Units 01:10 01:10 01:10 WBC 8.09 (4.23-9.07) K/mm3 RBC 5.13 (4.63-6.08) M/mm3 Hgb 15.5 (13.7-17.5) gm/dl Hct 45.8 (40.1-51.0) % MCV 89.3 (79.0-92.2) fl MCH 30.2 (25.7-32.2) pg MCHC 33.8 (32.2-35.5) g/dl RDW Std Deviation 43.0 (35.1-43.9) fL Plt Count 131 L (163-337) K/mm3 MPV 11.1 (9.4-12.3) fl Neutrophils % (Manual) 61 H (40-60) % Band Neutrophils % 2 (0-10) % Lymphocytes % (Manual) 21 (20-40) % Atypical Lymphs % 0 % Monocytes % (Manual) 10 (2-10) % Eosinophils % (Manual) 6 (0.8-7.0) % Basophils % (Manual) 0 L (0.2-1.2) Platelet Estimate Decreased RBC Morph Comment Normal Sodium 142 (136-145) mEq/L Potassium 3.8 (3.5-5.1) mEq/L Chloride 104 (98-107) mEq/L Carbon Dioxide 28 (21-32) mEq/L Anion Gap 13.8 (5-15) BUN 17 (7-18) mg/dL Creatinine 1.1 (0.7-1.3) mg/dL Est Cr Clr Drug Dosing 99.94 mL/min Estimated GFR (MDRD) > 60 (>60) mL/min BUN/Creatinine Ratio 15.5 (14-18) Glucose 103 H (70-99) mg/dL Calcium 8.9 (8.5-10.1) mg/dL Magnesium 2.1 (1.8-2.4) mg/dL Total Bilirubin 0.6 (0.2-1.0) mg/dL AST 44 H (15-37) U/L ALT 63 (16-63) U/L Alkaline Phosphatase 78 (46-116) U/L Total Protein 7.8 (6.4-8.2) g/dl Albumin 4.1 (3.4-5.0) g/dl Globulin 3.7 gm/dL Albumin/Globulin Ratio 1.1 (1-2) Lipase 67485 H (73-393) U/L SARS-CoV-2 RNA (MANISHA) Negative (NEGATIVE) Result Diagrams: 03/29/21 01:10 03/29/21 01:10 Sepsis Event Note - Evaluation Sepsis Screening Result: No Definite Risk - Focused Exam Vital Signs: Vital Signs Temp Pulse Resp BP Pulse Ox 03/28/21 23:59 96.8 F L 99 20 126/98 H 99 - Problem List (1) Anxiety SNOMED Code(s): 18473366 ICD Code: F41.9 - ANXIETY DISORDER, UNSPECIFIED Status: Chronic Priority: Low Current Visit: No (2) Acute recurrent pancreatitis SNOMED Code(s): 587662617 ICD Code: K85.90 - ACUTE PANCREATITIS WITHOUT NECROSIS OR INFECTION, UNSP Status: Acute Priority: High Current Visit: Yes (3) History of migraine SNOMED Code(s): 490268402 ICD Code: Z86.69 - PERSONAL HISTORY OF DIS OF THE NERVOUS SYS AND SENSE ORGANS Status: Chronic Priority: Low Current Visit: No (4) Hyperlipidemia SNOMED Code(s): 51902686 ICD Code: E78.5 - HYPERLIPIDEMIA, UNSPECIFIED Status: Chronic Priority: Low Current Visit: No Qualifiers: Hyperlipidemia type: unspecified Qualified Code(s): E78.5 - Hyperlipidemia, unspecified (5) S/P appendectomy SNOMED Code(s): 023632391, 95018840, 850418423 ICD Code: Z90.49 - ACQUIRED ABSENCE OF OTHER SPECIFIED PARTS OF DIGESTIVE TRACT Status: Chronic Priority: Low Current Visit: No (6) S/P cholecystectomy SNOMED Code(s): 414506512, 98562399, 768763584 ICD Code: Z90.49 - ACQUIRED ABSENCE OF OTHER SPECIFIED PARTS OF DIGESTIVE TR ACT Status: Chronic Priority: Low Current Visit: No (7) Itching SNOMED Code(s): 357620765 ICD Code: L29.9 - PRURITUS, UNSPECIFIED Status: Acute Priority: Medium Current Visit: Yes (8) Abdominal pain SNOMED Code(s): 54641042 ICD Code: R10.9 - UNSPECIFIED ABDOMINAL PAIN Status: Acute Priority: High Current Visit: Yes Qualifiers: Abdominal location: epigastric Qualified Code(s): R10.13 - Epigastric pain Problem List Initiated/Reviewed/Updated: Yes Orders Last 24hrs: Active Orders 24 hr Category Date Time Status Patient Status [ADT] Routine ADT 03/29/21 02:43 Active Up ad Laurie [RC] BID Care 03/29/21 03:12 Active NPO [Nothing Per Oral Diet] [DIET] Diet 03/29/21 Breakfast Active HYDROmorphone [Dilaudid] Med 03/29/21 03:14 Active 1 mg IVPUSH Q1H PRN Sodium Chloride 0.9% [Normal Saline] 1,000 ml Med 03/29/21 02:45 Active IV ASDIRECTED diphenhydrAMINE [Benadryl] Med 03/29/21 08:12 Active 25 mg IVPUSH Q4H PRN diphenhydrAMINE [Benadryl] Med 03/29/21 08:12 Active 25 mg PO Q4H PRN Code Status [Resuscitation Status] Routine Resus Stat 03/29/21 03:11 Ordered Medication Orders Diphenhydramine HCl (Diphenhydramine 50 Mg/Ml Sdv) 25 mg IVPUSH Q4H PRN PRN Reason: Itching Diphenhydramine HCl (Diphenhydramine 25 Mg Cap) 25 mg PO Q4H PRN PRN Reason: Itching Hydromorphone HCl (Hydromorphone 1 Mg/Ml Syringe) 1 mg IVPUSH Q1H PRN PRN Reason: Pain Last Admin: 03/29/21 07:46 Dose: 1 mg Documented by: Admin: 03/29/21 04:05 Dose: 1 mg Documented by: RODNEY Sodium Chloride (Normal Saline) 1,000 mls @ 150 mls/hr IV ASDIRECTED [facility] Last Admin: 03/29/21 02:54 Dose: 150 mls/hr Documented by: JOSE Assessment/Plan Comment:: Admission assessment - 03/29/2021 * 40-year-old male who presents to our ED with concerns over acute pancreatitis. 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 oxycodone, which she states did not really help. * Denies any nausea, vomiting, constipation, diarrhea, or recent fever. * Per the ED report patient stated that he does have a respiratory care technician who advised that he should receive IV fluids and pain medication but not undergoing imaging study as he has had multiple studies in the past. * Labs were obtained showing: * WBC of 8.09. * Hemoglobin is 15.5. * Hematocrit 45.8. * Platelet 131,000. * Neutrophils are elevated 61%. There is 2% band neutrophils noted. * Sodium is 142. * Potassium 3.8. * Chloride 104. * Carbon dioxide 28. * Anion gap is 13.8. * BUN is 17. Creatinine 1.1. GFR is greater than 60. * Glucose 103. * Calcium 8.9. * Magnesium 2.1. * Total bilirubin 0.6. * AST is 44, ALT 63, alkaline phosphatase 78. * Protein 7.8. * Albumin 4.1. * Lipase was very high at 11,144. * SARS-CoV-2 RNA is negative. * Patient is given Dilaudid for pain and Zofran. He started on IV fluids. * Had his 2 Covid vaccinations and an influenza vaccination for the year * Subsequently mated to the medical floor for management of his pancreatitis. PLAN: Acute recurrent pancreatitis Abdominal pain S/P appendectomy S/P cholecystectomy * NPO * IV fluids as ordered * Ambulate * Pain medications as ordered * Daily labs * No need for imaging at this point * Antiemetics as needed as ordered * Home medications as ordered Itching * Likely secondary to pain medications * As needed Benadryl * Monitor Anxiety * No acute concerns * Home medications as ordered History of migraine * No acute concerns * Pain medications as ordered Hyperlipidemia * No acute concerns Code status: Full code PCP: Ko Mata PA-C Leather Shaver: Dr. Brody You at the [facility] DVT prophylaxis: VTE score of 0not indicated Disposition: Patient mated to the medical floor for management of his recurrent pancreatitis and abdominal pain. Likely length of stay 2 to 3 days. - Mortality Measure Prognosis:: Good
[2021-03-29] MEDS ORDERED: Acetaminophen 325 MG Tab PO PRN (08:42)
[2021-03-29] MEDS ORDERED: Hyoscyamine 0.125 MG Tab.SL SL PRN (08:57)
[2021-03-29] MEDS ORDERED: Non-Formulary Medication 1 Each (Amylase/Lipase/Protease 1 CAP Cap.Cr) PO PRN (09:24)
[2021-03-29] MEDS: DULoxetine 30 MG Cap PO SCH ×2 (10:08→17:16)
[2021-03-29] MEDS: Ondansetron 4 MG/2 ML SDV IVPUSH PRN ×2 (10:08→16:10)
[2021-03-29] MEDS: Dicyclomine 10 MG Cap PO SCH ×2 (10:08→17:16)
[2021-03-29] MEDS: oxyCODONE 5 MG Tab PO PRN ×2 (11:56→17:16)
[2021-03-29] MEDS ORDERED: Non-Formulary Medication 1 Each (Amylase/Lipase/Protease 1 CAP Cap.Cr) PO SCH (17:00)
[2021-03-29] MEDS: Non-Formulary Medication 1 Each (Amylase/Lipase/Protease 1 CAP Cap.Cr) PO SCH (17:50)
[2021-03-29] MEDS ORDERED: Temazepam 15 MG Cap PO PRN (21:06)
[2021-03-29] MEDS: Docusate Sodium 100 MG Cap PO SCH (21:32)
[2021-03-30] MEDS: Sodium Chloride 0.9% 1,000 ML IV SCH (05:36)
[2021-03-30] MEDS: DULoxetine 30 MG Cap PO SCH (05:37)
[2021-03-30] MEDS: Dicyclomine 10 MG Cap PO SCH (05:37)
--- NOTE | 2021-03-30 06:56 | PCM.PN ---
- General Info Date of Service: 03/30/21 Admission Dx/Problem (Free Text): Admission Diagnosis/Problem Admission Diagnosis/Problem Recurrent pancreatitis - Patient Data Vitals - Most Recent: Last Vital Signs Temp 98.4 F 03/30/21 05:39 Pulse 71 03/30/21 05:39 Resp 16 03/30/21 05:39 BP 95/58 L 03/30/21 05:39 Pulse Ox 98 03/30/21 05:39 Weight - Most Recent: 174 lb 12.8 oz I&O - Last 24 Hours: Intake & Output 03/29/21 03/29/21 03/30/21 14:59 22:59 06:59 Intake Total 1815 1948 Output Total 700 1875 Balance 1115 73 Lab Results Last 24 Hours: Laboratory Results - last 24 hr 03/29/21 03/29/21 03/30/21 Range/Units 16:05 20:18 06:32 POC Glucose 115 H 94 76 (70-99) mg/dL Med Orders - Current: Current Medications Acetaminophen (Acetaminophen 325 Mg Tab) 650 mg PO Q4H PRN PRN Reason: Pain (Mild 1-3)/fever Dicyclomine HCl (Dicyclomine 10 Mg Cap) 10 mg PO 0600,1800 [facility] Last Admin: 03/30/21 05:37 Dose: 10 mg Documented by: Diphenhydramine HCl (Diphenhydramine 50 Mg/Ml Sdv) 25 mg IVPUSH Q4H PRN PRN Reason: Itching Last Admin: 03/29/21 08:40 Dose: 25 mg Documented by: Diphenhydramine HCl (Diphenhydramine 25 Mg Cap) 25 mg PO Q4H PRN PRN Reason: Itching Last Admin: 03/29/21 21:32 Dose: 25 mg Documented by: Docusate Sodium (Docusate Sodium 100 Mg Cap) 100 mg PO BID [facility] Last Admin: 03/29/21 21:32 Dose: 100 mg Documented by: Duloxetine HCl (Duloxetine 30 Mg Cap) 30 mg PO 0600,1800 [facility] Last Admin: 03/30/21 05:37 Dose: 30 mg Documented by: Hydromorphone HCl (Hydromorphone 1 Mg/Ml Syringe) 1 mg IVPUSH Q1H PRN PRN Reason: Pain Last Admin: 03/29/21 11:57 Dose: 1 mg Documented by: Hyoscyamine (Hyoscyamine 0.125 Mg Tab.Sl) 0.125 mg SL Q6H PRN PRN Reason: Abdominal Pain Sodium Chloride (Normal Saline) 1,000 mls @ 150 mls/hr IV ASDIRECTED [facility] Last Admin: 03/30/21 05:36 Dose: 150 mls/hr Documented by: Ondansetron HCl (Ondansetron 4 Mg/2 Ml Sdv) 4 mg IVPUSH Q6HR PRN PRN Reason: Nausea/Vomiting Last Admin: 03/29/21 16:10 Dose: 4 mg Documented by: Oxycodone HCl (Oxycodone 5 Mg Tab) 10 mg PO Q4H PRN PRN Reason: Pain (moderate 4-6) Last Admin: 03/29/21 17:16 Dose: 10 mg Documented by: Temazepam (Temazepam 15 Mg Cap) 15 mg PO BEDTIME PRN PRN Reason: Insomnia Last Admin: 03/29/21 21:32 Dose: 15 mg Documented by: Discontinued Medications Hydromorphone HCl (Hydromorphone 1 Mg/Ml Syringe) 1 mg IVPUSH ONETIME ONE Stop: 03/29/21 01:03 Last Admin: 03/29/21 01:17 Dose: 1 mg Documented by: Hydromorphone HCl (Hydromorphone 1 Mg/Ml Syringe) 1 mg IVPUSH ONETIME ONE Stop: 03/29/21 01:33 Last Admin: 03/29/21 01:35 Dose: 1 mg Documented by: Hydromorphone HCl (Hydromorphone 1 Mg/Ml Syringe) 1 mg IVPUSH ONETIME ONE Stop: 03/29/21 02:25 Last Admin: 03/29/21 02:54 Dose: 1 mg Documented by: Sodium Chloride (Normal Saline) 1,000 mls @ 500 mls/hr IV ASDIRECTED [facility] Last Admin: 03/29/21 01:15 Dose: 500 mls/hr Documented by: Non-Formulary Medication (Amylase/Lipase/Protease) 0 units PO 0700,1100 [facility] Last Admin: 03/29/21 17:50 Dose: Not Given Documented by: Non-Formulary Medication (Amylase/Lipase/Protease) 0 units PO 1700 SHANICE Non-Formulary Medication (Amylase/Lipase/Protease) 0 units PO 1000,1400,2000 PRN PRN Reason: SNACKS Ondansetron HCl (Ondansetron 4 Mg/2 Ml Sdv) 4 mg IVPUSH ONETIME ONE Stop: 03/29/21 01:03 Last Admin: 03/29/21 01:15 Dose: 4 mg Documented by: - Patient Data Lab Results Last 24 hrs: Laboratory Results - last 24 hr 03/29/21 03/29/21 03/30/21 Range/Units 16:05 20:18 06:32 POC Glucose 115 H 94 76 (70-99) mg/dL Result Diagrams: 03/29/21 01:10 03/29/21 01:10 Sepsis Event Note - Evaluation Sepsis Screening Result: No Definite Risk - Focused Exam Vital Signs: Vital Signs Temp Pulse Resp BP Pulse Ox 03/30/21 05:39 98.4 F 71 16 95/58 L 98 03/29/21 20:19 99.0 F 78 16 106/81 97 - Problem List & Annotations (1) Anxiety SNOMED Code(s): 27391977 Code(s): F41.9 - ANXIETY DISORDER, UNSPECIFIED Status: Chronic Priority: Low Current Visit: No (2) Acute recurrent pancreatitis SNOMED Code(s): 589082858 Code(s): K85.90 - ACUTE PANCREATITIS WITHOUT NECROSIS OR INFECTION, UNSP Status: Acute Priority: High Current Visit: Yes (3) History of migraine SNOMED Code(s): 479902283 Code(s): Z86.69 - PERSONAL HISTORY OF DIS OF THE NERVOUS SYS AND SENSE ORGANS Status: Chronic Priority: Low Current Visit: No (4) Hyperlipidemia SNOMED Code(s): 21480012 Code(s): E78.5 - HYPERLIPIDEMIA, UNSPECIFIED Status: Chronic Priority: Low Current Visit: No Qualifiers: Hyperlipidemia type: unspecified Qualified Code(s): E78.5 - Hyperlipidemia, unspecified (5) S/P appendectomy SNOMED Code(s): 719495016, 45921417, 315668645 Code(s): Z90.49 - ACQUIRED ABSENCE OF OTHER SPECIFIED PARTS OF DIGESTIVE TRACT Status: Chronic Priority: Low Current Visit: No (6) S/P cholecystectomy SNOMED Code(s): 999171877, 66896353, 786111748 Code(s): Z90.49 - ACQUIRED ABSENCE OF OTHER SPECIFIED PARTS OF DIGESTIVE TRACT Status: Chronic Priority: Low Current Visit: No (7) Itching SNOMED Code(s): 938605549 Code(s): L29.9 - PRURITUS, UNSPECIFIED Status: Acute Priority: Medium Current Visit: Yes (8) Abdominal pain SNOMED Code(s): 84496963 Code(s): R10.9 - UNSPECIFIED ABDOMINAL PAIN Status: Acute Priority: High Current Visit: Yes Qualifiers: Abdominal location: epigastric Qualified Code(s): R10.13 - Epigastric pain - My Orders Last 24 Hours: My Active Orders 03/29/21 08:41 oxyCODONE 10 mg PO Q4H PRN 03/29/21 08:42 Height and Weight [RC] 0600 Oxygen Therapy [RC] ASDIRECTED Vital Signs [RC] 04,10,16,22 Acetaminophen [TylenoL] 650 mg PO Q4H PRN 03/29/21 08:57 Hyoscyamine [Hyomax-SL] 0.125 mg SL Q6H PRN 03/29/21 09:00 DULoxetine [Cymbalta] 30 mg PO 0600,1800 Dicyclomine [Bentyl] 10 mg PO 0600,1800 03/29/21 09:52 Ondansetron [Zofran] 4 mg IVPUSH Q6HR PRN 03/29/21 21:00 Docusate Sodium [Colace] 100 mg PO BID 03/30/21 06:48 C-REACTIVE PROTEIN [CHEM] Routine CBC WITH AUTO DIFF [HEME] Routine COMPREHENSIVE METABOLIC PN,CMP [CHEM] Routine LIPASE [CHEM] Routine MAGNESIUM [CHEM] Routine - Plan Plan:: Admission assessment - 03/29/2021 * 40-year-old male who presents to our ED with concerns over acute pancreatitis. 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 oxycodone, which she states did not really help. * Denies any nausea, vomiting, constipation, diarrhea, or recent fever. * Per the ED report patient stated that he does have a head start coordinator who advised that he should receive IV fluids and pain medication but not undergoing imaging study as he has had multiple studies in the past. * Labs were obtained showing: * WBC of 8.09. * Hemoglobin is 15.5. * Hematocrit 45.8. * Platelet 131,000. * Neutrophils are elevated 61%. There is 2% band neutrophils noted. * Sodium is 142. * Potassium 3.8. * Chloride 104. * Carbon dioxide 28. * Anion gap is 13.8. * BUN is 17. Creatinine 1.1. GFR is greater than 60. * Glucose 103. * Calcium 8.9. * Magnesium 2.1. * Total bilirubin 0.6. * AST is 44, ALT 63, alkaline phosphatase 78. * Protein 7.8. * Albumin 4.1. * Lipase was very high at 11,144. * SARS-CoV-2 RNA is negative. * Patient is given Dilaudid for pain and Zofran. He started on IV fluids. * Had his 2 Covid vaccinations and an influenza vaccination for the year * Subsequently mated to the medical floor for management of his pancreatitis. PLAN: Acute recurrent pancreatitis Abdominal pain S/P appendectomy S/P cholecystectomy * NPO * IV fluids as ordered * Ambulate * Pain medications as ordered * Daily labs * No need for imaging at this point * Antiemetics as needed as ordered * Home medications as ordered Itching * Likely secondary to pain medications * As needed Benadryl * Monitor Anxiety * No acute concerns * Home medications as ordered History of migraine * No acute concerns * Pain medications as ordered Hyperlipidemia * No acute concerns Code status: Full code PCP: Ko Mata PA-C Assistant Paralegal: Dr. Brody You at the [facility] DVT prophylaxis: VTE score of 0not indicated Disposition: Patient mated to the medical floor for management of his recurrent pancreatitis and abdominal pain. Likely length of stay 2 to 3 days.
[2021-03-30] MEDS: oxyCODONE 5 MG Tab PO PRN (07:49)
[2021-03-30] MEDS: Docusate Sodium 100 MG Cap PO SCH (08:56)
[2021-03-30 12:53] VITALS: BP 101/58; PULSE 82
--- NOTE | 2021-03-30 13:21 | PCM.DCSUM1 ---
Discharge Summary - Hospital Course HPI Initial Comments: This is a 40-year-old male who presents to our ED on 03/29/2021 in the very government property [employer] hours with concerns over acute pancreatitis. Patient is well-known to this service and has been admitted multiple times in the past for acute pancreatitis. 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 Reports epigastric pain which is mild, crampy, and dull which radiated through his back and chest. He states pain began around 2200 the night prior and that has been waxing and waning. He did take 10 mg of p.o. oxycodone, which she states did not really help. Denies any nausea, vomiting, constipation, diarrhea, or recent fever. Per the ED report patient stated that he does have a sales promotion director who advised that he should receive IV fluids and pain medication but not undergoing imaging study as he has had multiple studies in the past. In the ED temp was 36.0 Celsius. Pulse 99. Respirations 20. Blood pressure 126/98. Pulse ox 99%. Labs were obtained showing a WBC of 8.09. Hemoglobin is 15.5. Hematocrit 45.8. Platelet 131,000. Neutrophils are elevated 61%. There is 2% band neutrophils noted. Sodium is 142. Potassium 3.8. Chloride 104. Carbon dioxide 28. Anion gap is 13.8. BUN is 17. Creatinine 1.1. GFR is greater than 60. Glucose 103. Calcium 8.9. Magnesium 2.1. Total bilirubin 0.6. AST is 44, ALT 63, alkaline phosphatase 78. Protein 7.8. Albumin 4.1. Lipase was very high at 11,144. SARS-CoV-2 RNA is negative. Patient is given Dilaudid for pain and Zofran. He started on IV fluids. He subsequently mated to the medical floor for management of his pancreatitis. He is a full code. His PCP is Ko Mata PA-C. His sales promotion director is Dr. Brody You at the [facility]. He has had his 2 Covid vaccinations and an influenza vaccination for the year. 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 Diagnosis: Stroke: No - Discharge Data Discharge Date: 03/30/21 (Admit date: 03/29/2021) Discharge Disposition: Home, Self-Care 01 Condition: Good - Referral to Home Health Primary Care Physician: Ko Mata PA-C - Discharge Diagnosis/Problem(s) (1) Anxiety SNOMED Code(s): 63671401 ICD Code: F41.9 - ANXIETY DISORDER, UNSPECIFIED Status: Chronic Priority: Low Current Visit: No (2) Acute recurrent pancreatitis SNOMED Code(s): 550549283 ICD Code: K85.90 - ACUTE PANCREATITIS WITHOUT NECROSIS OR INFECTION, UNSP Status: Acute Priority: High Current Visit: Yes (3) History of migraine SNOMED Code(s): 455026435 ICD Code: Z86.69 - PERSONAL HISTORY OF DIS OF THE NERVOUS SYS AND SENSE ORGANS Status: Chronic Priority: Low Current Visit: No (4) Hyperlipidemia SNOMED Code(s): 07694040 ICD Code: E78.5 - HYPERLIPIDEMIA, UNSPECIFIED Status: Chronic Priority: Low Current Visit: No Qualifiers: Hyperlipidemia type: unspecified Qualified Code(s): E78.5 - Hyperlipidemia, unspecified (5) S/P appendectomy SNOMED Code(s): 437734817, 31981384, 446141888 ICD Code: Z90.49 - ACQUIRED ABSENCE OF OTHER SPECIFIED PARTS OF DIGESTIVE TRACT Status: Chronic Priority: Low Current Visit: No (6) S/P cholecystectomy SNOMED Code(s): 641833288, 14987265, 756050441 ICD Code: Z90.49 - ACQUIRED ABSENCE OF OTHER SPECIFIED PARTS OF DIGESTIVE TRACT Status: Chronic Priority: Low Current Visit: No (7) Itching SNOMED Code(s): 925200986 ICD Code: L29.9 - PRURITUS, UNSPECIFIED Status: Resolved Priority: Medium Current Visit: Yes (8) Abdominal pain SNOMED Code(s): 70232202 ICD Code: R10.9 - UNSPECIFIED ABDOMINAL PAIN Status: Acute Priority: High Current Visit: Yes Qualifiers: Abdominal location: epigastric Qualified Code(s): R10.13 - Epigastric pain - Patient Summary/Data Labs Pending at D/C: None Recommended Follow-up Testing/Procedures: Follow-up with primary care provider within 5 to 7 days of discharge, sooner if needed * Patient discharged on a clear liquid diet and told to advance as tolerated * Oxycodone prescription renewed for moderate pain * All home medications continued * Recommend repeat CBC, CMP, and magnesium in follow-up. Follow-up with GI as needed Hospital Course: This is a 40-year-old male who presented to ED on 03/29/2021 with concerns over pancreatitis. Patient does have a longstanding history of recurrent pancreatitis and has a GI specialist to the [facility]. He was found to have a mutation of the SPINK1 gene and he is on pancreatic enzymes. Patient was given IV fluids and made n.p.o. This morning he was reporting hunger pain and states his abdominal pain is greatly improved. No nausea, vomiting, diarrhea, or other infectious symptoms. Labs were obtained and remained stable. Lipase is down to 550. Diet was advanced to clear liquid without difficulty. Patient has been hospitalized for this several times and is well-known to this service. He has a very strong grasp on treatment and his overall disease process. He would like to go home today and it is felt this is reasonable. We did discuss advancing diet slowly as tolerated. We discussed pain control and he was sent a prescription for 5 to 10 mg oxycodone as needed depending on pain level. Patient was advised not to operate machinery or drive a car while on this. He was also warned this may cause constipation and was advised to take [id number] stool softener laxative as needed. Labs today looked good. He will be discharged home today. He was advised to contact his primary care provider or return the emergency room should symptoms return or worsen. Recommend follow-up with primary care provider within 5 to 7 days of discharge, sooner if needed. Recommend repeat CBC, CMP, and magnesium in follow-up. He was advised to contact his GI specialist as needed and resume all home meds prior including his pancreatic enzymes. - Patient Instructions Diet: Clear Liquid Diet Diet, Other: Advance diet slowly as tolerated. Activity: As Tolerated Driving: Do Not Drive (While on narcotic pain medications) Showering/Bathing: May Shower Notify Provider of: Fever, Increased Pain, Nausea and/or Vomiting Other/Special Instructions: Follow-up with primary care provider within 5 to 7 days of discharge, sooner if needed. Follow-up with GI as prior. Resume home medications as directed. As we discussed you were given a prescription for some more oxycodone. Take this as prescribed and try to wean off as quickly as possible. Oxycodone is a narcotic pain medication and it can lead to constip ation. Stay on top of this and use [id number] laxatives or stool softeners as needed. Oxycodone can also impair your ability to drive and operate machinery. Please avoid driving while on narcotic pain medication. Continue a clear liquid diet and advance diet slowly as tolerated. If you start to notice pain go backwards to a clear liquid diet as we discussed. Should symptoms return or worsen contact primary care provider or return to the emergency room. - Discharge Plan *PRESCRIPTION DRUG MONITORING PROGRAM REVIEWED*: Not Applicable *COPY OF PRESCRIPTION DRUG MONITORING REPORT IN PATIENT SANAZ: Not Applicable Prescriptions/Med Rec: oxyCODONE 5 - 10 mg PO ASDIRECTED PRN #10 tab PRN Reason: Pain (Moderate 4-6) Home Medications: Home Meds DULoxetine [Cymbalta] 30 mg PO BID 12/15/20 [History] Dicyclomine [Bentyl] 10 mg PO BID 12/15/20 [History] Hyoscyamine [Hyomax-SL] 0.125 mg SL Q6H PRN 12/15/20 [History] Amylase/Lipase/Protease [Creon DR 24,000 Unit] 24,000 units PO ASDIRECTED 03/29/21 [History] L.acidoph,Paracasei, B.lactis [Probiotic] 1 each PO 0600 03/29/21 [History] Multivit-Minerals/Folic Acid [Multivitamin Gummies] 1 tab PO 0600 03/29/21 [History] traMADol [Ultram] 50 - 100 mg PO BID PRN 03/29/21 [History] oxyCODONE 5 - 10 mg PO ASDIRECTED PRN #10 tab 03/30/21 [Rx] Oxygen Therapy Mode: Room Air Patient Handouts: Pancreatitis Eating Plan, Acute Pancreatitis Referrals: Ko Mata PA-C [Primary Care Provider] - 04/11/21 12:00 pm (Appointment is at 12:00, Must check-in by 11:40am.) Brody You MD [Physician] - Oly Bazan PA-C [Physician Crystal Growing Technician] - - Discharge Summary/Plan Comment DC Time >30 min.: No Total # of Minutes for Discharge Time: 20 - General Info Date of Service: 03/30/21 Admission Dx/Problem (Free Text: Admission Diagnosis/Problem Admission Diagnosis/Problem Recurrent pancreatitis Functional Status: Reports: Pain Controlled, Tolerating Diet (Clear liquids), Ambulating, Urinating. Denies: New Symptoms - Review of Systems General: Reports: No Symptoms. Denies: Fever, Weakness, Fatigue, Malaise, Chills HEENT: Reports: No Symptoms. Denies: Headaches, Sore Throat Pulmonary: Reports: No Symptoms. Denies: Shortness of Breath, Cough, Sputum, Wheezing Cardiovascular: Reports: No Symptoms. Denies: Chest Pain, Palpitations, Dyspnea on Exertion, Edema Gastrointestinal: Reports: Abdominal Pain (Epigastric radiating to RUQ but greatly improved). Denies: Constipation, Decreased Appetite, Diarrhea, D ifficulty Swallowing, Nausea, Vomiting Genitourinary: Reports: No Symptoms. Denies: Pain Musculoskeletal: Reports: No Symptoms Skin: Reports: No Symptoms. Denies: Cyanosis Neurological: Reports: No Symptoms. Denies: Confusion, Dizziness, Headache, Numbness, Pre-Existing Deficit, Seizure, Syncope, Tingling, Difficulty Walking, Weakness, Gait Disturbance Psychiatric: Reports: No Symptoms - Patient Data Vitals - Most Recent: Last Vital Signs Temp 98.4 F 03/30/21 11:40 Pulse 82 03/30/21 11:40 Resp 20 03/30/21 11:40 BP 101/58 L 03/30/21 11:40 Pulse Ox 97 03/30/21 11:40 Weight - Most Recent: 174 lb 12.8 oz I&O - Last 24 hours: Intake & Output 03/29/21 03/30/21 03/30/21 22:59 06:59 14:59 Intake Total 1815 1948 620 Output Total 700 1875 Balance 1115 73 620 Lab Results - Last 24 hrs: Laboratory Results - last 24 hr 03/29/21 03/29/21 03/30/21 Range/Units 16:05 20:18 06:32 WBC (4.23-9.07) K/mm3 RBC (4.63-6.08) M/mm3 Hgb (13.7-17.5) gm/dl Hct (40.1-51.0) % MCV (79.0-92.2) fl MCH (25.7-32.2) pg MCHC (32.2-35.5) g/dl RDW Std Deviation (35.1-43.9) fL Plt Count (163-337) K/mm3 MPV (9.4-12.3) fl Neut % (Auto) (34.0-67.9) % Lymph % (Auto) (21.8-53.1) % [place] % (Auto) (5.3-12.2) % Eos % (Auto) (0.8-7.0) Baso % (Auto) (0.1-1.2) % Neut # (Auto) (1.78-5.38) K/mm3 Lymph # (Auto) (1.32-3.57) K/mm3 [place] # (Auto) (0.30-0.82) K/mm3 Eos # (Auto) (0.04-0.54) K/mm3 Baso # (Auto) (0.01-0.08) K/mm3 Sodium (136-145) mEq/L Potassium (3.5-5.1) mEq/L Chloride (98-107) mEq/L Carbon Dioxide (21-32) mEq/L Anion Gap (5-15) BUN (7-18) mg/dL Creatinine (0.7-1.3) mg/dL Est Cr Clr Drug Dosing mL/min Estimated GFR (MDRD) (>60) mL/min BUN/Creatinine Ratio (14-18) Glucose (70-99) mg/dL POC Glucose 115 H 94 76 (70-99) mg/dL Calcium (8.5-10.1) mg/dL Magnesium (1.8-2.4) mg/dL Total Bilirubin (0.2-1.0) mg/dL AST (15-37) U/L ALT (16-63) U/L Alkaline Phosphatase (46-116) U/L C-Reactive Protein (<1.0) mg/dL Total Protein (6.4-8.2) g/dl Albumin (3.4-5.0) g/dl Globulin gm/dL Albumin/Globulin Ratio (1-2) Lipase (73-393) U/L 03/30/21 03/30/21 03/30/21 Range/Units 09:26 09:26 11:19 WBC 6.14 (4.23-9.07) K/mm3 RBC 4.84 (4.63-6.08) M/mm3 Hgb 14.3 (13.7-17.5) gm/dl Hct 43.4 (40.1-51.0) % MCV 89.7 (79.0-92.2) fl MCH 29.5 (25.7-32.2) pg MCHC 32.9 (32.2-35.5) g/dl RDW Std Deviation 42.9 (35.1-43.9) fL Plt Count 118 L (163-337) K/mm3 MPV 11.0 (9.4-12.3) fl Neut % (Auto) 52.4 (34.0-67.9) % Lymph % (Auto) 29.0 (21.8-53.1) % [place] % (Auto) 11.1 (5.3-12.2) % Eos % (Auto) 6.8 (0.8-7.0) Baso % (Auto) 0.5 (0.1-1.2) % Neut # (Auto) 3.22 (1.78-5.38) K/mm3 Lymph # (Auto) 1.78 (1.32-3.57) K/mm3 [place] # (Auto) 0.68 (0.30-0.82) K/mm3 Eos # (Auto) 0.42 (0.04-0.54) K/mm3 Baso # (Auto) 0.03 (0.01-0.08) K/mm3 Sodium 138 (136-145) mEq/L Potassium 3.8 (3.5-5.1) mEq/L Chloride 104 (98-107) mEq/L Carbon Dioxide 23 (21-32) mEq/L Anion Gap 14.8 (5-15) BUN 8 (7-18) mg/dL Creatinine 0.9 (0.7-1.3) mg/dL Est Cr Clr Drug Dosing 124.81 mL/min Estimated GFR (MDRD) > 60 (>60) mL/min BUN/Creatinine Ratio 8.9 L (14-18) Glucose 79 (70-99) mg/dL POC Glucose 139 H (70-99) mg/dL Calcium 8.4 L (8.5-10.1) mg/dL Magnesium 1.9 (1.8-2.4) mg/dL Total Bilirubin 0.9 (0.2-1.0) mg/dL AST 127 H (15-37) U/L ALT 291 H (16-63) U/L Alkaline Phosphatase 149 H (46-116) U/L C-Reactive Protein 0.6 (<1.0) mg/dL Total Protein 6.6 (6.4-8.2) g/dl Albumin 3.6 (3.4-5.0) g/dl Globulin 3.0 gm/dL Albumin/Globulin Ratio 1.2 (1-2) Lipase 556 H (73-393) U/L Med Orders - Current: Current Medications Acetaminophen (Acetaminophen 325 Mg Tab) 650 mg PO Q4H PRN PRN Reason: Pain (Mild 1-3)/fever Dicyclomine HCl (Dicyclomine 10 Mg Cap) 10 mg PO 0600,1800 [facility] Last Admin: 03/30/21 05:37 Dose: 10 mg Documented by: Diphenhydramine HCl (Diphenhydramine 50 Mg/Ml Sdv) 25 mg IVPUSH Q4H PRN PRN Reason: Itching Last Admin: 03/29/21 08:40 Dose: 25 mg Documented by: Diphenhydramine HCl (Diphenhydramine 25 Mg Cap) 25 mg PO Q4H PRN PRN Reason: Itching Last Admin: 03/29/21 21:32 Dose: 25 mg Documented by: Docusate Sodium (Docusate Sodium 100 Mg Cap) 100 mg PO BID [facility] Last Admin: 03/30/21 08:56 Dose: 100 mg Documented by: Duloxetine HCl (Duloxetine 30 Mg Cap) 30 mg PO 0600,1800 [facility] Last Admin: 03/30/21 05:37 Dose: 30 mg Documented by: Hydromorphone HCl (Hydromorphone 1 Mg/Ml Syringe) 1 mg IVPUSH Q1H PRN PRN Reason: Pain Last Admin: 03/29/21 11:57 Dose: 1 mg Documented by: Hyoscyamine (Hyoscyamine 0.125 Mg Tab.Sl) 0.125 mg SL Q6H PRN PRN Reason: Abdominal Pain Ondansetron HCl (Ondansetron 4 Mg/2 Ml Sdv) 4 mg IVPUSH Q6HR PRN PRN Reason: Nausea/Vomiting Last Admin: 03/29/21 16:10 Dose: 4 mg Documented by: Oxycodone HCl (Oxycodone 5 Mg Tab) 10 mg PO Q4H PRN PRN Reason: Pain (moderate 4-6) Last Admin: 03/30/21 07:49 Dose: 10 mg Documented by: Temazepam (Temazepam 15 Mg Cap) 15 mg PO BEDTIME PRN PRN Reason: Insomnia Last Admin: 03/29/21 21:32 Dose: 15 mg Documented by: Discontinued Medications Hydromorphone HCl (Hydromorphone 1 Mg/Ml Syringe) 1 mg IVPUSH ONETIME ONE Stop: 03/29/21 01:03 Last Admin: 03/29/21 01:17 Dose: 1 mg Documented by: Hydromorphone HCl (Hydromorphone 1 Mg/Ml Syringe) 1 mg IVPUSH ONETIME ONE Stop: 03/29/21 01:33 Last Admin: 03/29/21 01:35 Dose: 1 mg Documented by: Hydromorphone HCl (Hydromorphone 1 Mg/Ml Syringe) 1 mg IVPUSH ONETIME ONE Stop: 03/29/21 02:25 Last Admin: 03/29/21 02:54 Dose: 1 mg Documented by: Sodium Chloride (Normal Saline) 1,000 mls @ 500 mls/hr IV ASDIRECTED [facility] Last Admin: 03/29/21 01:15 Dose: 500 mls/hr Documented by: Sodium Chloride (Normal Saline) 1,000 mls @ 150 mls/hr IV ASDIRECTED [facility] Last Admin: 03/30/21 05:36 Dose: 150 mls/hr Documented by: Non-Formulary Medication (Amylase/Lipase/Protease) 0 units PO 0700,1100 [facility] Last Admin: 03/29/21 17:50 Dose: Not Given Documented by: Non-Formulary Medication (Amylase/Lipase/Protease) 0 units PO 1700 [facility] Non-Formulary Medication (Amylase/Lipase/Protease) 0 units PO 1000,1400,2000 PRN PRN Reason: SNACKS Ondansetron HCl (Ondansetron 4 Mg/2 Ml Sdv) 4 mg IVPUSH ONETIME ONE Stop: 03/29/21 01:03 Last Admin: 03/29/21 01:15 Dose: 4 mg Documented by: - Exam Quality Assessment: Reports: DVT Prophylaxis. Denies: Supplemental Oxygen, Urine Catheter General: Reports: Alert, Oriented, Cooperative, No Acute Distress HEENT: Reports: Pupils Equal, Pupils Reactive, Mucous Membr. Moist/[place] Neck: Reports: Supple, Trachea Midline Lungs: Reports: Clear to Auscultation, Normal Respiratory Effort Cardiovascular: Reports: Regular Rate, Regular Rhythm GI/Abdominal Exam: Normal Bowel Sounds, Soft, No Distention, Tender (Mild tenderness to epigastric region and right upper quadrant) (Male) Exam: Deferred Rectal (Males) Exam: Deferred Back Exam: Reports: Normal Inspection, Full Range of Motion Extremities: Normal Inspection, Normal Range of Motion, Non-Tender, No Pedal Edema, Normal Capillary Refill Skin: Reports: Warm, Dry, Intact Neurological: Reports: No New Focal Deficit Psy/Mental Status: Reports: Alert, Normal Affect, Normal Mood
== END 2021-03-30 13:48 | disposition home or self-care (01) ==
LOC: JD.ED 23:46 → JD.MS 03-29 02:43 → INTOOBSV 03-29 02:43
PROVIDERS: ADMIT Internal Medicine; ATTEND Internal Medicine
DX: K85.90 Acute pancreatitis without necrosis or infection, unspecified (principal); E78.00 Pure hypercholesterolemia, unspecified; G43.909 Migraine, unspecified, not intractable, without status migrainosus; F41.9 Anxiety disorder, unspecified; E78.5 Hyperlipidemia, unspecified; L29.9 Pruritus, unspecified; Z20.822 Contact with and (suspected) exposure to COVID-19; Z88.1 Allergy status to other antibiotic agents; Z79.899 Other long term (current) drug therapy; Z98.890 Other specified postprocedural states; Z90.49 Acquired absence of other specified parts of digestive tract
CPT/HCPCS: 36415; 80053; 82947; 83690; 83735; 85007; 85025; 85027; 86140; 87635; 96374; 96375; 99284; A9270; J1170; J1200; J2405; J7030; G0378; U0002

== ENCOUNTER 2021-05-06 21:39 | Emergency (ER) | payer BC ==
[2021-05-06 21:57] VITALS: BP 115/64; PULSE 95
[2021-05-06] MEDS ORDERED: HYDROmorphone 1 MG/ML Syringe IVPUSH ONE (22:14)
[2021-05-06] MEDS ORDERED: Ondansetron 4 MG/2 ML SDV IVPUSH ONE (22:14)
[2021-05-06] MEDS ORDERED: Sodium Chloride 0.9% 1,000 ML IV SCH (22:15)
--- NOTE | 2021-05-06 22:17 | EDM.PDOC ---
ED HPI GENERAL MEDICAL PROBLEM - General Chief Complaint: Abdominal Pain Stated Complaint: ABD PAIN/FEVER/SORE THROAT Time Seen by Provider: 05/06/21 21:54 Source of Information: Reports: Patient History Limitations: Reports: No Limitations - History of Present Illness INITIAL COMMENTS - FREE TEXT/NARRATIVE: Mr. 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 Work-up included a CBC, CMP, magnesium level, lipase level, and swab for the SARS-CoV-2 virus. His lipase returned to substantially elevated at 11,144, with remainder of his work- up being unremarkable. He was admitted to the hospital. Medical records indicate that his condition improved rapidly, and that he was able to be discharged home with a prescription for oxycodone #10. The patient now returns to the ED stating that he developed relatively mild right upper quadrant abdominal pain around 10:30 this morning, which has progressively gotten worse. He then developed nausea, a fever with chills, a headache, and generalized body aches around 18:00 this evening. His T-max was 101.5 around 2030 this evening. He has treated his symptoms with Tylenol and oxycodone. Here in the ED tonight, the patient is found to be hemodynamically stable, afebrile, saturating 95% on room air. He appears to be comfortable, in no acute distress. Prior to 10:30 this morning, the patient denies having a recent fever, chills, sore throat, ear pain, nasal or sinus congestion, cough, dyspnea, chest pain, palpitations, nausea, vomiting, constipation, diarrhea, urinary symptoms, recent weight gain or weight loss, recent bloody bowel movements or black bowel movements, recent joint aches, headaches, or rashes. I reviewed the PMHx/PSHx/SocHx, which was reviewed with the patient by the RN. The patient's PCP is SANDHYA Bennett, although he has recently seen SANDHYA Cerna. His Civil Engineering Designer is Dr. Brody You at the [facility]. He has received 2 COVID vaccinations, plus an influenza vaccination this season. Abdominal Pain Score (Numeric/FACES): 4 - Related Data Allergies Allergy/AdvReac Type Severity Reaction Status Date / Time amoxicillin Allergy Intermediate Hives Verified 05/06/21 21:58 Home Meds: Home Meds DULoxetine [Cymbalta] 30 mg PO BID 12/15/20 [History] Dicyclomine [Bentyl] 10 mg PO BID 12/15/20 [History] Hyoscyamine [Hyomax-SL] 0.125 mg SL Q6H PRN 12/15/20 [History] Amylase/Lipase/Protease [Creon DR 24,000 Unit] 24,000 units PO ASDIRECTED 03/29/21 [History] L.acidoph,Paracasei, B.lactis [Probiotic] 1 each PO 0600 03/29/21 [History] Multivit-Minerals/Folic Acid [Multivitamin Gummies] 1 tab PO 0600 03/29/21 [Hist ory] traMADol [Ultram] 50 - 100 mg PO BID PRN 03/29/21 [History] oxyCODONE 5 - 10 mg PO ASDIRECTED PRN #10 tab 03/30/21 [Rx] Past Medical History HEENT History: Reports: None Cardiovascular History: Reports: High Cholesterol Respiratory History: Reports: Asthma, Pneumonia, Recurrent Other Respiratory History: cough, reactive airway disease Gastrointestinal History: Reports: Pancreatitis Other Gastrointestinal History: frequent hospitalization for pancreatitis, Sargent 1 gene Genitourinary History: Reports: None SEMICONDUCTOR BONDER History: Reports: None Musculoskeletal History: Reports: None Neurological History: Reports: Migraines Psychiatric History: Reports: Anxiety Other Psychiatric History: insomnia Endocrine/Metabolic History: Reports: None Hematologic History: Reports: None Immunologic History: Reports: None Oncologic (Cancer) History: Reports: None Dermatologic History: Reports: None - Infectious Disease History Infectious Disease History: Reports: Chicken Pox, Mononucleosis Other Infectious Disease History: CMV, mono - Past Surgical History Head Surgeries/Procedures: Reports: None HEENT Surgical History: Reports: Adenoidectomy, Oral Surgery, Tonsillectomy Cardiovascular Surgical History: Reports: None Respiratory Surgical History: Reports: None GI Surgical History: Reports: Appendectomy, Cholecystectomy, Hernia, Abdominal Male Surgical History: Reports: Circumcision Endocrine Surgical History: Reports: None Neurological Surgical History: Reports: None Musculoskeletal Surgical History: Reports: None Oncologic Surgical History: Reports: None Dermatological Surgical History: Reports: None Social & Family History - Family History Family Medical History: No Pertinent Family History - Tobacco Use Tobacco Use Status *Q: Never Tobacco User Second Hand Smoke Exposure: No - Caffeine Use Caffeine Use: Reports: Coffee, Energy Drinks, Soda Other Caffeine Use: 2-3 cups/day Caffeine Use Comment: 2 cups a day - Recreational Drug Use Recreational Drug Use: Yes Recreational Drug Type: Reports: Marijuana/Hashish - Living Situation & Occupation Living situation: Reports: , with Spouse, with Family (2 kids) Occupation: Employed ([employer]) ED ROS GENERAL - Review of Systems Review Of Systems: Comprehensive ROS is negative, except as noted in HPI. ED EXAM, GENERAL - Physical Exam Exam: See Below Exam Limited By: No Limitations General Appearance: Alert, WD/WN, No Apparent Distress Eye Exam: Bilateral Eye: EOMI, Normal Inspection Ears: Normal External Exam, Hearing Grossly Normal Nose: Normal Inspection Throat/Mouth: Normal Inspection, Normal Lips, Normal Voice, No Airway Compromise Head: Atraumatic, Normocephalic Neck: Normal Inspection, Full Range of Motion Respiratory/Chest: No Respiratory Distress, Lungs Clear, Normal Breath Sounds, No Accessory Muscle Use Cardiovascular: Normal Peripheral Pulses, Regular Rate, Rhythm, No Edema, No Gallop, No JVD, No Murmur, No Rub Peripheral Pulses: 3+: Radial (L), Radial (R) GI/Abdominal: Normal Bowel Sounds, Soft, No Organomegaly, No Distention, No Abn ormal Bruit, No Mass, Tender (In the epigastrium only. Essentially nontender elsewhere.) Back Exam: Normal Inspection, Full Range of Motion, NT Extremities: Normal Inspection, Normal Range of Motion, No Pedal Edema, Normal Capillary Refill Neurological: Alert, Oriented, Normal Cognition, No Motor/Sensory Deficits Psychiatric: Normal Affect Skin Exam: Warm, Dry, Intact, Normal Color, No Rash Course - Vital Signs Last Recorded V/S: Last Vital Signs Temp 36.7 C 05/06/21 21:56 Pulse 95 05/06/21 21:56 Resp 15 05/06/21 21:56 BP 115/64 05/06/21 21:56 Pulse Ox 95 05/06/21 21:56 - Orders/Labs/Meds Orders: Active Orders 24 hr Category Date Time Status Sodium Chloride 0.9% [Normal Saline] 1,000 ml Med 05/06/21 22:15 Active IV ASDIRECTED Medication Orders Sodium Chloride (Normal Saline) 1,000 mls @ 150 mls/hr IV ASDIRECTED SHANICE Last Admin: 05/06/21 22:48 Dose: 150 mls/hr Documented by: JOSE Labs: Laboratory Tests 05/06/21 05/06/21 05/06/21 Range/Units 22:08 22:50 22:50 WBC 9.50 H (4.23-9.07) K/mm3 RBC 4.76 (4.63-6.08) M/mm3 Hgb 14.3 (13.7-17.5) gm/dl Hct 41.7 (40.1-51.0) % MCV 87.6 (79.0-92.2) fl MCH 30.0 (25.7-32.2) pg MCHC 34.3 (32.2-35.5) g/dl RDW Std Deviation 42.1 (35.1-43.9) fL Plt Count 113 L (163-337) K/mm3 MPV 11.0 (9.4-12.3) fl Neutrophils % (Manual) 77 H (40-60) % Band Neutrophils % 0 (0-10) % Lymphocytes % (Manual) 14 L (20-40) % Atypical Lymphs % 0 % Monocytes % (Manual) 8 (2-10) % Eosinophils % (Manual) 0 L (0.8-7.0) % Basophils % (Manual) 1 (0.2-1.2) Platelet Estimate Decreased RBC Morph Comment Normal Sodium 139 (136-145) mEq/L Potassium 3.5 (3.5-5.1) mEq/L Chloride 103 (98-107) mEq/L Carbon Dioxide 25 (21-32) mEq/L Anion Gap 14.5 (5-15) BUN 11 (7-18) mg/dL Creatinine 1.1 (0.7-1.3) mg/dL Est Cr Clr Drug Dosing 98.34 mL/min Estimated GFR (MDRD) > 60 (>60) mL/min BUN/Creatinine Ratio 10.0 L (14-18) Glucose 106 H (70-99) mg/dL Calcium 8.6 (8.5-10.1) mg/dL Total Bilirubin 0.8 (0.2-1.0) mg/dL AST 21 (15-37) U/L ALT 55 (16-63) U/L Alkaline Phosphatase 77 (46-116) U/L C-Reactive Protein 0.7 (<1.0) mg/dL Total Protein 7.1 (6.4-8.2) g/dl Albumin 4.1 (3.4-5.0) g/dl Globulin 3.0 gm/dL Albumin/Globulin Ratio 1.4 (1-2) Lipase 56 L (73-393) U/L SARS-CoV-2 RNA (MANISHA) Negative (NEGATIVE) Meds: Medications Generic Name Dose Route Start Last Admin Trade Name Freq PRN Reason Stop Dose Admin Sodium Chloride 1,000 mls @ 150 mls/hr 05/06/21 22:15 05/06/21 22:48 Normal Saline IV 150 mls/hr ASDIRECTED SHANICE Administration Discontinued Medications Generic Name Dose Route Start Last Admin Trade Name Freq PRN Reason Stop Dose Admin Hydromorphone HCl 1 mg 05/06/21 22:14 05/06/21 22:49 Hydromorphone 1 Mg/Ml Syringe IVPUSH 05/06/21 22:15 1 mg ONETIME ONE Administration Ondansetron HCl 4 mg 05/06/21 22:14 05/06/21 22:49 Ondansetron 4 Mg/2 Ml Sdv IVPUSH 05/06/21 22:15 4 mg ONETIME ONE Administration - Re-Assessments/Exams Free Text/Narrative Re-Assessment/Exam: 05/06/21 22:15 A swab for the SARS-CoV-2 virus and influenza A + B viruses was collected at triage. I have ordered several blood tests, and in the meantime, the patient will be given some IV Dilaudid, IV fluid, and IV Zofran. 05/06/21 23:38 The patient's CBC is remarkable for mild leukocytosis of 9.50, but with 0% bandemia, and modest thrombocytopenia of 113,000, with the remainder of his CBC being unremarkable. His CMP is remarkable for slight hyperglycemia of 106, and is otherwise unremarkable. His lipase level is within normal limits at 56. His CRP is within normal limits at 0.7. His swab for the SARS-CoV-2 virus and influenza A + B viruses is negative for all. 05/06/21 23:41 Test results discussed with the patient. As above, today's work-up is grossly unremarkable. I will discharge him home. He states that he already has Zofran at home. Departure - Departure Time of Disposition: 23:42 Disposition: Home, Self-Care 01 Condition: Good Clinical Impression: Epigastric abdominal pain of unknown etiology, Malaise - Discharge Information *PRESCRIPTION DRUG MONITORING PROGRAM REVIEWED*: Not Applicable *COPY OF PRESCRIPTION DRUG MONITORING REPORT IN PATIENT SANAZ: Not Applicable Referrals: Ko Mata PA-C [Primary Care Provider] - Brody You MD [Physician] - Oly Bazan PA-C [Physician Meteorological Engineer] - Forms: ED Department Discharge Additional Instructions: You were seen in the emergency room after developing upper abdominal pain this morning, then fever, chills, body aches, and a headache this evening. Work-up in the ER included several blood tests and a swab for the SARS-CoV-2 virus and influenza A + B viruses. Your entire work-up returned unremarkable. You do not have pancreatitis. Although your swab for the SARS-CoV-2 virus and influenza viruses returned negative, it is still possible that you have either one, as the test for either of these can be falsely negative early in the course of your illness. We recommend that you get retested for these in a few days. In the meantime, stay adequately hydrated. You can take your on Zofran ODT as needed for nausea. If any other problems, please do not hesitate to return to the ER. Sepsis Event Note (ED) - Focused Exam Vital Signs: Vital Signs Temp Pulse Resp BP Pulse Ox 05/06/21 21:56 36.7 C 95 15 115/64 95 - My Orders Last 24 Hours: My Active Orders 05/06/21 22:15 Sodium Chloride 0.9% [Normal Saline] 1,000 ml IV ASDIRECTED - Assessment/Plan Last 24 Hours: My Active Orders 05/06/21 22:15 Sodium Chloride 0.9% [Normal Saline] 1,000 ml IV ASDIRECTED
== END 2021-05-07 00:05 | disposition home or self-care (01) ==
LOC: JD.ED 21:39
DX: R10.13 Epigastric pain (principal); R53.81 Other malaise; D72.829 Elevated white blood cell count, unspecified; J45.909 Unspecified asthma, uncomplicated; Z88.0 Allergy status to penicillin; Z79.899 Other long term (current) drug therapy; Z20.822 Contact with and (suspected) exposure to COVID-19
CPT/HCPCS: 36415; 80053; 83690; 85007; 85027; 86140; 87635; 87804; 96374; 96375; 99284; J1170; J2405; J7030; U0002

== ENCOUNTER 2021-07-29 05:01 | Inpatient (IN) | payer BC ==
[2021-07-29] MEDS ORDERED: HYDROmorphone 1 MG/ML Syringe IVPUSH ONE ×5 (05:44→10:44)
[2021-07-29] MEDS ORDERED: Ondansetron 4 MG/2 ML SDV IVPUSH ONE (05:44)
[2021-07-29] MEDS ORDERED: Sodium Chloride 0.9% 1,000 ML IV ONE (05:44)
[2021-07-29] MEDS ORDERED: diphenhydrAMINE 25 MG Cap PO PRN (10:57)
[2021-07-29] MEDS ORDERED: Naloxone 0.4 MG/ML SDV IVPUSH PRN (10:57)
[2021-07-29] MEDS ORDERED: Ondansetron 4 MG/2 ML SDV IVPUSH PRN (10:57)
[2021-07-29] MEDS ORDERED: Sodium Chloride 0.9% 1,000 ML IV SCH (11:00)
[2021-07-29] MEDS: Ketorolac 30 MG/ML SDV IVPUSH PRN ×2 (11:29→17:52)
[2021-07-29] MEDS ORDERED: Non-Formulary Medication 1 Each (Amylase/Lipase/Protease 1 CAP Cap.Cr) PO SCH (12:00)
[2021-07-29] MEDS: NS + KCl 20mEq/L 1,000 ML IV SCH ×3 (12:13→20:16)
[2021-07-29] MEDS: HYDROmorphone/Normal Saline 6 MG/30 ML PCA Vial IV PRN (12:53)
[2021-07-29] MEDS: Ondansetron 4 MG/2 ML SDV IV PRN (14:54)
[2021-07-29] MEDS: diphenhydrAMINE 50 MG/ML SDV IVPUSH PRN (18:01)
[2021-07-29] MEDS ORDERED: NS + KCl 20mEq/L 1,000 ML IV SCH (19:00)
[2021-07-30] MEDS: Ketorolac 30 MG/ML SDV IVPUSH PRN ×2 (00:13→06:41)
[2021-07-30] MEDS: diphenhydrAMINE 50 MG/ML SDV IVPUSH PRN (00:14)
[2021-07-30] MEDS: HYDROmorphone/Normal Saline 6 MG/30 ML PCA Vial IV PRN ×2 (01:37→10:27)
[2021-07-30] MEDS: NS + KCl 20mEq/L 1,000 ML IV SCH ×2 (02:58→09:44)
[2021-07-30] MEDS ORDERED: Enoxaparin 40 MG/0.4 ML Syringe SUBCUT SCH (09:00)
[2021-07-30] MEDS ORDERED: Polyethylene Glycol 3350 Powder 17 GM Packet PO ONE (10:13)
[2021-07-30] MEDS: Ondansetron 4 MG/2 ML SDV IV PRN (11:58)
[2021-07-30 12:43] VITALS: BP 108/67; PULSE 79
== END 2021-07-30 15:25 | disposition home or self-care (01) | DRG 282 ==
LOC: JD.ED 05:01 → JD.MS 08:26
PROVIDERS: ADMIT Internal Medicine Critical Care Medicine; ATTEND Family Medicine
DX: K85.00 Idiopathic acute pancreatitis without necrosis or infection (principal); U07.1 COVID-19; E78.00 Pure hypercholesterolemia, unspecified; J45.909 Unspecified asthma, uncomplicated; F41.9 Anxiety disorder, unspecified; G47.00 Insomnia, unspecified; Z88.0 Allergy status to penicillin; Z87.01 Personal history of pneumonia (recurrent); Z98.890 Other specified postprocedural states
CPT/HCPCS: 36415; 80053; 83690; 83735; 85007; 85025; 85027; 94762; 96374; 96375; 96376; 99284-25; 99285; A9270-GY; J1170; J1200; J1650; J1885; J2405; J3480; J7030; U0002

== ENCOUNTER 2021-10-06 16:18 | Emergency (ER) | payer BC ==
[2021-10-06 16:38] VITALS: BP 120/75; PULSE 70
[2021-10-06] MEDS ORDERED: Ketorolac 15 MG/ML SDV IVPUSH ONE (17:04)
[2021-10-06] MEDS ORDERED: Sodium Chloride 0.9% 1,000 ML IV ONE (17:04)
[2021-10-06] MEDS ORDERED: Prochlorperazine 10 MG in Sodium Chloride 0.9% 50 ML IV ONE (17:04)
[2021-10-06] MEDS ORDERED: diphenhydrAMINE 50 MG/ML SDV IVPUSH ONE (19:25)
== END 2021-10-06 19:50 | disposition home or self-care (01) ==
LOC: JD.ED 16:18
DX: R10.13 Epigastric pain (principal); Z88.0 Allergy status to penicillin
CPT/HCPCS: 36415; 80053; 83690; 85025; 96365; 96375; 99284; J0780; J1200; J1885; J7030

== ENCOUNTER 2022-01-22 20:04 | Emergency (ER) | payer BC ==
[2022-01-22 21:09] VITALS: BP 129/90; PULSE 61
[2022-01-22] MEDS ORDERED: Sodium Chloride 0.9% 1,000 ML IV ONE (21:17)
[2022-01-22] MEDS ORDERED: Ketorolac 30 MG/ML SDV IVPUSH ONE (21:17)
[2022-01-22 21:37] LABS: ESTIMATED GFR 88 mL/min (>60)
[2022-01-22] MEDS ORDERED: HYDROmorphone 0.5 MG/0.5 ML Syringe IVPUSH ONE (22:20)
== END 2022-01-22 23:54 | disposition home or self-care (01) ==
LOC: JD.ED 20:04
DX: R10.10 Upper abdominal pain, unspecified (principal); E78.00 Pure hypercholesterolemia, unspecified; Z88.0 Allergy status to penicillin; Z86.16 Personal history of COVID-19
CPT/HCPCS: 36415; 80053; 83690; 83735; 85025; 86140; 96361; 96374; 96375; 99284; J1170; J1885; J7030

== ENCOUNTER 2023-10-15 09:38 | Inpatient (IN) | payer BC ==
[2023-10-15 11:15] LABS: BASOPHILS PERCENT AUTO 0.4 % (0.0-1.0); EOSINOPHILS ABSOLUTE AUTO 0.2 K/mm3 (0.0-0.4); EOSINOPHILS PERCENT AUTO 3.2 % (0.0-6.0); HEMATOCRIT 50.1 % (42.0-52.0); HEMOGLOBIN 16.7 gm/dl (14.0-18.0); IMMATURE GRAN ABSOLUTE AUTO 0.02 K/mm3 (0.00-0.05); IMMATURE GRAN PERCENT AUTO 0.3 % (0.0-0.4); LYMPHOCYTES ABSOLUTE AUTO 2.4 K/mm3 (1.0-4.8); LYMPHOCYTES PERCENT AUTO 34.3 % (24.0-44.0); MEAN CORPUSCULAR HEMOGLOBIN 28.7 pg (28.0-32.0); MEAN CORPUSCULAR HGB CONC 33.3 g/dl (32.0-36.0); MEAN CORPUSCULAR VOLUME 86.1 fl (83.0-99.0); MEAN PLATELET VOLUME 10.3 fl (9.4-12.4); MONOCYTES ABSOLUTE AUTO 0.7 K/mm3 (0.0-0.8); MONOCYTES PERCENT AUTO 10.7 % (0.0-8.0); NEUTROPHILS ABSOLUTE AUTO 3.6 K/mm3 (1.8-7.7); NEUTROPHILS PERCENT AUTO 51.1 % (41.0-71.0); PLATELET COUNT,PLT 150 K/mm3 (150-400); RED BLOOD CELL COUNT 5.82 M/mm3 (4.52-5.90); WHITE BLOOD CELL COUNT,WBC 6.94 K/mm3 (3.9-11.3)
[2023-10-15] MEDS ORDERED: Naloxone 0.4 MG/ML SDV IVPUSH PRN ×2 (11:34→12:14)
[2023-10-15 11:37] LABS: A/G RATIO 1.2 (1-2); ALANINE AMINOTRANSFERASE,ALT 40 U/L (16-63); ALBUMIN 4.4 g/dl (3.4-5.0); ALKALINE PHOSPHATASE 81 U/L (46-116); ANION GAP 12.5 (5-15); ASPARTATE AMNIOTRANSFERASE,AST 22 U/L (15-37); BILIRUBIN TOTAL 0.5 mg/dL (0.2-1.0); BLOOD UREA NITROGEN,BUN 12 mg/dL (7-18); BUN/CREATININE RATIO 10.9 (14-18); C-REACTIVE PROTEIN 0.12 mg/dL (<0.30); CALCIUM 9.3 mg/dL (8.5-10.1); CARBON DIOXIDE,CO2 29 mEq/L (21-32); CHLORIDE,CL 104 mEq/L (98-107); CREATININE 1.1 mg/dL (0.7-1.3); ESTIMATED GFR 86 mL/min (>60); GLUCOSE RANDOM 95 mg/dL (70-99); MAGNESIUM 2.2 mg/dL (1.8-2.4); POTASSIUM,K 4.5 mEq/L (3.5-5.1); PROTEIN TOTAL,TP 8.2 g/dl (6.4-8.2); SODIUM,NA 141 mEq/L (136-145)
[2023-10-15] MEDS: Sodium Chloride 0.9% 10 ML Syringe FLUSH PRN ×2 (11:39→12:01)
[2023-10-15] MEDS: Lactated Ringers 1,000 ML IV ONE ×2 (11:39→13:14)
[2023-10-15] MEDS: HYDROmorphone 0.5 MG/0.5 ML Syringe IVPUSH ONE ×2 (11:39→12:34)
[2023-10-15 11:40] LABS: LACTIC ACID 0.7 mmol/L (0.4-2.0)
[2023-10-15 11:42] LABS: TROPONIN I HIGH SENSITIVITY < 4 pg/mL (<=76)
[2023-10-15] MEDS: Iopamidol 612 MG/ML 100 ML Bottle IVPUSH ONE (12:01)
[2023-10-15 12:17] LABS: LIPASE 1506 U/L (16-77)
[2023-10-15] MEDS: Ketorolac 30 MG/ML SDV IVPUSH ONE (14:27)
[2023-10-15] MEDS: Heparin Sodium 5,000 Units/ML Vial SUBCUT SCH (15:46)
[2023-10-15] MEDS: Sodium Chloride 0.9% 1,000 ML IV SCH (15:46)
[2023-10-15] MEDS: HYDROmorphone 0.5 MG/0.5 ML Syringe IVPUSH PRN (16:50)
[2023-10-15] MEDS: 50% Dextrose in Water 50 ML Syringe IVPUSH PRN (17:48)
[2023-10-15] MEDS: HYDROmorphone 1 MG/ML Syringe IVPUSH PRN (18:10)
[2023-10-15] MEDS: Ketorolac 30 MG/ML SDV IVPUSH PRN (21:01)
[2023-10-15] MEDS: Amitriptyline 25 MG Tab PO SCH (21:03)
[2023-10-15] MEDS: Zolpidem 5 MG Tab PO PRN (21:03)
[2023-10-16 05:34] LABS: BASOPHILS PERCENT AUTO 0.4 % (0.0-1.0); EOSINOPHILS ABSOLUTE AUTO 0.1 K/mm3 (0.0-0.4); EOSINOPHILS PERCENT AUTO 1.3 % (0.0-6.0); HEMATOCRIT 44.5 % (42.0-52.0); HEMOGLOBIN 15.2 gm/dl (14.0-18.0); IMMATURE GRAN ABSOLUTE AUTO 0.02 K/mm3 (0.00-0.05); IMMATURE GRAN PERCENT AUTO 0.4 % (0.0-0.4); LYMPHOCYTES ABSOLUTE AUTO 1.3 K/mm3 (1.0-4.8); LYMPHOCYTES PERCENT AUTO 22.8 % (24.0-44.0); MEAN CORPUSCULAR HEMOGLOBIN 29.3 pg (28.0-32.0); MEAN CORPUSCULAR HGB CONC 34.2 g/dl (32.0-36.0); MEAN CORPUSCULAR VOLUME 85.9 fl (83.0-99.0); MEAN PLATELET VOLUME 10.5 fl (9.4-12.4); MONOCYTES ABSOLUTE AUTO 0.8 K/mm3 (0.0-0.8); MONOCYTES PERCENT AUTO 13.6 % (0.0-8.0); NEUTROPHILS ABSOLUTE AUTO 3.4 K/mm3 (1.8-7.7); NEUTROPHILS PERCENT AUTO 61.5 % (41.0-71.0); PLATELET COUNT,PLT 111 K/mm3 (150-400); RED BLOOD CELL COUNT 5.18 M/mm3 (4.52-5.90); WHITE BLOOD CELL COUNT,WBC 5.58 K/mm3 (3.9-11.3)
[2023-10-16 05:50] LABS: A/G RATIO 1.3 (1-2); ALBUMIN 3.5 g/dl (3.4-5.0); ANION GAP 13.6 (5-15); BILIRUBIN TOTAL 1.2 mg/dL (0.2-1.0); BUN/CREATININE RATIO 12.2 (14-18); CALCIUM 8.2 mg/dL (8.5-10.1); CREATININE 0.9 mg/dL (0.7-1.3); EST CRCL DRUG DOSING (CG) 118.56 mL/min; POTASSIUM,K 3.6 mEq/L (3.5-5.1); PROTEIN TOTAL,TP 6.3 g/dl (6.4-8.2)
[2023-10-16] MEDS: D5 1/2 NS w/ 20 mEq/L KCl 1,000 ML IV SCH (11:09)
[2023-10-16] MEDS ORDERED: Docusate Sodium 100 MG Cap PO PRN (11:47)
[2023-10-16] MEDS: Gadobenate Dimeglumine 529 MG/ML 20 ML SDV IVPUSH ONE (12:23)
[2023-10-16] MEDS: Sodium Chloride 0.9% 10 ML SDV IV ONE (12:24)
[2023-10-16] MEDS: Sodium Chloride 0.9% 10 ML Syringe FLUSH SCH (12:24)
[2023-10-16] MEDS: Ondansetron 4 MG Tab.DIS PO PRN (16:08)
[2023-10-16] MEDS: oxyCODONE 5 MG Tab PO PRN (18:57)
[2023-10-16] MEDS: Nortriptyline 25 MG Cap PO SCH (20:09)
[2023-10-16] MEDS: Zolpidem 5 MG Tab PO PRN (20:10)
[2023-10-17 05:01] LABS: BASOPHILS PERCENT AUTO 0.4 % (0.0-1.0); EOSINOPHILS ABSOLUTE AUTO 0.3 K/mm3 (0.0-0.4); EOSINOPHILS PERCENT AUTO 3.1 % (0.0-6.0); HEMATOCRIT 42.5 % (42.0-52.0); HEMOGLOBIN 14.3 gm/dl (14.0-18.0); IMMATURE GRAN ABSOLUTE AUTO 0.02 K/mm3 (0.00-0.05); IMMATURE GRAN PERCENT AUTO 0.2 % (0.0-0.4); LYMPHOCYTES ABSOLUTE AUTO 2.4 K/mm3 (1.0-4.8); LYMPHOCYTES PERCENT AUTO 29.9 % (24.0-44.0); MEAN CORPUSCULAR HEMOGLOBIN 28.4 pg (28.0-32.0); MEAN CORPUSCULAR HGB CONC 33.6 g/dl (32.0-36.0); MEAN CORPUSCULAR VOLUME 84.5 fl (83.0-99.0); MEAN PLATELET VOLUME 10.5 fl (9.4-12.4); MONOCYTES ABSOLUTE AUTO 1.3 K/mm3 (0.0-0.8); MONOCYTES PERCENT AUTO 16.4 % (0.0-8.0); NEUTROPHILS ABSOLUTE AUTO 4.1 K/mm3 (1.8-7.7); PLATELET COUNT,PLT 118 K/mm3 (150-400); RED BLOOD CELL COUNT 5.03 M/mm3 (4.52-5.90)
[2023-10-17 05:30] LABS: A/G RATIO 1.1 (1-2); ALBUMIN 3.2 g/dl (3.4-5.0); ANION GAP 13.1 (5-15); BILIRUBIN TOTAL 0.6 mg/dL (0.2-1.0); CALCIUM 8.3 mg/dL (8.5-10.1); EST CRCL DRUG DOSING (CG) 106.7 mL/min; MAGNESIUM 1.9 mg/dL (1.8-2.4); POTASSIUM,K 4.1 mEq/L (3.5-5.1); PROTEIN TOTAL,TP 6.2 g/dl (6.4-8.2)
[2023-10-17] MEDS: Pantoprazole 40 MG Tab.CR PO SCH (05:59)
[2023-10-17] MEDS ORDERED: D5 1/2 NS w/ 20 mEq/L KCl 1,000 ML IV SCH (09:30)
[2023-10-18] MEDS: D5 1/2 NS w/ 20 mEq/L KCl 1,000 ML IV SCH (02:27)
[2023-10-18 05:37] LABS: BASOPHILS PERCENT AUTO 0.6 % (0.0-1.0); EOSINOPHILS ABSOLUTE AUTO 0.4 K/mm3 (0.0-0.4); EOSINOPHILS PERCENT AUTO 6.1 % (0.0-6.0); HEMOGLOBIN 15.2 gm/dl (14.0-18.0); IMMATURE GRAN ABSOLUTE AUTO 0.03 K/mm3 (0.00-0.05); IMMATURE GRAN PERCENT AUTO 0.5 % (0.0-0.4); LYMPHOCYTES ABSOLUTE AUTO 2.5 K/mm3 (1.0-4.8); LYMPHOCYTES PERCENT AUTO 37.9 % (24.0-44.0); MEAN CORPUSCULAR HGB CONC 33.8 g/dl (32.0-36.0); MEAN CORPUSCULAR VOLUME 85.9 fl (83.0-99.0); MEAN PLATELET VOLUME 10.2 fl (9.4-12.4); MONOCYTES PERCENT AUTO 14.5 % (0.0-8.0); NEUTROPHILS ABSOLUTE AUTO 2.7 K/mm3 (1.8-7.7); NEUTROPHILS PERCENT AUTO 40.4 % (41.0-71.0); PLATELET COUNT,PLT 119 K/mm3 (150-400); RED BLOOD CELL COUNT 5.24 M/mm3 (4.52-5.90)
[2023-10-18 05:56] LABS: ALBUMIN 3.5 g/dl (3.4-5.0); BILIRUBIN TOTAL 0.6 mg/dL (0.2-1.0); BUN/CREATININE RATIO 5.5 (14-18); CREATININE 1.1 mg/dL (0.7-1.3)
[2023-10-18 13:20] VITALS: BP 102/64; PULSE 73
== END 2023-10-18 13:55 | disposition home or self-care (01) | DRG 282 ==
LOC: JD.ED 09:38 → JD.MS 14:49
PROVIDERS: ADMIT Internal Medicine; ATTEND Internal Medicine
DX: K85.00 Idiopathic acute pancreatitis without necrosis or infection (principal); E78.00 Pure hypercholesterolemia, unspecified; J45.909 Unspecified asthma, uncomplicated; K83.8 Other specified diseases of biliary tract; G47.00 Insomnia, unspecified; F41.9 Anxiety disorder, unspecified; Z88.1 Allergy status to other antibiotic agents; Z90.49 Acquired absence of other specified parts of digestive tract; Z90.89 Acquired absence of other organs; Z98.890 Other specified postprocedural states; Z79.899 Other long term (current) drug therapy
CPT/HCPCS: 36415; 74177; 74177-26; 74183; 74183-26; 76705; 76705-26; 80053; 82947; 83605; 83690; 83735; 84484; 85025; 86140; 93005; 93010; 99222; 99232; 99239; 99285; A9270-GY; A9577; J1170; J1644; J1885; J3480; J3490; J7030; J7120; Q9967

== ENCOUNTER 2024-02-29 10:44 | Emergency (ER) | payer BC ==
[2024-02-29] MEDS: Metoclopramide 10 MG/2 ML SDV IVPUSH ONE (11:03)
[2024-02-29] MEDS: HYDROmorphone 1 MG/ML Syringe IVPUSH ONE (11:03)
[2024-02-29] MEDS: LORazepam 2 MG/ML SDV IVPUSH ONE (11:31)
[2024-02-29] MEDS: Iopamidol 612 MG/ML 30 ML SDV IVPUSH ONE ×3 (12:06)
[2024-02-29] MEDS: HYDROmorphone 0.5 MG/0.5 ML Syringe IVPUSH ONE (12:55)
[2024-02-29 14:59] VITALS: BP 112/70; PULSE 81
== END 2024-02-29 13:05 | disposition home or self-care (01) ==
LOC: JD.ED 10:44
DX: S42.031A Displaced fracture of lateral end of right clavicle, initial encounter for closed fracture (principal); J45.909 Unspecified asthma, uncomplicated; Z86.16 Personal history of COVID-19; Z90.49 Acquired absence of other specified parts of digestive tract; Z79.899 Other long term (current) drug therapy; Z88.1 Allergy status to other antibiotic agents; V86.99XA Unspecified occupant of other special all-terrain or other off-road motor vehicle injured in nontraffic accident, initial encounter
CPT/HCPCS: 71260; 73000; 73030; 96374; 96375; 96376; 99285; J1170; J2060; J2765; Q9967